=== PATIENT | female | born 1955 | race American Indian/Alaskan Native ===

== ENCOUNTER 2018-05-10 20:10 | Emergency (ER) | payer MEDICAID, OTHER, SELFPAY ==
[2018-05-10 20:28] VITALS: BP 158/95; PULSE 106; RESP 20; TEMP 36.6; O2SAT 97; BMI 16.9
[2018-05-10 21:38] VITALS: BP 138/83; PULSE 100; RESP 16; TEMP 36.7; O2SAT 95
--- NOTE | 2018-05-10 21:54 | ED_ITS ---
HPI - Recheck/Abnormal Lab/Rx <Eliza Marino, BUMPER MACHINE OPERATOR-BC - Last Filed: 05/10/18 22:04> General Chief Complaint: Recheck/Abnormal Lab/Rx Stated Complaint: RAN OUT OF MEDICATIONS Time Seen by Provider: 05/10/18 21:35 Source: patient Mode of arrival: ambulatory Limitations: no limitations History of Present Illness HPI narrative: Patient presents stating ?I need a medication refill. She ran out of her Celexa last week and would like a refill to get her through until her scheduled PCP appointment which is scheduled for the next week. She denies any thoughts of self-harm, thoughts of hurting others, and denies suicidal ideation. She denies any other problems and needs for this visit. Related Data Home Medications Medication Instructions Recorded Confirmed VITAMIN D (Vitamin D3) 1,000 u PO QDAY #0 10/09/17 bupropion HCl 300 mg PO QDAY #0 10/09/17 clopidogrel 75 mg PO QDAY #0 10/09/17 docusate sodium 100 mg PO BID #0 10/09/17 hydroxyzine HCl 50 mg PO Q8HP PRN #0 10/09/17 loratadine [Claritin Liqui-Gel] 10 mg PO QDAY #0 10/09/17 metoprolol succinate [Toprol XL] 25 mg PO QDAY #0 10/09/17 tercyill-gxbn-JX-calcium-mins 1 tab PO QDAY #0 10/09/17 [Thera M Plus (ferrous fumarat)] ranitidine HCl 300 mg PO QDAY #0 10/09/17 Previous Rx's Medication Instructions Recorded albuterol sulfate [Ventolin HFA] 2 puff INH Q4HP PRN #1 ea 10/13/17 levofloxacin [Levaquin] 750 mg PO QDAY #7 tab 10/13/17 prednisone 40 mg PO QDAY #62 tab 10/13/17 tiotropium bromide [Spiriva with 1 puff INH QDAY #30 ea 10/13/17 HandiHaler] citalopram [Celexa] 20 mg PO DAILY #30 tab 05/10/18 Allergies Allergy/AdvReac Type Severity Reaction Status Date / Time codeine [CODEINE] Allergy Severe NAUSEA / Verified 05/10/18 20:37 VOMITING latex Allergy Rash Verified 05/10/18 20:37 Review of Systems <Eliza MichelleMADDY ybarra-BC - Last Filed: 05/10/18 22:04> Review of Systems GENERAL: Denies chills, fatigue, malaise, fever, sweats. HEENT: Denies sinus pain, ear pain, sore throat, difficulty swallowing, dizziness. RESPIRATORY: Denies dyspnea, cough, wheezing, hemoptysis, sputum. CARDIOVASCULAR: Denies chest pain, palpitations, orthopnea, edema, GASTROINTESTINAL: Denies nausea, vomiting, abdominal pain, diarrhea, constipation, melena. : Denies dysuria, frequency, incontinence, hematuria, urinary retention. MUSCULOSKELETAL: denies weakness, joint pain, or bony pain SKIN: Denies rash, skin lesions, or other NEUROLOGIC: Denies weakness, headache, numbness, change in speech, confusion, seizures, incoordination. PSYCHIATRIC: See HPI 12 point review of systems is negative except for those stated above Exam <Elizamia MichelleMADDY ybarra-BC - Last Filed: 05/10/18 22:04> Narrative Exam Narrative: GENERAL: Chronically ill-appearing elderly female in chair on hallway. HEAD: Atraumatic. Normocephalic. No temporal or scalp tenderness. EYES: Pupils equal round and reactive. Extraocular motions intact. No scleral icterus. No injection or drainage. ENT: Nose without bleeding, purulent drainage or septal hematoma. Throat without erythema, tonsillar hypertrophy or exudate. Uvula midline. Airway patent. NECK: Trachea midline. No JVD or lymphadenopathy. Supple, nontender, no meningeal signs. CARDIOVASCULAR: Regular rate and rhythm without murmurs, gallops, or rubs. RESPIRATORY: Slight wheezes to auscultation on expiration. Patient is taking her home albuterol. GASTROINTESTINAL: Abdomen soft, non-tender, nondistended. No hepato-splenomegaly , or palpable masses. No guarding. EXTREMITIES: No clubbing, cyanosis, or edema. No joint tenderness, effusion, or edema noted. BACK: Nontender without deformity or crepitance. No flank tenderness. NEURO: AOx3. Appropriate interactive. SKIN: No rash or erythema. Initial Vital Signs Initial Vital Signs: Vital Signs Temperature 97.8 F 05/10/18 20:28 Pulse Rate 106 H 05/10/18 20:28 Respiratory Rate 20 05/10/18 20:28 Blood Pressure 158/95 H 05/10/18 20:28 Pulse Oximetry 97 05/10/18 20:28 <Brea Hernandez DO - Last Filed: 05/12/18 03:57> Initial Vital Signs Initial Vital Signs: Vital Signs Temperature 97.8 F 05/10/18 20:28 Pulse Rate 106 H 05/10/18 20:28 Respiratory Rate 20 05/10/18 20:28 Blood Pressure 158/95 H 05/10/18 20:28 Pulse Oximetry 97 05/10/18 20:28 Course <ALBERTO Uriostegui - Last Filed: 05/10/18 22:04> Vital Signs - 8 hr 05/10/18 20:28 05/10/18 21:38 Temperature 97.8 F 98.0 F Pulse Rate 106 H 100 H Respiratory Rate 20 16 Blood Pressure 158/95 H Blood Pressure [Left Arm] 138/83 H Pulse Oximetry 97 95 <Brea Hernandez DO - Last Filed: 05/12/18 03:57> Vital Signs - 8 hr 05/10/18 20:28 05/10/18 21:38 Temperature 97.8 F 98.0 F Pulse Rate 106 H 100 H Respiratory Rate 20 16 Blood Pressure 158/95 H Blood Pressure [Left Arm] 138/83 H Pulse Oximetry 97 95 MDM - Recheck/Abnormal Lab/Rx <ALBERTO Uriostegui - Last Filed: 05/10/18 22:04> MDM Narrative Medical decision making narrative: Patient presents requesting medication refill. Given that she is out of her Celexa and already has an appointment with her primary care provider to obtain at, I feel that a refills warranted at this time. She denied suicidal ideations thoughts of self-harm homicidal ideations or thoughts of hurting others. She plans to follow up with her primary care as scheduled and will seek help if needed. Discharge Plan Departure Patient Disposition: Home, Self-Care Clinical Impression: Encounter for medication refill Discharge Date/Time: 05/10/18 22:19 Interventions: ED Discharge Assessment Last Done: 05/10/18 22:17 Instructions: DI for Depression -- Adult, How to Refill a Prescription Activity Restrictions/Additional Instructions: I am giving you several days worth of your Celexa. Please follow-up with your primary care provider as scheduled. Please be evaluated if you have any thoughts of hurting herself or anybody else. Prescriptions: New citalopram [Celexa] 20 mg tablet 20 mg PO DAILY Qty: 30 RF: 0 No Action docusate sodium 100 MG capsule 100 mg PO BID Qty: 0 RF: 0 ranitidine HCl 300 MG tablet 300 mg PO QDAY Qty: 0 RF: 0 hydroxyzine HCl 50 MG tablet 50 mg PO Q8HP PRNQty: 0 RF: 0 loratadine [Claritin Liqui-Gel] 10 MG capsule 10 mg PO QDAY Qty: 0 RF: 0 clopidogrel 75 MG tablet 75 mg PO QDAY Qty: 0 RF: 0 bupropion HCl 300 MG tablet extended release 24 hr 300 mg PO QDAY Qty: 0 RF: 0 tficwczz-wrsp-BJ-calcium-mins [Thera M Plus (ferrous fumarat)] 1 EACH tablet 1 tab PO QDAY Qty: 0 RF: 0 metoprolol succinate [Toprol XL] 25 MG tablet extended release 24 hr 25 mg PO QDAY Qty: 0 RF: 0 VITAMIN D (Vitamin D3) 1,000 u PO QDAY Qty: 0 RF: 0 prednisone 10 MG tablet 40 mg PO QDAY Qty: 62 RF: 0 levofloxacin [Levaquin] 750 MG tablet 750 mg PO QDAY Qty: 7 RF: 0 albuterol sulfate [Ventolin HFA] 90 MCG/PUFF HFA aerosol inhaler 2 puff INH Q4HP PRNQty: 1 RF: 0 tiotropium bromide [Spiriva with HandiHaler] 18 MCG capsule, w/inhalation device 1 puff INH QDAY Qty: 30 RF: 0 <Brea Hernandez, - Last Filed: 05/12/18 03:57> [facility] [place] Attestation: I was immediately available in the department for consultation. Documentation has been reviewed. I agree with assessment and plan.
== END 2018-05-10 22:19 | disposition home or self-care (01) ==
PROVIDERS: Emergency Provider Nurse Practitioner Family
DX: Z76.0 Encounter for issue of repeat prescription (principal)
CPT/HCPCS: 99282

== ENCOUNTER 2018-08-10 15:21 | Emergency (ER) | payer MEDICAID, OTHER, SELFPAY ==
[2018-08-10 15:24] VITALS: BP 158/90; PULSE 111; RESP 20; TEMP 37.7; O2SAT 97; BMI 17.9
[2018-08-10 15:49] VITALS: PULSE 97; RESP 27; O2SAT 99
--- NOTE | 2018-08-10 16:00 | ED.FEMALEGU ---
HPI - Female Genitourinary General Chief complaint: Vaginal Bleeding Stated complaint: FEMALE PROBLEM Time Seen by Provider: 08/10/18 15:43 Source: patient Mode of arrival: ambulatory Limitations: no limitations History of Present Illness HPI Narrative: 62-year-old daily smoker female presents with a chief complaint of vaginal bleeding over the course of the day. Additionally she complains of some suprapubic tenderness and fullness and states that she is having a hard time urinating. She denies fever or chills. She has become a bit short of breath and lightheaded but states that she thinks she is like this most of the time that this may not be out of the ordinary for her. She is occasionally sexually active and was engaged in some sexual activity on Friday Complaint: vaginal bleeding Onset (ago): hour(s) Location: suprapubic Severity: mild Quality: Aching Duration: constant Relieving factors: none Exacerbating factors: none Urinary symptoms: Difficulty Urinating Vaginal discharge: blood Patient : No Related Data Home Medications Medication Instructions Recorded Confirmed bupropion HCl 300 mg PO DAILY #0 10/09/17 08/10/18 clopidogrel 75 mg PO DAILY #0 10/09/17 08/10/18 docusate sodium 100 mg PO BID PRN #0 10/09/17 08/10/18 hydroxyzine HCl 50 mg PO BEDTIME PRN #0 10/09/17 08/10/18 metoprolol succinate [Toprol XL] 25 mg PO DAILY #0 10/09/17 08/10/18 kslseshk-kbue-CS-calcium-mins 1 tab PO DAILY #0 10/09/17 08/10/18 [Thera M Plus (ferrous fumarat)] albuterol sulfate [ProAir HFA] 2 puff INHALATION Q4H PRN 08/10/18 08/10/18 alendronate 70 mg PO QWEEK 08/10/18 08/10/18 atorvastatin 40 mg PO DAILY 08/10/18 08/10/18 cholecalciferol (vitamin D3) 1,000 unit PO DAILY 08/10/18 08/10/18 [Vitamin D3] cyclobenzaprine 5 mg PO BEDTIME PRN 08/10/18 08/10/18 loratadine 10 mg PO DAILY PRN 08/10/18 08/10/18 ranitidine HCl 300 mg PO QPM 08/10/18 08/10/18 tiotropium bromide [Spiriva with 1 puff INH DAILY 08/10/18 08/10/18 HandiHaler] Previous Rx's Medication Instructions Recorded citalopram [Celexa] 20 mg PO DAILY #30 tab 05/10/18 cephalexin [Keflex] 500 mg PO QID 7 Days #28 cap 08/10/18 hydrocodone-acetaminophen 1 tab PO Q4-6H PRN #14 tab 08/10/18 Allergies Allergy/AdvReac Type Severity Reaction Status Date / Time codeine [CODEINE] Allergy Severe NAUSEA / Verified 08/10/18 15:24 VOMITING latex Allergy Rash Verified 08/10/18 15:24 lisinopril Allergy Verified 08/10/18 15:24 Review of Systems Review of Systems All systems reviewed & are unremarkable except as noted in HPI and below Constitutional Denies chills, Denies fever(s), Denies lethargy and Reports weakness Eyes Denies change in vision, Denies eye discharge, Denies irritation and Denies loss of vision ENT Ears, Nose, Mouth, and Throat: Denies change in voice, Denies neck pain and Denies sore throat Cardiovascular Denies chest pain, Denies irregular heart rhythm, Denies lightheadedness, Denies palpitations, Denies dyspnea, Denies dyspnea on exertion and Denies orthopnea Respiratory Denies cough, Denies dyspnea, Denies dyspnea on exertion and Denies wheezing Gastrointestinal Gastrointestinal: Reports abdominal pain, Denies change in bowel habits, Denies diarrhea, Denies nausea and Denies vomiting Genitourinary Reports abnormal vaginal bleeding, Denies hematuria, Denies flank pain, Denies urinary incontinence and Denies urinary urgency Musculoskeletal Denies neck pain Integumentary/Breasts Denies pruritus, Denies erythema, Denies rash and Denies wounds Neurologic Denies confusion, Denies loss of vision and Reports weakness Psychiatric Denies anxiety, Denies confusion, Denies depression, Denies homicidal ideation and Denies suicidal ideation Endocrine Denies palpitations Hematologic/Lymphatic Denies easy bruising Allergic/Immunologic Denies wheezing PFSH Social History Smoking Status: Current every day smoker Exam Narrative Exam Narrative: GENERAL: 62-year-old female, thin, in no obvious or significant distress. HEAD: Atraumatic. Normocephalic. No temporal or scalp tenderness. EYES: Pupils equal round and reactive. Extraocular motions intact. No scleral icterus. No injection or drainage. ENT: Nose without bleeding, purulent drainage or septal hematoma. Throat without erythema, tonsillar hypertrophy or exudate. Uvula midline. Airway patent. NECK: Trachea midline. No JVD or lymphadenopathy. Supple, nontender, no meningeal signs. CARDIOVASCULAR: Regular rate and rhythm without murmurs, gallops, or rubs. RESPIRATORY: Clear to auscultation. Breath sounds equal bilaterally. No wheezes, rales, or rhonchi. GASTROINTESTINAL: Abdomen soft, non-tender, nondistended. No hepato-splenomegaly, or palpable masses. No guarding. PELVIC: no bleeding EXTREMITIES: No clubbing, cyanosis, or edema. No joint tenderness, effusion, or edema noted. BACK: Nontender without deformity or crepitance. No flank tenderness. NEURO: AOx3. SKIN: No rash or erythema. Initial Vital Signs Initial Vital Signs: Vital Signs Temperature 100 F H 08/10/18 15:24 Pulse Rate 111 H 08/10/18 15:24 Respiratory Rate 20 08/10/18 15:24 Blood Pressure 158/90 H 08/10/18 15:24 Pulse Oximetry 97 08/10/18 15:24 Course Orders Ordered: ED Orders 08/10/18 15:30 Basic Metabolic Panel Stat Complete Blood Count AUTO DIFF Stat Type and Screen Stat 08/10/18 16:20 Urinalysis and Microscopic Stat Urine Culture Stat 08/10/18 16:51 CT abdomen pelvis w con Stat Discontinued Medications Albuterol/Ipratropium (Duoneb) 3 ml INH NOW ONE Stop: 08/10/18 15:49 Last Admin: 08/10/18 17:15 Dose: 3 ml Ketorolac Tromethamine (Toradol) 10 mg IV NOW ONE Stop: 08/10/18 17:01 Last Admin: 08/10/18 17:09 Dose: 10 mg Vital Signs - 8 hr 08/10/18 15:24 08/10/18 15:49 08/10/18 16:17 Temperature 100 F H Pulse Rate 111 H 97 H 88 Respiratory Rate 20 27 H 24 Blood Pressure 158/90 H Blood Pressure [Right Arm] 141/84 H Pulse Oximetry 97 99 95 08/10/18 17:18 08/10/18 18:08 Temperature Pulse Rate 84 79 Respiratory Rate 18 20 Blood Pressure Blood Pressure [Right Arm] 132/67 115/73 Pulse Oximetry 95 93 MDM - Female Genitourinary Lab Data Result diagrams: 08/10/18 15:30 08/10/18 15:30 Lab Results 08/10/18 08/10/18 08/10/18 Range/Units 15:30 15:30 15:30 WBC 18.4 H (4.5-11.0) X10^3/uL RBC 4.69 (4.0-5.2) X10^6/uL Hgb 14.3 (12.0-16.0) g/dL Hct 42.8 (36-46) % MCV 91.3 (80-100) fL MCH 30.5 (26-34) PG MCHC 33.5 (30-36) % RDW 14.5 (11.6-14.8) % Plt Count 369 (150-400) X10^3/uL Neut % (Auto) 74.5 (50-75) % Lymph % (Auto) 12.9 L (25-40) % [place] % (Auto) 9.4 (3-14) % Eos % (Auto) 2.7 (2-4) % Baso % (Auto) 0.5 (0-2) % Neut # (Auto) 37424 H (7369-3133) /uL Sodium 142 (137-145) mmol/L Potassium 4.6 (3.4-5.1) mmol/L Chloride 100 (98-107) mmol/L Carbon Dioxide 28 (22-32) mmol/L BUN 14 (7-17) mg/dL Creatinine 0.80 (0.52-1.04) mg/dL Estimated GFR > 60.0 (>60) mL/min BUN/Creatinine Ratio 17.5 (6-22) Glucose 97 (80-110) mg/dL Calcium 9.3 (8.4-10.2) mg/dL Urine Color Urine Appearance Urine pH (4.5-8.0) Ur Specific [place] (1.000-1.035) Urine Protein (Negative) Urine Glucose (UA) (Normal) g/dL Urine Ketones (NEGATIVE) Urine Occult Blood (Negative) Urine Nitrate (Negative) Urine Bilirubin (NEGATIVE) Urine Urobilinogen (0.2) E.U./dL Ur Leukocyte Esterase (NEGATIVE) Urine RBC (0-5/HPF) Urine WBC (0-5/HPF) Ur Squamous Epith Cells Urine Bacteria (None) Ur Culture Indicated? Micro UA Comment Blood Type O Positive Antibody Screen Negative 08/10/18 Range/Units 16:20 WBC (4.5-11.0) X10^3/uL RBC (4.0-5.2) X10^6/uL Hgb (12.0-16.0) g/dL Hct (36-46) % MCV (80-100) fL MCH (26-34) PG MCHC (30-36) % RDW (11.6-14.8) % Plt Count (150-400) X10^3/uL Neut % (Auto) (50-75) % Lymph % (Auto) (25-40) % [place] % (Auto) (3-14) % Eos % (Auto) (2-4) % Baso % (Auto) (0-2) % Neut # (Auto) (0662-8364) /uL Sodium (137-145) mmol/L Potassium (3.4-5.1) mmol/L Chloride (98-107) mmol/L Carbon Dioxide (22-32) mmol/L BUN (7-17) mg/dL Creatinine (0.52-1.04) mg/dL Estimated GFR (>60) mL/min BUN/Creatinine Ratio (6-22) Glucose (80-110) mg/dL Calcium (8.4-10.2) mg/dL Urine Color Red Urine Appearance Other Urine pH 6.5 (4.5-8.0) Ur Specific [place] 1.020 (1.000-1.035) Urine Protein 3+ H (Negative) Urine Glucose (UA) Negative (Normal) g/dL Urine Ketones Negative (NEGATIVE) Urine Occult Blood 3+ H (Negative) Urine Nitrate Negative (Negative) Urine Bilirubin Negative (NEGATIVE) Urine Urobilinogen 0.2 (0.2) E.U./dL Ur Leukocyte Esterase Trace H (NEGATIVE) Urine RBC >100/hpf H (0-5/HPF) Urine WBC 30-100/hpf H (0-5/HPF) Ur Squamous Epith Cells 0-1 /hpf Urine Bacteria Occasional (0-1) (None) Ur Culture Indicated? Specimen cultured Micro UA Comment Not Reportable Blood Type Antibody Screen Discharge Plan Departure Patient Disposition: Home Clinical Impression: Cystitis Discharge Date/Time: 08/10/18 18:43 Interventions: ED Discharge Assessment Last Done: 08/10/18 18:42 Instructions: DI for Acute Cystitis Activity Restrictions/Additional Instructions: *You have been diagnosed with [acute cystitis ] *What to do: *Take medications as directed *Follow up with your primary care provider in 2-3 days, call for an appointment. Let them know you were seen in the Emergency Department and that we ask that you be seen in follow up *Return to ER if you should have any new, worsening or concerning symptoms Prescriptions: New hydrocodone-acetaminophen 5-325 mg tablet 1 tab PO Q4-6H PRN (Reason: pain) Qty: 14 RF: 0 cephalexin [Keflex] 500 mg capsule 500 mg PO QID 7 Days Qty: 28 RF: 0 No Action docusate sodium 100 MG capsule 100 mg PO BID PRN (Reason: Constipation) Qty: 0 RF: 0 hydroxyzine HCl 50 MG tablet 50 mg PO BEDTIME PRN (Reason: itching and hives) Qty: 0 RF: 0 clopidogrel 75 MG tablet 75 mg PO DAILY Qty: 0 RF: 0 bupropion HCl 300 MG tablet extended release 24 hr 300 mg PO DAILY Qty: 0 RF: 0 otyzydtr-yvgz-OD-calcium-mins [Thera M Plus (ferrous fumarat)] 1 EACH tablet 1 tab PO DAILY Qty: 0 RF: 0 metoprolol succinate [Toprol XL] 25 MG tablet extended release 24 hr 25 mg PO DAILY Qty: 0 RF: 0 citalopram [Celexa] 20 mg tablet 20 mg PO DAILY Qty: 30 RF: 0 atorvastatin 40 mg tablet 40 mg PO DAILY RF: 0 alendronate 70 mg tablet 70 mg PO QWEEK RF: 0 ranitidine HCl 150 mg tablet 300 mg PO QPM RF: 0 albuterol sulfate [ProAir HFA] 90 mcg/actuation HFA aerosol inhaler 2 puff Inhalation Q4H PRN (Reason: Wheezing) RF: 0 loratadine 10 mg tablet 10 mg PO DAILY PRN (Reason: Allergy Symptoms) RF: 0 cyclobenzaprine 5 mg tablet 5 mg PO BEDTIME PRN (Reason: Muscle Spasm) RF: 0 cholecalciferol (vitamin D3) [Vitamin D3] 1,000 unit tablet 1,000 unit PO DAILY RF: 0 tiotropium bromide [Spiriva with HandiHaler] 18 MCG capsule, w/inhalation device 1 puff INH DAILY RF: 0 Referrals: Fatoumata Kong MD [Physician] -
[2018-08-10 16:05] LABS: Add Manual Diff / Slide Review NO; Basophils Percent Auto 0.5 % (0-2); Eosinophils Percent Auto 2.7 % (2-4); Hematocrit 42.8 % (36-46); Hemoglobin 14.3 g/dL (12.0-16.0); Lymphocytes Percent Auto 12.9 % (25-40); Mean Corpuscular HGB Conc 33.5 % (30-36); Mean Corpuscular Hemoglobin 30.5 PG (26-34); Mean Corpuscular Volume 91.3 fL (80-100); Monocytes Percent Auto 9.4 % (3-14); Neutrophils Absolute Auto 13700 /uL (3000-5900); Neutrophils Percent Auto 74.5 % (50-75); Platelet Count 369 X10^3/uL (150-400); Red Blood Cell Count 4.69 X10^6/uL (4.0-5.2); Red Cell Distribution Width 14.5 % (11.6-14.8); White Blood Cell Count 18.4 X10^3/uL (4.5-11.0)
[2018-08-10 16:11] LABS: BUN Creatinine Ratio 17.5 (6-22); Blood Urea Nitrogen 14 mg/dL (7-17); Calcium 9.3 mg/dL (8.4-10.2); Carbon Dioxide 28 mmol/L (22-32); Chloride 100 mmol/L (98-107); Estimated Glomerular Filt Rate > 60.0 mL/min (>60); Glucose 97 mg/dL (80-110); HEMOLYSIS 20 (0-50); Potassium 4.6 mmol/L (3.4-5.1); Sodium 142 mmol/L (137-145)
[2018-08-10 16:17] VITALS: BP 141/84; PULSE 88; RESP 24; O2SAT 95
[2018-08-10 16:35] LABS: Bilirubin Urine UA NEGATIVE (NEGATIVE); Color Urine UA RED; Glucose Urine UA NEGATIVE (Normal); Ketones Urine UA NEGATIVE (NEGATIVE); Leukocyte Esterase Urine UA TRACE (NEGATIVE); Nitrite Urine UA NEGATIVE (Negative); Occult Blood Urine UA 3+ (Negative); Protein Urine UA 3+ (Negative); Urobilinogen Urine UA 0.2 E.U./dL (0.2); pH Urine UA 6.5 (4.5-8.0)
[2018-08-10 16:37] LABS: Appearance Urine UA OTHER; Bacteria Urine Occasional (0-1); Culture Indicated Urine Specimen Cultured; RBC Urine >100/HPF (0-5/HPF); Squamous Epithelial Cell Urine 0-1 /HPF; WBC Urine 30-100/HPF (0-5/HPF)
--- NOTE | 2018-08-10 16:51 | DI.CT.S_ITS ---
PROCEDURE: CT ABDOMEN PELVIS W CON INDICATIONS: severe pelvic pain TECHNIQUE: After the administration of intravenous contrast, 5 mm thick sections acquired from the diaphragm to the symphysis. 5 mm coronal and sagittal reformats were acquired. For radiation dose reduction, the following was used: automated exposure control, adjustment of mA and/or kV according to patient size. COMPARISON: [facility], CT, PE STUDY (CTA CHEST), 10/09/2017, 14:10. FINDINGS: Image quality: Excellent. ABDOMEN: Lung bases: Lung bases are clear. Heart size is normal. Solid organs: Liver is normal in size and enhancement. Incidental note is made of focal fatty infiltration adjacent to the falciform ligament, which is not regarded to be pathologic. Gallbladder has been removed. Biliary system is non dilated. Pancreas enhances normally. Spleen is normal in size and enhancement. No adrenal nodules. Kidneys demonstrate normal size and enhancement, without hydronephrosis. Peritoneum and bowel: Bowel loops demonstrate normal wall thickness and caliber. No free fluid or air. Nodes and vessels: No retroperitoneal or mesenteric adenopathy by size criteria. Aorta and inferior vena cava are normal in size. Atherosclerotic calcification is noted. Miscellaneous: No ventral hernias. PELVIS: Genitourinary: Bladder wall demonstrates moderate circumferential thickening. This patient is status post hysterectomy. No adnexal masses are seen. Miscellaneous: No inguinal hernias or adenopathy. Bones: No suspicious bony lesions. No vertebral body compression fractures. Degenerative changes are seen throughout, which are most prominent involving the L5-S1 level. Grade 1 anterolisthesis is seen at L5-S1, with associated bilateral pars defects. IMPRESSION: Moderate circumferential bladder wall thickening is seen. Please correlate with cystitis. Incidental note is made of: Cholecystectomy Hysterectomy Focal L5-S1 degenerative change Dictated by: Donte Adams M.D. on 08/10/2018 at 16:24 Approved by: Donte Adams M.D. on 08/10/2018 at 16:27
[2018-08-10] MEDS: KETOROLAC 60 MG/2 ML VIAL 10 MG IV (17:09)
[2018-08-10] MEDS: ALBUTEROL/IPRATROPIUM 3 ML AMPUL INH (17:15)
[2018-08-10 17:18] VITALS: BP 132/67; PULSE 84; RESP 18; O2SAT 95
[2018-08-10 18:08] VITALS: BP 115/73; PULSE 79; RESP 20; O2SAT 93
== END 2018-08-10 18:43 | disposition home or self-care (01) ==
PROVIDERS: Emergency Provider Emergency Medicine
DX: N30.90 Cystitis, unspecified without hematuria (principal)
CPT/HCPCS: 36591; 74177; 80048; 81001; 85025; 86850; 86900; 86901; 87077; 87086; 87186; 93005; 94640; 96374; 99283; 99285; J1885; Q9967

== ENCOUNTER 2018-08-27 20:20 | Inpatient (IN) | payer MEDICAID, OTHER, SELFPAY ==
[2018-08-27 20:25] VITALS: BP 188/148; PULSE 114; RESP 28; TEMP 37.1; O2SAT 96
[2018-08-27] MEDS: ALBUTEROL 2.5 MG/3 ML NEB (ADULT) INH ×2 (20:34→23:24)
[2018-08-27] MEDS: methylPREDNISolone 125 MG/2 ML VIAL IV (20:34)
--- NOTE | 2018-08-27 20:34 | ED_ITS ---
HPI - SOB/Dyspnea General Chief Complaint: Shortness of Breath/Dyspnea Stated Complaint: DIFFICULTY BREATHING Time Seen by Provider: 08/27/18 20:30 Source: patient Mode of arrival: ambulatory Limitations: no limitations History of Present Illness Patient is a 62-year-old female who has a history of COPD presenting with acute shortness of breath. She has been ongoing for about a week progressively got worse today. She took breathing treatments at home and did not get any better. She denies any fever she denies any worsening productive sputum. She has chest tightness. MD Complaint: shortness of breath and cough Related Data Home Medications Medication Instructions Recorded Confirmed bupropion HCl 300 mg PO DAILY #0 10/09/17 08/28/18 clopidogrel 75 mg PO DAILY #0 10/09/17 08/28/18 docusate sodium 100 mg PO BID PRN #0 10/09/17 08/28/18 hydroxyzine HCl 50 mg PO BEDTIME PRN #0 10/09/17 08/28/18 metoprolol succinate [Toprol XL] 25 mg PO DAILY #0 10/09/17 08/28/18 [id number]-[id number]-[id number]-calcium-mins 1 tab PO DAILY #0 10/09/17 08/10/18 [Thera M Plus (ferrous fumarat)] albuterol sulfate [ProAir HFA] 2 puff INHALATION Q4H PRN 08/10/18 08/28/18 alendronate 70 mg PO QWEEK 08/10/18 08/28/18 atorvastatin 20 mg PO DAILY 08/10/18 08/28/18 cholecalciferol (vitamin D3) 1,000 unit PO DAILY 08/10/18 08/28/18 [Vitamin D3] cyclobenzaprine 5 mg PO BEDTIME PRN 08/10/18 08/10/18 loratadine 10 mg PO DAILY PRN 08/10/18 08/28/18 ranitidine HCl 300 mg PO QPM 08/10/18 08/28/18 tiotropium bromide [Spiriva with 1 puff INH DAILY 08/10/18 08/28/18 HandiHaler] Previous Rx's Medication Instructions Recorded citalopram [Celexa] 20 mg PO DAILY #30 tab 05/10/18 hydrocodone-acetaminophen 1 tab PO Q4-6H PRN #14 tab 08/10/18 Allergies Allergy/AdvReac Type Severity Reaction Status Date / Time codeine [CODEINE] Allergy Severe NAUSEA / Verified 08/10/18 15:24 VOMITING latex Allergy Rash Verified 08/10/18 15:24 lisinopril Allergy Verified 08/10/18 15:24 Review of Systems Review of Systems All systems reviewed & are unremarkable except as noted in HPI and below Constitutional Denies chills, Denies fever(s), Denies lethargy and Denies weakness Cardiovascular Denies chest pain, Denies irregular heart rhythm, Denies lightheadedness, Denies palpitations and Denies orthopnea Respiratory Reports as per HPI Gastrointestinal Gastrointestinal: Denies abdominal pain, Denies change in bowel habits, Denies diarrhea, Denies nausea and Denies vomiting Musculoskeletal Denies back pain, Denies muscle weakness, Denies numbness and Denies tingling Integumentary/Breasts Denies pruritus, Denies erythema, Denies rash and Denies wounds Neurologic Denies numbness, Denies tingling and Denies weakness Endocrine Denies palpitations PFSH Medical History COPD (chronic obstructive pulmonary disease) (Acute) Hypertension (Acute) Irritable bowel syndrome (IBS) (Acute) Urinary tract infection (Acute) Surgical History Total knee replacement status (Acute) Social History household members: friend(s) Smoking Status: Former smoker alcohol intake: former Exam Initial Vital Signs Initial Vital Signs: Vital Signs Temperature 98.8 F 08/27/18 20:25 Pulse Rate 114 H 08/27/18 20:25 Respiratory Rate 28 H 08/27/18 20:25 Blood Pressure 188/148 H 08/27/18 20:25 Pulse Oximetry 96 08/27/18 20:25 Const General: cooperative and in distress Nutritional Appearance: thin Orientation: alert, awake and oriented x3 Resp Effort & Inspection: not able to speak in complete sentences ( speaking in 1 to two-word sentences), labored and prolonged expiratory phase Auscultation: diminished lung sounds bilaterally and no wheezes Cardio Rhythm: regular rhythm Heart Sounds: S1 normal and S2 normal GI Palpation: soft, No firm, No guarding and No tender Skin General: no rashes or lesions noted, No jaundice and No petechiae Neuro General: alert, oriented x3, gait normal and no focal motor deficits Speech: speech normal Extrem General: full ROM, no clubbing, cyanosis or edema, no pedal edema and no calf tenderness Course Orders Ordered: ED Orders 08/27/18 20:30 B Type Natriuretic Peptide Stat Complete Blood Count AUTO DIFF Stat Comprehensive Metabolic Panel Stat Magnesium Stat Procalcitonin Stat Troponin & CK Cardiac Panel Stat EKG-12 Lead Stat 08/27/18 20:32 XR chest 1V Stat 08/27/18 20:44 Lactate (Lactic Acid) Stat 08/27/18 23:35 Arterial Blood Gas Stat 08/27/18 23:39 Blood Culture Stat Lactate (Lactic Acid) Stat 08/28/18 01:33 Consult to Physician Routine Consult to Respiratory Therapy Evaluate & Treat Acetaminophen (Tylenol) 650 mg PO Q6HR PRN PRN Reason: As Needed for Fever/Mild Pain Last Admin: 08/28/18 02:35 Dose: 650 mg Sodium Chloride (Normal Saline 0.9%) 1,000 mls @ 200 mls/hr IV CONT LULY Last Admin: 08/28/18 02:27 Dose: 200 mls/hr Methylprednisolone (Solu-Medrol 125 Mg Vial) 80 mg IV Q8HR LULY Discontinued Medications Albuterol (Ventolin) 2.5 mg INH NOW ONE Stop: 08/27/18 20:31 Last Admin: 08/27/18 20:34 Dose: 2.5 mg Albuterol (Proventil) 1.25 mg INH NOW ONE Stop: 08/27/18 23:21 Albuterol (Ventolin) 2.5 mg INH NOW ONE Stop: 08/27/18 23:24 Last Admin: 08/27/18 23:24 Dose: 2.5 mg Albuterol/Ipratropium (Duoneb) 3 ml INH NOW ONE Stop: 08/27/18 20:31 Last Admin: 08/27/18 20:35 Dose: 3 ml Albuterol/Ipratropium (Duoneb) 3 ml INH NOW ONE Stop: 08/27/18 21:47 Last Admin: 08/27/18 21:47 Dose: 3 ml Sodium Chloride (Normal Saline 0.9%) 1,000 mls @ 1,000 mls/hr IV BOLUS ONE Stop: 08/27/18 21:29 Last Infusion: 08/27/18 22:00 Dose: 0 mls/hr Admin: 08/27/18 20:38 Dose: 1,000 mls/hr Sodium Chloride (Normal Saline 0.9%) 1,000 mls @ 1,000 mls/hr IV BOLUS ONE Stop: 08/27/18 23:09 Last Infusion: 08/27/18 23:20 Dose: 0 mls/hr Admin: 08/27/18 22:17 Dose: 1,000 mls/hr Ceftriaxone Sodium/Dextrose (Rocephin) 1 gm in 50 mls @ 100 mls/hr IV NOW ONE Stop: 08/27/18 23:48 Last Infusion: 08/27/18 23:59 Dose: 0 mls/hr Admin: 08/27/18 23:25 Dose: 100 mls/hr Azithromycin 500 mg/ Dextrose 250 mls @ 250 mls/hr IV NOW ONE Stop: 08/27/18 23:20 Last Infusion: 08/28/18 01:17 Dose: 0 mls/hr Admin: 08/27/18 23:58 Dose: 250 mls/hr Methylprednisolone (Solu-Medrol 125 Mg Vial) 125 mg IV NOW ONE Stop: 08/27/18 20:31 Last Admin: 08/27/18 20:34 Dose: 125 mg Morphine Sulfate (Morphine) 2 mg IV NOW ONE Stop: 08/28/18 00:50 Last Admin: 08/28/18 00:51 Dose: 2 mg Ondansetron HCl (Zofran Odt) 4 mg PO NOW ONE Stop: 08/28/18 01:10 Last Admin: 08/28/18 01:11 Dose: 4 mg Vital Signs - 8 hr 08/27/18 20:25 08/27/18 21:11 08/27/18 21:47 Temperature 98.8 F Pulse Rate 114 H 98 H 104 H Respiratory Rate 28 H 28 H 30 H Blood Pressure 188/148 H Blood Pressure [Left Arm] 148/87 H Pulse Oximetry 96 96 95 08/27/18 22:20 08/27/18 23:25 08/28/18 01:13 Temperature Pulse Rate 102 H 110 H 101 H Respiratory Rate 23 24 28 H Blood Pressure Blood Pressure [Left Arm] 165/78 H 134/68 Pulse Oximetry 94 94 95 08/28/18 01:37 08/28/18 02:31 Temperature 98.7 F Pulse Rate 117 H 98 H Respiratory Rate 20 24 Blood Pressure 153/104 H 146/80 H Blood Pressure [Left Arm] Pulse Oximetry 91 94 MDM - SOB/Dyspnea Medical Records Attestation: I reviewed the patient's medical records. Lab Data Attestation: I reviewed the patient's lab results. Result diagrams: 08/27/18 20:30 08/27/18 20:30 Lab Results 08/27/18 08/27/18 08/27/18 Range/Units 20:30 20:30 20:30 WBC 11.3 H (4.5-11.0) X10^3/uL RBC 4.44 (4.0-5.2) X10^6/uL Hgb 13.7 (12.0-16.0) g/dL Hct 40.7 (36-46) % MCV 91.7 (80-100) fL MCH 30.9 (26-34) PG MCHC 33.7 (30-36) % RDW 14.3 (11.6-14.8) % Plt Count 429 H (150-400) X10^3/uL Neut % (Auto) 53.4 (50-75) % Lymph % (Auto) 28.9 (25-40) % Dickinson % (Auto) 9.2 (3-14) % Eos % (Auto) 7.8 H (2-4) % Baso % (Auto) 0.7 (0-2) % Neut # (Auto) 6000 H (6471-4494) /uL ABG pH (7.35-7.45) ABG pCO2 (35-45) mmHg ABG pO2 (80-100) mmHg ABG HCO3 (22-26) mmol/L ABG Total CO2 (21-31) mmol/L ABG O2 Saturation (95-100) % ABG Base Excess (-2-2) mmol/L FiO2 Sodium (137-145) mmol/L Potassium (3.4-5.1) mmol/L Chloride (98-107) mmol/L Carbon Dioxide (22-32) mmol/L BUN (7-17) mg/dL Creatinine (0.52-1.04) mg/dL Estimated GFR (>60) mL/min BUN/Creatinine Ratio (6-22) Glucose (80-110) mg/dL Lactate (0.7-2.1) mmol/L Calcium (8.4-10.2) mg/dL Magnesium 2.5 H (1.6-2.3) mg/dL Total Bilirubin (0.2-1.3) mg/dL AST (14-36) IU/L ALT (9-52) IU/L Alkaline Phosphatase (38-126) U/L Total Creatine Kinase 185 H (30-135) U/L CK-MB (CK-2) 3.24 H (<2.37) ng/mL CK-MB (CK-2) Rel Index 1.8 (1.5-5.0) % Troponin I < 0.012 (0.01-0.034) ng/mL B-Natriuretic Peptide < 100.0 (<100) Total Protein (6.3-8.2) g/dL Albumin (3.5-5.0) g/dL Globulin (1.7-4.1) g/dL Albumin/Globulin Ratio (1.0-2.8) Procalcitonin < 0.05 (<0.5) ng/mL 08/27/18 08/27/18 08/27/18 Range/Units 20:30 20:44 23:35 WBC (4.5-11.0) X10^3/uL RBC (4.0-5.2) X10^6/uL Hgb (12.0-16.0) g/dL Hct (36-46) % MCV (80-100) fL MCH (26-34) PG MCHC (30-36) % RDW (11.6-14.8) % Plt Count (150-400) X10^3/uL Neut % (Auto) (50-75) % Lymph % (Auto) (25-40) % Dickinson % (Auto) (3-14) % Eos % (Auto) (2-4) % Baso % (Auto) (0-2) % Neut # (Auto) (6003-1590) /uL ABG pH 7.32 L (7.35-7.45) ABG pCO2 32.8 L (35-45) mmHg ABG pO2 69 L (80-100) mmHg ABG HCO3 17 L (22-26) mmol/L ABG Total CO2 18 L (21-31) mmol/L ABG O2 Saturation 92 L (95-100) % ABG Base Excess -9.0 L (-2-2) mmol/L FiO2 0.21 Sodium 143 (137-145) mmol/L Potassium 4.5 (3.4-5.1) mmol/L Chloride 102 (98-107) mmol/L Carbon Dioxide 23 (22-32) mmol/L BUN 12 (7-17) mg/dL Creatinine 0.80 (0.52-1.04) mg/dL Estimated GFR > 60.0 (>60) mL/min BUN/Creatinine Ratio 15.0 (6-22) Glucose 84 (80-110) mg/dL Lactate 3.1 H (0.7-2.1) mmol/L Calcium 8.9 (8.4-10.2) mg/dL Magnesium (1.6-2.3) mg/dL Total Bilirubin 0.2 (0.2-1.3) mg/dL AST 41 H (14-36) IU/L ALT 27 (9-52) IU/L Alkaline Phosphatase 96 (38-126) U/L Total Creatine Kinase (30-135) U/L CK-MB (CK-2) (<2.37) ng/mL CK-MB (CK-2) Rel Index (1.5-5.0) % Troponin I (0.01-0.034) ng/mL B-Natriuretic Peptide (<100) Total Protein 8.3 H (6.3-8.2) g/dL Albumin 4.9 (3.5-5.0) g/dL Globulin 3.4 (1.7-4.1) g/dL Albumin/Globulin Ratio 1.4 (1.0-2.8) Procalcitonin (<0.5) ng/mL 08/27/18 Range/Units 23:39 WBC (4.5-11.0) X10^3/uL RBC (4.0-5.2) X10^6/uL Hgb (12.0-16.0) g/dL Hct (36-46) % MCV (80-100) fL MCH (26-34) PG MCHC (30-36) % RDW (11.6-14.8) % Plt Count (150-400) X10^3/uL Neut % (Auto) (50-75) % Lymph % (Auto) (25-40) % Dickinson % (Auto) (3-14) % Eos % (Auto) (2-4) % Baso % (Auto) (0-2) % Neut # (Auto) (4913-5562) /uL ABG pH (7.35-7.45) ABG pCO2 (35-45) mmHg ABG pO2 (80-100) mmHg ABG HCO3 (22-26) mmol/L ABG Total CO2 (21-31) mmol/L ABG O2 Saturation (95-100) % ABG Base Excess (-2-2) mmol/L FiO2 Sodium (137-145) mmol/L Potassium (3.4-5.1) mmol/L Chloride (98-107) mmol/L Carbon Dioxide (22-32) mmol/L BUN (7-17) mg/dL Creatinine (0.52-1.04) mg/dL Estimated GFR (>60) mL/min BUN/Creatinine Ratio (6-22) Glucose (80-110) mg/dL Lactate 4.4 H (0.7-2.1) mmol/L Calcium (8.4-10.2) mg/dL Magnesium (1.6-2.3) mg/dL Total Bilirubin (0.2-1.3) mg/dL AST (14-36) IU/L ALT (9-52) IU/L Alkaline Phosphatase (38-126) U/L Total Creatine Kinase (30-135) U/L CK-MB (CK-2) (<2.37) ng/mL CK-MB (CK-2) Rel Index (1.5-5.0) % Troponin I (0.01-0.034) ng/mL B-Natriuretic Peptide (<100) Total Protein (6.3-8.2) g/dL Albumin (3.5-5.0) g/dL Globulin (1.7-4.1) g/dL Albumin/Globulin Ratio (1.0-2.8) Procalcitonin (<0.5) ng/mL Urine Dip Bedside Urine Glucose Negative Bedside Urine Bilirubin - Negative Bedside Urine Ketone - Negative Urine Specific [address] 1.015 Bedside Urine Occult Blood - Negative Bedside Urine pH 6.0 Bedside Urine Protein - Negative Bedside Urine Urobilinogen - Negative Bedside Urine Nitrite - Negative Bedside Urine Leukocytes - Negative Esterase Imaging Data Chest x-ray: Radiologist's impression: PROCEDURE: XR CHEST 1V INDICATIONS: short of breath TECHNIQUE: One view of the chest was acquired. COMPARISON: [facility], CR, CHEST 2 VIEW, 10/09/2017, 12:56. [facility], CT, PE STUDY (CTA CHEST), 10/09/2017, 14:10. FINDINGS: Surgical changes and devices: None. Lungs and pleura: Hyperinflation consistent with COPD. No pleural effusions or pneumothorax. Lungs are clear. Mediastinum: Mediastinal contours appear normal. Heart size is normal. Bones and chest wall: Old right fifth and eighth rib fractures are noted. No suspicious bony lesions. Overlying soft tissues appear unremarkable. IMPRESSION: 1. No acute cardiopulmonary disease. 2. COPD. 3. Old right fifth and eighth rib fractures. Dictated by: Kylah Hall M.D. on 08/27/2018 at 20:59 ECG Data Attestation: I personally reviewed and interpreted this ECG as follows: Prior ECG tracings: available for review Interpretation: sinus rhythm rate [address] changes no T-wave inversions similar to previous EKG MDM Narrative Medical decision making narrative: Patient responded well to initial bronchodilators. She can't able to talk. She is monitored for over the next couple of hours. She continues to have coughing episode of chest tightness and difficulty breathing. She is requiring multiple treatments. She is not hypoxic but would benefit from at least observation frequent treatments and IV steroids. Lactic acid is noted to be elevated and continues to rest.. However patient continues to have respiratory distress also her CO2 is low, I do not believe this is from sepsis however she is given IV fluids and antibiotics. Blood cultures are Dr. Hopson has been updated on test results and symptoms. Agrees with observation at this time. Discharge Plan Departure Patient Disposition: Admitted as Observation Clinical Impression: Acute exacerbation of chronic obstructive airways disease Discharge Date/Time: 08/28/18 01:20 Interventions: ED Discharge Assessment Last Done: 08/28/18 01:14 Admit Date/Time: 08/28/18 00:19 Admit Provider: Mike Hopson
[2018-08-27] MEDS: ALBUTEROL/IPRATROPIUM 3 ML AMPUL INH ×2 (20:35→21:47)
[2018-08-27] MEDS: SODIUM CHLORIDE 0.9% 1,000 ML 1000 ML IV ×2 (20:38→22:17)
[2018-08-27 20:41] LABS: Add Manual Diff / Slide Review NO; Basophils Percent Auto 0.7 % (0-2); Eosinophils Percent Auto 7.8 % (2-4); Hematocrit 40.7 % (36-46); Hemoglobin 13.7 g/dL (12.0-16.0); Lymphocytes Percent Auto 28.9 % (25-40); Mean Corpuscular HGB Conc 33.7 % (30-36); Mean Corpuscular Hemoglobin 30.9 PG (26-34); Mean Corpuscular Volume 91.7 fL (80-100); Monocytes Percent Auto 9.2 % (3-14); Neutrophils Absolute Auto 6000 /uL (3000-5900); Neutrophils Percent Auto 53.4 % (50-75); Platelet Count 429 X10^3/uL (150-400); Red Blood Cell Count 4.44 X10^6/uL (4.0-5.2); Red Cell Distribution Width 14.3 % (11.6-14.8); White Blood Cell Count 11.3 X10^3/uL (4.5-11.0)
[2018-08-27 21:03] LABS: Alanine Aminotransferase 27 IU/L (9-52); Albumin 4.9 g/dL (3.5-5.0); Albumin Globulin Ratio 1.4 (1.0-2.8); Alkaline Phosphatase 96 U/L (38-126); Aspartate Aminotransferase 41 IU/L (14-36); Bilirubin Total 0.2 mg/dL (0.2-1.3); Blood Urea Nitrogen 12 mg/dL (7-17); Calcium 8.9 mg/dL (8.4-10.2); Carbon Dioxide 23 mmol/L (22-32); Chloride 102 mmol/L (98-107); Estimated Glomerular Filt Rate > 60.0 mL/min (>60); Globulin 3.4 g/dL (1.7-4.1); Glucose 84 mg/dL (80-110); HEMOLYSIS < 15 (0-50); Potassium 4.5 mmol/L (3.4-5.1); Sodium 143 mmol/L (137-145); Total Protein 8.3 g/dL (6.3-8.2)
[2018-08-27 21:11] VITALS: BP 148/87; PULSE 98; RESP 28; O2SAT 96
[2018-08-27 21:13] LABS: B Type Natriuretic Peptide < 100.0 (<100)
[2018-08-27 21:15] LABS: Lactate (Lactic Acid) 3.1 mmol/L (0.7-2.1)
[2018-08-27 21:18] LABS: Creatine Kinase 185 U/L (30-135); Magnesium 2.5 mg/dL (1.6-2.3)
[2018-08-27 21:31] LABS: Troponin I < 0.012 ng/mL (0.01-0.034)
[2018-08-27 21:33] LABS: CKMB % Relative Index 1.8 % (1.5-5.0); Creatine Kinase MB 3.24 ng/mL (<2.37)
[2018-08-27 21:36] LABS: Procalcitonin < 0.05 ng/mL (<0.5)
--- NOTE | 2018-08-27 21:43 | PC.NURSE ---
Pt coughing and states increase SOB. RT called and Dr. Hernandez notified.
[2018-08-27 21:47] VITALS: PULSE 104; RESP 30; O2SAT 95
--- NOTE | 2018-08-27 21:52 | RT ---
PT RECEIVED NEB X 2 BY RN PRIOR TO THIS TX. BILLING FOR ALL 3.
[2018-08-27 22:20] VITALS: BP 165/78; PULSE 102; RESP 23; O2SAT 94
[2018-08-27 23:25] VITALS: PULSE 110; RESP 24; O2SAT 94
[2018-08-27] MEDS: CEFTRIAXONE 1 GM/50 ML FROZ.PIGGY IV (23:25)
[2018-08-27 23:58] LABS: HCO3 ABG 17 mmol/L (22-26); PCO2 ABG 32.8 mmHg (35-45); PO2 ABG 69 mmHg (80-100); TCO2 ABG 18 mmol/L (21-31); pH ABG 7.32 (7.35-7.45)
[2018-08-27] MEDS: AZITHROMYCIN 500 MG in DEXTROSE 5% IN WATER 250 ML IV (23:58)
[2018-08-27 23:59] LABS: Lactate (Lactic Acid) 4.4 mmol/L (0.7-2.1)
[2018-08-27 23:59] LABS: Fractionated Inspired Oxygen 0.21; Oxygen Saturation ABG 92 % (95-100)
[2018-08-28] VITALS (13 sets, daily range): BP systolic 118–153; BP diastolic 56–104; PULSE 88–117; RESP 16–28; TEMP 36.7–37.2; O2SAT 91–97; BMI 17.8
[2018-08-28] MEDS: MORPHINE 2 MG/ML INJ IV (00:51)
[2018-08-28 00:56] LABS: Reflexed Lactate in 2 Hours Y
[2018-08-28] MEDS: ONDANSETRON 4 MG ODT PO (01:11)
[2018-08-28] MEDS: SODIUM CHLORIDE 0.9% 1,000 ML 200 ML IV (02:27)
[2018-08-28] MEDS: ACETAMINOPHEN 325 MG TABLET 650 MG PO (02:35)
[2018-08-28] MEDS: HYDROCODONE/ACET 5/325 TABLET 1 TAB PO ×2 (03:25→18:59)
[2018-08-28 03:43] LABS: Reflexed Lactate in 2 Hours Y
[2018-08-28] MEDS: methylPREDNISolone 125 MG/2 ML VIAL 80 MG IV ×3 (06:43→21:48)
[2018-08-28] MEDS: ALBUTEROL/IPRATROPIUM 3 ML AMPUL INH ×4 (09:27→20:01)
--- NOTE | 2018-08-28 10:53 | PC.NURSE ---
Addendum entered by Nelsy Jacobson R.N. 08/28/18 11:42: pt c/o SOB. O2 sat is 97% HR up to 115 with labored breathing. No PRN inhaler in drawer so I called RT and they arrived to administer their scheduled treatment at 1135. Original Note: AM Shift pt AO, pleasant, and receptive to care. Persistent coughing, wasn't productive until post-RT treatment. Encouraging pt to sip up phlegm into tissue and discard. SBA with cane to BR. Reporting 6/10 pain in stomach area, thinks it is because she has reflux. Reporting SOB with activity, but O2 levels stay around 93-94% on RA. Patient also c/o the persistent cough, reflux, and cramps in her feet (bilaterally). I wrote a note to the hospitalist for lozenges, no orders as of this note. Patient has a history of left hip issues and uses a cane to ambulate, uses cane on left side bc she is left-handed (the can is borrowed from the trauma adame). RT has seen the patient this AM and PT is in room currently. Skin is good, other than a couple bruises.
--- NOTE | 2018-08-28 11:11 | CM.DANOTE ---
Discharge Planning/Care Management DCP: assessment: case received, EMR reviewed and met 0830 with pt. Introduced self and role. Pt is a 62 year old female who admitted early this morning 00:19 to care of hospitalist team. PCP: under care of the [facility]/Symone Lobo. Payer Medicaid and [facility] Pt is not at baseline homebound. Admits to a bit of unsteadiness at baseline and uses a cane prn. RT is following. Hx of COPD. P: follow prn for d/c issues and options as they arise. POC is newly in process. CM Discharge Assessment Start: 08/28/18 11:08 Freq: Status: Active Protocol: Document 08/28/18 11:08 ITV (Rec: 08/28/18 11:11 ITV [id number]) Discharge Planning Assessment History Provided By Patient Medical Record Prior Living Arrangements House Household Members friend(s) Comment lives with roommate: [employer] Type of transporation used prior to Drives own vehicle admit DME Already Rented / Owned Cane Nebulizer Comment occassional when the ground is uneven Whiteboard Updated in Patient Room with Yes name and ext. # of Framing Manager Review Status In Process Next Review Type Continued Stay Review
[2018-08-28] MEDS: ALBUTEROL 2.5 MG/3 ML NEB (ADULT) INH (11:37)
--- NOTE | 2018-08-28 12:17 | PM.HP.1 ---
History of Present Illness Date Patient Seen: 08/28/18 Chief complaint: DIFFICULTY BREATHING Narrative: This is a 62-year-old female who has longstanding COPD and presents with 1 week of shortness of breath, cough, a feeling of fevers and sweating. She is also having muscle cramps at least for the last day. She has chronic chest pain and weight loss probably related to the COPD. She has also fallen recently. There is no elevation in white blood count and the chest x-ray does not show pneumonia. Patient History Medical History COPD (chronic obstructive pulmonary disease) (Acute) Hypertension (Acute) Irritable bowel syndrome (IBS) (Acute) Urinary tract infection (Acute) Surgical History Total knee replacement status (Acute) Family & Social History Family History: Reviewed 08/28/18 by Alfred Payton MD Social History: household members friend(s) Prior Living Arrangements House Safety & Behavioral: Feels Safe in Current Yes Environment Been Physically Hurt or No Threatened By a Person Suicidal Ideation Description None Suicide Plan Description No Plan Tobacco & Substance use: Smoking Status Former smoker alcohol intake former alcohol intake frequency 0-2 drinks per day Substance Use Type does not use Meds Home Medications Medication Instructions Recorded Confirmed Type bupropion HCl 300 mg PO DAILY #0 10/09/17 08/28/18 History clopidogrel 75 mg PO DAILY #0 10/09/17 08/28/18 History docusate sodium 100 mg PO BID PRN #0 10/09/17 08/28/18 History hydroxyzine HCl 50 mg PO BEDTIME PRN #0 10/09/17 08/28/18 History metoprolol succinate [Toprol XL] 25 mg PO DAILY #0 10/09/17 08/28/18 History umqhyutj-uwvr-MS-calcium-mins 1 tab PO DAILY #0 10/09/17 08/28/18 History [Thera M Plus (ferrous fumarat)] citalopram [Celexa] 20 mg PO DAILY #30 tab 05/10/18 08/28/18 Rx albuterol sulfate [ProAir HFA] 2 puff INHALATION Q4H PRN 08/10/18 08/28/18 History alendronate 70 mg PO QWEEK 08/10/18 08/28/18 History atorvastatin 20 mg PO DAILY 08/10/18 08/28/18 History cholecalciferol (vitamin D3) 1,000 unit PO DAILY 08/10/18 08/28/18 History [Vitamin D3] cyclobenzaprine 5 mg PO BEDTIME PRN 08/10/18 08/28/18 History hydrocodone-acetaminophen 1 tab PO Q4-6H PRN #14 tab 08/10/18 08/28/18 Rx loratadine 10 mg PO DAILY PRN 08/10/18 08/28/18 History ranitidine HCl 300 mg PO QPM 08/10/18 08/28/18 History tiotropium bromide [Spiriva with 1 puff INH DAILY 08/10/18 08/28/18 History HandiHaler] Allergies Allergy/AdvReac Type Severity Reaction Status Date / Time codeine [CODEINE] Allergy Severe NAUSEA / Verified 08/10/18 15:24 VOMITING latex Allergy Rash Verified 08/10/18 15:24 lisinopril Allergy Verified 08/10/18 15:24 Review of Systems Review of Systems Positive for fever, shortness of breath, coughing, sweating, muscle cramps. Negative for nausea, vomiting, abdominal pain, bleeding, joint pain, back pain, seizures, headaches, eye problems, new allergies, trouble talking. Exam Vital Signs (past 8 hours): - 08/28/18 04:32 08/28/18 06:03 08/28/18 07:55 Temperature 98.5 F 98.2 F Pulse Rate 88 89 102 H Respiratory Rate 24 16 20 Blood Pressure 120/56 L 118/94 H Pulse Oximetry 93 08/28/18 09:27 08/28/18 11:37 Temperature Pulse Rate 102 H Respiratory Rate 24 Blood Pressure Pulse Oximetry 95 95 Oxygen Delivery Method Room Air Narrative Exam Narrative: She is alert and oriented x3, she is in mild distress from her respiratory effort. Oral exam is normal. Pupils are equally round and reactive to light and accommodation. Sclerae are pink and nonicteric. Throat looks normal. No lymph nodes are felt head, neck, supraclavicular area. There is no thyromegaly. There is no JVD or carotid bruits heard. Heart is tachycardic, regular rhythm, no murmur. Lungs have wheezing left more than right. Abdomen is soft, scaphoid, nontender, no organomegaly. Bowel sounds are positive. Extremities have no ankle edema. Neuro exam. Cranial nerves 2-12 tested intact. Deep tendon reflexes are normal. There is no lateralizing deficit. Motor function is 4/5 throughout. Skin no rash or jaundice. Objective Labs Result Diagrams: 08/27/18 20:30 08/27/18 20:30 Labs: Laboratory Results - last 24 hr 08/27/18 08/27/18 08/27/18 20:30 20:30 20:30 WBC 11.3 H RBC 4.44 Hgb 13.7 Hct 40.7 MCV 91.7 MCH 30.9 MCHC 33.7 RDW 14.3 Plt Count 429 H Neut % (Auto) 53.4 Lymph % (Auto) 28.9 Davidson % (Auto) 9.2 Eos % (Auto) 7.8 H Baso % (Auto) 0.7 Neut # (Auto) 6000 H ABG pH ABG pCO2 ABG pO2 ABG HCO3 ABG Total CO2 ABG O2 Saturation ABG Base Excess FiO2 Sodium Potassium Chloride Carbon Dioxide BUN Creatinine Estimated GFR BUN/Creatinine Ratio Glucose Lactate Calcium Magnesium 2.5 H Total Bilirubin AST ALT Alkaline Phosphatase Total Creatine Kinase 185 H CK-MB (CK-2) 3.24 H CK-MB (CK-2) Rel Index 1.8 Troponin I < 0.012 B-Natriuretic Peptide < 100.0 Total Protein Albumin Globulin Albumin/Globulin Ratio Procalcitonin < 0.05 08/27/18 08/27/18 08/27/18 20:30 20:44 23:35 WBC RBC Hgb Hct MCV MCH MCHC RDW Plt Count Neut % (Auto) Lymph % (Auto) [place] % (Auto) Eos % (Auto) Baso % (Auto) Neut # (Auto) ABG pH 7.32 L ABG pCO2 32.8 L ABG pO2 69 L ABG HCO3 17 L ABG Total CO2 18 L ABG O2 Saturation 92 L ABG Base Excess -9.0 L FiO2 0.21 Sodium 143 Potassium 4.5 Chloride 102 Carbon Dioxide 23 BUN 12 Creatinine 0.80 Estimated GFR > 60.0 BUN/Creatinine Ratio 15.0 Glucose 84 Lactate 3.1 H Calcium 8.9 Magnesium Total Bilirubin 0.2 AST 41 H ALT 27 Alkaline Phosphatase 96 Total Creatine Kinase CK-MB (CK-2) CK-MB (CK-2) Rel Index Troponin I B-Natriuretic Peptide Total Protein 8.3 H Albumin 4.9 Globulin 3.4 Albumin/Globulin Ratio 1.4 Procalcitonin 08/27/18 23:39 WBC RBC Hgb Hct MCV MCH MCHC RDW Plt Count Neut % (Auto) Lymph % (Auto) [place] % (Auto) Eos % (Auto) Baso % (Auto) Neut # (Auto) ABG pH ABG pCO2 ABG pO2 ABG HCO3 ABG Total CO2 ABG O2 Saturation ABG Base Excess FiO2 Sodium Potassium Chloride Carbon Dioxide BUN Creatinine Estimated GFR BUN/Creatinine Ratio Glucose Lactate 4.4 H Calcium Magnesium Total Bilirubin AST ALT Alkaline Phosphatase Total Creatine Kinase CK-MB (CK-2) CK-MB (CK-2) Rel Index Troponin I B-Natriuretic Peptide Total Protein Albumin Globulin Albumin/Globulin Ratio Procalcitonin Assessment & Plan (1) Acute exacerbation of chronic obstructive airways disease: Problem details: Continue oxygen, IV Solu-Medrol and beta agonist therapy. Respiratory therapy is working with her. Current visit: Yes Status: Acute (2) Major depression: Problem details: Continue citalopram and Wellbutrin. Current visit: Yes Status: Acute (3) Mixed hyperlipidemia: Problem details: Continue atorvastatin. Current visit: Yes Status: Acute (4) Hypertension: Current visit: Yes Status: Acute (5) Dermatitis: Problem details: Add triamcinolone cream for her left anterior ankle rash. Current visit: Yes Status: Acute (6) Osteoporosis: Problem details: Continue Fosamax and calcium. Current visit: Yes Status: Acute
[2018-08-28] MEDS: BENZONATATE 100 MG CAPSULE PO (13:32)
[2018-08-28 14:54] LABS: Creatine Kinase 236 U/L (30-135)
[2018-08-28] MEDS: hydrOXYzine pamoate 25 MG CAPSULE 50 MG PO (17:14)
[2018-08-28 18:31] LABS: Reflexed Lactate in 2 Hours Y
[2018-08-28 19:08] LABS: Lactate 2HR (Lactic Acid Rflx) 5.8 mmol/L (0.7-2.1)
[2018-08-28] MEDS: SODIUM CHLORIDE 0.9% FLUSH 10 ML IV (21:48)
[2018-08-29] VITALS (10 sets, daily range): BP systolic 115–159; BP diastolic 53–88; PULSE 88–113; RESP 15–23; TEMP 36.4–37.3; O2SAT 92–96
[2018-08-29] MEDS: BENZONATATE 100 MG CAPSULE PO ×3 (02:38→23:50)
[2018-08-29] MEDS: HYDROCODONE/ACET 5/325 TABLET 1 TAB PO ×4 (02:38→23:44)
[2018-08-29] MEDS: ALBUTEROL/IPRATROPIUM 3 ML AMPUL INH ×3 (05:51→17:32)
[2018-08-29] MEDS: TIOTROPIUM BROMIDE 18 MCG INHALER INH (05:52)
[2018-08-29] MEDS: methylPREDNISolone 125 MG/2 ML VIAL 80 MG IV ×3 (06:17→21:10)
[2018-08-29 08:01] LABS: Add Manual Diff / Slide Review NO; Basophils Percent Auto 0.1 % (0-2); Hematocrit 36.1 % (36-46); Hemoglobin 12.1 g/dL (12.0-16.0); Lymphocytes Percent Auto 9.2 % (25-40); Mean Corpuscular HGB Conc 33.6 % (30-36); Mean Corpuscular Hemoglobin 30.9 PG (26-34); Mean Corpuscular Volume 91.9 fL (80-100); Monocytes Percent Auto 6.4 % (3-14); Neutrophils Absolute Auto 8500 /uL (3000-5900); Neutrophils Percent Auto 84.3 % (50-75); Platelet Count 397 X10^3/uL (150-400); Red Blood Cell Count 3.93 X10^6/uL (4.0-5.2); Red Cell Distribution Width 14.7 % (11.6-14.8); White Blood Cell Count 10.1 X10^3/uL (4.5-11.0)
[2018-08-29 08:11] LABS: Alanine Aminotransferase 30 IU/L (9-52); Albumin 4.6 g/dL (3.5-5.0); Albumin Globulin Ratio 1.5 (1.0-2.8); Alkaline Phosphatase 88 U/L (38-126); Aspartate Aminotransferase 25 IU/L (14-36); BUN Creatinine Ratio 23.3 (6-22); Bilirubin Total 0.3 mg/dL (0.2-1.3); Blood Urea Nitrogen 14 mg/dL (7-17); Calcium 9.5 mg/dL (8.4-10.2); Carbon Dioxide 27 mmol/L (22-32); Chloride 101 mmol/L (98-107); Creatine Kinase 136 U/L (30-135); Estimated Glomerular Filt Rate > 60.0 mL/min (>60); Glucose 157 mg/dL (80-110); HEMOLYSIS < 15 (0-50); Potassium 4.5 mmol/L (3.4-5.1); Sodium 141 mmol/L (137-145); Total Protein 7.6 g/dL (6.3-8.2)
[2018-08-29 08:12] LABS: Lactate (Lactic Acid) 1.9 mmol/L (0.7-2.1)
[2018-08-29 08:23] LABS: Troponin I < 0.012 ng/mL (0.01-0.034)
[2018-08-29 08:27] LABS: CKMB % Relative Index 2.3 % (1.5-5.0); Creatine Kinase MB 3.17 ng/mL (<2.37)
[2018-08-29] MEDS: DOCUSATE 100 MG CAPSULE PO (09:36)
[2018-08-29] MEDS: SODIUM CHLORIDE 0.9% FLUSH 10 ML IV ×3 (09:36→21:10)
[2018-08-29] MEDS: METOPROLOL ER 25 MG TABLET PO (09:37)
[2018-08-29] MEDS: MULTIVIT,CALC,MINS/IRON/FOLIC 1 TABLET 1 TAB PO (09:37)
[2018-08-29] MEDS: CLOPIDOGREL 75 MG TABLET PO (09:37)
[2018-08-29] MEDS: CHOLECALCIFEROL (VITAMIN D3) 1,000 UNIT TABLET 1000 UNIT PO (09:37)
[2018-08-29] MEDS: CITALOPRAM 20 MG TABLET PO (09:37)
[2018-08-29] MEDS: buPROPion XL 150 MG TAB 300 MG PO (09:37)
--- NOTE | 2018-08-29 11:31 | P.PN_ITS ---
Subjective Date Patient Seen: 08/29/18 Interval history: She is requesting to resume her daily as Zofran use which apparently she uses at home before every meal. Her breathing is much better and she looks much calmer than yesterday. Her CK level carmen from 185 up to 236 and then 139 and her lactate carmen from 4.0-5.8 and then down to 1.9 today. She has had no signs of dehydration or sepsis. She is seen today to follow-up her acute respiratory failure and COPD exacerbation. Exam Vital Signs (past 8 hours): - 08/29/18 05:52 08/29/18 06:36 08/29/18 08:40 Temperature 97.6 F 97.5 F L Pulse Rate 100 H 88 99 H Respiratory Rate 16 16 18 Blood Pressure 124/80 125/70 Pulse Oximetry 95 95 92 Oxygen Delivery Method Room Air Oxygen Flow Rate 0 Narrative Exam Narrative: Alert and oriented x3, no apparent distress. Lungs have scattered wheezes bilaterally. Heart is regular rate and rhythm without murmur. Extremities have no ankle edema. Objective Labs Result Diagrams: 08/29/18 07:49 08/29/18 07:49 Labs: Laboratory Results - last 24 hr 08/28/18 08/28/18 08/28/18 14:20 14:20 18:41 WBC RBC Hgb Hct MCV MCH MCHC RDW Plt Count Neut % (Auto) Lymph % (Auto) Bullock % (Auto) Eos % (Auto) Baso % (Auto) Neut # (Auto) Sodium Potassium Chloride Carbon Dioxide BUN Creatinine Estimated GFR BUN/Creatinine Ratio Glucose Lactate 4.0 H 5.8 H Calcium Total Bilirubin AST ALT Alkaline Phosphatase Total Creatine Kinase 236 H CK-MB (CK-2) CK-MB (CK-2) Rel Index Troponin I Total Protein Albumin Globulin Albumin/Globulin Ratio 08/29/18 08/29/18 08/29/18 07:49 07:49 07:49 WBC 10.1 RBC 3.93 L Hgb 12.1 Hct 36.1 MCV 91.9 MCH 30.9 MCHC 33.6 RDW 14.7 Plt Count 397 Neut % (Auto) 84.3 H D Lymph % (Auto) 9.2 L Bullock % (Auto) 6.4 Eos % (Auto) 0.0 L Baso % (Auto) 0.1 Neut # (Auto) 8500 H Sodium 141 Potassium 4.5 Chloride 101 Carbon Dioxide 27 BUN 14 Creatinine 0.60 Estimated GFR > 60.0 BUN/Creatinine Ratio 23.3 H Glucose 157 H Lactate 1.9 Calcium 9.5 Total Bilirubin 0.3 AST 25 ALT 30 Alkaline Phosphatase 88 Total Creatine Kinase 136 H CK-MB (CK-2) 3.17 H CK-MB (CK-2) Rel Index 2.3 Troponin I < 0.012 Total Protein 7.6 Albumin 4.6 Globulin 3.0 Albumin/Globulin Ratio 1.5 Assessment & Plan Plan: Assessment/Plan Narrative: (1) Acute exacerbation of chronic obstructive airways disease: Problem details: Continue oxygen, IV Solu-Medrol and beta agonist therapy. Respiratory therapy is working with her. She is definitely improving. Disposition is probably to return home in 1-2 days. Current visit: Yes Status: Acute (2) Major depression: Problem details: Continue citalopram and Wellbutrin. Current visit: Yes Status: Acute (3) Mixed hyperlipidemia: Problem details: The CK level and lactate have dropped considerably since stopping the atorvastatin.. Current visit: Yes Status: Acute (4) Hypertension: Current visit: Yes Status: Acute (5) Dermatitis: Problem details: Add triamcinolone cream for her left anterior ankle rash. Current visit: Yes Status: Acute (6) Osteoporosis: Problem details: Continue Fosamax and calcium. Current visit: Yes Status: Acute
[2018-08-29] MEDS: ONDANSETRON 4 MG ODT PO ×2 (11:46→16:39)
--- NOTE | 2018-08-29 14:37 | PC.NURSE ---
AM shift pt AOx4. SBA with FWW (cane at home) to BR. Cough has decreased in frequency and less productive than yesterday. Patient stating that she is feeling better than when I came in. Mid-90's RA, VS stable. 4/10 pain in stomach; [place] 5mg administered at 0936 and she refused additional pain medicine although she does report minimal pain. Able to get Zofran ordered as pt takes before each meal at home due to reflux induced nausea. Hospitalist thinking pt can possibly DC tomorrow (08/30).
--- NOTE | 2018-08-29 15:06 | CM.DPC ---
DCP: continued: pt is now improving, per Dr. Payton and has been up to bathroom with nursing using a FWW. May d/c home as early as tomorrow. PT order is now obtained to assess for mobility and any needed DME. If a walker is needed, can issue one from the [facility] consignment closet. Discussed same with PT Noel who will see pt tomorrow.
--- NOTE | 2018-08-29 15:30 | PT.IIE ---
Current Diagnoses Mixed hyperlipidemia (08/28/18) Major depressive disorder, single episode, unspecified (08/28/18) Essential (primary) hypertension (08/28/18) Chronic obstructive pulmonary disease with (acute) exacerbation (08/28/18) Dermatitis, unspecified (08/28/18) Age-related osteoporosis without current pathological fracture (08/28/18) Surgical History (Last Reviewed 08/28/18 @ 19:53 by Alfred Payton MD) Total knee replacement status (Acute) Medical History (Last Reviewed 08/28/18 @ 19:53 by Alfred Payton MD) COPD (chronic obstructive pulmonary disease) (Acute) Hypertension (Acute) Irritable bowel syndrome (IBS) (Acute) Urinary tract infection (Acute) Physical Therapy Inpatient Evaluation/Re-Eval M1 PT/OT-IP Prior Functional Status Start: 08/29/18 15:30 Freq: NEEDED Status: Active Protocol: Document 08/29/18 15:30 [facility] (Rec: 08/29/18 15:40 [facility] [id number]) Medical Review Prior Functional Status Medical History Reviewed Yes Mobility and Gait indep. indoor gait without device, mod. indep. uneven surfaces with SPC Activities of Daily Living and IADL's indep. ADLs Social History Household Members friend(s) Living Arrangements House Number of Floors (Floors) One Floor Number of Stairs To Enter/Railing? no steps Home Environment Standard Height Toilet Tub/Shower Home Equipment Straight Cane Additional Social History Comment Pt presented with c/o 1 wk SOB , cough, fever, sweating. Chest radiograph showed COPD and old R 5th, 8th rib fxs, negative for acute cardiopulmonary process. M2 PT-IP Current Condition Start: 08/29/18 15:30 Freq: NEEDED Status: Active Protocol: Document 08/29/18 15:30 [facility] (Rec: 08/29/18 15:40 [facility] [id number]) Physical Therapy Current Condition Current Condition Evaluation Date 08/29/18 Treatment Diagnosis COPD, impaired activity tolerance M3 PT-IP Subjective Start: 08/29/18 15:30 Freq: NEEDED Status: Active Protocol: Document 08/29/18 15:30 [facility] (Rec: 08/29/18 15:40 [facility] [id number]) Subjective Physical Therapy Visit Type Type Initial Evaluation Visit Start Time 15:15 Visit Stop Time 15:30 Total Visit Minutes 15 Number of BRAKE LINING CURER Visits 0 Physical Therapy Visit Comments Patient Comments pt states she has been coughing a lot at home, but feels a little better. Patient Goals she wants to get back to her baseline Therapy Pain Assessment Pain Present Pain Present Denied Pain M4 PT-IP Mobility and Gait Start: 08/29/18 15:30 Freq: NEEDED Status: Active Protocol: Document 08/29/18 15:30 [facility] (Rec: 08/29/18 15:40 [facility] [id number]) PT-Transfer Assessment Sit to and From Stand Sit to and from Stand Independent Equipment Transfer Assistive Device Gait Belt Straight Cane Transfers Transfer Destination Chair Transfer Technique Stand Step Pivot Transfer Ability Level of Assist Standby Assistance Gait Assessment Gait Gait Assistance Required: Standby Assistance Distance (Feet) 100 Assistive Devices Assistive Device Gait Belt Straight Cane Gait Deviations General Gait Pattern Antalgic Decreased Stride Length Decreased Feet Clearance Lateral Trunk Lean Factors Limiting Gait Function Factors Limiting Gait Function Decreased Activity Tolerance Decreased Strength Comments Gait Comments lateral L trunk lean to increased support on SPC (uses SPC on the L side) O2 saturation 92-94% on RA, HR up to 108 bpm with gait Stair Climbing Assessment Evaluation Level of Assist On Stairs Standby Assistance Devices Stair Climbing Assistive Devices Straight Cane Right Railing Technique/Endurance Stair Climbing Direction Ascend and Descend Stair Climbing Technique Step to Step Number of Steps Climbed 3 Query Text: PT-Balance Assessment Sitting Balance and Reactions Static Sitting Balance Ability Normal Dynamic Sitting Balance Ability Good Standing Balance and Reactions Static Standing Balance Ability Fair Dynamic Standing Balance Ability Fair Device Used SPC M5 PT-IP Objective Assessments Start: 08/29/18 15:30 Freq: NEEDED Status: Active Protocol: Document 08/29/18 15:30 RCC (Rec: 08/29/18 15:40 [facility] [id number]) Orientation Orientation/Cognition Level of Alertness Alert Orientation Name Age Birthday Month Date Year Day of Week Place Situation Gross Range of Motion Lower Extremity ROM Assessment Within Functional Limits Strength Lower Extremity Strength Assessment Bilaterally Impaired Hip flexion 4/5 B Knee flexion 4/5 B, extension 4/5 R and 5/5 L Coordination Assessment Gross Coordination Gross Coordination WNL Sensation Assessment Sensation Gross Sensation WNL M6 PT-IP Treatment Start: 08/29/18 15:30 Freq: NEEDED Status: Active Protocol: Document 08/29/18 15:30 RCC (Rec: 08/29/18 15:40 [facility] [id number]) Physical Therapy Treatment Education Education Provided Safety Other Treatments Other Treatment Performed pt educated on using call light when needing to get up/ out of bed, chair, toilet, etc M7 PT-IP Assessment and Plan Start: 08/29/18 15:30 Freq: NEEDED Status: Active Protocol: Document 08/29/18 15:30 [facility] (Rec: 08/29/18 15:40 [facility] [id number]) PT Summary Assessment and Plan Potential Rehabilitation Potential Good Status of Condition at Evaluation Stable Summary Impairments Strength Gait Activity Tolerance Progress Towards Goals Safe For Discharge Assessment Summary Pt able to ambulate 100 ft with SPC and SBA, no loss of balance. Her cough limits her mobility, but overall, her O2 saturation was WNL during session. She is safe to use the SPC upon d/c home, recommend she uses it 21/04 initially. Cane in pt's room for use with nursing assistance for ambulation and mobility. Pt is cleared to d/c home from a mobility stand- point when medically stable, no further acute PT needs at this time. Frequency of Treatment Frequency Of Treatment Discharge Recommendations To Nursing Amount of Assist Needed 1 Person Assist Discharge Recommendations PT Discharge Recommendations Home
[2018-08-29] MEDS: ALBUTEROL 2.5 MG/3 ML NEB (ADULT) INH (19:34)
[2018-08-30] VITALS (9 sets, daily range): BP systolic 102–156; BP diastolic 52–84; PULSE 74–97; RESP 16–18; TEMP 36.7–37.1; O2SAT 90–97
[2018-08-30] MEDS: TIOTROPIUM BROMIDE 18 MCG INHALER INH (04:48)
[2018-08-30] MEDS: ALBUTEROL/IPRATROPIUM 3 ML AMPUL INH ×2 (04:48→10:44)
[2018-08-30] MEDS: methylPREDNISolone 125 MG/2 ML VIAL 80 MG IV ×2 (06:23→13:52)
[2018-08-30] MEDS: ONDANSETRON 4 MG ODT PO ×2 (06:24→11:40)
[2018-08-30] MEDS: CITALOPRAM 20 MG TABLET PO (09:13)
[2018-08-30] MEDS: buPROPion XL 150 MG TAB 300 MG PO (09:13)
[2018-08-30] MEDS: CLOPIDOGREL 75 MG TABLET PO (09:14)
[2018-08-30] MEDS: METOPROLOL ER 25 MG TABLET PO (09:14)
[2018-08-30] MEDS: MULTIVIT,CALC,MINS/IRON/FOLIC 1 TABLET 1 TAB PO (09:14)
[2018-08-30] MEDS: BENZONATATE 100 MG CAPSULE PO (09:15)
[2018-08-30] MEDS: SODIUM CHLORIDE 0.9% FLUSH 10 ML IV (09:16)
[2018-08-30] MEDS: DOCUSATE 100 MG CAPSULE PO (09:17)
[2018-08-30] MEDS: CHOLECALCIFEROL (VITAMIN D3) 1,000 UNIT TABLET 1000 UNIT PO (09:18)
[2018-08-30] MEDS: HYDROCODONE/ACET 5/325 TABLET 1 TAB PO (09:22)
--- NOTE | 2018-08-30 13:20 | P.DS_ITS ---
History of Present Illness Chief complaint: DIFFICULTY BREATHING Narrative: This is a 62-year-old female who has longstanding COPD and presents with 1 week of shortness of breath, cough, a feeling of fevers and sweating. She is also having muscle cramps at least for the last day. She has chronic chest pain and weight loss probably related to the COPD. She has also fallen recently. There is no elevation in white blood count and the chest x-ray does not show pneumonia. Discharge Providers Date of admission: 08/28/18 00:19 Consults: 08/28/18 01:33 Consult to Physician Routine Comment: Consulting Provider: Mike Hopson Reason for consultation: admission Has provider been notified: Yes Consult to Respiratory Therapy Evaluate & Treat Comment: Physician Instructions: Evaluate and treat 08/29/18 15:03 Consult to Physical Therapy Evaluate & Treat Comment: Physician Instructions: Evaluate and Treat Discharge provider: Alfred Payton MD Discharge Date: 08/30/18 Summary Hospital Course: (1) Acute exacerbation of chronic obstructive airways disease: - symptoms have returned to baseline with the use of oxygen, respiratory therapy attention, Solu-Medrol and beta agonist therapy. She is stable for discharge today on a prednisone course. She is asking for Tessalon which will be provided. She was 96% on room air with exercise so does not need oxygen. She will be following up with her primary care physician at the [facility]. Current visit: Yes Status: Acute (2) Major depression: Problem details: Continue citalopram and Wellbutrin. Current visit: Yes Status: Acute (3) Mixed hyperlipidemia: Problem details: The CK level and lactate have dropped considerably since stopping the atorvastatin. She should probably not resume the atorvastatin. No other cause of the elevated CK and lactate was identified. Current visit: Yes Status: Acute (4) Hypertension: Current visit: Yes Status: Acute (5) Dermatitis: Problem details: Tried triamcinolone cream for her left anterior ankle rash. Current visit: Yes Status: Acute (6) Osteoporosis: Problem details: Continue Fosamax and calcium. Current visit: Yes Status: Acute Status at Discharge Functional status at discharge: independent ambulation Overall status at discharge: patient is back to baseline Time Spent with Patient Less than 30 minutes Exam Vital Signs (past 8 hours): - 08/30/18 05:30 08/30/18 07:20 08/30/18 10:45 Temperature 98.4 F 98.1 F Pulse Rate 74 97 H 90 Respiratory Rate 16 18 16 Blood Pressure 132/74 123/65 Pulse Oximetry 92 92 94 08/30/18 11:42 08/30/18 12:16 Temperature 98.8 F Pulse Rate 81 81 Respiratory Rate 16 Blood Pressure 156/84 H 156/84 H Pulse Oximetry 90 L Fraction of Inspired Oxygen 21 Oxygen Delivery Method Room Air Oxygen Flow Rate 0 Narrative Exam Narrative: She is alert and oriented x3. There are crackles at the left base. Heart is regular rate and rhythm without murmur. There is no ankle edema. Objective Labs Result Diagrams: 08/29/18 07:49 08/29/18 07:49 Discharge Plan Discharge Plan Patient Disposition: Home Discharge comment: Follow up with your [facility] doctor in a week. Discharge Med Rec/Prescriptions Prescriptions: New benzonatate 100 mg Capsule 100 mg PO Q8HR PRN (Reason: Cough) Qty: 30 RF: 0 albuterol sulfate 2.5 mg /3 mL (0.083 %) Solution For Nebulization 2.5 mg INH [id number] PRN (Reason: Shortness Of Breath) Qty: 200 RF: 0 hydrocodone-acetaminophen 5-325 mg Tablet 1 tab PO Q4H PRN (Reason: Pain, Moderate (4-6)) Qty: 30 RF: 0 prednisone 10 mg tablet 20 mg PO BID Qty: 50 RF: 0 prednisone 20 mg tablet 20 mg PO BID Qty: 50 RF: 0 Continue docusate sodium 100 MG capsule 100 mg PO BID PRN (Reason: Constipation) Qty: 0 RF: 0 hydroxyzine HCl 50 MG tablet 50 mg PO BEDTIME PRN (Reason: itching and hives) Qty: 0 RF: 0 clopidogrel 75 MG tablet 75 mg PO DAILY Qty: 0 RF: 0 bupropion HCl 300 MG tablet extended release 24 hr 300 mg PO DAILY Qty: 0 RF: 0 [id number]-calcium-mins [Thera M Plus (ferrous fumarat)] 1 EACH tablet 1 tab PO DAILY Qty: 0 RF: 0 metoprolol succinate [Toprol XL] 25 MG tablet extended release 24 hr 25 mg PO DAILY Qty: 0 RF: 0 citalopram [Celexa] 20 mg tablet 20 mg PO DAILY Qty: 30 RF: 0 hydrocodone-acetaminophen 5-325 mg tablet 1 tab PO Q4-6H PRN (Reason: pain) Qty: 30 RF: 0 alendronate 70 mg tablet 70 mg PO QWEEK RF: 0 ranitidine HCl 150 mg tablet 300 mg PO QPM RF: 0 albuterol sulfate 90 mcg/actuation HFA aerosol inhaler 2 puff Inhalation Q4H PRN (Reason: Wheezing) RF: 0 loratadine 10 mg tablet 10 mg PO DAILY PRN (Reason: Allergy Symptoms) RF: 0 cyclobenzaprine 5 mg tablet 5 mg PO BEDTIME PRN (Reason: Muscle Spasm) RF: 0 cholecalciferol (vitamin D3) 1,000 unit tablet 1,000 unit PO DAILY RF: 0 tiotropium bromide [Spiriva with HandiHaler] 18 MCG capsule, w/inhalation device 1 puff INH DAILY RF: 0 Discontinued atorvastatin 40 mg tablet 20 mg PO DAILY RF: 0 Visit Report/Discharge Packet Instructions: DI for Chronic Obstructive Pulmonary Disease, How to Prevent Falls, Prednisone Visit Report Forms: Stroke Signs & Symptoms Discharge Data Attending Provider: Mike Hopson Admit Date/Time: 08/28/18 00:19
--- NOTE | 2018-08-30 13:44 | PC.NURSE ---
Retrieved from pharmacy patient's own medications- separate bottles of cephalexin, ondansetron, Advair disc, Albuterol inhaler, [place], proair inhaler. Given to pt, and pt agrees those are all her meds. [employer] credit card retrieved and returned to pt.
--- NOTE | 2018-08-30 15:21 | CM.DPC ---
DCP Continued: Discharge orders received for patient. Met with the patient in her room. She is sitting up in the bedside chair. She is in agreement with the plan to d/c home to [facility]. She does not identify any discharge needs. Plan: D/C home.
--- NOTE | 2018-08-30 15:43 | PC.NURSE ---
Day Shift- Pt A&OX4, able to make needs known using call light. OOB with SBA using her own cane. Pt states is ready for discharge. [place] prn given X1 this AM for mid lower chest/upper abd pain, states pain increases with coughing, non radiating, VSS. O2 sat 93% on RA. Reviewed written and verbal discharge orders from discharge summary. Prescriptions faxed to [facility] pharmacy in [place] per pt request and pt has all original prescriptions with her. All questions answered. Pt's friends/roommates present to pick pt up and are at bedside. Pt left unit via wheelchair in no distress with all belongings with RN.
== END 2018-08-30 15:40 | disposition home or self-care (01) | DRG 191 ==
LOC: ED 23:25 → AC 08-28 07:19
PROVIDERS: Family Medicine; Admitting Provider Internal Medicine; Emergency Provider Emergency Medicine; Visit Provider Internal Medicine
DX: J44.1 Chronic obstructive pulmonary disease with (acute) exacerbation (principal); Z68.1 Body mass index [BMI] 19.9 or less, adult; R63.4 Abnormal weight loss; I10 Essential (primary) hypertension; Z87.891 Personal history of nicotine dependence; F32.9 Major depressive disorder, single episode, unspecified; E78.2 Mixed hyperlipidemia; M81.0 Age-related osteoporosis without current pathological fracture; L30.9 Dermatitis, unspecified
CPT/HCPCS: 36415; 36591; 36600; 71045; 80053; 81003; 82550; 82553; 82805; 83605; 83735; 83880; 84145; 84484; 85025; 87040; 93005; 94150; 94640; 94760; 96361; 96365; 96367; 96375; 97161; 99284; J2270; J2930; J7613

== ENCOUNTER 2018-10-05 17:46 | Emergency (ER) | payer MEDICAID, OTHER, SELFPAY ==
[2018-08-28 01:35] VITALS: BMI 17.8
[2018-10-05 17:53] VITALS: BP 139/85; PULSE 64; RESP 14; TEMP 36.4; O2SAT 99
--- NOTE | 2018-10-05 18:20 | ED.ABDPAIN ---
HPI - Abdominal Pain <Siobhan Weeks PA-C - Last Filed: 10/05/18 21:46> General Chief Complaint: Abdominal Pain Stated Complaint: Stomach pain, vomiting Time Seen by Provider: 10/05/18 18:20 Source: patient Mode of arrival: ambulatory Limitations: no limitations History of Present Illness HPI narrative: This 62-year-old female comes to ED with history of epigastric pain and vomiting. She states that she feels the pain from the midline to right side under her ribs, constant, worse with eating (that also causes nausea and vomiting). She has a history of pancreatitis and is status post cholecystectomy, thinks somewhat similar to previous pain. She states she has also had heartburn today after eating potato chips. She has reflux but that does not typically cause heartburn symptoms. She states that she has not had any chest pain. She has not had any new dyspnea. Pain is not exacerbated by any type of activity. She states that she has had coffee and Pepsi today and has not had problem keeping down fluids, but vomited twice today after trying to eat. She states that she felt somewhat warm when day at home but does not know whether any fever. She states that she does not have any urinary symptoms such as dysuria or frequency. She had diarrhea for a day before new year's, has been having regular bowel movements but somewhat small and hard. She denies any other complaints on systems review Related Data Home Medications Medication Instructions Recorded Confirmed bupropion HCl 300 mg PO DAILY #0 10/09/17 10/05/18 clopidogrel 75 mg PO DAILY #0 10/09/17 10/05/18 docusate sodium 100 mg PO BID PRN #0 10/09/17 10/05/18 hydroxyzine HCl 50 mg PO BEDTIME PRN #0 10/09/17 10/05/18 metoprolol succinate [Toprol XL] 25 mg PO DAILY #0 10/09/17 10/05/18 [id number]-[id number]-CN-calcium-mins 1 tab PO DAILY #0 10/09/17 10/05/18 [Thera M Plus (ferrous fumarat)] albuterol sulfate 2 puff INHALATION Q4H PRN 08/10/18 10/05/18 alendronate 70 mg PO QWEEK 08/10/18 10/05/18 cholecalciferol (vitamin D3) 1,000 unit PO DAILY 08/10/18 10/05/18 loratadine 10 mg PO DAILY PRN 08/10/18 10/05/18 ranitidine HCl 300 mg PO QPM 08/10/18 10/05/18 ondansetron HCl 4 mg PO DAILY PRN 10/05/18 10/05/18 Previous Rx's Medication Instructions Recorded citalopram [Celexa] 20 mg PO DAILY #30 tab 05/10/18 albuterol sulfate 2.5 mg INH [id number] PRN #200 ml 08/30/18 benzonatate 100 mg PO Q8HR PRN #30 cap 08/30/18 Allergies Allergy/AdvReac Type Severity Reaction Status Date / Time codeine [CODEINE] Allergy Severe NAUSEA / Verified 10/05/18 17:56 VOMITING latex Allergy Rash Verified 10/05/18 17:56 lisinopril Allergy Verified 10/05/18 17:56 Review of Systems <Siobhan Weeks PA-C - Last Filed: 10/05/18 21:46> Review of Systems All systems reviewed & are unremarkable except as noted in HPI and below Exam <Siobhan Weeks PA-C - Last Filed: 10/05/18 21:46> Narrative Exam Narrative: GENERAL APPEARANCE: Patient sitting comfortably, in no distress. HEENT: PERRL, EOMI, no scleral icterus NECK: Supple LUNGS: Clear to auscultation bilaterally with reduced breath sounds throughout. HEART: Rate and rhythm regular, normal S1 and S2, no S3 or S4. ABDOMEN: Soft, nondistended, bowel sounds present x 4 quadrants, no masses palpable, no hepatosplenomegaly. Tender from the mid epigastrium to the right mid anterior costal margin. No guarding or rebound, +Gill sign. No CVAT EXTREMITIES: No edema, no calf tenderness DERMATOLOGIC: No jaundice or exanthem NEUROLOGIC: Alert and oriented with normal speech and coordination Initial Vital Signs Initial Vital Signs: Vital Signs Temperature 97.6 F 10/05/18 17:53 Pulse Rate 64 10/05/18 17:53 Respiratory Rate 14 10/05/18 17:53 Blood Pressure 139/85 10/05/18 17:53 Pulse Oximetry 99 10/05/18 17:53 <Doug Godoy DO - Last Filed: 10/05/18 23:53> Initial Vital Signs Initial Vital Signs: Vital Signs Temperature 97.6 F 10/05/18 17:53 Pulse Rate 64 10/05/18 17:53 Respiratory Rate 14 10/05/18 17:53 Blood Pressure 139/85 10/05/18 17:53 Pulse Oximetry 99 10/05/18 17:53 Course <Siobhan Weeks PA-C - Last Filed: 10/05/18 21:46> Additional Information: Patient has not had any vomiting since her arrival. She reported improvement in pain. She did tolerate some oral fluids. Advised to continue clear fluids only this evening and morning and start her MiraLax that she has at home. Review no acute findings on her workup though she does have thrombocytosis which is not new. Explained that we like to monitor abdominal pain closely, and she agrees to call her clinic in the morning to arrange follow-up for tomorrow. She has seen GI at [facility] in the past, and explained if she does not improve she may need further workup for follow-up there, and she is agreeable with this plan as well as to return if any acutely worsening symptoms again. Reviewed findings with attending physician Dr. Godoy who is agreeable with above plan Orders Ordered: ED Orders 10/05/18 18:30 B Type Natriuretic Peptide Stat Complete Blood Count AUTO DIFF Stat Comprehensive Metabolic Panel Stat Lipase Stat Partial Thromboplastin Time Stat Prothrombin Time INR Stat 10/05/18 18:36 CT abdomen pelvis w con Stat Discontinued Medications Sodium Chloride (Normal Saline 0.9%) 1,000 mls @ 1,000 mls/hr IV BOLUS ONE Stop: 10/05/18 19:31 Last Infusion: 10/05/18 20:27 Dose: 0 mls/hr Admin: 10/05/18 18:37 Dose: 1,000 mls/hr Ketorolac Tromethamine (Toradol) 30 mg IV NOW ONE Stop: 10/05/18 18:33 Last Admin: 10/05/18 18:37 Dose: 30 mg Morphine Sulfate (Morphine) 2 mg IV NOW ONE Stop: 10/05/18 19:43 Last Admin: 10/05/18 20:08 Dose: 2 mg Ondansetron HCl (Zofran) 4 mg IV NOW ONE Stop: 10/05/18 18:33 Last Admin: 10/05/18 18:37 Dose: 4 mg Ondansetron HCl (Zofran) 4 mg IV NOW ONE Stop: 10/05/18 20:52 Last Admin: 10/05/18 20:53 Dose: 4 mg Ondansetron HCl (Zofran Odt Prepack) 1 bottle MISC SEEINSTR ONE Stop: 10/05/18 21:16 Last Admin: 10/05/18 22:02 Dose: 1 bottle Pantoprazole Sodium (Protonix) 40 mg IV NOW ONE Stop: 10/05/18 18:37 Last Admin: 10/05/18 18:38 Dose: 40 mg Vital Signs - 8 hr 10/05/18 17:53 10/05/18 19:36 10/05/18 20:07 Temperature 97.6 F Pulse Rate 64 65 64 Respiratory Rate 14 12 14 Blood Pressure 139/85 Blood Pressure [Right Arm] 114/58 L 150/74 H Pulse Oximetry 99 95 100 10/05/18 21:11 10/05/18 22:03 Temperature 97.5 F L Pulse Rate 63 78 Respiratory Rate 14 18 Blood Pressure 124/64 Blood Pressure [Right Arm] 118/59 L Pulse Oximetry 98 98 <Doug Godoy DO - Last Filed: 10/05/18 23:53> Orders Ordered: ED Orders 10/05/18 18:30 B Type Natriuretic Peptide Stat Complete Blood Count AUTO DIFF Stat Comprehensive Metabolic Panel Stat Lipase Stat Partial Thromboplastin Time Stat Prothrombin Time INR Stat 10/05/18 18:36 CT abdomen pelvis w con Stat Discontinued Medications Sodium Chloride (Normal Saline 0.9%) 1,000 mls @ 1,000 mls/hr IV BOLUS ONE Stop: 10/05/18 19:31 Last Infusion: 10/05/18 20:27 Dose: 0 mls/hr Admin: 10/05/18 18:37 Dose: 1,000 mls/hr Ketorolac Tromethamine (Toradol) 30 mg IV NOW ONE Stop: 10/05/18 18:33 Last Admin: 10/05/18 18:37 Dose: 30 mg Morphine Sulfate (Morphine) 2 mg IV NOW ONE Stop: 10/05/18 19:43 Last Admin: 10/05/18 20:08 Dose: 2 mg Ondansetron HCl (Zofran) 4 mg IV NOW ONE Stop: 10/05/18 18:33 Last Admin: 10/05/18 18:37 Dose: 4 mg Ondansetron HCl (Zofran) 4 mg IV NOW ONE Stop: 10/05/18 20:52 Last Admin: 10/05/18 20:53 Dose: 4 mg Ondansetron HCl (Zofran Odt Prepack) 1 bottle MISC SEEINSTR ONE Stop: 10/05/18 21:16 Last Admin: 10/05/18 22:02 Dose: 1 bottle Pantoprazole Sodium (Protonix) 40 mg IV NOW ONE Stop: 10/05/18 18:37 Last Admin: 10/05/18 18:38 Dose: 40 mg Vital Signs - 8 hr 10/05/18 17:53 10/05/18 19:36 10/05/18 20:07 Temperature 97.6 F Pulse Rate 64 65 64 Respiratory Rate 14 12 14 Blood Pressure 139/85 Blood Pressure [Right Arm] 114/58 L 150/74 H Pulse Oximetry 99 95 100 10/05/18 21:11 10/05/18 22:03 Temperature 97.5 F L Pulse Rate 63 78 Respiratory Rate 14 18 Blood Pressure 124/64 Blood Pressure [Right Arm] 118/59 L Pulse Oximetry 98 98 MDM - Abdominal Pain <Siobhan Weeks PA-C - Last Filed: 10/05/18 21:46> Lab Data Attestation: I reviewed the patient's lab results. Result diagrams: 10/05/18 18:30 10/05/18 18:30 Lab Results 10/05/18 10/05/18 10/05/18 Range/Units 18:30 18:30 18:30 WBC 10.2 (4.5-11.0) X10^3/uL RBC 4.59 (4.0-5.2) X10^6/uL Hgb 14.4 (12.0-16.0) g/dL Hct 43.2 (36-46) % MCV 94.2 (80-100) fL MCH 31.3 (26-34) PG MCHC 33.2 (30-36) % RDW 13.6 (11.6-14.8) % Plt Count 612 H (150-400) X10^3/uL Neut % (Auto) 60.6 (50-75) % Lymph % (Auto) 24.8 L (25-40) % [place] % (Auto) 11.3 (3-14) % Eos % (Auto) 2.7 (2-4) % Baso % (Auto) 0.6 (0-2) % Neut # (Auto) 6200 (4059-5846) /uL PT 11.4 (10.1-12.7) SECONDS INR 1.0 (0.9-1.3) APTT 33 (26.4-36.2) SECONDS Sodium 140 (137-145) mmol/L Potassium 4.7 (3.4-5.1) mmol/L Chloride 99 (98-107) mmol/L Carbon Dioxide 30 (22-32) mmol/L BUN 14 (7-17) mg/dL Creatinine 0.90 (0.52-1.04) mg/dL Estimated GFR > 60.0 (>60) mL/min BUN/Creatinine Ratio 15.6 (6-22) Glucose 89 (80-110) mg/dL Lactate (0.7-2.1) mmol/L Calcium 9.4 (8.4-10.2) mg/dL Total Bilirubin 0.4 (0.2-1.3) mg/dL AST 33 (14-36) IU/L ALT 24 (9-52) IU/L Alkaline Phosphatase 95 (38-126) U/L B-Natriuretic Peptide (<100) Total Protein 8.0 (6.3-8.2) g/dL Albumin 4.8 (3.5-5.0) g/dL Globulin 3.2 (1.7-4.1) g/dL Albumin/Globulin Ratio 1.5 (1.0-2.8) Lipase 158 (23-300) U/L 10/05/18 10/05/18 Range/Units 18:30 Unknown WBC Cancelled (4.5-11.0) X10^3/uL RBC Cancelled (4.0-5.2) X10^6/uL Hgb Cancelled (12.0-16.0) g/dL Hct Cancelled (36-46) % MCV Cancelled (80-100) fL MCH Cancelled (26-34) PG MCHC Cancelled (30-36) % RDW Cancelled (11.6-14.8) % Plt Count Cancelled (150-400) X10^3/uL Neut % (Auto) Cancelled (50-75) % Lymph % (Auto) Cancelled (25-40) % [place] % (Auto) Cancelled (3-14) % Eos % (Auto) Cancelled (2-4) % Baso % (Auto) Cancelled (0-2) % Neut # (Auto) Cancelled (3059-3175) /uL PT (10.1-12.7) SECONDS INR (0.9-1.3) APTT (26.4-36.2) SECONDS Sodium (137-145) mmol/L Potassium (3.4-5.1) mmol/L Chloride (98-107) mmol/L Carbon Dioxide (22-32) mmol/L BUN (7-17) mg/dL Creatinine (0.52-1.04) mg/dL Estimated GFR (>60) mL/min BUN/Creatinine Ratio (6-22) Glucose (80-110) mg/dL Lactate 1.8 (0.7-2.1) mmol/L Calcium (8.4-10.2) mg/dL Total Bilirubin (0.2-1.3) mg/dL AST (14-36) IU/L ALT (9-52) IU/L Alkaline Phosphatase (38-126) U/L B-Natriuretic Peptide < 100 (<100) Total Protein (6.3-8.2) g/dL Albumin (3.5-5.0) g/dL Globulin (1.7-4.1) g/dL Albumin/Globulin Ratio (1.0-2.8) Lipase (23-300) U/L Imaging Data CT scan - abdomen: Radiologist's impression: [place] [address] CT Scan Report Signed Patient: Rosmery Marquis MR#: [id number] : 1955 Acct:[id number] Age/Sex: 62 / F Date of Service: 10/05/18 Loc: Accession Number: [id number] Procedure: CT abdomen pelvis w con Ordering Provider: Siobhan Weeks P.A-C PROCEDURE: CT ABDOMEN PELVIS W CON INDICATIONS: epiastric/r side pain, h/o pancreatitis TECHNIQUE: After the administration of intravenous contrast, 5 mm thick sections acquired from the diaphragm to the symphysis. 5 mm coronal and sagittal reformats were acquired. For radiation dose reduction, the following was used: automated exposure control, adjustment of mA and/or kV according to patient size. COMPARISON: [facility], CT, CT ABDOMEN PELVIS W CON, 08/10/2018, 16:54. FINDINGS: Image quality: Excellent. ABDOMEN: Lung bases: Lung bases are clear. Heart size is normal. Solid organs: Liver is enlarged. Gallbladder has been room. Biliary system is non dilated. Pancreas enhances normally. Spleen is normal in size and enhancement. No adrenal nodules. Kidneys demonstrate normal size and enhancement, without hydronephrosis. Peritoneum and bowel: Bowel loops demonstrate normal wall thickness and caliber. No free fluid or air. Moderate stool is present. Appendix is unremarkable. Nodes and vessels: No retroperitoneal or mesenteric adenopathy by size criteria. Aorta and inferior vena cava are normal in size. Miscellaneous: No ventral hernias. PELVIS: Genitourinary: Bladder wall thickness is normal. Miscellaneous: No inguinal hernias or adenopathy. Bones: No suspicious bony lesions. No vertebral body compression fractures. Degenerative changes at L5-S1 are noted. IMPRESSION: 1. Moderate stool without obstruction. 2. Cholecystectomy. 3. Mild hepatomegaly with steatosis. Dictated by: Mona Mario M.D. on 10/05/2018 at 20:04 Approved by: Mona Mario M.D. on 10/05/2018 at 20:06 <Doug Godoy DO - Last Filed: 10/05/18 23:53> Lab Data Lab Results 10/05/18 10/05/18 10/05/18 Range/Units 18:30 18:30 18:30 WBC 10.2 (4.5-11.0) X10^3/uL RBC 4.59 (4.0-5.2) X10^6/uL Hgb 14.4 (12.0-16.0) g/dL Hct 43.2 (36-46) % MCV 94.2 (80-100) fL MCH 31.3 (26-34) PG MCHC 33.2 (30-36) % RDW 13.6 (11.6-14.8) % Plt Count 612 H (150-400) X10^3/uL Neut % (Auto) 60.6 (50-75) % Lymph % (Auto) 24.8 L (25-40) % [place] % (Auto) 11.3 (3-14) % Eos % (Auto) 2.7 (2-4) % Baso % (Auto) 0.6 (0-2) % Neut # (Auto) 6200 (7354-6783) /uL PT 11.4 (10.1-12.7) SECONDS INR 1.0 (0.9-1.3) APTT 33 (26.4-36.2) SECONDS Sodium 140 (137-145) mmol/L Potassium 4.7 (3.4-5.1) mmol/L Chloride 99 (98-107) mmol/L Carbon Dioxide 30 (22-32) mmol/L BUN 14 (7-17) mg/dL Creatinine 0.90 (0.52-1.04) mg/dL Estimated GFR > 60.0 (>60) mL/min BUN/Creatinine Ratio 15.6 (6-22) Glucose 89 (80-110) mg/dL Lactate (0.7-2.1) mmol/L Calcium 9.4 (8.4-10.2) mg/dL Total Bilirubin 0.4 (0.2-1.3) mg/dL AST 33 (14-36) IU/L ALT 24 (9-52) IU/L Alkaline Phosphatase 95 (38-126) U/L B-Natriuretic Peptide (<100) Total Protein 8.0 (6.3-8.2) g/dL Albumin 4.8 (3.5-5.0) g/dL Globulin 3.2 (1.7-4.1) g/dL Albumin/Globulin Ratio 1.5 (1.0-2.8) Lipase 158 (23-300) U/L 10/05/18 10/05/18 Range/Units 18:30 Unknown WBC Cancelled (4.5-11.0) X10^3/uL RBC Cancelled (4.0-5.2) X10^6/uL Hgb Cancelled (12.0-16.0) g/dL Hct Cancelled (36-46) % MCV Cancelled (80-100) fL MCH Cancelled (26-34) PG MCHC Cancelled (30-36) % RDW Cancelled (11.6-14.8) % Plt Count Cancelled (150-400) X10^3/uL Neut % (Auto) Cancelled (50-75) % Lymph % (Auto) Cancelled (25-40) % [place] % (Auto) Cancelled (3-14) % Eos % (Auto) Cancelled (2-4) % Baso % (Auto) Cancelled (0-2) % Neut # (Auto) Cancelled (2599-7239) /uL PT (10.1-12.7) SECONDS INR (0.9-1.3) APTT (26.4-36.2) SECONDS Sodium (137-145) mmol/L Potassium (3.4-5.1) mmol/L Chloride (98-107) mmol/L Carbon Dioxide (22-32) mmol/L BUN (7-17) mg/dL Creatinine (0.52-1.04) mg/dL Estimated GFR (>60) mL/min BUN/Creatinine Ratio (6-22) Glucose (80-110) mg/dL Lactate 1.8 (0.7-2.1) mmol/L Calcium (8.4-10.2) mg/dL Total Bilirubin (0.2-1.3) mg/dL AST (14-36) IU/L ALT (9-52) IU/L Alkaline Phosphatase (38-126) U/L B-Natriuretic Peptide < 100 (<100) Total Protein (6.3-8.2) g/dL Albumin (3.5-5.0) g/dL Globulin (1.7-4.1) g/dL Albumin/Globulin Ratio (1.0-2.8) Lipase (23-300) U/L Discharge Plan Departure Patient Disposition: Home Clinical Impression: Abdominal pain, epigastric, Vomiting Discharge Date/Time: 10/05/18 22:03 Interventions: ED Discharge Assessment Last Done: 10/05/18 22:03 Instructions: DI for Abdominal Pain-Adult, DI for Vomiting -- Adult Activity Restrictions/Additional Instructions: You should return as we talked about if you have any acutely worsening pain, or protracted vomiting and are unable to keep down fluids, or new symptoms such as fever. You do not appear to have pancreatitis or an acute surgical problem from what we see on your blood tests and lab work tonight though you were not able to leave us a urine sample. I think a urinary infection is unlikely given the symptoms that you have described. You do have significant constipation on your scan. Please start the MiraLax that you have at home tonight and take this daily. You can use your usual pain medicine at home if needed, and we have given you a few antinausea pills that dissolved under your tongue for later tonight and in the morning if needed, you can take them up to every 6 hr. Please call your PCP 1st thing in the morning and let them know that you were seen in the emergency room with abdominal pain and we wanted due to follow up tomorrow (Friday) as we like to monitor abdominal pain closely. You may need further testing or referral if this is not improving as your constipation improves Prescriptions: No Action docusate sodium 100 MG capsule 100 mg PO BID PRN (Reason: Constipation) Qty: 0 RF: 0 hydroxyzine HCl 50 MG tablet 50 mg PO BEDTIME PRN (Reason: itching and hives) Qty: 0 RF: 0 clopidogrel 75 MG tablet 75 mg PO DAILY Qty: 0 RF: 0 bupropion HCl 300 MG tablet extended release 24 hr 300 mg PO DAILY Qty: 0 RF: 0 obzajmyr-kdvn-LV-calcium-mins [Thera M Plus (ferrous fumarat)] 1 EACH tablet 1 tab PO DAILY Qty: 0 RF: 0 metoprolol succinate [Toprol XL] 25 MG tablet extended release 24 hr 25 mg PO DAILY Qty: 0 RF: 0 citalopram [Celexa] 20 mg tablet 20 mg PO DAILY Qty: 30 RF: 0 benzonatate 100 mg Capsule 100 mg PO Q8HR PRN (Reason: Cough) Qty: 30 RF: 0 albuterol sulfate 2.5 mg /3 mL (0.083 %) Solution For Nebulization 2.5 mg INH [id number] PRN (Reason: Shortness Of Breath) Qty: 200 RF: 0 alendronate 70 mg tablet 70 mg PO QWEEK RF: 0 ranitidine HCl 150 mg tablet 300 mg PO QPM RF: 0 albuterol sulfate 90 mcg/actuation HFA aerosol inhaler 2 puff Inhalation Q4H PRN (Reason: Wheezing) RF: 0 loratadine 10 mg tablet 10 mg PO DAILY PRN (Reason: Allergy Symptoms) RF: 0 cholecalciferol (vitamin D3) 1,000 unit tablet 1,000 unit PO DAILY RF: 0 ondansetron HCl 4 mg tablet 4 mg PO DAILY PRN (Reason: nausea / vomiting) RF: 0 Referrals: Kandi Malhotra MD [Non-Staff] - <Doug Godoy DO - Last Filed: 10/05/18 23:53> Cosign ED Attending Jacquesature Attestation: I was available for consultation during this patient's emergency department encounter
--- NOTE | 2018-10-05 18:23 | ED_ITS ---
HPI - Abdominal Pain <Siobhan Weeks PA-C - Last Filed: 10/05/18 21:46> General Chief Complaint: Abdominal Pain Stated Complaint: Stomach pain, vomiting Time Seen by Provider: 10/05/18 18:20 Source: patient Mode of arrival: ambulatory Limitations: no limitations History of Present Illness HPI narrative: This 62-year-old female comes to ED with history of epigastric pain and vomiting. She states that she feels the pain from the midline to right side under her ribs, constant, worse with eating (that also causes nausea and vomiting). She has a history of pancreatitis and is status post cholecystectomy , thinks somewhat similar to previous pain. She states she has also had heartburn today after eating potato chips. She has reflux but that does not typically cause heartburn symptoms. She states that she has not had any chest pain. She has not had any new dyspnea. Pain is not exacerbated by any type of activity. She states that she has had coffee and Pepsi today and has not had problem keeping down fluids, but vomited twice today after trying to eat. She states that she felt somewhat warm when day at home but does not know whether any fever. She states that she does not have any urinary symptoms such as dysuria or frequency. She had diarrhea for a day before new year's, has been having regular bowel movements but somewhat small and hard. She denies any other complaints on systems review Related Data Home Medications Medication Instructions Recorded Confirmed bupropion HCl 300 mg PO DAILY #0 10/09/17 10/05/18 clopidogrel 75 mg PO DAILY #0 10/09/17 10/05/18 docusate sodium 100 mg PO BID PRN #0 10/09/17 10/05/18 hydroxyzine HCl 50 mg PO BEDTIME PRN #0 10/09/17 10/05/18 metoprolol succinate [Toprol XL] 25 mg PO DAILY #0 10/09/17 10/05/18 [id number]-DO-calcium-mins 1 tab PO DAILY #0 10/09/17 10/05/18 [Thera M Plus (ferrous fumarat)] albuterol sulfate 2 puff INHALATION Q4H PRN 08/10/18 10/05/18 alendronate 70 mg PO QWEEK 08/10/18 10/05/18 cholecalciferol (vitamin D3) 1,000 unit PO DAILY 08/10/18 10/05/18 loratadine 10 mg PO DAILY PRN 08/10/18 10/05/18 ranitidine HCl 300 mg PO QPM 08/10/18 10/05/18 ondansetron HCl 4 mg PO DAILY PRN 10/05/18 10/05/18 Previous Rx's Medication Instructions Recorded citalopram [Celexa] 20 mg PO DAILY #30 tab 05/10/18 albuterol sulfate 2.5 mg INH [id number] PRN #200 ml 08/30/18 benzonatate 100 mg PO Q8HR PRN #30 cap 08/30/18 Allergies Allergy/AdvReac Type Severity Reaction Status Date / Time codeine [CODEINE] Allergy Severe NAUSEA / Verified 10/05/18 17:56 VOMITING latex Allergy Rash Verified 10/05/18 17:56 lisinopril Allergy Verified 10/05/18 17:56 Review of Systems <Siobhan Weeks PA-C - Last Filed: 10/05/18 21:46> Review of Systems All systems reviewed & are unremarkable except as noted in HPI and below Exam <Siobhan Weeks PA-C - Last Filed: 10/05/18 21:46> Narrative Exam Narrative: GENERAL APPEARANCE: Patient sitting comfortably, in no distress. HEENT: PERRL, EOMI, no scleral icterus NECK: Supple LUNGS: Clear to auscultation bilaterally with reduced breath sounds throughout. HEART: Rate and rhythm regular, normal S1 and S2, no S3 or S4. ABDOMEN: Soft, nondistended, bowel sounds present x 4 quadrants, no masses palpable, no hepatosplenomegaly. Tender from the mid epigastrium to the right mid anterior costal margin. No guarding or rebound, +Gill sign. No CVAT EXTREMITIES: No edema, no calf tenderness DERMATOLOGIC: No jaundice or exanthem NEUROLOGIC: Alert and oriented with normal speech and coordination Initial Vital Signs Initial Vital Signs: Vital Signs Temperature 97.6 F 10/05/18 17:53 Pulse Rate 64 10/05/18 17:53 Respiratory Rate 14 10/05/18 17:53 Blood Pressure 139/85 10/05/18 17:53 Pulse Oximetry 99 10/05/18 17:53 <Doug Godoy DO - Last Filed: 10/05/18 23:53> Initial Vital Signs Initial Vital Signs: Vital Signs Temperature 97.6 F 10/05/18 17:53 Pulse Rate 64 10/05/18 17:53 Respiratory Rate 14 10/05/18 17:53 Blood Pressure 139/85 10/05/18 17:53 Pulse Oximetry 99 10/05/18 17:53 Course <Siobhan Weeks PA-C - Last Filed: 10/05/18 21:46> Additional Information: Patient has not had any vomiting since her arrival. She reported improvement in pain. She did tolerate some oral fluids. Advised to continue clear fluids only this evening and morning and start her MiraLax that she has at home. Review no acute findings on her workup though she does have thrombocytosis which is not new. Explained that we like to monitor abdominal pain closely, and she agrees to call her clinic in the morning to arrange follow-up for tomorrow. She has seen GI at [facility] in the past, and explained if she does not improve she may need further workup for follow-up there, and she is agreeable with this plan as well as to return if any acutely worsening symptoms again. Reviewed findings with attending physician Dr. Godoy who is agreeable with above plan Orders Ordered: ED Orders 10/05/18 18:30 B Type Natriuretic Peptide Stat Complete Blood Count AUTO DIFF Stat Comprehensive Metabolic Panel Stat Lipase Stat Partial Thromboplastin Time Stat Prothrombin Time INR Stat 10/05/18 18:36 CT abdomen pelvis w con Stat Discontinued Medications Sodium Chloride (Normal Saline 0.9%) 1,000 mls @ 1,000 mls/hr IV BOLUS ONE Stop: 10/05/18 19:31 Last Infusion: 10/05/18 20:27 Dose: 0 mls/hr Admin: 10/05/18 18:37 Dose: 1,000 mls/hr Ketorolac Tromethamine (Toradol) 30 mg IV NOW ONE Stop: 10/05/18 18:33 Last Admin: 10/05/18 18:37 Dose: 30 mg Morphine Sulfate (Morphine) 2 mg IV NOW ONE Stop: 10/05/18 19:43 Last Admin: 10/05/18 20:08 Dose: 2 mg Ondansetron HCl (Zofran) 4 mg IV NOW ONE Stop: 10/05/18 18:33 Last Admin: 10/05/18 18:37 Dose: 4 mg Ondansetron HCl (Zofran) 4 mg IV NOW ONE Stop: 10/05/18 20:52 Last Admin: 10/05/18 20:53 Dose: 4 mg Ondansetron HCl (Zofran Odt Prepack) 1 bottle MISC SEEINSTR ONE Stop: 10/05/18 21:16 Last Admin: 10/05/18 22:02 Dose: 1 bottle Pantoprazole Sodium (Protonix) 40 mg IV NOW ONE Stop: 10/05/18 18:37 Last Admin: 10/05/18 18:38 Dose: 40 mg Vital Signs - 8 hr 10/05/18 17:53 10/05/18 19:36 10/05/18 20:07 Temperature 97.6 F Pulse Rate 64 65 64 Respiratory Rate 14 12 14 Blood Pressure 139/85 Blood Pressure [Right Arm] 114/58 L 150/74 H Pulse Oximetry 99 95 100 10/05/18 21:11 10/05/18 22:03 Temperature 97.5 F L Pulse Rate 63 78 Respiratory Rate 14 18 Blood Pressure 124/64 Blood Pressure [Right Arm] 118/59 L Pulse Oximetry 98 98 <Doug Godoy DO - Last Filed: 10/05/18 23:53> Orders Ordered: ED Orders 10/05/18 18:30 B Type Natriuretic Peptide Stat Complete Blood Count AUTO DIFF Stat Comprehensive Metabolic Panel Stat Lipase Stat Partial Thromboplastin Time Stat Prothrombin Time INR Stat 10/05/18 18:36 CT abdomen pelvis w con Stat Discontinued Medications Sodium Chloride (Normal Saline 0.9%) 1,000 mls @ 1,000 mls/hr IV BOLUS ONE Stop: 10/05/18 19:31 Last Infusion: 10/05/18 20:27 Dose: 0 mls/hr Admin: 10/05/18 18:37 Dose: 1,000 mls/hr Ketorolac Tromethamine (Toradol) 30 mg IV NOW ONE Stop: 10/05/18 18:33 Last Admin: 10/05/18 18:37 Dose: 30 mg Morphine Sulfate (Morphine) 2 mg IV NOW ONE Stop: 10/05/18 19:43 Last Admin: 10/05/18 20:08 Dose: 2 mg Ondansetron HCl (Zofran) 4 mg IV NOW ONE Stop: 10/05/18 18:33 Last Admin: 10/05/18 18:37 Dose: 4 mg Ondansetron HCl (Zofran) 4 mg IV NOW ONE Stop: 10/05/18 20:52 Last Admin: 10/05/18 20:53 Dose: 4 mg Ondansetron HCl (Zofran Odt Prepack) 1 bottle MISC SEEINSTR ONE Stop: 10/05/18 21:16 Last Admin: 10/05/18 22:02 Dose: 1 bottle Pantoprazole Sodium (Protonix) 40 mg IV NOW ONE Stop: 10/05/18 18:37 Last Admin: 10/05/18 18:38 Dose: 40 mg Vital Signs - 8 hr 10/05/18 17:53 10/05/18 19:36 10/05/18 20:07 Temperature 97.6 F Pulse Rate 64 65 64 Respiratory Rate 14 12 14 Blood Pressure 139/85 Blood Pressure [Right Arm] 114/58 L 150/74 H Pulse Oximetry 99 95 100 10/05/18 21:11 10/05/18 22:03 Temperature 97.5 F L Pulse Rate 63 78 Respiratory Rate 14 18 Blood Pressure 124/64 Blood Pressure [Right Arm] 118/59 L Pulse Oximetry 98 98 MDM - Abdominal Pain <Siobhan Weeks PA-C - Last Filed: 10/05/18 21:46> Lab Data Attestation: I reviewed the patient's lab results. Result diagrams: 10/05/18 18:30 10/05/18 18:30 Lab Results 10/05/18 10/05/18 10/05/18 Range/Units 18:30 18:30 18:30 WBC 10.2 (4.5-11.0) X10^3/uL RBC 4.59 (4.0-5.2) X10^6/uL Hgb 14.4 (12.0-16.0) g/dL Hct 43.2 (36-46) % MCV 94.2 (80-100) fL MCH 31.3 (26-34) PG MCHC 33.2 (30-36) % RDW 13.6 (11.6-14.8) % Plt Count 612 H (150-400) X10^3/uL Neut % (Auto) 60.6 (50-75) % Lymph % (Auto) 24.8 L (25-40) % [place] % (Auto) 11.3 (3-14) % Eos % (Auto) 2.7 (2-4) % Baso % (Auto) 0.6 (0-2) % Neut # (Auto) 6200 (6916-4078) /uL PT 11.4 (10.1-12.7) SECONDS INR 1.0 (0.9-1.3) APTT 33 (26.4-36.2) SECONDS Sodium 140 (137-145) mmol/L Potassium 4.7 (3.4-5.1) mmol/L Chloride 99 (98-107) mmol/L Carbon Dioxide 30 (22-32) mmol/L BUN 14 (7-17) mg/dL Creatinine 0.90 (0.52-1.04) mg/dL Estimated GFR > 60.0 (>60) mL/min BUN/Creatinine Ratio 15.6 (6-22) Glucose 89 (80-110) mg/dL Lactate (0.7-2.1) mmol/L Calcium 9.4 (8.4-10.2) mg/dL Total Bilirubin 0.4 (0.2-1.3) mg/dL AST 33 (14-36) IU/L ALT 24 (9-52) IU/L Alkaline Phosphatase 95 (38-126) U/L B-Natriuretic Peptide (<100) Total Protein 8.0 (6.3-8.2) g/dL Albumin 4.8 (3.5-5.0) g/dL Globulin 3.2 (1.7-4.1) g/dL Albumin/Globulin Ratio 1.5 (1.0-2.8) Lipase 158 (23-300) U/L 10/05/18 10/05/18 Range/Units 18:30 Unknown WBC Cancelled (4.5-11.0) X10^3/uL RBC Cancelled (4.0-5.2) X10^6/uL Hgb Cancelled (12.0-16.0) g/dL Hct Cancelled (36-46) % MCV Cancelled (80-100) fL MCH Cancelled (26-34) PG MCHC Cancelled (30-36) % RDW Cancelled (11.6-14.8) % Plt Count Cancelled (150-400) X10^3/uL Neut % (Auto) Cancelled (50-75) % Lymph % (Auto) Cancelled (25-40) % [place] % (Auto) Cancelled (3-14) % Eos % (Auto) Cancelled (2-4) % Baso % (Auto) Cancelled (0-2) % Neut # (Auto) Cancelled (1503-9415) /uL PT (10.1-12.7) SECONDS INR (0.9-1.3) APTT (26.4-36.2) SECONDS Sodium (137-145) mmol/L Potassium (3.4-5.1) mmol/L Chloride (98-107) mmol/L Carbon Dioxide (22-32) mmol/L BUN (7-17) mg/dL Creatinine (0.52-1.04) mg/dL Estimated GFR (>60) mL/min BUN/Creatinine Ratio (6-22) Glucose (80-110) mg/dL Lactate 1.8 (0.7-2.1) mmol/L Calcium (8.4-10.2) mg/dL Total Bilirubin (0.2-1.3) mg/dL AST (14-36) IU/L ALT (9-52) IU/L Alkaline Phosphatase (38-126) U/L B-Natriuretic Peptide < 100 (<100) Total Protein (6.3-8.2) g/dL Albumin (3.5-5.0) g/dL Globulin (1.7-4.1) g/dL Albumin/Globulin Ratio (1.0-2.8) Lipase (23-300) U/L Imaging Data CT scan - abdomen: Radiologist's impression: [place] [address] CT Scan Report Signed Patient: Rosmery Marquis MR#: [id number] : 1955 Acct:[id number] Age/Sex: 62 / F Date of Service: 10/05/18 Loc: Accession Number: [id number] Procedure: CT abdomen pelvis w con Ordering Provider: Siobhan Weeks P.A-C PROCEDURE: CT ABDOMEN PELVIS W CON INDICATIONS: epiastric/r side pain, h/o pancreatitis TECHNIQUE: After the administration of intravenous contrast, 5 mm thick sections acquired from the diaphragm to the symphysis. 5 mm coronal and sagittal reformats were acquired. For radiation dose reduction, the following was used: automated exposure control, adjustment of mA and/or kV according to patient size. COMPARISON: [facility], CT, CT ABDOMEN PELVIS W CON, 08/10/2018, 16:54. FINDINGS: Image quality: Excellent. ABDOMEN: Lung bases: Lung bases are clear. Heart size is normal. Solid organs: Liver is enlarged. Gallbladder has been room. Biliary system is non dilated. Pancreas enhances normally. Spleen is normal in size and enhancement. No adrenal nodules. Kidneys demonstrate normal size and enhancement, without hydronephrosis. Peritoneum and bowel: Bowel loops demonstrate normal wall thickness and caliber. No free fluid or air. Moderate stool is present. Appendix is unremarkable. Nodes and vessels: No retroperitoneal or mesenteric adenopathy by size criteria. Aorta and inferior vena cava are normal in size. Miscellaneous: No ventral hernias. PELVIS: Genitourinary: Bladder wall thickness is normal. Miscellaneous: No inguinal hernias or adenopathy. Bones: No suspicious bony lesions. No vertebral body compression fractures. Degenerative changes at L5-S1 are noted. IMPRESSION: 1. Moderate stool without obstruction. 2. Cholecystectomy. 3. Mild hepatomegaly with steatosis. Dictated by: Mona Mario M.D. on 10/05/2018 at 20:04 Approved by: Mona Mario M.D. on 10/05/2018 at 20:06 <Doug Godoy DO - Last Filed: 10/05/18 23:53> Lab Data Lab Results 10/05/18 10/05/18 10/05/18 Range/Units 18:30 18:30 18:30 WBC 10.2 (4.5-11.0) X10^3/uL RBC 4.59 (4.0-5.2) X10^6/uL Hgb 14.4 (12.0-16.0) g/dL Hct 43.2 (36-46) % MCV 94.2 (80-100) fL MCH 31.3 (26-34) PG MCHC 33.2 (30-36) % RDW 13.6 (11.6-14.8) % Plt Count 612 H (150-400) X10^3/uL Neut % (Auto) 60.6 (50-75) % Lymph % (Auto) 24.8 L (25-40) % [place] % (Auto) 11.3 (3-14) % Eos % (Auto) 2.7 (2-4) % Baso % (Auto) 0.6 (0-2) % Neut # (Auto) 6200 (9040-3700) /uL PT 11.4 (10.1-12.7) SECONDS INR 1.0 (0.9-1.3) APTT 33 (26.4-36.2) SECONDS Sodium 140 (137-145) mmol/L Potassium 4.7 (3.4-5.1) mmol/L Chloride 99 (98-107) mmol/L Carbon Dioxide 30 (22-32) mmol/L BUN 14 (7-17) mg/dL Creatinine 0.90 (0.52-1.04) mg/dL Estimated GFR > 60.0 (>60) mL/min BUN/Creatinine Ratio 15.6 (6-22) Glucose 89 (80-110) mg/dL Lactate (0.7-2.1) mmol/L Calcium 9.4 (8.4-10.2) mg/dL Total Bilirubin 0.4 (0.2-1.3) mg/dL AST 33 (14-36) IU/L ALT 24 (9-52) IU/L Alkaline Phosphatase 95 (38-126) U/L B-Natriuretic Peptide (<100) Total Protein 8.0 (6.3-8.2) g/dL Albumin 4.8 (3.5-5.0) g/dL Globulin 3.2 (1.7-4.1) g/dL Albumin/Globulin Ratio 1.5 (1.0-2.8) Lipase 158 (23-300) U/L 10/05/18 10/05/18 Range/Units 18:30 Unknown WBC Cancelled (4.5-11.0) X10^3/uL RBC Cancelled (4.0-5.2) X10^6/uL Hgb Cancelled (12.0-16.0) g/dL Hct Cancelled (36-46) % MCV Cancelled (80-100) fL MCH Cancelled (26-34) PG MCHC Cancelled (30-36) % RDW Cancelled (11.6-14.8) % Plt Count Cancelled (150-400) X10^3/uL Neut % (Auto) Cancelled (50-75) % Lymph % (Auto) Cancelled (25-40) % [place] % (Auto) Cancelled (3-14) % Eos % (Auto) Cancelled (2-4) % Baso % (Auto) Cancelled (0-2) % Neut # (Auto) Cancelled (4680-9436) /uL PT (10.1-12.7) SECONDS INR (0.9-1.3) APTT (26.4-36.2) SECONDS Sodium (137-145) mmol/L Potassium (3.4-5.1) mmol/L Chloride (98-107) mmol/L Carbon Dioxide (22-32) mmol/L BUN (7-17) mg/dL Creatinine (0.52-1.04) mg/dL Estimated GFR (>60) mL/min BUN/Creatinine Ratio (6-22) Glucose (80-110) mg/dL Lactate 1.8 (0.7-2.1) mmol/L Calcium (8.4-10.2) mg/dL Total Bilirubin (0.2-1.3) mg/dL AST (14-36) IU/L ALT (9-52) IU/L Alkaline Phosphatase (38-126) U/L B-Natriuretic Peptide < 100 (<100) Total Protein (6.3-8.2) g/dL Albumin (3.5-5.0) g/dL Globulin (1.7-4.1) g/dL Albumin/Globulin Ratio (1.0-2.8) Lipase (23-300) U/L Discharge Plan Departure Patient Disposition: Home Clinical Impression: Abdominal pain, epigastric, Vomiting Discharge Date/Time: 10/05/18 22:03 Interventions: ED Discharge Assessment Last Done: 10/05/18 22:03 Instructions: DI for Abdominal Pain-Adult, DI for Vomiting -- Adult Activity Restrictions/Additional Instructions: You should return as we talked about if you have any acutely worsening pain, or protracted vomiting and are unable to keep down fluids, or new symptoms such as fever. You do not appear to have pancreatitis or an acute surgical problem from what we see on your blood tests and lab work tonight though you were not able to leave us a urine sample. I think a urinary infection is unlikely given the symptoms that you have described. You do have significant constipation on your scan. Please start the MiraLax that you have at home tonight and take this daily. You can use your usual pain medicine at home if needed, and we have given you a few antinausea pills that dissolved under your tongue for later tonight and in the morning if needed, you can take them up to every 6 hr. Please call your PCP 1st thing in the morning and let them know that you were seen in the emergency room with abdominal pain and we wanted due to follow up tomorrow (Friday) as we like to monitor abdominal pain closely. You may need further testing or referral if this is not improving as your constipation improves Prescriptions: No Action docusate sodium 100 MG capsule 100 mg PO BID PRN (Reason: Constipation) Qty: 0 RF: 0 hydroxyzine HCl 50 MG tablet 50 mg PO BEDTIME PRN (Reason: itching and hives) Qty: 0 RF: 0 clopidogrel 75 MG tablet 75 mg PO DAILY Qty: 0 RF: 0 bupropion HCl 300 MG tablet extended release 24 hr 300 mg PO DAILY Qty: 0 RF: 0 fpytfmab-kgjz-FS-calcium-mins [Thera M Plus (ferrous fumarat)] 1 EACH tablet 1 tab PO DAILY Qty: 0 RF: 0 metoprolol succinate [Toprol XL] 25 MG tablet extended release 24 hr 25 mg PO DAILY Qty: 0 RF: 0 citalopram [Celexa] 20 mg tablet 20 mg PO DAILY Qty: 30 RF: 0 benzonatate 100 mg Capsule 100 mg PO Q8HR PRN (Reason: Cough) Qty: 30 RF: 0 albuterol sulfate 2.5 mg /3 mL (0.083 %) Solution For Nebulization 2.5 mg INH [id number] PRN (Reason: Shortness Of Breath) Qty: 200 RF: 0 alendronate 70 mg tablet 70 mg PO QWEEK RF: 0 ranitidine HCl 150 mg tablet 300 mg PO QPM RF: 0 albuterol sulfate 90 mcg/actuation HFA aerosol inhaler 2 puff Inhalation Q4H PRN (Reason: Wheezing) RF: 0 loratadine 10 mg tablet 10 mg PO DAILY PRN (Reason: Allergy Symptoms) RF: 0 cholecalciferol (vitamin D3) 1,000 unit tablet 1,000 unit PO DAILY RF: 0 ondansetron HCl 4 mg tablet 4 mg PO DAILY PRN (Reason: nausea / vomiting) RF: 0 Referrals: Kandi Malhotra MD [Non-Staff] - <Doug Godoy DO - Last Filed: 10/05/18 23:53> Cosign ED Attending Jacquesature Attestation: I was available for consultation during this patient's emergency department encounter
--- NOTE | 2018-10-05 18:36 | DI.CT.S_ITS ---
PROCEDURE: CT ABDOMEN PELVIS W CON INDICATIONS: epiastric/r side pain, h/o pancreatitis TECHNIQUE: After the administration of intravenous contrast, 5 mm thick sections acquired from the diaphragm to the symphysis. 5 mm coronal and sagittal reformats were acquired. For radiation dose reduction, the following was used: automated exposure control, adjustment of mA and/or kV according to patient size. COMPARISON: [facility], CT, CT ABDOMEN PELVIS W CON, 08/10/2018, 16:54. FINDINGS: Image quality: Excellent. ABDOMEN: Lung bases: Lung bases are clear. Heart size is normal. Solid organs: Liver is enlarged. Gallbladder has been room. Biliary system is non dilated. Pancreas enhances normally. Spleen is normal in size and enhancement. No adrenal nodules. Kidneys demonstrate normal size and enhancement, without hydronephrosis. Peritoneum and bowel: Bowel loops demonstrate normal wall thickness and caliber. No free fluid or air. Moderate stool is present. Appendix is unremarkable. Nodes and vessels: No retroperitoneal or mesenteric adenopathy by size criteria. Aorta and inferior vena cava are normal in size. Miscellaneous: No ventral hernias. PELVIS: Genitourinary: Bladder wall thickness is normal. Miscellaneous: No inguinal hernias or adenopathy. Bones: No suspicious bony lesions. No vertebral body compression fractures. Degenerative changes at L5-S1 are noted. IMPRESSION: 1. Moderate stool without obstruction. 2. Cholecystectomy. 3. Mild hepatomegaly with steatosis. Dictated by: Mona Mario M.D. on 10/05/2018 at 20:04 Approved by: Mona Mario M.D. on 10/05/2018 at 20:06
[2018-10-05] MEDS: ONDANSETRON 4 MG/2 ML INJ IV ×2 (18:37→20:53)
[2018-10-05] MEDS: KETOROLAC 60 MG/2 ML VIAL 30 MG IV (18:37)
[2018-10-05] MEDS: SODIUM CHLORIDE 0.9% 1,000 ML 1000 ML IV (18:37)
[2018-10-05] MEDS: PANTOPRAZOLE 40 MG VIAL IV (18:38)
[2018-10-05 18:42] LABS: Add Manual Diff / Slide Review NO; Basophils Percent Auto 0.6 % (0-2); Eosinophils Percent Auto 2.7 % (2-4); Hematocrit 43.2 % (36-46); Hemoglobin 14.4 g/dL (12.0-16.0); Lymphocytes Percent Auto 24.8 % (25-40); Mean Corpuscular HGB Conc 33.2 % (30-36); Mean Corpuscular Hemoglobin 31.3 PG (26-34); Mean Corpuscular Volume 94.2 fL (80-100); Monocytes Percent Auto 11.3 % (3-14); Neutrophils Absolute Auto 6200 /uL (1500-7000); Neutrophils Percent Auto 60.6 % (50-75); Platelet Count 612 X10^3/uL (150-400); Red Blood Cell Count 4.59 X10^6/uL (4.0-5.2); Red Cell Distribution Width 13.6 % (11.6-14.8); White Blood Cell Count 10.2 X10^3/uL (4.5-11.0)
[2018-10-05 18:53] LABS: Alanine Aminotransferase 24 IU/L (9-52); Albumin 4.8 g/dL (3.5-5.0); Albumin Globulin Ratio 1.5 (1.0-2.8); Alkaline Phosphatase 95 U/L (38-126); Aspartate Aminotransferase 33 IU/L (14-36); BUN Creatinine Ratio 15.6 (6-22); Bilirubin Total 0.4 mg/dL (0.2-1.3); Blood Urea Nitrogen 14 mg/dL (7-17); Calcium 9.4 mg/dL (8.4-10.2); Carbon Dioxide 30 mmol/L (22-32); Chloride 99 mmol/L (98-107); Estimated Glomerular Filt Rate > 60.0 mL/min (>60); Globulin 3.2 g/dL (1.7-4.1); Glucose 89 mg/dL (80-110); HEMOLYSIS < 15 (0-50); Lipase 158 U/L (23-300); Potassium 4.7 mmol/L (3.4-5.1); Sodium 140 mmol/L (137-145)
--- NOTE | 2018-10-05 19:06 | PC.NURSE ---
Unable to urinate;
[2018-10-05 19:15] LABS: Prothrombin Time 11.4 SECONDS (10.1-12.7)
[2018-10-05 19:17] LABS: PTT Partial Thromboplastin Tim 33 SECONDS (26.4-36.2)
[2018-10-05 19:20] LABS: Lactate (Lactic Acid) 1.8 mmol/L (0.7-2.1)
[2018-10-05 19:36] VITALS: BP 114/58; PULSE 65; RESP 12; O2SAT 95
[2018-10-05 20:07] VITALS: BP 150/74; PULSE 64; RESP 14; O2SAT 100
[2018-10-05] MEDS: MORPHINE 2 MG/ML INJ IV (20:08)
--- NOTE | 2018-10-05 20:27 | PC.NURSE ---
Pt given water to drink with OK from [email or web address].
[2018-10-05 20:38] LABS: B Type Natriuretic Peptide < 100 (<100)
[2018-10-05 21:11] VITALS: BP 118/59; PULSE 63; RESP 14; O2SAT 98
[2018-10-05] MEDS: ONDANSETRON 4 MG ODT PREPACK 1 BOTTLE MISC (22:02)
[2018-10-05 22:03] VITALS: BP 124/64; PULSE 78; RESP 18; TEMP 36.4; O2SAT 98
== END 2018-10-05 22:03 | disposition home or self-care (01) ==
PROVIDERS: Emergency Medicine; Emergency Provider Internal Medicine
DX: R10.13 Epigastric pain (principal); R11.10 Vomiting, unspecified
CPT/HCPCS: 36591; 74177; 80053; 83605; 83690; 83880; 85025; 85610; 85730; 96361; 96374; 96375; 96376; 99284; C9113; J1885; J2270; J2405

== ENCOUNTER 2018-11-12 20:15 | Emergency (ER) | payer MEDICAID, OTHER, SELFPAY ==
[2018-08-28 01:35] VITALS: BMI 17.8
[2018-11-12 20:18] VITALS: BP 144/85; PULSE 96; RESP 15; TEMP 36.7; O2SAT 94
--- NOTE | 2018-11-12 20:26 | DI.CT.S_ITS ---
PROCEDURE: CT HEAD/BRAIN WO CON INDICATIONS: glf,hit head on plavix TECHNIQUE: Noncontrast 4.5 mm thick angled axial sections acquired from the foramen magnum to the vertex, with coronal and sagittal reformats. For radiation dose reduction, the following was used: automated exposure control, adjustment of mA and/or kV according to patient size. COMPARISON: [facility], CT, CT ABDOMEN PELVIS W CON, 10/05/2018, 19:06. [facility], CT, CT ABDOMEN PELVIS W CON, 08/10/2018, 16:54. [facility], CT, PE STUDY (CTA CHEST), 10/09/2017, 14:10. [facility], CT, CT HEAD WITHOUT CONTRAST, 01/21/2014, 0:07. FINDINGS: Image quality: Excellent. CSF spaces: Basal cisterns are patent. No extra-axial fluid collections. Ventricles are normal in size and shape. Brain: No midline shift. No intracranial masses or hemorrhage. Martinez-white matter interface is normal. Mild subcortical and periventricular white matter hypoattenuation is nonspecific but can be seen with chronic microvascular ischemic changes. Postsurgical changes of resection of the right cerebellar hemisphere noted. Skull and face: Postsurgical changes of posterior cervical spinal fusion and decompression. Sinuses: There is a 1.3 cm calcified mass in the anterior right ethmoid sinus. IMPRESSION: 1. No acute intracranial abnormality. 2. 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 Dictated by: Donis Banegas M.D. on 11/12/2018 at 22:09 Approved by: Donis Banegas M.D. on 11/12/2018 at 22:18
--- NOTE | 2018-11-12 20:26 | DI.CT.S_ITS ---
PROCEDURE: CT CERVICAL SPINE WO CON INDICATIONS: glf,hit head on plavix TECHNIQUE: Noncontrast 3 mm thick sections acquired from the skull base to the T4 level. Sagittal and coronal reformats were then constructed. For radiation dose reduction, the following was used: automated exposure control, adjustment of mA and/or kV according to patient size. COMPARISON: [facility], CT, CT ABDOMEN PELVIS W CON, 10/05/2018, 19:06. [facility], CT, CT ABDOMEN PELVIS W CON, 08/10/2018, 16:54. [facility], CT, PE STUDY (CTA CHEST), 10/09/2017, 14:10. [facility], CT, CT HEAD WITHOUT CONTRAST, 01/21/2014, 0:07. FINDINGS: Image quality: Streak artifact from posterior spinal fusion hardware obscures adjacent anatomy.. Bones: No acute fracture of the cervical spine. There is posterior spinal fusion hardware extending from C1-C2, with multiple transpedicular screws appearing fractured. There are postsurgical changes of posterior decompression with resection of the posterior spinous processes of the C2-C6 levels. There are moderate multilevel degenerative changes of the cervical spine as evidenced by intervertebral disc space height loss and osteophyte formation. There is reversal of the normal cervical lordosis secondary to multilevel degenerative change. Soft tissues: Prevertebral soft tissues are normal in thickness. No paravertebral hematomas. No apical pneumothoraces. Tracheal secretions noted. Moderate calcified plaque of the aorta and branch vessels. Postsurgical changes of right cerebellar hemisphere resection noted. There is a 1.5 cm oval hypoattenuating mass within the spinal canal at the level of C1-C2 best seen on axial image 22 of series 6. IMPRESSION: 1. Metallic streak artifact from posterior spinal fusion hardware obscures adjacent anatomy; within this context, no acute cervical spine fracture is identified. 2. 1.5 cm oval hyperattenuating mass within the spinal canal at the level of C1-C2. This mass may be artifactual secondary to adjacent hardware streak artifact or represent material from prior surgery, but acute hemorrhage or a spinal canal mass cannot be excluded. Clinical correlation recommended; consider followup imaging to demonstrate stability. Dictated by: Donis Banegas M.D. on 11/12/2018 at 22:18 Approved by: Donis Banegas M.D. on 11/12/2018 at 22:35
--- NOTE | 2018-11-12 20:57 | ED.FALL ---
HPI - Fall General Chief Complaint: Fall Stated Complaint: GLF Time Seen by Provider: 11/12/18 20:46 Source: patient and EMS Mode of arrival: EMS History of Present Illness HPI Narrative: patient is 62-year-old female on Plavix presenting after ground level fall. She says she slipped and fell backwards while inside hitting her head and neck on the counter. She also has a history of neck problems. No loss of consciousness no nausea or vomiting. His she has known numbness tingling or weakness in her upper extremities. MD complaint: fall Onset (ago): minute(s) Fall from: standing Place fall occurred: home Loss of consciousness: none Prolonged down time: no Symptoms prior to fall: none Related Data Home Medications Medication Instructions Recorded Confirmed bupropion HCl 300 mg PO DAILY #0 10/09/17 10/05/18 clopidogrel 75 mg PO DAILY #0 10/09/17 10/05/18 docusate sodium 100 mg PO BID PRN #0 10/09/17 10/05/18 hydroxyzine HCl 50 mg PO BEDTIME PRN #0 10/09/17 10/05/18 metoprolol succinate [Toprol XL] 25 mg PO DAILY #0 10/09/17 10/05/18 xkrkiknj-bnak-SA-calcium-mins 1 tab PO DAILY #0 10/09/17 10/05/18 [Thera M Plus (ferrous fumarat)] albuterol sulfate 2 puff INHALATION Q4H PRN 08/10/18 10/05/18 alendronate 70 mg PO QWEEK 08/10/18 10/05/18 cholecalciferol (vitamin D3) 1,000 unit PO DAILY 08/10/18 10/05/18 loratadine 10 mg PO DAILY PRN 08/10/18 10/05/18 ranitidine HCl 300 mg PO QPM 08/10/18 10/05/18 ondansetron HCl 4 mg PO DAILY PRN 10/05/18 10/05/18 Previous Rx's Medication Instructions Recorded citalopram [Celexa] 20 mg PO DAILY #30 tab 05/10/18 albuterol sulfate 2.5 mg INH [id number] PRN #200 ml 08/30/18 benzonatate 100 mg PO Q8HR PRN #30 cap 08/30/18 Allergies Allergy/AdvReac Type Severity Reaction Status Date / Time codeine [CODEINE] Allergy Severe NAUSEA / Verified 11/12/18 20:23 VOMITING latex Allergy Rash Verified 11/12/18 20:23 lisinopril Allergy Verified 11/12/18 20:23 Review of Systems Review of Systems GENERAL: Denies chills, fatigue, malaise, fever, sweats, travel HEENT: Denies sinus pain, ear pain, sore throat, difficulty swallowing, neck pain RESPIRATORY: Denies dyspnea, cough, wheezing, hemoptysis, sputum. CARDIOVASCULAR: Denies chest pain, palpitations, orthopnea, edema GASTROINTESTINAL: Denies nausea, vomiting, abdominal pain, diarrhea, constipation, melena. : Denies dysuria, frequency, incontinence, hematuria, urinary retention, flank pain. MUSCULOSKELETAL: Denies weakness, joint pain, or bony pain SKIN: No rash, no erythema, no pruritus NEUROLOGIC: Denies weakness, dizziness, headache, numbness, change in speech, confusion PSYCHIATRIC: No concerning psychosocial issues. 12 point review of systems is negative except for those stated above and HPI Exam Initial Vital Signs Initial Vital Signs: Vital Signs Temperature 98.0 F 11/12/18 20:18 Pulse Rate 96 H 11/12/18 20:18 Respiratory Rate 15 11/12/18 20:18 Blood Pressure 144/85 H 11/12/18 20:18 Pulse Oximetry 94 11/12/18 20:18 GENERAL: Petite frail elderly female no acute distress HEENT: Head atraumatic,EOMI, pupils reactive, NECK: swelling posterior neck noted lateral right side. Tender to touch some mild vertebral tenderness no step-offs. CARDIOVASCULAR: Regular rate and rhythm without murmurs, rubs or gallops. RESPIRATORY: Breath sounds equal bilaterally, no wheezes rales or rhonchi. ABDOMEN: Soft, nontender. Normoactive bowel sounds all 4 quadrants. No guarding or rebound. EXTREMITIES: Normal range of motion, no clubbing or edema. Neurovascularly intact NEUROLOGICAL: Alert and oriented x4.Normal gait and speech. Cranial nerves II through XII grossly intact. Good ndjpee-hz-njhf, good wkey-cr-lmxl, strength equal bilaterally, no dysarthria or aphasia, sensation in tact to soft touch bilaterally, no visual changes, no facial droop SKIN: Warm, dry, no laceration, no petechiae, no rashes or lesions. [facility] Social History household members: friend(s) Smoking Status: Former smoker alcohol intake: former Course Orders Ordered: ED Orders 11/12/18 20:26 CT cervical spine wo con Stat CT head/brain wo con Stat Discontinued Medications Acetaminophen (Tylenol) 650 mg PO NOW ONE Stop: 11/12/18 23:24 Last Admin: 11/12/18 23:49 Dose: 650 mg Vital Signs - 8 hr 11/12/18 20:18 11/12/18 21:09 11/12/18 21:30 Temperature 98.0 F Pulse Rate 96 H 71 68 Respiratory Rate 15 16 15 Blood Pressure 144/85 H Blood Pressure [Right Arm] 122/75 119/66 Pulse Oximetry 94 95 94 11/12/18 22:07 11/12/18 23:11 Temperature Pulse Rate 69 69 Respiratory Rate 15 15 Blood Pressure Blood Pressure [Right Arm] 115/62 123/76 Pulse Oximetry 94 94 MDM - Fall Imaging Data CT scan - head: Radiologist's impression: PROCEDURE: CT HEAD/BRAIN WO CON INDICATIONS: glf,hit head on plavix TECHNIQUE: Noncontrast 4.5 mm thick angled axial sections acquired from the foramen magnum to the vertex, with coronal and sagittal reformats. For radiation dose reduction, the following was used: automated exposure control, adjustment of mA and/or kV according to patient size. COMPARISON: [facility], CT, CT ABDOMEN PELVIS W CON, 10/05/2018, 19:06. [facility], CT, CT ABDOMEN PELVIS W CON, 08/10/2018, 16:54. [facility], CT, PE STUDY (CTA CHEST), 10/09/2017, 14:10. [facility], CT, CT HEAD WITHOUT CONTRAST, 01/21/2014, 0:07. FINDINGS: Image quality: Excellent. CSF spaces: Basal cisterns are patent. No extra-axial fluid collections. Ventricles are normal in size and shape. Brain: No midline shift. No intracranial masses or hemorrhage. Martinez-white matter interface is normal. Mild subcortical and periventricular white matter hypoattenuation is nonspecific but can be seen with chronic microvascular ischemic changes. Postsurgical changes of resection of the right cerebellar hemisphere noted. Skull and face: Postsurgical changes of posterior cervical spinal fusion and decompression. Sinuses: There is a 1.3 cm calcified mass in the anterior right ethmoid sinus. IMPRESSION: 1. No acute intracranial abnormality. 2. 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 Dictated by: Donis Banegas M.D. on 11/12/2018 at 22:09 ct cervical spine: Radiologist's impression: PROCEDURE: CT CERVICAL SPINE WO CON INDICATIONS: glf,hit head on plavix TECHNIQUE: Noncontrast 3 mm thick sections acquired from the skull base to the T4 level. Sagittal and coronal reformats were then constructed. For radiation dose reduction, the following was used: automated exposure control, adjustment of mA and/or kV according to patient size. COMPARISON: [facility], CT, CT ABDOMEN PELVIS W CON, 10/05/2018, 19:06. [facility], CT, CT ABDOMEN PELVIS W CON, 08/10/2018, 16:54. [facility], CT, PE STUDY (CTA CHEST), 10/09/2017, 14:10. [facility], CT, CT HEAD WITHOUT CONTRAST, 01/21/2014, 0:07. FINDINGS: Image quality: Streak artifact from posterior spinal fusion hardware obscures adjacent anatomy.. Bones: No acute fracture of the cervical spine. There is posterior spinal fusion hardware extending from C1-C2, with multiple transpedicular screws appearing fractured. There are postsurgical changes of posterior decompression with resection of the posterior spinous processes of the C2-C6 levels. There are moderate multilevel degenerative changes of the cervical spine as evidenced by intervertebral disc space height loss and osteophyte formation. There is reversal of the normal cervical lordosis secondary to multilevel degenerative change. Soft tissues: Prevertebral soft tissues are normal in thickness. No paravertebral hematomas. No apical pneumothoraces. Tracheal secretions noted. Moderate calcified plaque of the aorta and branch vessels. Postsurgical changes of right cerebellar hemisphere resection noted. There is a 1.5 cm oval hypoattenuating mass within the spinal canal at the level of C1-C2 best seen on axial image 22 of series 6. IMPRESSION: 1. Metallic streak artifact from posterior spinal fusion hardware obscures adjacent anatomy; within this context, no acute cervical spine fracture is identified. 2. 1.5 cm oval hyperattenuating mass within the spinal canal at the level of C1-C2. This mass may be artifactual secondary to adjacent hardware streak artifact or represent material from prior surgery, but acute hemorrhage or a spinal canal mass cannot be excluded. Clinical correlation recommended; consider followup imaging to demonstrate stability. Dictated by: Donis Banegas M.D. on 11/12/2018 at 22:18 MDM Narrative Medical decision making narrative: cervical CT suggest artifact and possibly a spinal canal mass although this might be artifact as well. Patient has no neurologic deficits I do not think based on mechanism of injury and her presentation that this is of significance. Believe that this is more likely due to artifact. she is feeling better after C-collar has been removed and he has received Tylenol. Discharge Plan Departure Patient Disposition: Home Clinical Impression: Head injury Qualifiers: Encounter type: initial encounter Qualified Code(s): S09.90XA - Unspecified injury of head, initial encounter Cervical sprain Qualifiers: Encounter type: initial encounter Qualified Code(s): S13.9XXA - Sprain of joints and ligaments of unspecified parts of neck, initial encounter Discharge Date/Time: 11/13/18 00:40 Interventions: ED Discharge Assessment Last Done: 11/13/18 00:39 Instructions: DI for Closed Head Injury Activity Restrictions/Additional Instructions: *You have been diagnosed with closed head injury, neck sprain *What to do: increase activity as tolerated *Continue to take medications as directed *Follow up with your primary care provider in 2-3 days *Return to ER if you should have persistent vomiting, weakness, numbness, tingling or any new, worsening or concerning symptoms Prescriptions: No Action docusate sodium 100 MG capsule 100 mg PO BID PRN (Reason: Constipation) Qty: 0 RF: 0 hydroxyzine HCl 50 MG tablet 50 mg PO BEDTIME PRN (Reason: itching and hives) Qty: 0 RF: 0 clopidogrel 75 MG tablet 75 mg PO DAILY Qty: 0 RF: 0 bupropion HCl 300 MG tablet extended release 24 hr 300 mg PO DAILY Qty: 0 RF: 0 lguctbqm-eepe-NU-calcium-mins [Thera M Plus (ferrous fumarat)] 1 EACH tablet 1 tab PO DAILY Qty: 0 RF: 0 metoprolol succinate [Toprol XL] 25 MG tablet extended release 24 hr 25 mg PO DAILY Qty: 0 RF: 0 citalopram [Celexa] 20 mg tablet 20 mg PO DAILY Qty: 30 RF: 0 benzonatate 100 mg Capsule 100 mg PO Q8HR PRN (Reason: Cough) Qty: 30 RF: 0 albuterol sulfate 2.5 mg /3 mL (0.083 %) Solution For Nebulization 2.5 mg INH [id number] PRN (Reason: Shortness Of Breath) Qty: 200 RF: 0 alendronate 70 mg tablet 70 mg PO QWEEK RF: 0 ranitidine HCl 150 mg tablet 300 mg PO QPM RF: 0 albuterol sulfate 90 mcg/actuation HFA aerosol inhaler 2 puff Inhalation Q4H PRN (Reason: Wheezing) RF: 0 loratadine 10 mg tablet 10 mg PO DAILY PRN (Reason: Allergy Symptoms) RF: 0 cholecalciferol (vitamin D3) 1,000 unit tablet 1,000 unit PO DAILY RF: 0 ondansetron HCl 4 mg tablet 4 mg PO DAILY PRN (Reason: nausea / vomiting) RF: 0
--- NOTE | 2018-11-12 21:00 | ED_ITS ---
HPI - Fall General Chief Complaint: Fall Stated Complaint: GLF Time Seen by Provider: 11/12/18 20:46 Source: patient and EMS Mode of arrival: EMS History of Present Illness HPI Narrative: patient is 62-year-old female on Plavix presenting after ground level fall. She says she slipped and fell backwards while inside hitting her head and neck on the counter. She also has a history of neck problems. No loss of consciousness no nausea or vomiting. His she has known numbness tingling or weakness in her upper extremities. MD complaint: fall Onset (ago): minute(s) Fall from: standing Place fall occurred: home Loss of consciousness: none Prolonged down time: no Symptoms prior to fall: none Related Data Home Medications Medication Instructions Recorded Confirmed bupropion HCl 300 mg PO DAILY #0 10/09/17 10/05/18 clopidogrel 75 mg PO DAILY #0 10/09/17 10/05/18 docusate sodium 100 mg PO BID PRN #0 10/09/17 10/05/18 hydroxyzine HCl 50 mg PO BEDTIME PRN #0 10/09/17 10/05/18 metoprolol succinate [Toprol XL] 25 mg PO DAILY #0 10/09/17 10/05/18 rtejxovf-xolw-LZ-calcium-mins 1 tab PO DAILY #0 10/09/17 10/05/18 [Thera M Plus (ferrous fumarat)] albuterol sulfate 2 puff INHALATION Q4H PRN 08/10/18 10/05/18 alendronate 70 mg PO QWEEK 08/10/18 10/05/18 cholecalciferol (vitamin D3) 1,000 unit PO DAILY 08/10/18 10/05/18 loratadine 10 mg PO DAILY PRN 08/10/18 10/05/18 ranitidine HCl 300 mg PO QPM 08/10/18 10/05/18 ondansetron HCl 4 mg PO DAILY PRN 10/05/18 10/05/18 Previous Rx's Medication Instructions Recorded citalopram [Celexa] 20 mg PO DAILY #30 tab 05/10/18 albuterol sulfate 2.5 mg INH [id number] PRN #200 ml 08/30/18 benzonatate 100 mg PO Q8HR PRN #30 cap 08/30/18 Allergies Allergy/AdvReac Type Severity Reaction Status Date / Time codeine [CODEINE] Allergy Severe NAUSEA / Verified 11/12/18 20:23 VOMITING latex Allergy Rash Verified 11/12/18 20:23 lisinopril Allergy Verified 11/12/18 20:23 Review of Systems Review of Systems GENERAL: Denies chills, fatigue, malaise, fever, sweats, travel HEENT: Denies sinus pain, ear pain, sore throat, difficulty swallowing, neck pain RESPIRATORY: Denies dyspnea, cough, wheezing, hemoptysis, sputum. CARDIOVASCULAR: Denies chest pain, palpitations, orthopnea, edema GASTROINTESTINAL: Denies nausea, vomiting, abdominal pain, diarrhea, constipation, melena. : Denies dysuria, frequency, incontinence, hematuria, urinary retention, flank pain. MUSCULOSKELETAL: Denies weakness, joint pain, or bony pain SKIN: No rash, no erythema, no pruritus NEUROLOGIC: Denies weakness, dizziness, headache, numbness, change in speech, confusion PSYCHIATRIC: No concerning psychosocial issues. 12 point review of systems is negative except for those stated above and HPI Exam Initial Vital Signs Initial Vital Signs: Vital Signs Temperature 98.0 F 11/12/18 20:18 Pulse Rate 96 H 11/12/18 20:18 Respiratory Rate 15 11/12/18 20:18 Blood Pressure 144/85 H 11/12/18 20:18 Pulse Oximetry 94 11/12/18 20:18 GENERAL: Petite frail elderly female no acute distress HEENT: Head atraumatic,EOMI, pupils reactive, NECK: swelling posterior neck noted lateral right side. Tender to touch some mild vertebral tenderness no step-offs. CARDIOVASCULAR: Regular rate and rhythm without murmurs, rubs or gallops. RESPIRATORY: Breath sounds equal bilaterally, no wheezes rales or rhonchi. ABDOMEN: Soft, nontender. Normoactive bowel sounds all 4 quadrants. No guarding or rebound. EXTREMITIES: Normal range of motion, no clubbing or edema. Neurovascularly intact NEUROLOGICAL: Alert and oriented x4.Normal gait and speech. Cranial nerves II through XII grossly intact. Good awumih-jj-upho, good nlgj-bo-fcew, strength equal bilaterally, no dysarthria or aphasia, sensation in tact to soft touch bilaterally, no visual changes, no facial droop SKIN: Warm, dry, no laceration, no petechiae, no rashes or lesions. [facility] Social History household members: friend(s) Smoking Status: Former smoker alcohol intake: former Course Orders Ordered: ED Orders 11/12/18 20:26 CT cervical spine wo con Stat CT head/brain wo con Stat Discontinued Medications Acetaminophen (Tylenol) 650 mg PO NOW ONE Stop: 11/12/18 23:24 Last Admin: 11/12/18 23:49 Dose: 650 mg Vital Signs - 8 hr 11/12/18 20:18 11/12/18 21:09 11/12/18 21:30 Temperature 98.0 F Pulse Rate 96 H 71 68 Respiratory Rate 15 16 15 Blood Pressure 144/85 H Blood Pressure [Right Arm] 122/75 119/66 Pulse Oximetry 94 95 94 11/12/18 22:07 11/12/18 23:11 Temperature Pulse Rate 69 69 Respiratory Rate 15 15 Blood Pressure Blood Pressure [Right Arm] 115/62 123/76 Pulse Oximetry 94 94 MDM - Fall Imaging Data CT scan - head: Radiologist's impression: PROCEDURE: CT HEAD/BRAIN WO CON INDICATIONS: glf,hit head on plavix TECHNIQUE: Noncontrast 4.5 mm thick angled axial sections acquired from the foramen magnum to the vertex, with coronal and sagittal reformats. For radiation dose reduction, the following was used: automated exposure control, adjustment of mA and/or kV according to patient size. COMPARISON: [facility], CT, CT ABDOMEN PELVIS W CON, 10/05/2018, 19:06. [facility], CT, CT ABDOMEN PELVIS W CON, 08/10/2018, 16:54. [facility], CT, PE STUDY (CTA CHEST), 10/09/2017, 14:10. [facility], CT, CT HEAD WITHOUT CONTRAST, 01/21/2014, 0:07. FINDINGS: Image quality: Excellent. CSF spaces: Basal cisterns are patent. No extra-axial fluid collections. Ventricles are normal in size and shape. Brain: No midline shift. No intracranial masses or hemorrhage. Martinez-white matter interface is normal. Mild subcortical and periventricular white matter hypoattenuation is nonspecific but can be seen with chronic microvascular ischemic changes. Postsurgical changes of resection of the right cerebellar hemisphere noted. Skull and face: Postsurgical changes of posterior cervical spinal fusion and decompression. Sinuses: There is a 1.3 cm calcified mass in the anterior right ethmoid sinus. IMPRESSION: 1. No acute intracranial abnormality. 2. 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 Dictated by: Donis Banegas M.D. on 11/12/2018 at 22:09 ct cervical spine: Radiologist's impression: PROCEDURE: CT CERVICAL SPINE WO CON INDICATIONS: glf,hit head on plavix TECHNIQUE: Noncontrast 3 mm thick sections acquired from the skull base to the T4 level. Sagittal and coronal reformats were then constructed. For radiation dose reduction, the following was used: automated exposure control, adjustment of mA and/or kV according to patient size. COMPARISON: [facility], CT, CT ABDOMEN PELVIS W CON, 10/05/2018, 19:06. [facility], CT, CT ABDOMEN PELVIS W CON, 08/10/2018, 16:54. [facility], CT, PE STUDY (CTA CHEST), 10/09/2017, 14:10. [facility], CT, CT HEAD WITHOUT CONTRAST, 01/21/2014, 0:07. FINDINGS: Image quality: Streak artifact from posterior spinal fusion hardware obscures adjacent anatomy.. Bones: No acute fracture of the cervical spine. There is posterior spinal fusion hardware extending from C1-C2, with multiple transpedicular screws appearing fractured. There are postsurgical changes of posterior decompression with resection of the posterior spinous processes of the C2-C6 levels. There are moderate multilevel degenerative changes of the cervical spine as evidenced by intervertebral disc space height loss and osteophyte formation. There is reversal of the normal cervical lordosis secondary to multilevel degenerative change. Soft tissues: Prevertebral soft tissues are normal in thickness. No paravertebral hematomas. No apical pneumothoraces. Tracheal secretions noted. Moderate calcified plaque of the aorta and branch vessels. Postsurgical changes of right cerebellar hemisphere resection noted. There is a 1.5 cm oval hypoattenuating mass within the spinal canal at the level of C1-C2 best seen on axial image 22 of series 6. IMPRESSION: 1. Metallic streak artifact from posterior spinal fusion hardware obscures adjacent anatomy; within this context, no acute cervical spine fracture is identified. 2. 1.5 cm oval hyperattenuating mass within the spinal canal at the level of C1- C2. This mass may be artifactual secondary to adjacent hardware streak artifact or represent material from prior surgery, but acute hemorrhage or a spinal canal mass cannot be excluded. Clinical correlation recommended; consider followup imaging to demonstrate stability. Dictated by: Donis Banegas M.D. on 11/12/2018 at 22:18 MDM Narrative Medical decision making narrative: cervical CT suggest artifact and possibly a spinal canal mass although this might be artifact as well. Patient has no neurologic deficits I do not think based on mechanism of injury and her presentation that this is of significance. Believe that this is more likely due to artifact. she is feeling better after C-collar has been removed and he has received Tylenol. Discharge Plan Departure Patient Disposition: Home Clinical Impression: Head injury Qualifiers: Encounter type: initial encounter Qualified Code(s): S09.90XA - Unspecified injury of head, initial encounter Cervical sprain Qualifiers: Encounter type: initial encounter Qualified Code(s): S13.9XXA - Sprain of joints and ligaments of unspecified parts of neck, initial encounter Discharge Date/Time: 11/13/18 00:40 Interventions: ED Discharge Assessment Last Done: 11/13/18 00:39 Instructions: DI for Closed Head Injury Activity Restrictions/Additional Instructions: *You have been diagnosed with closed head injury, neck sprain *What to do: increase activity as tolerated *Continue to take medications as directed *Follow up with your primary care provider in 2-3 days *Return to ER if you should have persistent vomiting, weakness, numbness, tingling or any new, worsening or concerning symptoms Prescriptions: No Action docusate sodium 100 MG capsule 100 mg PO BID PRN (Reason: Constipation) Qty: 0 RF: 0 hydroxyzine HCl 50 MG tablet 50 mg PO BEDTIME PRN (Reason: itching and hives) Qty: 0 RF: 0 clopidogrel 75 MG tablet 75 mg PO DAILY Qty: 0 RF: 0 bupropion HCl 300 MG tablet extended release 24 hr 300 mg PO DAILY Qty: 0 RF: 0 xtglekvg-sjkm-GX-calcium-mins [Thera M Plus (ferrous fumarat)] 1 EACH tablet 1 tab PO DAILY Qty: 0 RF: 0 metoprolol succinate [Toprol XL] 25 MG tablet extended release 24 hr 25 mg PO DAILY Qty: 0 RF: 0 citalopram [Celexa] 20 mg tablet 20 mg PO DAILY Qty: 30 RF: 0 benzonatate 100 mg Capsule 100 mg PO Q8HR PRN (Reason: Cough) Qty: 30 RF: 0 albuterol sulfate 2.5 mg /3 mL (0.083 %) Solution For Nebulization 2.5 mg INH [id number] PRN (Reason: Shortness Of Breath) Qty: 200 RF: 0 alendronate 70 mg tablet 70 mg PO QWEEK RF: 0 ranitidine HCl 150 mg tablet 300 mg PO QPM RF: 0 albuterol sulfate 90 mcg/actuation HFA aerosol inhaler 2 puff Inhalation Q4H PRN (Reason: Wheezing) RF: 0 loratadine 10 mg tablet 10 mg PO DAILY PRN (Reason: Allergy Symptoms) RF: 0 cholecalciferol (vitamin D3) 1,000 unit tablet 1,000 unit PO DAILY RF: 0 ondansetron HCl 4 mg tablet 4 mg PO DAILY PRN (Reason: nausea / vomiting) RF: 0
[2018-11-12 21:09] VITALS: BP 122/75; PULSE 71; RESP 16; O2SAT 95
[2018-11-12 21:30] VITALS: BP 119/66; PULSE 68; RESP 15; O2SAT 94
[2018-11-12 22:07] VITALS: BP 115/62; PULSE 69; RESP 15; O2SAT 94
--- NOTE | 2018-11-12 22:48 | PC.NURSE ---
c-collar removed per dr fowler.
[2018-11-12 23:11] VITALS: BP 123/76; PULSE 69; RESP 15; O2SAT 94
[2018-11-12] MEDS: ACETAMINOPHEN 325 MG TABLET 650 MG PO (23:49)
== END 2018-11-13 00:40 | disposition home or self-care (01) ==
PROVIDERS: Emergency Provider Emergency Medicine
DX: S09.90XA Unspecified injury of head, initial encounter (principal); S13.9XXA Sprain of joints and ligaments of unspecified parts of neck, initial encounter; W18.30XA Fall on same level, unspecified, initial encounter
CPT/HCPCS: 70450; 72125; 99283; 99284

== ENCOUNTER 2019-04-01 23:31 | Emergency (ER) | payer MEDICAID, OTHER, SELFPAY ==
[2018-08-28 01:35] VITALS: BMI 17.8
[2019-04-01 23:35] VITALS: BP 211/89; PULSE 89; RESP 29; TEMP 36.8; O2SAT 93
--- NOTE | 2019-04-01 23:41 | DI.RAD.S_ITS ---
PROCEDURE: XR CHEST 2V INDICATIONS: Shortness of breath TECHNIQUE: 2 views of the chest were acquired. COMPARISON: [facility], , XR CHEST 1V, 08/27/2018, 20:38. FINDINGS: Surgical changes and devices: Cholecystectomy clips. Lungs and pleura: Lungs are clear. No pleural effusions or pneumothorax. Lungs are hyperexpanded. Mediastinum: Mediastinal contours are normal. Heart size is normal. Bones and chest wall: No suspicious bony abnormalities. Soft tissues appear unremarkable. IMPRESSION: Hyperexpansion. Otherwise no acute pulmonary process. Dictated by: Mona Mario M.D. on 04/02/2019 at 7:40 Approved by: Mona Mario M.D. on 04/02/2019 at 7:40
[2019-04-01 23:56] VITALS: PULSE 82; RESP 28; O2SAT 97
[2019-04-01] MEDS: ALBUTEROL/IPRATROPIUM 3 ML AMPUL INH (23:56)
[2019-04-01] MEDS: methylPREDNISolone 125 MG/2 ML VIAL IV (23:58)
[2019-04-02 00:06] LABS: Add Manual Diff / Slide Review NO; Basophils Absolute Auto 100 /uL (0-100); Basophils Percent Auto 0.6 % (0-2); Eosinophils Absolute Auto 900 /uL (0-450); Eosinophils Percent Auto 8.6 % (2-4); Hematocrit 38.2 % (36-46); Hemoglobin 12.7 g/dL (12.0-16.0); Lymphocytes Absolute Auto 3500 /uL (1100-4500); Lymphocytes Percent Auto 33.4 % (25-40); Mean Corpuscular HGB Conc 33.3 % (30-36); Mean Corpuscular Hemoglobin 30.9 PG (26-34); Mean Corpuscular Volume 92.9 fL (80-100); Monocytes Absolute Auto 1100 /uL (0-900); Monocytes Percent Auto 10.7 % (3-14); Neutrophils Absolute Auto 4800 /uL (1500-7000); Neutrophils Percent Auto 46.7 % (50-75); Platelet Count 361 X10^3/uL (150-400); Red Blood Cell Count 4.12 X10^6/uL (4.0-5.2); Red Cell Distribution Width 12.9 % (11.6-14.8); White Blood Cell Count 10.3 X10^3/uL (4.5-11.0)
--- NOTE | 2019-04-02 00:11 | ED.URI ---
HPI - URI/Sore Throat General Chief Complaint: Upper Respiratory Symptoms Stated Complaint: SOB Time Seen by Provider: 04/01/19 23:32 Source: patient Mode of arrival: ambulatory Limitations: no limitations History of Present Illness HPI Narrative: 63-year-old female, former smoker with history of COPD presents with a chief complaint of severe wheezing and difficulty breathing over the course of the past few days. She has had subjective fever and chills but no cough or sputum production. Her shortness of breath is worse with exertion and improves with rest. She has been using her medications as previously directed. She denies any exposure to the edema but cigarettes or camp fibers Complaint: fever and cough Onset (ago): day(s) Duration: constant Severity: moderate Exacerbating factors: exertion Description of mucous: clear Able to tolerate fluids by mouth: Yes Associated symptoms: fever, chills, cough and shortness of breath Related Data Home Medications Medication Instructions Recorded Confirmed bupropion HCl 300 mg PO DAILY #0 10/09/17 10/05/18 clopidogrel 75 mg PO DAILY #0 10/09/17 10/05/18 docusate sodium 100 mg PO BID PRN #0 10/09/17 10/05/18 hydroxyzine HCl 50 mg PO BEDTIME PRN #0 10/09/17 10/05/18 metoprolol succinate [Toprol XL] 25 mg PO DAILY #0 10/09/17 10/05/18 [id number]-ctxw-RE-calcium-mins 1 tab PO DAILY #0 10/09/17 10/05/18 [Thera M Plus (ferrous fumarat)] albuterol sulfate 2 puff INHALATION Q4H PRN 08/10/18 10/05/18 alendronate 70 mg PO QWEEK 08/10/18 10/05/18 cholecalciferol (vitamin D3) 1,000 unit PO DAILY 08/10/18 10/05/18 loratadine 10 mg PO DAILY PRN 08/10/18 10/05/18 ranitidine HCl 300 mg PO QPM 08/10/18 10/05/18 ondansetron HCl 4 mg PO DAILY PRN 10/05/18 10/05/18 Previous Rx's Medication Instructions Recorded citalopram [Celexa] 20 mg PO DAILY #30 tab 05/10/18 albuterol sulfate 2.5 mg INH [id number] PRN #200 ml 08/30/18 benzonatate 100 mg PO Q8HR PRN #30 cap 08/30/18 doxycycline hyclate 100 mg PO BID #20 tab 04/02/19 prednisone 20 mg PO DAILY #5 tab 04/02/19 Allergies Allergy/AdvReac Type Severity Reaction Status Date / Time codeine [CODEINE] Allergy Severe NAUSEA / Verified 11/12/18 20:23 VOMITING latex Allergy Rash Verified 11/12/18 20:23 lisinopril Allergy Verified 11/12/18 20:23 Review of Systems Constitutional Denies chills, Denies fever(s), Denies lethargy and Denies weakness Eyes Denies change in vision, Denies eye discharge, Denies irritation and Denies loss of vision ENT Ears, Nose, Mouth, and Throat: Denies change in voice, Denies neck pain and Denies sore throat Cardiovascular Denies chest pain, Denies irregular heart rhythm, Denies lightheadedness, Denies palpitations, Reports dyspnea, Reports dyspnea on exertion and Denies orthopnea Respiratory Reports cough, Reports dyspnea, Reports dyspnea on exertion and Reports wheezing Gastrointestinal Gastrointestinal: Denies abdominal pain, Denies change in bowel habits, Denies diarrhea, Denies nausea and Denies vomiting Genitourinary Denies hematuria, Denies flank pain, Denies urinary incontinence and Denies urinary urgency Musculoskeletal Denies neck pain Integumentary/Breasts Denies pruritus, Denies erythema, Denies rash and Denies wounds Neurologic Denies confusion, Denies loss of vision and Denies weakness Psychiatric Denies anxiety, Denies confusion, Denies depression, Denies homicidal ideation and Denies suicidal ideation Endocrine Denies palpitations Hematologic/Lymphatic Denies easy bruising Allergic/Immunologic Reports wheezing [facility] Social History household members: friend(s) Smoking Status: Former smoker alcohol intake: former Exam Narrative Exam Narrative: GENERAL: 63-year-old female appears older than stated age, in obvious respiratory distress, in the tripod position with rapid shallow breathing, pursed lips HEAD: Atraumatic. Normocephalic. No temporal or scalp tenderness. EYES: Pupils equal round and reactive. Extraocular motions intact. No scleral icterus. No injection or drainage. ENT: Poor dentition throughout Nose without bleeding, purulent drainage or septal hematoma. Throat without erythema, tonsillar hypertrophy or exudate. Uvula midline. Airway patent. NECK: Trachea midline. No JVD or lymphadenopathy. Supple, nontender, no meningeal signs. CARDIOVASCULAR: Regular rate and rhythm without murmurs, gallops, or rubs. RESPIRATORY: Decreased breath sounds bilaterally with prolonged expiratory phase and noted wheezing throughout GASTROINTESTINAL: Abdomen soft, non-tender, nondistended. No hepato-splenomegaly, or palpable masses. No guarding. EXTREMITIES: No clubbing, cyanosis, or edema. No joint tenderness, effusion, or edema noted. BACK: Nontender without deformity or crepitance. No flank tenderness. NEURO: AOx3. SKIN: No rash or erythema. Initial Vital Signs Initial Vital Signs: Vital Signs Temperature 98.3 F 04/01/19 23:35 Pulse Rate 89 04/01/19 23:35 Respiratory Rate 29 H 04/01/19 23:35 Blood Pressure 211/89 H 04/01/19 23:35 Pulse Oximetry 93 04/01/19 23:35 Course Orders Ordered: ED Orders 04/01/19 23:30 Basic Metabolic Panel Stat Blood Culture Stat Complete Blood Count AUTO DIFF Stat Lactate (Lactic Acid) Stat Procalcitonin Stat 04/01/19 23:41 XR chest 2V Stat Discontinued Medications Albuterol/Ipratropium (Duoneb) 3 ml INH NOW ONE Stop: 04/01/19 23:41 Last Admin: 04/01/19 23:56 Dose: 3 ml Methylprednisolone (Solu-Medrol 125 Mg Vial) 125 mg IV NOW ONE Stop: 04/01/19 23:41 Last Admin: 04/01/19 23:58 Dose: 125 mg Reevaluation(s) Reevaluation #1: notable improvement after bronchodilators Vital Signs - 8 hr 04/01/19 23:35 04/01/19 23:56 04/02/19 00:26 Temperature 98.3 F Pulse Rate 89 82 75 Respiratory Rate 29 H 28 H 16 Blood Pressure 211/89 H Blood Pressure [Left Arm] 134/51 L Pulse Oximetry 93 97 95 MDM - URI/Sore Throat Lab Data Result diagrams: 04/01/19 23:30 04/01/19 23:30 Lab Results 04/01/19 04/01/19 04/01/19 Range/Units 23:30 23:30 23:30 WBC 10.3 (4.5-11.0) X10^3/uL RBC 4.12 (4.0-5.2) X10^6/uL Hgb 12.7 (12.0-16.0) g/dL Hct 38.2 (36-46) % MCV 92.9 (80-100) fL MCH 30.9 (26-34) PG MCHC 33.3 (30-36) % RDW 12.9 (11.6-14.8) % Plt Count 361 (150-400) X10^3/uL Neut % (Auto) 46.7 L (50-75) % Lymph % (Auto) 33.4 (25-40) % [place] % (Auto) 10.7 (3-14) % Eos % (Auto) 8.6 H (2-4) % Baso % (Auto) 0.6 (0-2) % Neut # (Auto) 4800 (1097-6813) /uL Lymph # (Auto) 3500 (7181-6971) /uL [place] # (Auto) 1100 H (0-900) /uL Eos # (Auto) 900 H (0-450) /uL Baso # (Auto) 100 (0-100) /uL Sodium 141 (137-145) mmol/L Potassium 4.2 (3.4-5.1) mmol/L Chloride 102 (98-107) mmol/L Carbon Dioxide 29 (22-32) mmol/L BUN 11 (7-17) mg/dL Creatinine 1.00 (0.52-1.04) mg/dL Estimated GFR 56.4 L (>60) mL/min BUN/Creatinine Ratio 11.0 (6-22) Glucose 98 (80-110) mg/dL Lactate (0.7-2.1) mmol/L Calcium 8.7 (8.4-10.2) mg/dL Procalcitonin < 0.05 (<0.5) ng/mL 04/01/19 Range/Units 23:30 WBC (4.5-11.0) X10^3/uL RBC (4.0-5.2) X10^6/uL Hgb (12.0-16.0) g/dL Hct (36-46) % MCV (80-100) fL MCH (26-34) PG MCHC (30-36) % RDW (11.6-14.8) % Plt Count (150-400) X10^3/uL Neut % (Auto) (50-75) % Lymph % (Auto) (25-40) % [place] % (Auto) (3-14) % Eos % (Auto) (2-4) % Baso % (Auto) (0-2) % Neut # (Auto) (6340-4928) /uL Lymph # (Auto) (9038-9911) /uL [place] # (Auto) (0-900) /uL Eos # (Auto) (0-450) /uL Baso # (Auto) (0-100) /uL Sodium (137-145) mmol/L Potassium (3.4-5.1) mmol/L Chloride (98-107) mmol/L Carbon Dioxide (22-32) mmol/L BUN (7-17) mg/dL Creatinine (0.52-1.04) mg/dL Estimated GFR (>60) mL/min BUN/Creatinine Ratio (6-22) Glucose (80-110) mg/dL Lactate 2.1 (0.7-2.1) mmol/L Calcium (8.4-10.2) mg/dL Procalcitonin (<0.5) ng/mL Imaging Data Chest x-ray: Radiologist's impression: NAP. COPD MDM Narrative Medical decision making narrative: Multiple etiologies for patient's symptoms considered including: [Acute exacerbation of COPD versus asthma exacerbation versus pneumonia versus CHF versus pulmonary embolism versus other] Patient's symptoms improved or duration of stay with above-stated therapies. Findings and discharge diagnosis discussed with patient/family followed by verbalization of understanding Return precautions discussed with patient/family whom verbalize understanding. Discharge Plan Departure Patient Disposition: Home Clinical Impression: Asthma exacerbation in COPD Instructions: DI for Chronic Obstructive Pulmonary Disease Activity Restrictions/Additional Instructions: *You have been diagnosed with [acute exacerbation of COPD, possible atypical pneumonia] *What to do: *Take medications as directed *Follow up with your primary care provider in 2-3 days, call for an appointment. Let them know you were seen in the Emergency Department and that we ask that you be seen in follow up *Return to ER if you should have any new, worsening or concerning symptoms Prescriptions: New prednisone 20 mg tablet 20 mg PO DAILY Qty: 5 RF: 0 doxycycline hyclate 100 mg tablet 100 mg PO BID Qty: 20 RF: 0 No Action docusate sodium 100 MG capsule 100 mg PO BID PRN (Reason: Constipation) Qty: 0 RF: 0 hydroxyzine HCl 50 MG tablet 50 mg PO BEDTIME PRN (Reason: itching and hives) Qty: 0 RF: 0 clopidogrel 75 MG tablet 75 mg PO DAILY Qty: 0 RF: 0 bupropion HCl 300 MG tablet extended release 24 hr 300 mg PO DAILY Qty: 0 RF: 0 [id number]-jgjj-UX-calcium-mins [Thera M Plus (ferrous fumarat)] 1 EACH tablet 1 tab PO DAILY Qty: 0 RF: 0 metoprolol succinate [Toprol XL] 25 MG tablet extended release 24 hr 25 mg PO DAILY Qty: 0 RF: 0 citalopram [Celexa] 20 mg tablet 20 mg PO DAILY Qty: 30 RF: 0 benzonatate 100 mg Capsule 100 mg PO Q8HR PRN (Reason: Cough) Qty: 30 RF: 0 albuterol sulfate 2.5 mg /3 mL (0.083 %) Solution For Nebulization 2.5 mg INH [id number] PRN (Reason: Shortness Of Breath) Qty: 200 RF: 0 alendronate 70 mg tablet 70 mg PO QWEEK RF: 0 ranitidine HCl 150 mg tablet 300 mg PO QPM RF: 0 albuterol sulfate 90 mcg/actuation HFA aerosol inhaler 2 puff Inhalation Q4H PRN (Reason: Wheezing) RF: 0 loratadine 10 mg tablet 10 mg PO DAILY PRN (Reason: Allergy Symptoms) RF: 0 cholecalciferol (vitamin D3) 1,000 unit tablet 1,000 unit PO DAILY RF: 0 ondansetron HCl 4 mg tablet 4 mg PO DAILY PRN (Reason: nausea / vomiting) RF: 0
[2019-04-02 00:13] LABS: Lactate (Lactic Acid) 2.1 mmol/L (0.7-2.1)
[2019-04-02 00:17] LABS: Blood Urea Nitrogen 11 mg/dL (7-17); Calcium 8.7 mg/dL (8.4-10.2); Carbon Dioxide 29 mmol/L (22-32); Chloride 102 mmol/L (98-107); Estimated Glomerular Filt Rate 56.4 mL/min (>60); Glucose 98 mg/dL (80-110); HEMOLYSIS 25 (0-50); Potassium 4.2 mmol/L (3.4-5.1); Sodium 141 mmol/L (137-145)
--- NOTE | 2019-04-02 00:18 | ED_ITS ---
HPI - URI/Sore Throat General Chief Complaint: Upper Respiratory Symptoms Stated Complaint: SOB Time Seen by Provider: 04/01/19 23:32 Source: patient Mode of arrival: ambulatory Limitations: no limitations History of Present Illness HPI Narrative: 63-year-old female, former smoker with history of COPD presents with a chief complaint of severe wheezing and difficulty breathing over the course of the past few days. She has had subjective fever and chills but no cough or sputum production. Her shortness of breath is worse with exertion and improves with rest. She has been using her medications as previously directed. She denies any exposure to the edema but cigarettes or camp fibers Complaint: fever and cough Onset (ago): day(s) Duration: constant Severity: moderate Exacerbating factors: exertion Description of mucous: clear Able to tolerate fluids by mouth: Yes Associated symptoms: fever, chills, cough and shortness of breath Related Data Home Medications Medication Instructions Recorded Confirmed bupropion HCl 300 mg PO DAILY #0 10/09/17 10/05/18 clopidogrel 75 mg PO DAILY #0 10/09/17 10/05/18 docusate sodium 100 mg PO BID PRN #0 10/09/17 10/05/18 hydroxyzine HCl 50 mg PO BEDTIME PRN #0 10/09/17 10/05/18 metoprolol succinate [Toprol XL] 25 mg PO DAILY #0 10/09/17 10/05/18 [id number]-JI-calcium-mins 1 tab PO DAILY #0 10/09/17 10/05/18 [Thera M Plus (ferrous fumarat)] albuterol sulfate 2 puff INHALATION Q4H PRN 08/10/18 10/05/18 alendronate 70 mg PO QWEEK 08/10/18 10/05/18 cholecalciferol (vitamin D3) 1,000 unit PO DAILY 08/10/18 10/05/18 loratadine 10 mg PO DAILY PRN 08/10/18 10/05/18 ranitidine HCl 300 mg PO QPM 08/10/18 10/05/18 ondansetron HCl 4 mg PO DAILY PRN 10/05/18 10/05/18 Previous Rx's Medication Instructions Recorded citalopram [Celexa] 20 mg PO DAILY #30 tab 05/10/18 albuterol sulfate 2.5 mg INH [id number] PRN #200 ml 08/30/18 benzonatate 100 mg PO Q8HR PRN #30 cap 08/30/18 doxycycline hyclate 100 mg PO BID #20 tab 04/02/19 prednisone 20 mg PO DAILY #5 tab 04/02/19 Allergies Allergy/AdvReac Type Severity Reaction Status Date / Time codeine [CODEINE] Allergy Severe NAUSEA / Verified 11/12/18 20:23 VOMITING latex Allergy Rash Verified 11/12/18 20:23 lisinopril Allergy Verified 11/12/18 20:23 Review of Systems Constitutional Denies chills, Denies fever(s), Denies lethargy and Denies weakness Eyes Denies change in vision, Denies eye discharge, Denies irritation and Denies loss of vision ENT Ears, Nose, Mouth, and Throat: Denies change in voice, Denies neck pain and Denies sore throat Cardiovascular Denies chest pain, Denies irregular heart rhythm, Denies lightheadedness, Denies palpitations, Reports dyspnea, Reports dyspnea on exertion and Denies orthopnea Respiratory Reports cough, Reports dyspnea, Reports dyspnea on exertion and Reports wheezing Gastrointestinal Gastrointestinal: Denies abdominal pain, Denies change in bowel habits, Denies d iarrhea, Denies nausea and Denies vomiting Genitourinary Denies hematuria, Denies flank pain, Denies urinary incontinence and Denies urinary urgency Musculoskeletal Denies neck pain Integumentary/Breasts Denies pruritus, Denies erythema, Denies rash and Denies wounds Neurologic Denies confusion, Denies loss of vision and Denies weakness Psychiatric Denies anxiety, Denies confusion, Denies depression, Denies homicidal ideation and Denies suicidal ideation Endocrine Denies palpitations Hematologic/Lymphatic Denies easy bruising Allergic/Immunologic Reports wheezing [facility] Social History household members: friend(s) Smoking Status: Former smoker alcohol intake: former Exam Narrative Exam Narrative: GENERAL: 63-year-old female appears older than stated age, in obvious respiratory distress, in the tripod position with rapid shallow breathing, pursed lips HEAD: Atraumatic. Normocephalic. No temporal or scalp tenderness. EYES: Pupils equal round and reactive. Extraocular motions intact. No scleral icterus. No injection or drainage. ENT: Poor dentition throughout Nose without bleeding, purulent drainage or septal hematoma. Throat without erythema, tonsillar hypertrophy or exudate. Uvula midline. Airway patent. NECK: Trachea midline. No JVD or lymphadenopathy. Supple, nontender, no meningeal signs. CARDIOVASCULAR: Regular rate and rhythm without murmurs, gallops, or rubs. RESPIRATORY: Decreased breath sounds bilaterally with prolonged expiratory phase and noted wheezing throughout GASTROINTESTINAL: Abdomen soft, non-tender, nondistended. No hepato- splenomegaly, or palpable masses. No guarding. EXTREMITIES: No clubbing, cyanosis, or edema. No joint tenderness, effusion, or edema noted. BACK: Nontender without deformity or crepitance. No flank tenderness. NEURO: AOx3. SKIN: No rash or erythema. Initial Vital Signs Initial Vital Signs: Vital Signs Temperature 98.3 F 04/01/19 23:35 Pulse Rate 89 04/01/19 23:35 Respiratory Rate 29 H 04/01/19 23:35 Blood Pressure 211/89 H 04/01/19 23:35 Pulse Oximetry 93 04/01/19 23:35 Course Orders Ordered: ED Orders 04/01/19 23:30 Basic Metabolic Panel Stat Blood Culture Stat Complete Blood Count AUTO DIFF Stat Lactate (Lactic Acid) Stat Procalcitonin Stat 04/01/19 23:41 XR chest 2V Stat Discontinued Medications Albuterol/Ipratropium (Duoneb) 3 ml INH NOW ONE Stop: 04/01/19 23:41 Last Admin: 04/01/19 23:56 Dose: 3 ml Methylprednisolone (Solu-Medrol 125 Mg Vial) 125 mg IV NOW ONE Stop: 04/01/19 23:41 Last Admin: 04/01/19 23:58 Dose: 125 mg Reevaluation(s) Reevaluation #1: notable improvement after bronchodilators Vital Signs - 8 hr 04/01/19 23:35 04/01/19 23:56 04/02/19 00:26 Temperature 98.3 F Pulse Rate 89 82 75 Respiratory Rate 29 H 28 H 16 Blood Pressure 211/89 H Blood Pressure [Left Arm] 134/51 L Pulse Oximetry 93 97 95 MDM - URI/Sore Throat Lab Data Result diagrams: 04/01/19 23:30 04/01/19 23:30 Lab Results 04/01/19 04/01/19 04/01/19 Range/Units 23:30 23:30 23:30 WBC 10.3 (4.5-11.0) X10^3/uL RBC 4.12 (4.0-5.2) X10^6/uL Hgb 12.7 (12.0-16.0) g/dL Hct 38.2 (36-46) % MCV 92.9 (80-100) fL MCH 30.9 (26-34) PG MCHC 33.3 (30-36) % RDW 12.9 (11.6-14.8) % Plt Count 361 (150-400) X10^3/uL Neut % (Auto) 46.7 L (50-75) % Lymph % (Auto) 33.4 (25-40) % [place] % (Auto) 10.7 (3-14) % Eos % (Auto) 8.6 H (2-4) % Baso % (Auto) 0.6 (0-2) % Neut # (Auto) 4800 (6770-7672) /uL Lymph # (Auto) 3500 (6539-5030) /uL [place] # (Auto) 1100 H (0-900) /uL Eos # (Auto) 900 H (0-450) /uL Baso # (Auto) 100 (0-100) /uL Sodium 141 (137-145) mmol/L Potassium 4.2 (3.4-5.1) mmol/L Chloride 102 (98-107) mmol/L Carbon Dioxide 29 (22-32) mmol/L BUN 11 (7-17) mg/dL Creatinine 1.00 (0.52-1.04) mg/dL Estimated GFR 56.4 L (>60) mL/min BUN/Creatinine Ratio 11.0 (6-22) Glucose 98 (80-110) mg/dL Lactate (0.7-2.1) mmol/L Calcium 8.7 (8.4-10.2) mg/dL Procalcitonin < 0.05 (<0.5) ng/mL 04/01/19 Range/Units 23:30 WBC (4.5-11.0) X10^3/uL RBC (4.0-5.2) X10^6/uL Hgb (12.0-16.0) g/dL Hct (36-46) % MCV (80-100) fL MCH (26-34) PG MCHC (30-36) % RDW (11.6-14.8) % Plt Count (150-400) X10^3/uL Neut % (Auto) (50-75) % Lymph % (Auto) (25-40) % [place] % (Auto) (3-14) % Eos % (Auto) (2-4) % Baso % (Auto) (0-2) % Neut # (Auto) (9700-7403) /uL Lymph # (Auto) (5130-5126) /uL [place] # (Auto) (0-900) /uL Eos # (Auto) (0-450) /uL Baso # (Auto) (0-100) /uL Sodium (137-145) mmol/L Potassium (3.4-5.1) mmol/L Chloride (98-107) mmol/L Carbon Dioxide (22-32) mmol/L BUN (7-17) mg/dL Creatinine (0.52-1.04) mg/dL Estimated GFR (>60) mL/min BUN/Creatinine Ratio (6-22) Glucose (80-110) mg/dL Lactate 2.1 (0.7-2.1) mmol/L Calcium (8.4-10.2) mg/dL Procalcitonin (<0.5) ng/mL Imaging Data Chest x-ray: Radiologist's impression: NAP. COPD MDM Narrative Medical decision making narrative: Multiple etiologies for patient's symptoms considered including: [Acute exacerbation of COPD versus asthma exacerbation versus pneumonia versus CHF versus pulmonary embolism versus other] Patient's symptoms improved or duration of stay with above-stated therapies. Findings and discharge diagnosis discussed with patient/family followed by verbalization of understanding Return precautions discussed with patient/family whom verbalize understanding. Discharge Plan Departure Patient Disposition: Home Clinical Impression: Asthma exacerbation in COPD Instructions: DI for Chronic Obstructive Pulmonary Disease Activity Restrictions/Additional Instructions: *You have been diagnosed with [acute exacerbation of COPD, possible atypical pneumonia] *What to do: *Take medications as directed *Follow up with your primary care provider in 2-3 days, call for an appointment. Let them know you were seen in the Emergency Department and that we ask that you be seen in follow up *Return to ER if you should have any new, worsening or concerning symptoms Prescriptions: New prednisone 20 mg tablet 20 mg PO DAILY Qty: 5 RF: 0 doxycycline hyclate 100 mg tablet 100 mg PO BID Qty: 20 RF: 0 No Action docusate sodium 100 MG capsule 100 mg PO BID PRN (Reason: Constipation) Qty: 0 RF: 0 hydroxyzine HCl 50 MG tablet 50 mg PO BEDTIME PRN (Reason: itching and hives) Qty: 0 RF: 0 clopidogrel 75 MG tablet 75 mg PO DAILY Qty: 0 RF: 0 bupropion HCl 300 MG tablet extended release 24 hr 300 mg PO DAILY Qty: 0 RF: 0 rbpzqqap-mteu-IS-calcium-mins [Thera M Plus (ferrous fumarat)] 1 EACH tablet 1 tab PO DAILY Qty: 0 RF: 0 metoprolol succinate [Toprol XL] 25 MG tablet extended release 24 hr 25 mg PO DAILY Qty: 0 RF: 0 citalopram [Celexa] 20 mg tablet 20 mg PO DAILY Qty: 30 RF: 0 benzonatate 100 mg Capsule 100 mg PO Q8HR PRN (Reason: Cough) Qty: 30 RF: 0 albuterol sulfate 2.5 mg /3 mL (0.083 %) Solution For Nebulization 2.5 mg INH [id number] PRN (Reason: Shortness Of Breath) Qty: 200 RF: 0 alendronate 70 mg tablet 70 mg PO QWEEK RF: 0 ranitidine HCl 150 mg tablet 300 mg PO QPM RF: 0 albuterol sulfate 90 mcg/actuation HFA aerosol inhaler 2 puff Inhalation Q4H PRN (Reason: Wheezing) RF: 0 loratadine 10 mg tablet 10 mg PO DAILY PRN (Reason: Allergy Symptoms) RF: 0 cholecalciferol (vitamin D3) 1,000 unit tablet 1,000 unit PO DAILY RF: 0 ondansetron HCl 4 mg tablet 4 mg PO DAILY PRN (Reason: nausea / vomiting) RF: 0
[2019-04-02 00:26] VITALS: BP 134/51; PULSE 75; RESP 16; O2SAT 95
[2019-04-02 00:33] LABS: Procalcitonin < 0.05 ng/mL (<0.5)
[2019-04-02] MEDS: ALBUTEROL HFA PREPACK 1 BOX MISC (01:14)
== END 2019-04-02 01:12 | disposition home or self-care (01) ==
PROVIDERS: Emergency Provider Emergency Medicine
DX: J44.1 Chronic obstructive pulmonary disease with (acute) exacerbation (principal)
CPT/HCPCS: 36415; 36591; 71046; 80048; 83605; 84145; 85025; 87040; 94640; 96374; 99282; 99284; J2930

== ENCOUNTER 2019-04-27 17:08 | Emergency (ER) | payer MEDICAID, OTHER, SELFPAY ==
[2018-08-28 01:35] VITALS: BMI 17.8
[2019-04-27 17:14] VITALS: BP 150/84; PULSE 109; RESP 24; TEMP 36.8; O2SAT 94; BMI 16.7
[2019-04-27 17:41] VITALS: PULSE 102; RESP 28; O2SAT 92
[2019-04-27] MEDS: ALBUTEROL/IPRATROPIUM 3 ML AMPUL INH (17:41)
--- NOTE | 2019-04-27 17:41 | ED.SOB ---
HPI - SOB/Dyspnea General Chief Complaint: Shortness of Breath/Dyspnea Stated Complaint: DIFFICULTY BREATHING Time Seen by Provider: 04/27/19 17:10 Source: patient Mode of arrival: ambulatory Limitations: no limitations History of Present Illness 63-year-old female former smoker with history of COPD presents with a chief complaint of severe wheezing and shortness of breath over the past 2 days. She is well known to myself and other staff and was last here on April 02 with the same symptoms. She has had a dry hacking cough but denies any fever or chills. She has been using her medications as directed and denies any change in these medications. She denies nausea, vomiting or diarrhea MD Complaint: shortness of breath and cough Onset (ago): hour(s) Severity: moderate Consistency/Duration: constant Relieving factors: oxygen, rest and bronchodilators Exacerbating factors: exertion Known history of: COPD Associated symptoms: denies other symptoms Treatment prior to arrival: bronchodilator Related Data Home Medications Medication Instructions Recorded Confirmed Thera M Plus (ferrous fumarat) 1 tab PO DAILY #0 10/09/17 04/27/19 bupropion HCl 300 mg PO DAILY #0 10/09/17 04/27/19 clopidogrel 75 mg PO DAILY #0 10/09/17 04/27/19 docusate sodium 100 mg PO BID PRN #0 10/09/17 04/27/19 albuterol sulfate 2 puff INHALATION Q4H PRN 08/10/18 04/27/19 alendronate 70 mg PO QWEEK 08/10/18 04/27/19 cholecalciferol (vitamin D3) 1,000 unit PO DAILY 08/10/18 10/05/18 loratadine 10 mg PO DAILY PRN 08/10/18 04/27/19 ondansetron HCl 4 mg PO DAILY PRN 10/05/18 04/27/19 atorvastatin 40 mg PO DAILY 04/27/19 04/27/19 hydroxyzine HCl 25 mg PO TID PRN 04/27/19 04/27/19 metoprolol succinate 50 mg PO DAILY 04/27/19 04/27/19 pantoprazole 40 mg PO DAILY 04/27/19 04/27/19 ranitidine HCl 300 mg PO BEDTIME 04/27/19 04/27/19 Previous Rx's Medication Instructions Recorded citalopram [Celexa] 20 mg PO DAILY #30 tab 05/10/18 albuterol sulfate 2.5 mg INH [id number] PRN #200 ml 08/30/18 benzonatate 100 mg PO Q8HR PRN #30 cap 08/30/18 doxycycline hyclate 100 mg PO BID #20 tab 04/27/19 prednisone 20 mg PO DAILY #5 tab 04/27/19 Allergies Allergy/AdvReac Type Severity Reaction Status Date / Time codeine [CODEINE] Allergy Severe NAUSEA / Verified 04/27/19 17:18 VOMITING latex Allergy Rash Verified 04/27/19 17:18 lisinopril Allergy Verified 04/27/19 17:18 Review of Systems Constitutional Denies chills, Denies fever(s), Denies lethargy and Denies weakness Eyes Denies change in vision, Denies eye discharge, Denies irritation and Denies loss of vision ENT Ears, Nose, Mouth, and Throat: Denies change in voice, Denies neck pain and Denies sore throat Cardiovascular Denies chest pain, Denies irregular heart rhythm, Denies lightheadedness, Denies palpitations, Reports dyspnea, Reports dyspnea on exertion and Denies orthopnea Respiratory Reports cough, Reports dyspnea, Reports dyspnea on exertion and Reports wheezing Gastrointestinal Gastrointestinal: Denies abdominal pain, Denies change in bowel habits, Denies diarrhea, Denies nausea and Denies vomiting Genitourinary Denies hematuria, Denies flank pain, Denies urinary incontinence and Denies urinary urgency Musculoskeletal Denies neck pain Integumentary/Breasts Denies pruritus, Denies erythema, Denies rash and Denies wounds Neurologic Denies confusion, Denies loss of vision and Denies weakness Psychiatric Denies anxiety, Denies confusion, Denies depression, Denies homicidal ideation and Denies suicidal ideation Endocrine Denies palpitations Hematologic/Lymphatic Denies easy bruising Allergic/Immunologic Reports wheezing PFSH Medical History Alcohol abuse (Acute) COPD (chronic obstructive pulmonary disease) (Acute) Hypertension (Acute) Irritable bowel syndrome (IBS) (Acute) Pancreatitis (Acute) Urinary tract infection (Acute) Surgical History Total knee replacement status (Acute) Family History (Updated 10/05/18 @ 18:22 by Siobhan Weeks PA-C) Other Family history non-contributory Social History household members: friend(s) Smoking Status: Former smoker alcohol intake: former Family History Other Family history non-contributory Social History household members: friend(s) Smoking Status: Former smoker alcohol intake: former Exam Narrative Exam Narrative: GENERAL: 63-year-old female appears older than stated age, she is obviously working with respirations and has use accessory muscles and tachypnea. She is quite thin HEAD: Atraumatic. Normocephalic. No temporal or scalp tenderness. EYES: Pupils equal round and reactive. Extraocular motions intact. No scleral icterus. No injection or drainage. ENT: Poor dentition throughout Nose without bleeding, purulent drainage or septal hematoma. Throat without erythema, tonsillar hypertrophy or exudate. Uvula midline. Airway patent. NECK: Trachea midline. No JVD or lymphadenopathy. Supple, nontender, no meningeal signs. CARDIOVASCULAR: Regular rate and rhythm without murmurs, gallops, or rubs. RESPIRATORY: Prolonged expiratory phase with decreased lung sounds throughout, wheezing in all bo GASTROINTESTINAL: Abdomen soft, non-tender, nondistended. No hepato-splenomegaly, or palpable masses. No guarding. EXTREMITIES: No clubbing, cyanosis, or edema. No joint tenderness, effusion, or edema noted. BACK: Nontender without deformity or crepitance. No flank tenderness. NEURO: AOx3. SKIN: No rash or erythema. Initial Vital Signs Initial Vital Signs: Vital Signs Temperature 98.3 F 04/27/19 17:14 Pulse Rate 109 H 04/27/19 17:14 Respiratory Rate 24 04/27/19 17:14 Blood Pressure 150/84 H 04/27/19 17:14 Pulse Oximetry 94 04/27/19 17:14 Course Orders Ordered: ED Orders 04/27/19 17:17 Consult to Respiratory Therapy Evaluate & Treat 04/27/19 17:23 EKG-12 Lead Stat 04/27/19 17:40 B Type Natriuretic Peptide Stat Basic Metabolic Panel Stat Complete Blood Count AUTO DIFF Stat D Dimer Stat Magnesium Stat Procalcitonin Stat Troponin & CK Cardiac Panel Stat 04/27/19 18:35 Blood Culture Stat Lactate (Lactic Acid) Stat Discontinued Medications Albuterol/Ipratropium (Duoneb) 3 ml INH NOW ONE Stop: 04/27/19 17:17 Last Admin: 04/27/19 17:41 Dose: 3 ml Sodium Chloride (Normal Saline 0.9%) 1,000 mls @ 150 mls/hr IV CONT LULY Last Infusion: 04/27/19 19:32 Dose: 0 mls/hr Admin: 04/27/19 17:48 Dose: 150 mls/hr Methylprednisolone (Solu-Medrol 125 Mg Vial) 125 mg IV NOW ONE Stop: 04/27/19 17:17 Last Admin: 04/27/19 17:49 Dose: 125 mg Vital Signs - 8 hr 04/27/19 17:14 04/27/19 17:41 04/27/19 18:30 Temperature 98.3 F Pulse Rate 109 H 102 H 90 Respiratory Rate 24 28 H Blood Pressure 150/84 H Blood Pressure [Left Arm] 120/81 Pulse Oximetry 94 92 93 04/27/19 19:28 Temperature 98.9 F Pulse Rate 84 Respiratory Rate 16 Blood Pressure 123/57 L Blood Pressure [Left Arm] Pulse Oximetry 93 MDM - SOB/Dyspnea Differential Diagnosis Likely acute exacerbation of chronic obstructive airways disease Medical Records Attestation: I reviewed the patient's medical records. Lab Data Attestation: I reviewed the patient's lab results. Result diagrams: 04/27/19 17:40 04/27/19 17:40 Lab Results 04/27/19 04/27/19 04/27/19 Range/Units 17:40 17:40 17:40 WBC 18.5 H (4.5-11.0) X10^3/uL RBC 4.28 (4.0-5.2) X10^6/uL Hgb 13.1 (12.0-16.0) g/dL Hct 39.6 (36-46) % MCV 92.5 (80-100) fL MCH 30.7 (26-34) PG MCHC 33.2 (30-36) % RDW 13.6 (11.6-14.8) % Plt Count 365 (150-400) X10^3/uL Neut % (Auto) 76.9 H (50-75) % Lymph % (Auto) 10.3 L (25-40) % [place] % (Auto) 12.0 (3-14) % Eos % (Auto) 0.5 L (2-4) % Baso % (Auto) 0.3 (0-2) % Neut # (Auto) 78665 H (0862-1531) /uL Lymph # (Auto) 1900 (6652-8518) /uL [place] # (Auto) 2200 H (0-900) /uL Eos # (Auto) 100 (0-450) /uL Baso # (Auto) 100 (0-100) /uL D-Dimer 418 H (<230) ng/mL Sodium 136 L (137-145) mmol/L Potassium 4.2 (3.4-5.1) mmol/L Chloride 101 (98-107) mmol/L Carbon Dioxide 26 (22-32) mmol/L BUN 16 (7-17) mg/dL Creatinine 0.90 (0.52-1.04) mg/dL Estimated GFR > 60.0 (>60) mL/min BUN/Creatinine Ratio 17.8 (6-22) Glucose 89 (80-110) mg/dL Lactate (0.7-2.1) mmol/L Calcium 9.5 (8.4-10.2) mg/dL Magnesium 2.2 (1.6-2.3) mg/dL Total Creatine Kinase 80 (30-135) U/L CK-MB (CK-2) TNP CK-MB (CK-2) Rel Index TNP Troponin I < 0.012 (0.01-0.034) ng/mL B-Natriuretic Peptide < 100 (<100) Procalcitonin (<0.5) ng/mL 04/27/19 04/27/19 Range/Units 17:40 18:35 WBC (4.5-11.0) X10^3/uL RBC (4.0-5.2) X10^6/uL Hgb (12.0-16.0) g/dL Hct (36-46) % MCV (80-100) fL MCH (26-34) PG MCHC (30-36) % RDW (11.6-14.8) % Plt Count (150-400) X10^3/uL Neut % (Auto) (50-75) % Lymph % (Auto) (25-40) % [place] % (Auto) (3-14) % Eos % (Auto) (2-4) % Baso % (Auto) (0-2) % Neut # (Auto) (7305-1191) /uL Lymph # (Auto) (0857-3163) /uL [place] # (Auto) (0-900) /uL Eos # (Auto) (0-450) /uL Baso # (Auto) (0-100) /uL D-Dimer (<230) ng/mL Sodium (137-145) mmol/L Potassium (3.4-5.1) mmol/L Chloride (98-107) mmol/L Carbon Dioxide (22-32) mmol/L BUN (7-17) mg/dL Creatinine (0.52-1.04) mg/dL Estimated GFR (>60) mL/min BUN/Creatinine Ratio (6-22) Glucose (80-110) mg/dL Lactate 1.2 (0.7-2.1) mmol/L Calcium (8.4-10.2) mg/dL Magnesium (1.6-2.3) mg/dL Total Creatine Kinase (30-135) U/L CK-MB (CK-2) CK-MB (CK-2) Rel Index Troponin I (0.01-0.034) ng/mL B-Natriuretic Peptide (<100) Procalcitonin 0.12 (<0.5) ng/mL MDM Narrative Medical decision making narrative: 63-year-old female former smoker with known COPD presents with respiratory difficulties which have drastically improved with the use of bronchodilators, steroids. She has had a subjective fever and elevated white blood cell count with some productive sputum though note obvious infiltrate on exam x-ray. She will be treated for an atypical pneumonia with doxycycline and a prednisone taper Discharge Plan Departure Patient Disposition: Home Clinical Impression: Acute exacerbation of chronic obstructive airways disease, Atypical pneumonia Discharge Date/Time: 04/27/19 19:28 Interventions: ED Discharge Assessment Last Done: 04/27/19 19:28 Instructions: Chronic Obstructive Pulmonary Disease, DI for Atypical Pneumonia Activity Restrictions/Additional Instructions: *You have been diagnosed with [acute COPD with atypical pneumonia] *What to do: *Take medications as directed *Follow up with your primary care provider in 2-3 days, call for an appointment. Let them know you were seen in the Emergency Department and that we ask that you be seen in follow up *Return to ER if you should have any new, worsening or concerning symptoms Prescriptions: New prednisone 20 mg tablet 20 mg PO DAILY Qty: 5 RF: 0 doxycycline hyclate 100 mg tablet 100 mg PO BID Qty: 20 RF: 0 No Action docusate sodium 100 MG capsule 100 mg PO BID PRN (Reason: Constipation) Qty: 0 RF: 0 clopidogrel 75 MG tablet 75 mg PO DAILY Qty: 0 RF: 0 bupropion HCl 300 MG tablet extended release 24 hr 300 mg PO DAILY Qty: 0 RF: 0 Thera M Plus (ferrous fumarat) 1 EACH tablet 1 tab PO DAILY Qty: 0 RF: 0 citalopram [Celexa] 20 mg tablet 20 mg PO DAILY Qty: 30 RF: 0 benzonatate 100 mg Capsule 100 mg PO Q8HR PRN (Reason: Cough) Qty: 30 RF: 0 albuterol sulfate 2.5 mg /3 mL (0.083 %) Solution For Nebulization 2.5 mg INH [id number] PRN (Reason: Shortness Of Breath) Qty: 200 RF: 0 alendronate 70 mg tablet 70 mg PO QWEEK RF: 0 albuterol sulfate 90 mcg/actuation HFA aerosol inhaler 2 puff Inhalation Q4H PRN (Reason: Wheezing) RF: 0 loratadine 10 mg tablet 10 mg PO DAILY PRN (Reason: Allergy Symptoms) RF: 0 cholecalciferol (vitamin D3) 1,000 unit tablet 1,000 unit PO DAILY RF: 0 ondansetron HCl 4 mg tablet 4 mg PO DAILY PRN (Reason: nausea / vomiting) RF: 0 atorvastatin 40 mg tablet 40 mg PO DAILY RF: 0 metoprolol succinate 50 mg tablet extended release 24 hr 50 mg PO DAILY RF: 0 ranitidine HCl 300 mg tablet 300 mg PO BEDTIME RF: 0 pantoprazole 40 mg tablet,delayed release (DR/EC) 40 mg PO DAILY RF: 0 hydroxyzine HCl 25 mg tablet 25 mg PO TID PRN (Reason: itching and hives) RF: 0 Referrals: [facility] [Outside]
[2019-04-27] MEDS: SODIUM CHLORIDE 0.9% 1,000 ML 150 ML IV (17:48)
[2019-04-27] MEDS: methylPREDNISolone 125 MG/2 ML VIAL IV (17:49)
[2019-04-27 17:56] LABS: Add Manual Diff / Slide Review NO; Basophils Absolute Auto 100 /uL (0-100); Basophils Percent Auto 0.3 % (0-2); Eosinophils Absolute Auto 100 /uL (0-450); Eosinophils Percent Auto 0.5 % (2-4); Hematocrit 39.6 % (36-46); Hemoglobin 13.1 g/dL (12.0-16.0); Lymphocytes Absolute Auto 1900 /uL (1100-4500); Lymphocytes Percent Auto 10.3 % (25-40); Mean Corpuscular HGB Conc 33.2 % (30-36); Mean Corpuscular Hemoglobin 30.7 PG (26-34); Mean Corpuscular Volume 92.5 fL (80-100); Monocytes Absolute Auto 2200 /uL (0-900); Neutrophils Absolute Auto 14200 /uL (1500-7000); Neutrophils Percent Auto 76.9 % (50-75); Platelet Count 365 X10^3/uL (150-400); Red Blood Cell Count 4.28 X10^6/uL (4.0-5.2); Red Cell Distribution Width 13.6 % (11.6-14.8); White Blood Cell Count 18.5 X10^3/uL (4.5-11.0)
[2019-04-27 18:05] LABS: D Dimer 418 ng/mL (<230)
[2019-04-27 18:10] LABS: BUN Creatinine Ratio 17.8 (6-22); Blood Urea Nitrogen 16 mg/dL (7-17); Calcium 9.5 mg/dL (8.4-10.2); Carbon Dioxide 26 mmol/L (22-32); Chloride 101 mmol/L (98-107); Creatine Kinase 80 U/L (30-135); Estimated Glomerular Filt Rate > 60.0 mL/min (>60); Glucose 89 mg/dL (80-110); HEMOLYSIS < 15 (0-50); Magnesium 2.2 mg/dL (1.6-2.3); Potassium 4.2 mmol/L (3.4-5.1); Sodium 136 mmol/L (137-145)
[2019-04-27 18:14] LABS: B Type Natriuretic Peptide < 100 (<100)
[2019-04-27 18:22] LABS: Troponin I < 0.012 ng/mL (0.01-0.034)
[2019-04-27 18:26] LABS: Procalcitonin 0.12 ng/mL (<0.5)
[2019-04-27 18:30] VITALS: BP 120/81; PULSE 90; O2SAT 93
[2019-04-27 18:55] LABS: Lactate (Lactic Acid) 1.2 mmol/L (0.7-2.1)
[2019-04-27 19:28] VITALS: BP 123/57; PULSE 84; RESP 16; TEMP 37.2; O2SAT 93
== END 2019-04-27 19:28 | disposition home or self-care (01) ==
PROVIDERS: Emergency Provider Emergency Medicine
DX: J44.1 Chronic obstructive pulmonary disease with (acute) exacerbation (principal); J18.9 Pneumonia, unspecified organism; R06.00 Dyspnea, unspecified
CPT/HCPCS: 36591; 80048; 82550; 83605; 83735; 83880; 84145; 84484; 85025; 85379; 87040; 93005; 94150; 94640; 96361; 96374; 99283; 99284; J2930

== ENCOUNTER 2019-07-21 16:26 | Emergency (ER) | payer MEDICAID, OTHER, SELFPAY ==
[2018-08-28 01:35] VITALS: BMI 17.8
[2019-07-21 16:35] VITALS: BP 102/76; BMI 16.7
--- NOTE | 2019-07-21 16:37 | DI.RAD.S_ITS ---
PROCEDURE: XR CHEST 1V INDICATIONS: chest pain TECHNIQUE: One view of the chest was acquired. COMPARISON: [facility], CR, XR CHEST 2V, 04/01/2019, 23:42. FINDINGS: Surgical changes and devices: None. Lungs and pleura: Lungs are hyperinflated, hyperlucent, but clear. No pleural effusions or pneumothorax. Mediastinum: Mediastinal contours appear normal. Heart size is normal. Bones and chest wall: No suspicious bony lesions. Healing right fifth and eighth rib fractures. Overlying soft tissues appear unremarkable. IMPRESSION: Chronic hyperinflation suggestive of chronic obstructive pulmonary disease. No acute process. Dictated by: Beatriz Rosen M.D. on 07/21/2019 at 17:19 Approved by: Beatriz Rosen M.D. on 07/21/2019 at 17:19
[2019-07-21 16:49] LABS: Prothrombin Time 11.2 SECONDS (10.1-12.7)
[2019-07-21 16:50] LABS: Add Manual Diff / Slide Review NO; Basophils Absolute Auto 100 /uL (0-100); Basophils Percent Auto 0.9 % (0-2); Eosinophils Absolute Auto 600 /uL (0-450); Hemoglobin 13.5 g/dL (12.0-16.0); Lymphocytes Absolute Auto 2500 /uL (1100-4500); Lymphocytes Percent Auto 27.3 % (25-40); Mean Corpuscular Hemoglobin 31.1 PG (26-34); Mean Corpuscular Volume 94.2 fL (80-100); Monocytes Absolute Auto 1000 /uL (0-900); Monocytes Percent Auto 11.1 % (3-14); Neutrophils Absolute Auto 4900 /uL (1500-7000); Neutrophils Percent Auto 53.7 % (50-75); Platelet Count 473 X10^3/uL (150-400); Red Blood Cell Count 4.35 X10^6/uL (4.0-5.2); White Blood Cell Count 9.1 X10^3/uL (4.5-11.0)
[2019-07-21 16:52] LABS: PTT Partial Thromboplastin Tim 34 SECONDS (26.4-36.2)
--- NOTE | 2019-07-21 17:05 | ED_ITS ---
HPI - Chest Pain General Chief Complaint: Chest Pain Stated Complaint: left sided chest pain t-1 day Time Seen by Provider: 07/21/19 16:30 Source: EMS Mode of arrival: EMS History of Present Illness HPI narrative: 63-year-old female former smoker with history of COPD, hyperlipidemia presents with a chief complaint of some left-sided chest pain with cough over the past few days. She has had no fever or chills nor nausea or vomiting. She is not dizzy nor weak or lightheaded. Radiate. MD complaint: chest pain Onset (ago): day(s) Duration: intermittent Pain location: left chest Severity: mild Quality: sharp Pain radiation: none Relieving factors: rest Exacerbating factors: inspiration, palpation and movement Associated symptoms: dyspnea Treatments prior to arrival chest pain: nitroglycerin Related Data On Oral Contraceptives: No Home Medications Medication Instructions Recorded Confirmed Thera M Plus (ferrous fumarat) 1 tab PO DAILY #0 10/09/17 07/21/19 bupropion HCl 300 mg PO DAILY #0 10/09/17 07/21/19 clopidogrel 75 mg PO DAILY #0 10/09/17 07/21/19 docusate sodium 100 mg PO BID PRN #0 10/09/17 07/21/19 albuterol sulfate 2 puff INHALATION Q4H PRN 08/10/18 07/21/19 alendronate 70 mg PO QWEEK 08/10/18 07/21/19 cholecalciferol (vitamin D3) 1,000 unit PO DAILY 08/10/18 07/21/19 loratadine 10 mg PO DAILY PRN 08/10/18 07/21/19 ondansetron HCl 4 mg PO DAILY PRN 10/05/18 07/21/19 atorvastatin 40 mg PO DAILY 04/27/19 07/21/19 hydroxyzine HCl 25 mg PO TID PRN 04/27/19 07/21/19 metoprolol succinate 50 mg PO DAILY 04/27/19 07/21/19 pantoprazole 40 mg PO DAILY 04/27/19 07/21/19 ranitidine HCl 300 mg PO BEDTIME 04/27/19 07/21/19 fluticasone propion-salmeterol 1 inh INHALATION BID 07/21/19 07/21/19 [Wixela Inhub] ipratropium-albuterol 3 ml INHALATION DIRECTED 07/21/19 07/21/19 Previous Rx's Medication Instructions Recorded citalopram [Celexa] 20 mg PO DAILY #30 tab 05/10/18 doxycycline hyclate 100 mg PO BID #20 tab 07/21/19 Allergies Allergy/AdvReac Type Severity Reaction Status Date / Time codeine [CODEINE] Allergy Severe NAUSEA / Verified 07/21/19 16:34 VOMITING latex Allergy Rash Verified 07/21/19 16:34 lisinopril Allergy Verified 07/21/19 16:34 Review of Systems Constitutional Constitutional: Denies chills, Denies fatigue, Denies fever(s), Denies frequent falls, Denies lethargy and Denies weakness Eyes Eyes: Denies change in vision, Denies eye discharge, Denies irritation and Denies loss of vision ENT Ears, Nose, Mouth, and Throat: Denies change in voice, Denies dizziness, Denies neck pain, Denies sore throat and Denies throat swelling Cardiovascular Cardiovascular: Reports chest pain, Denies irregular heart rhythm, Denies lightheadedness, Denies palpitations, Reports dyspnea, Denies dyspnea on exertion and Denies orthopnea Respiratory Respiratory: Reports chest congestion, Reports cough, Reports dyspnea, Denies dyspnea on exertion and Denies wheezing Gastrointestinal Gastrointestinal: Denies abdominal pain, Denies change in bowel habits, Denies diarrhea, Denies nausea and Denies vomiting Genitourinary Genitourinary: Denies hematuria, Denies flank pain, Denies urinary incontinence and Denies urinary urgency Musculoskeletal Musculoskeletal: Denies back pain, Denies muscle weakness, Denies neck pain, Denies numbness and Denies tingling Integumentary/Breasts Skin/Breast: Denies pruritus, Denies erythema, Denies rash and Denies wounds Neurologic Neurologic: Denies behavioral changes, Denies confusion, Denies dizziness, Denies frequent falls, Denies loss of vision, Denies numbness, Denies tingling and Denies weakness Psychiatric Psychiatric: Denies anxiety, Denies behavioral changes, Denies confusion, Denies depression, Denies homicidal ideation and Denies suicidal ideation Endocrine Endocrine: Denies fatigue, Denies flushing and Denies palpitations Hematologic/Lymphatic Hematologic/Lymphatic: Denies easy bruising Allergic/Immunologic Allergic/Immunologic: Denies urticaria, Denies throat swelling and Denies wheezing Patient History Medical History Alcohol abuse (Acute) COPD (chronic obstructive pulmonary disease) (Acute) Hypertension (Acute) Irritable bowel syndrome (IBS) (Acute) Pancreatitis (Acute) Urinary tract infection (Acute) Surgical History Total knee replacement status (Acute) Family History Other Family history non-contributory Social History household members: friend(s) Smoking Status: Former smoker alcohol intake: former alcohol intake frequency: other Substance Use Type: does not use Exam Narrative Exam Narrative: GENERAL: [63] year old patient appears stated age. Well- nourished, well-developed patient, in mild distress. HEAD: Atraumatic. Normocephalic. EYES: Pupils equal round and reactive. Extraocular motions intact. No scleral icterus. No injection or drainage. ENT: Nose without bleeding, purulent drainage. Throat without erythema, tonsillar hypertrophy or exudate. Airway patent. NECK: Trachea midline. Non tender CARDIOVASCULAR: Regular rate and rhythm without murmurs, gallops, or rubs. RESPIRATORY: Clear to auscultation. Breath sounds equal bilaterally. No wheezes, rales, or rhonchi. GASTROINTESTINAL: Abdomen soft, non-tender, nondistended. EXTREMITIES: No edema or joint tenderness. BACK: Nontender without deformity or crepitance. No flank tenderness. NEURO: AOx3. SKIN: No rash or erythema of visible areas Initial Vital Signs Initial Vital Signs: Vital Signs Blood Pressure 102/76 07/21/19 16:35 Course Orders Ordered: ED Orders 07/21/19 16:30 Complete Blood Count AUTO DIFF Stat Comprehensive Metabolic Panel Stat Lipase Stat Partial Thromboplastin Time Stat Prothrombin Time INR Stat Troponin & CK Cardiac Panel Stat 07/21/19 16:37 XR chest 1V Stat 07/21/19 16:47 EKG-12 Lead Stat 07/21/19 16:57 Urine Microscopic Stat Discontinued Medications Acetaminophen (Tylenol) 650 mg PO NOW ONE Stop: 07/21/19 17:31 Last Admin: 07/21/19 17:57 Dose: 650 mg Documented by: ALL Sodium Chloride (Normal Saline 0.9%) 500 mls @ 1,000 mls/hr IV BOLUS ONE Stop: 07/21/19 17:37 Last Infusion: 07/21/19 19:13 Dose: 0 mls/hr Documented by: Admin: 07/21/19 17:25 Dose: 1,000 mls/hr Documented by: BAHMAN Vital Signs Vital signs: Vital Signs - 8 hr 07/21/19 16:35 07/21/19 17:23 07/21/19 18:30 Pulse Rate 61 58 L Respiratory Rate 24 19 Blood Pressure 102/76 Blood Pressure [Left Arm] 109/80 123/70 Pulse Oximetry 95 95 07/21/19 19:13 Pulse Rate 70 Respiratory Rate 15 Blood Pressure 132/77 Blood Pressure [Left Arm] Pulse Oximetry 96 MDM - Chest Pain Lab Data Result diagrams: 07/21/19 16:30 07/21/19 16:30 Labs: Lab Results 07/21/19 07/21/19 07/21/19 Range/Units 16:30 16:30 16:30 WBC 9.1 (4.5-11.0) X10^3/uL RBC 4.35 (4.0-5.2) X10^6/uL Hgb 13.5 (12.0-16.0) g/dL Hct 41.0 (36-46) % MCV 94.2 (80-100) fL MCH 31.1 (26-34) PG MCHC 33.0 (30-36) % RDW 13.0 (11.6-14.8) % Plt Count 473 H (150-400) X10^3/uL Neut % (Auto) 53.7 (50-75) % Lymph % (Auto) 27.3 (25-40) % [place] % (Auto) 11.1 (3-14) % Eos % (Auto) 7.0 H (2-4) % Baso % (Auto) 0.9 (0-2) % Neut # (Auto) 4900 (2053-3014) /uL Lymph # (Auto) 2500 (2444-4167) /uL [place] # (Auto) 1000 H (0-900) /uL Eos # (Auto) 600 H (0-450) /uL Baso # (Auto) 100 (0-100) /uL PT 11.2 (10.1-12.7) SECONDS INR 1.0 (0.9-1.3) APTT 34 (26.4-36.2) SECONDS Sodium 139 (137-145) mmol/L Potassium 4.6 (3.4-5.1) mmol/L Chloride 98 (98-107) mmol/L Carbon Dioxide 28 (22-32) mmol/L BUN 16 (7-17) mg/dL Creatinine 0.90 (0.52-1.04) mg/dL Estimated GFR > 60.0 (>60) mL/min BUN/Creatinine Ratio 17.8 (6-22) Glucose 87 (80-110) mg/dL Calcium 9.7 (8.4-10.2) mg/dL Total Bilirubin 0.6 (0.2-1.3) mg/dL AST 39 H (14-36) IU/L ALT 18 (9-52) IU/L Alkaline Phosphatase 95 (38-126) U/L Total Creatine Kinase 76 (30-135) U/L CK-MB (CK-2) TNP CK-MB (CK-2) Rel Index TNP Troponin I < 0.012 (0.01-0.034) ng/mL Total Protein 8.3 H (6.3-8.2) g/dL Albumin 5.0 (3.5-5.0) g/dL Globulin 3.3 (1.7-4.1) g/dL Albumin/Globulin Ratio 1.5 (1.0-2.8) Lipase 123 (23-300) U/L Imaging Data Chest x-ray: Radiologist's impression: [address] [address] XRay Report Signed Patient: Rosemry Marquis#: [id number] : 8Acct:[id number] Age/Sex: 63 / FDate of Service: 07/21/19 Loc: ED Accession Number: [id number] Procedure: XR chest 1V Ordering Provider: Erich Almonte D.O. PROCEDURE: XR CHEST 1V INDICATIONS: chest pain TECHNIQUE: One view of the chest was acquired. COMPARISON: [facility], CR, XR CHEST 2V, 04/01/2019, 23:42. FINDINGS: Surgical changes and devices: None. Lungs and pleura: Lungs are hyperinflated, hyperlucent, but clear. No pleural effusions or pneumothorax. Mediastinum: Mediastinal contours appear normal. Heart size is normal. Bones and chest wall: No suspicious bony lesions. Healing right fifth and eighth rib fractures. Overlying soft tissues appear unremarkable. IMPRESSION: Chronic hyperinflation suggestive of chronic obstructive pulmonary disease. No acute process. Dictated by: Beatriz Rosen M.D. on 07/21/2019 at 17:19 Approved by: Beatriz Rosen M.D. on 07/21/2019 at 17:19 [facility] Narrative Medical decision making narrative: Multiple etiologies for patient's symptoms considered including: [Cardiac disease, but thought less likely given lack of EKG findings, negative troponin and nonischemic or classic complaints. Pneumonia considered but thought less likely given lack of findings chest x-ray though atypical pneumonia is still certainly on the differential. Her pain is sharp and reproducible and started after a coughing spell a few days ago. Multiple causes of chest pain considered including PA, PE, pneumothorax, pneumonia, aortic dissection, and pleurisy. Patient reports no radiation, no diaphoresis, no provocation with exertion, and no vomiting] Patient's symptoms improved or duration of stay with above-stated therapies. Findings and discharge diagnosis discussed with patient/family followed by verbalization of understanding Return precautions discussed with patient/family whom verbalize understanding. Discharge Plan Departure Patient Disposition: Home Clinical Impression: Acute exacerbation of chronic obstructive airways disease, Atypical chest pain, Atypical pneumonia Discharge Date/Time: 07/21/19 19:14 Instructions: DI for Atypical Chest Pain Activity Restrictions/Additional Instructions: *You have been diagnosed with [acute exacerbation of COPD, atypical pneumonia, atypical chest pain] *What to do: *Take medications as directed *Follow up with your primary care provider in 2-3 days, call for an appointment. Let them know you were seen in the Emergency Department and that we ask that you be seen in follow up *Return to ER if you should have any new, worsening or concerning symptoms, such as [ ] Prescriptions: New doxycycline hyclate 100 mg tablet 100 mg PO BID Qty: 20 RF: 0 No Action docusate sodium 100 MG capsule 100 mg PO BID PRN (Reason: Constipation) Qty: 0 RF: 0 clopidogrel 75 MG tablet 75 mg PO DAILY Qty: 0 RF: 0 bupropion HCl 300 MG tablet extended release 24 hr 300 mg PO DAILY Qty: 0 RF: 0 Thera M Plus (ferrous fumarat) 1 EACH tablet 1 tab PO DAILY Qty: 0 RF: 0 citalopram [Celexa] 20 mg tablet 20 mg PO DAILY Qty: 30 RF: 0 fluticasone propion-salmeterol [Wixela Inhub] 250-50 mcg/dose blister with device 1 inh INHALATION BID RF: 0 ipratropium-albuterol 0.5 mg-3 mg(2.5 mg base)/3 mL solution for nebulization 3 ml INHALATION DIRECTED RF: 0 alendronate 70 mg tablet 70 mg PO QWEEK RF: 0 albuterol sulfate 90 mcg/actuation HFA aerosol inhaler 2 puff Inhalation Q4H PRN (Reason: Wheezing) RF: 0 loratadine 10 mg tablet 10 mg PO DAILY PRN (Reason: Allergy Symptoms) RF: 0 cholecalciferol (vitamin D3) 1,000 unit tablet 1,000 unit PO DAILY RF: 0 ondansetron HCl 4 mg tablet 4 mg PO DAILY PRN (Reason: nausea / vomiting) RF: 0 atorvastatin 40 mg tablet 40 mg PO DAILY RF: 0 metoprolol succinate 50 mg tablet extended release 24 hr 50 mg PO DAILY RF: 0 ranitidine HCl 300 mg tablet 300 mg PO BEDTIME RF: 0 pantoprazole 40 mg tablet,delayed release (DR/EC) 40 mg PO DAILY RF: 0 hydroxyzine HCl 25 mg tablet 25 mg PO TID PRN (Reason: itching and hives) RF: 0 Referrals: Kandi Malhotra MD [Primary Care Provider] -
[2019-07-21 17:08] LABS: Alanine Aminotransferase 18 IU/L (9-52); Albumin Globulin Ratio 1.5 (1.0-2.8); Alkaline Phosphatase 95 U/L (38-126); Aspartate Aminotransferase 39 IU/L (14-36); BUN Creatinine Ratio 17.8 (6-22); Bilirubin Total 0.6 mg/dL (0.2-1.3); Blood Urea Nitrogen 16 mg/dL (7-17); Calcium 9.7 mg/dL (8.4-10.2); Carbon Dioxide 28 mmol/L (22-32); Chloride 98 mmol/L (98-107); Creatine Kinase 76 U/L (30-135); Estimated Glomerular Filt Rate > 60.0 mL/min (>60); Globulin 3.3 g/dL (1.7-4.1); Glucose 87 mg/dL (80-110); HEMOLYSIS < 15 (0-50); Lipase 123 U/L (23-300); Potassium 4.6 mmol/L (3.4-5.1); Sodium 139 mmol/L (137-145); Total Protein 8.3 g/dL (6.3-8.2)
[2019-07-21 17:15] LABS: Troponin I < 0.012 ng/mL (0.01-0.034)
[2019-07-21 17:23] VITALS: BP 109/80; PULSE 61; RESP 24; O2SAT 95
[2019-07-21] MEDS: SODIUM CHLORIDE 0.9% 500 ML 1000 ML IV (17:25)
[2019-07-21] MEDS: ACETAMINOPHEN 325 MG TABLET 650 MG PO (17:57)
[2019-07-21 18:30] VITALS: BP 123/70; PULSE 58; RESP 19; O2SAT 95
[2019-07-21 19:13] VITALS: BP 132/77; PULSE 70; RESP 15; O2SAT 96
== END 2019-07-21 19:14 | disposition home or self-care (01) ==
PROVIDERS: Emergency Provider Emergency Medicine; Family Provider Family Medicine; PCP Family Medicine
DX: J44.1 Chronic obstructive pulmonary disease with (acute) exacerbation (principal); J18.9 Pneumonia, unspecified organism; R07.89 Other chest pain
CPT/HCPCS: 71045; 80053; 82550; 83690; 84484; 85025; 85610; 85730; 93005; 99283; 99285

== ENCOUNTER 2020-02-07 18:48 | Emergency (ER) | payer MEDICAID, OTHER, SELFPAY ==
[2018-08-28 01:35] VITALS: BMI 17.8
[2020-02-07 18:50] VITALS: BP 207/102; PULSE 94; RESP 44; TEMP 37.2; O2SAT 94
--- NOTE | 2020-02-07 18:52 | DI.RAD.S_ITS ---
PROCEDURE: XR CHEST 1V INDICATIONS: COPD and Shortness of breath TECHNIQUE: One view of the chest was acquired. COMPARISON: [facility], CR, XR CHEST 1V, 07/21/2019, 16:52. FINDINGS: Surgical changes and devices: None. Lungs and pleura: Lungs are clear. No pleural effusions or pneumothorax. Lungs are hyperinflated compatible with history of COPD. Mediastinum: Mediastinal contours appear normal. Heart size is normal. Bones and chest wall: Chronic right fourth and seventh rib fractures. No suspicious bony lesions. Overlying soft tissues appear unremarkable. IMPRESSION: No acute cardiopulmonary disease process. Dictated by: Fouzia Euceda MD, PhD on 02/07/2020 at 19:09 Approved by: Fouzia Euceda MD, PhD on 02/07/2020 at 19:10
--- NOTE | 2020-02-07 18:59 | ED_ITS ---
HPI - General Adult General Chief complaint: Shortness of Breath/Dyspnea Stated complaint: COPD/TROUBLE BREATHING/EARS HURT Time Seen by Provider: 02/07/20 18:49 Source: patient Mode of arrival: Ambulatory Limitations: no limitations History of Present Illness HPI narrative: Patient is a 64-year-old current smoker with a history of COPD not on home oxygen here for evaluation of shortness of breath. Patient states that over the past week she has had progressively worsening shortness of breath and wheezing. No coughing. Potentially has had subjective fevers but nothing measured. No change in sputum production. Chest pain however she states this is related to her breathing. She has been doing her home nebulizers and other medications without any improvement. No rashes. No sick contacts. No travel. No headache. She is also complaining of bilateral ear fullness especially when she is coughing. She also has sinus congestion. She also is describing epigastric abdominal pain. This abdominal pain is not new for her. She does have a diagnosis of IBS and reflux disease. Related Data Home Medications Medication Instructions Recorded Confirmed Thera M Plus (ferrous fumarat) 1 tab PO DAILY #0 10/09/17 10/01/19 bupropion HCl 300 mg PO DAILY #0 10/09/17 07/21/19 clopidogrel 75 mg PO DAILY #0 10/09/17 10/01/19 docusate sodium 100 mg PO BID PRN #0 10/09/17 07/21/19 albuterol sulfate 2 puff INHALATION Q4H PRN 08/10/18 07/21/19 alendronate 70 mg PO QWEEK 08/10/18 07/21/19 cholecalciferol (vitamin D3) 1,000 unit PO DAILY 08/10/18 07/21/19 loratadine 10 mg PO DAILY PRN 08/10/18 10/01/19 atorvastatin 40 mg PO DAILY 04/27/19 10/01/19 pantoprazole 40 mg PO DAILY 04/27/19 10/01/19 ranitidine HCl 300 mg PO BEDTIME 04/27/19 10/01/19 metoprolol succinate 50 mg 25 mg PO DAILY tab 10/01/19 10/01/19 tablet,extended release 24 hr Previous Rx's Medication Instructions Recorded citalopram [Celexa] 20 mg PO DAILY #30 tab 05/10/18 albuterol sulfate 90 mcg/actuation 1 inh INHALATION Q4-6H PRN #18 gram 10/01/19 aerosol inhaler prednisone 20 mg PO DAILY #24 tab 02/07/20 sucralfate [Carafate] 1 gram PO QACHS 7 Days #28 tab 02/07/20 Allergies Allergy/AdvReac Type Severity Reaction Status Date / Time codeine [CODEINE] Allergy Severe NAUSEA / Verified 10/01/19 14:46 VOMITING latex Allergy Rash Verified 10/01/19 14:46 lisinopril Allergy Verified 10/01/19 14:46 Review of Systems Constitutional Constitutional: Denies chills, Reports fever(s) (Subjective) and Denies headache(s) ENT Ears, Nose, Mouth, and Throat: Denies headache(s) and Reports sinus pressure Comments: Bilateral ear pain Cardiovascular Cardiovascular: Denies chest pain and Reports dyspnea Respiratory Respiratory: Reports chest congestion, Reports cough, Denies excessive phlegm production, Reports dyspnea and Reports wheezing Gastrointestinal Gastrointestinal: Reports abdominal pain, Denies change in stool character and Reports vomiting Genitourinary Genitourinary: Denies dysuria Integumentary/Breasts Skin/Breast: Denies lesions and Denies rash Neurologic Neurologic: Denies behavioral changes and Denies headache(s) Psychiatric Psychiatric: Denies behavioral changes Hematologic/Lymphatic Hematologic/Lymphatic: Denies easy bleeding and Denies easy bruising Allergic/Immunologic Allergic/Immunologic: Reports wheezing Patient History Medical History Alcohol abuse (Acute) COPD (chronic obstructive pulmonary disease) (Acute) Hypertension (Acute) Irritable bowel syndrome (IBS) (Acute) Pancreatitis (Acute) Urinary tract infection (Acute) Social History household members: friend(s) Smoking Status: Former smoker alcohol intake: former Smoking Status: Former smoker alcohol intake frequency: other Substance Use Type: does not use Exam Initial Vital Signs Initial Vital Signs: Vital Signs Temperature 99 F 02/07/20 18:50 Pulse Rate 94 H 02/07/20 18:50 Respiratory Rate 44 H 02/07/20 18:50 Blood Pressure 207/102 H 02/07/20 18:50 Pulse Oximetry 94 02/07/20 18:50 Const General: cooperative and comfortable Limitations: mental status not altered HENKY Head: normal to inspection and normocephalic Ears: TM's normal bilaterally Nose: external nose normal Resp Effort & Inspection: audible wheezes, labored, no nasal flaring, no retractions and tachypneic Auscultation: wheezes Cardio Rate: regular rate Rhythm: regular rhythm GI Inspection: non-distended Palpation: soft, No firm and tender (Epigastric) Skin Lesions: no lesions Rashes: no rashes Neuro General: alert, awake and oriented x3 Cognition: normal cognition Speech: speech normal Extrem General: normal to inspection and capillary refill normal Psych Appearance: grossly normal and well kempt Course Orders Ordered: ED Orders 02/07/20 18:52 XR chest 1V Stat EKG-12 Lead Stat RT Consult Eval and Treat Now 02/07/20 19:05 Complete Blood Count AUTO DIFF Stat Comprehensive Metabolic Panel Stat Lipase Stat NT-proBNP (BNP-Adult 18+) Stat Partial Thromboplastin Time Stat Procalcitonin Stat Prothrombin Time INR Stat Troponin I Stat Discontinued Medications Albuterol/Ipratropium (Duoneb) 9 ml INH NOW ONE Stop: 02/07/20 18:59 Last Admin: 02/07/20 19:02 Dose: 9 ml Documented by: MARGARITA Osman Hydrox/Mg Hydrox/Simethicone 20 ml/ Lidocaine HCl 15 ml 0 ml PO NOW ONE Stop: 02/07/20 19:11 Last Admin: 02/07/20 19:14 Dose: 45 ml Documented by: MIMI Methylprednisolone (Solu-Medrol 125 Mg Vial) 125 mg IV NOW ONE Stop: 02/07/20 18:59 Last Admin: 02/07/20 19:09 Dose: 125 mg Documented by: MIMI Vital Signs Vital signs: Vital Signs - 8 hr 02/07/20 18:50 02/07/20 19:03 02/07/20 19:30 Temperature 99 F 98.6 F Pulse Rate 94 H 81 87 Respiratory Rate 44 H 24 36 H Blood Pressure 207/102 H Blood Pressure [Left Arm] 146/84 H Pulse Oximetry 94 93 91 02/07/20 20:00 Temperature Pulse Rate 82 Respiratory Rate 30 H Blood Pressure Blood Pressure [Left Arm] 140/70 Pulse Oximetry 92 Medical Decision Making Medical Records Medical records reviewed: Yes I reviewed the patient's medical records. Lab Data Lab results reviewed: Yes I reviewed the patient's lab results. Result diagrams: 02/07/20 19:05 02/07/20 19:05 Labs: Lab Results 02/07/20 02/07/20 02/07/20 Range/Units 19:05 19:05 19:05 WBC 10.2 (4.5-11.0) X10^3/uL RBC 4.68 (4.0-5.2) X10^6/uL Hgb 14.7 (12.0-16.0) g/dL Hct 43.4 (36-46) % MCV 92.7 (80-100) fL MCH 31.5 (26-34) PG MCHC 34.0 (30-36) % RDW 13.0 (11.6-14.8) % Plt Count 407 H (150-400) X10^3/uL Neut % (Auto) 58.4 (50-75) % Lymph % (Auto) 25.9 (25-40) % [place] % (Auto) 9.0 (3-14) % Eos % (Auto) 6.2 H (2-4) % Baso % (Auto) 0.5 (0-2) % Neut # (Auto) 6000 (3667-4296) /uL Lymph # (Auto) 2600 (1159-7270) /uL [place] # (Auto) 900 (0-900) /uL Eos # (Auto) 600 H (0-450) /uL Baso # (Auto) 100 (0-100) /uL PT 11.7 (10.1-12.7) SECONDS INR 1.0 (0.9-1.3) APTT 35 (26.4-36.2) SECONDS Sodium 139 (137-145) mmol/L Potassium 5.6 H (3.4-5.1) mmol/L Chloride 101 (98-107) mmol/L Carbon Dioxide 29 (22-32) mmol/L BUN 13 (7-17) mg/dL Creatinine 1.06 H (0.52-1.04) mg/dL Estimated GFR 52.5 L (>60) mL/min BUN/Creatinine Ratio 12.3 (6-22) Glucose 105 (80-110) mg/dL Calcium 10.0 (8.4-10.2) mg/dL Total Bilirubin 0.5 (0.2-1.3) mg/dL AST 40 H (14-36) IU/L ALT 22 (<35) IU/L Alkaline Phosphatase 108 (38-126) U/L Troponin I < 0.012 (0.01-0.034) ng/mL NT-Pro-B Natriuret Pep 570 H (<125) pg/mL Total Protein 8.8 H (6.3-8.2) g/dL Albumin 5.1 H (3.5-5.0) g/dL Globulin 3.7 (1.7-4.1) g/dL Albumin/Globulin Ratio 1.4 (1.0-2.8) Lipase 178 (23-300) U/L Procalcitonin (<0.5) ng/mL 02/07/20 Range/Units 19:05 WBC (4.5-11.0) X10^3/uL RBC (4.0-5.2) X10^6/uL Hgb (12.0-16.0) g/dL Hct (36-46) % MCV (80-100) fL MCH (26-34) PG MCHC (30-36) % RDW (11.6-14.8) % Plt Count (150-400) X10^3/uL Neut % (Auto) (50-75) % Lymph % (Auto) (25-40) % [place] % (Auto) (3-14) % Eos % (Auto) (2-4) % Baso % (Auto) (0-2) % Neut # (Auto) (6718-9371) /uL Lymph # (Auto) (9582-5418) /uL [place] # (Auto) (0-900) /uL Eos # (Auto) (0-450) /uL Baso # (Auto) (0-100) /uL PT (10.1-12.7) SECONDS INR (0.9-1.3) APTT (26.4-36.2) SECONDS Sodium (137-145) mmol/L Potassium (3.4-5.1) mmol/L Chloride (98-107) mmol/L Carbon Dioxide (22-32) mmol/L BUN (7-17) mg/dL Creatinine (0.52-1.04) mg/dL Estimated GFR (>60) mL/min BUN/Creatinine Ratio (6-22) Glucose (80-110) mg/dL Calcium (8.4-10.2) mg/dL Total Bilirubin (0.2-1.3) mg/dL AST (14-36) IU/L ALT (<35) IU/L Alkaline Phosphatase (38-126) U/L Troponin I (0.01-0.034) ng/mL NT-Pro-B Natriuret Pep (<125) pg/mL Total Protein (6.3-8.2) g/dL Albumin (3.5-5.0) g/dL Globulin (1.7-4.1) g/dL Albumin/Globulin Ratio (1.0-2.8) Lipase (23-300) U/L Procalcitonin < 0.05 (<0.5) ng/mL Imaging Data Chest x-ray: Radiologist's Impression: [place] [address] XRay Report Signed Patient: Rosmery MarquisR#: [id number] : 8Acct:[id number] Age/Sex: 64 / FDate of Service: 02/07/20 Loc: ED Accession Number: [id number] Procedure: XR chest 1V Ordering Provider: Doug Godoy D.O. PROCEDURE: XR CHEST 1V INDICATIONS: COPD and Shortness of breath TECHNIQUE: One view of the chest was acquired. COMPARISON: [facility], , XR CHEST 1V, 07/21/2019, 16:52. FINDINGS: Surgical changes and devices: None. Lungs and pleura: Lungs are clear. No pleural effusions or pneumothorax. Lungs are hyperinflated compatible with history of COPD. Mediastinum: Mediastinal contours appear normal. Heart size is normal. Bones and chest wall: Chronic right fourth and seventh rib fractures. No suspicious bony lesions. Overlying soft tissues appear unremarkable. IMPRESSION: No acute cardiopulmonary disease process. Dictated by: Fouzia Euceda MD, PhD on 02/07/2020 at 19:09 Approved by: Fouzia Euceda MD, PhD on 02/07/2020 at 19:10 ECG Data Attestation: I personally reviewed and interpreted this ECG as follows: Prior ECG tracings: not available for review Interpretation: Sinus rhythm Ventricular rate 88 Normal QRS Normal QTC No ST T wave changes MDM Narrative Medical decision making narrative: Patient's EKG is unremarkable. Chest x-ray shows no signs of pneumonia. She is afebrile. Received 3 DuoNebs with resolution of her wheezing into the point where the patient states that she feels much better is a densely back to baseline. Was also given Solu-Medrol. She was afebrile and has not had a change in sputum production so we will hold on any antibiotics for now. She was tested for COVID-19. Patient is also descr ibing epigastric abdominal pain. Upon further evaluation this does not seem to be new. She states that is an occasional issue that she has had over the past several months if not years. She is on reflux medications. She also has a diagnosis of irritable bowel syndrome. She still reported some improvement of the epigastric pain after the GI cocktail here in the ER. Also sounds like she has had some problems with vomiting food over the past several months. She also describes that she has ?real bad heartburn? I do have low suspicion that this is ACS. We will send her home with a prescription for steroids. She is on a PPI and H2 cory currently. Will send her home with a short course of Carafate. She was given return precautions and follow-up instructions. She expressed understanding and agreement. Discharge Plan Departure Patient Disposition: Home Clinical Impression: COPD exacerbation, Epigastric abdominal pain Instructions: Chronic Obstructive Pulmonary Disease Activity Restrictions/Additional Instructions: Two new prescriptions were electronically transmitted to [facility] in [place]. These are temporary medications that should be taken as directed. Recommend that you continue all of the rest of your medications as directed. Contact your primary provider for follow-up. Return to the emergency department for any new or worsening symptoms Prescriptions: New prednisone 20 mg tablet 20 mg PO DAILY Qty: 24 RF: 0 sucralfate [Carafate] 1 gram tablet 1 gram PO QACHS 7 Days Qty: 28 RF: 0 No Action albuterol sulfate 90 mcg/actuation HFA aerosol inhaler 1 inh INHALATION Q4-6H PRN (Reason: shortness of breath) Qty: 18 RF: 0 docusate sodium 100 MG capsule 100 mg PO BID PRN (Reason: Constipation) Qty: 0 RF: 0 clopidogrel 75 MG tablet 75 mg PO DAILY Qty: 0 RF: 0 bupropion HCl 300 MG tablet extended release 24 hr 300 mg PO DAILY Qty: 0 RF: 0 Thera M Plus (ferrous fumarat) 1 EACH tablet 1 tab PO DAILY Qty: 0 RF: 0 citalopram [Celexa] 20 mg tablet 20 mg PO DAILY Qty: 30 RF: 0 alendronate 70 mg tablet 70 mg PO QWEEK RF: 0 albuterol sulfate 90 mcg/actuation HFA aerosol inhaler 2 puff Inhalation Q4H PRN (Reason: Wheezing) RF: 0 loratadine 10 mg tablet 10 mg PO DAILY PRN (Reason: Allergy Symptoms) RF: 0 cholecalciferol (vitamin D3) 1,000 unit tablet 1,000 unit PO DAILY RF: 0 atorvastatin 40 mg tablet 40 mg PO DAILY RF: 0 ranitidine HCl 300 mg tablet 300 mg PO BEDTIME RF: 0 pantoprazole 40 mg tablet,delayed release (DR/EC) 40 mg PO DAILY RF: 0 metoprolol succinate 50 mg tablet extended release 24 hr 25 mg PO DAILY RF: 0 Referrals: Kandi Malhotra MD [Primary Care Provider] -
[2020-02-07] MEDS: ALBUTEROL/IPRATROPIUM 3 ML AMPUL 9 ML INH (19:02)
[2020-02-07 19:03] VITALS: PULSE 81; RESP 24; O2SAT 93
[2020-02-07] MEDS: methylPREDNISolone 125 MG/2 ML VIAL IV (19:09)
[2020-02-07] MEDS: MAG HYDROX/ALUMINUM/SIMETH SUS 20 ML, LIDOCAINE VISCOUS 2% 15 ML PO (19:14)
[2020-02-07 19:27] LABS: Add Manual Diff / Slide Review NO; Basophils Absolute Auto 100 /uL (0-100); Basophils Percent Auto 0.5 % (0-2); Eosinophils Absolute Auto 600 /uL (0-450); Eosinophils Percent Auto 6.2 % (2-4); Hematocrit 43.4 % (36-46); Hemoglobin 14.7 g/dL (12.0-16.0); Lymphocytes Absolute Auto 2600 /uL (1100-4500); Lymphocytes Percent Auto 25.9 % (25-40); Mean Corpuscular Hemoglobin 31.5 PG (26-34); Mean Corpuscular Volume 92.7 fL (80-100); Monocytes Absolute Auto 900 /uL (0-900); Neutrophils Absolute Auto 6000 /uL (1500-7000); Neutrophils Percent Auto 58.4 % (50-75); Platelet Count 407 X10^3/uL (150-400); Red Blood Cell Count 4.68 X10^6/uL (4.0-5.2); White Blood Cell Count 10.2 X10^3/uL (4.5-11.0)
[2020-02-07 19:30] VITALS: BP 146/84; PULSE 87; RESP 36; TEMP 37; O2SAT 91
[2020-02-07 19:32] LABS: Prothrombin Time 11.7 SECONDS (10.1-12.7)
[2020-02-07 19:35] LABS: PTT Partial Thromboplastin Tim 35 SECONDS (26.4-36.2)
[2020-02-07 19:38] LABS: Alanine Aminotransferase 22 IU/L (<35); Albumin 5.1 g/dL (3.5-5.0); Albumin Globulin Ratio 1.4 (1.0-2.8); Alkaline Phosphatase 108 U/L (38-126); Aspartate Aminotransferase 40 IU/L (14-36); BUN Creatinine Ratio 12.3 (6-22); Bilirubin Total 0.5 mg/dL (0.2-1.3); Blood Urea Nitrogen 13 mg/dL (7-17); Carbon Dioxide 29 mmol/L (22-32); Chloride 101 mmol/L (98-107); Estimated Glomerular Filt Rate 52.5 mL/min (>60); Globulin 3.7 g/dL (1.7-4.1); Glucose 105 mg/dL (80-110); HEMOLYSIS < 15 (0-50); Lipase 178 U/L (23-300); Sodium 139 mmol/L (137-145); Total Protein 8.8 g/dL (6.3-8.2)
[2020-02-07 19:40] LABS: Potassium 5.6 mmol/L (3.4-5.1)
[2020-02-07 19:50] LABS: NT-proBNP (BNP-Adult 18+) 570 pg/mL (<125); Troponin I < 0.012 ng/mL (0.01-0.034)
[2020-02-07 20:00] VITALS: BP 140/70; PULSE 82; RESP 30; O2SAT 92
--- NOTE | 2020-02-07 20:12 | PC.NURSE ---
patient asked for ice chips. provider okay with patient to have ice chips. patient given ice chips. patient also complains of epigastric abdominal. states that the pain feels achy and a pain level of a 4 on a pain level scale of 0 to 10. patient states that the pain is sometimes worse with taking a deep breath and feels better if she stays still. provider notified and no new orders at this time.
[2020-02-07 20:15] LABS: Procalcitonin < 0.05 ng/mL (<0.5)
[2020-02-07 20:30] VITALS: BP 152/79; PULSE 83; RESP 23; O2SAT 92
[2020-02-09 09:07] LABS: COVID19 Sendout NEGATIVE (Not Detect)
== END 2020-02-07 20:55 | disposition home or self-care (01) ==
PROVIDERS: Emergency Provider Emergency Medicine; Family Provider Family Medicine; PCP Family Medicine
DX: J44.1 Chronic obstructive pulmonary disease with (acute) exacerbation (principal); R10.13 Epigastric pain
CPT/HCPCS: 36415; 71045; 80053; 83690; 83880; 84145; 84484; 85025; 85610; 85730; 87635; 93005; 94640; 96374; 99284; 99285; J2930

== ENCOUNTER 2020-04-26 13:29 | Emergency (ER) | payer MEDICAID, OTHER, SELFPAY ==
[2018-08-28 01:35] VITALS: BMI 17.8
[2020-04-26 13:55] VITALS: BP 143/72; PULSE 74; RESP 20; TEMP 36.9; O2SAT 98
[2020-04-26 16:20] VITALS: BP 147/74; PULSE 64; RESP 16; O2SAT 97
[2020-04-26 17:29] VITALS: BP 117/68; PULSE 64; RESP 16; O2SAT 96
--- NOTE | 2020-04-26 17:55 | DI.RAD.S_ITS ---
PROCEDURE: XR CERVICAL SPINE 2V OR 3V INDICATIONS: acute on chronic neck pain/cervical fusion TECHNIQUE: Three view(s) of the cervical spine were acquired. COMPARISON: None. FINDINGS: Bones: Posterior cervical fusion of C1 and C2 with similar angulation of transpedicular screws which were previously demonstrated to be fractured. Vertebral bodies are visible to the level of T1. There is a chronic mild kyphosis at the C five six level. Multilevel degenerative disc height loss and prominent endplate spurs are unchanged. No pathologic malalignment. Soft tissues: No prevertebral soft tissue swelling. IMPRESSION: 1. There is chronic multilevel degenerative change throughout the cervical spine with a C5-6 kyphosis. 2. There is stable appearance of fusion hardware at the C1-2 level which was demonstrated previously to be fractured. Dictated by: Beatriz Rosen M.D. on 04/26/2020 at 19:13 Approved by: Beatriz Rosen M.D. on 04/26/2020 at 19:16
--- NOTE | 2020-04-26 17:58 | ED.NECK ---
HPI - Neck Pain/Injury <Karla Reyes PA-C - Last Filed: 04/26/20 22:56> General Chief Complaint: Neck Pain/Injury Stated Complaint: neck spasms/cerv.surgery 2017 x3 days Time Seen by Provider: 04/26/20 17:45 Mode of arrival: Ambulatory Limitations: no limitations History of Present Illness HPI Narrative: This is a 64-year-old woman with a history COPD, depression, hypertension, cervical spinal fusion C4-7 and chronic neck pain who presents to the emergency department complaining of worsening low neck pain for the last 3 days particularly last night that made it hard to sleep. She says she usually takes Tylenol to relieve her pain but this did not work well last night. She has no other complaints or concerns, she says she has otherwise been in her normal state of health. She says at baseline she has very limited range of motion, she can turn her head to the left and right slightly but she cannot really bend her neck. She states her pain is 7/10 She denies any fever, chills, nausea, vomiting, numbness, tingling, chest pain, neck pain, abdominal pain, gait changes or any other symptoms. MD complaint: neck pain Onset (ago): day(s) (3 days, worse last night; has chronic pain) Radiation: upper back Severity: severe Severity scale (1-10): 7 Duration: constant Relieving factors: remaining still Exacerbating factors: immobilization and movement of neck Context: other (no falls or injury) Associated symptoms: none Treatments prior to arrival: acetaminophen Related Data Home Medications Medication Instructions Recorded Confirmed Thera M Plus (ferrous fumarat) 1 tab PO DAILY #0 10/09/17 10/01/19 bupropion HCl 300 mg PO DAILY #0 10/09/17 07/21/19 clopidogrel 75 mg PO DAILY #0 10/09/17 10/01/19 docusate sodium 100 mg PO BID PRN #0 10/09/17 07/21/19 albuterol sulfate 2 puff INHALATION Q4H PRN 08/10/18 07/21/19 alendronate 70 mg PO QWEEK 08/10/18 07/21/19 cholecalciferol (vitamin D3) 1,000 unit PO DAILY 08/10/18 07/21/19 loratadine 10 mg PO DAILY PRN 08/10/18 10/01/19 atorvastatin 40 mg PO DAILY 04/27/19 10/01/19 pantoprazole 40 mg PO DAILY 04/27/19 10/01/19 ranitidine HCl 300 mg PO BEDTIME 04/27/19 10/01/19 metoprolol succinate 50 mg 25 mg PO DAILY tab 10/01/19 10/01/19 tablet,extended release 24 hr Previous Rx's Medication Instructions Recorded citalopram [Celexa] 20 mg PO DAILY #30 tab 05/10/18 albuterol sulfate 90 mcg/actuation 1 inh INHALATION Q4-6H PRN #18 gram 10/01/19 aerosol inhaler prednisone 20 mg PO DAILY #24 tab 02/07/20 baclofen 5 mg PO BID #20 tab 04/26/20 Allergies Allergy/AdvReac Type Severity Reaction Status Date / Time codeine [CODEINE] Allergy Severe NAUSEA / Verified 10/01/19 14:46 VOMITING latex Allergy Rash Verified 10/01/19 14:46 lisinopril Allergy Verified 10/01/19 14:46 Review of Systems <Karla Reyes PA-C - Last Filed: 04/26/20 22:56> Review of Systems Narrative: GENERAL: Denies chills, fatigue, malaise, fever, sweats. HEENT: Denies sinus pain, ear pain, sore throat, difficulty swallowing, dizziness. RESPIRATORY: Denies dyspnea, cough, wheezing, hemoptysis, sputum. CARDIOVASCULAR: Denies chest pain, palpitations, orthopnea, edema, GASTROINTESTINAL: Denies nausea, vomiting, abdominal pain, diarrhea, constipation, melena. : Denies dysuria, frequency, incontinence, hematuria, urinary retention. MUSCULOSKELETAL: Positive for chronic neck pain 2nd to cervical spinal fusion, worsening in the last 3 days, especially last night in her low neck, denies weakness, any other joint pain, or bony pain SKIN: Chronic burning pain at the level of C7 since her surgery. Denies rash, skin lesions, or other NEUROLOGIC: Denies weakness, headache, numbness, change in speech, confusion, seizures, incoordination. PSYCHIATRIC: No concerning psychosocial issues. 12 point review of systems is negative except for those stated above Patient History <Karla Reyes PA-C - Last Filed: 04/26/20 22:56> Medical History (Updated 04/26/20 @ 19:34 by Karla Reyes PA-C) Alcohol abuse (Acute) COPD (chronic obstructive pulmonary disease) (Acute) Hypertension (Acute) Irritable bowel syndrome (IBS) (Acute) Pancreatitis (Acute) Urinary tract infection (Acute) Surgical History Total knee replacement status (Acute) Family History Other Family history non-contributory Social History household members: friend(s) Smoking Status: Former smoker alcohol intake: former Smoking Status: Former smoker alcohol intake frequency: other Substance Use Type: does not use Exam <Karla Reyes PA-C - Last Filed: 04/26/20 22:56> Narrative Exam Narrative: GENERAL: 64 year old patient appears stated age. Well-nourished, very slim, in mild distress. HEAD: Atraumatic. Normocephalic. EYES: Pupils equal round and reactive. Extraocular motions intact. No scleral icterus. No injection or drainage. ENT: Nose without bleeding, purulent drainage. Throat without erythema, tonsillar hypertrophy or exudate. Airway patent. NECK: Trachea midline. Non tender CARDIOVASCULAR: Regular rate and rhythm without murmurs, gallops, or rubs. RESPIRATORY: Clear to auscultation. Breath sounds equal bilaterally. No wheezes, rales, or rhonchi. GASTROINTESTINAL: Abdomen soft, non-tender, nondistended. EXTREMITIES: No edema or joint tenderness. BACK: Cervical spine is tender at the C7 spinous process, she has general tenderness of the paraspinal muscles of her neck as well as lateral to C7, she has generalized mild tenderness of her thoracic and lumbar spine, there is no deformity or crepitance noted of the spine. Otherwise she is Nontender without deformity or crepitance. No flank tenderness. NEURO: AOx3. SKIN: No rash or erythema of visible areas Initial Vital Signs Initial Vital Signs: Vital Signs Temperature 98.5 F 04/26/20 13:55 Pulse Rate 74 04/26/20 13:55 Respiratory Rate 20 04/26/20 13:55 Blood Pressure 143/72 H 04/26/20 13:55 Pulse Oximetry 98 04/26/20 13:55 <Miguel Gar MD - Last Filed: 04/27/20 07:45> Initial Vital Signs Initial Vital Signs: Vital Signs Temperature 98.5 F 04/26/20 13:55 Pulse Rate 74 04/26/20 13:55 Respiratory Rate 20 04/26/20 13:55 Blood Pressure 143/72 H 04/26/20 13:55 Pulse Oximetry 98 04/26/20 13:55 Scores <Karla Reyes PA-C - Last Filed: 04/26/20 22:56> GCS Christina coma scale eye opening: Spontaneous [place] coma scale verbal response: Orientated [place] coma scale motor response: Obey commands Christina coma scale total score: 15 Course <Karla Reyes PA-C - Last Filed: 04/26/20 22:56> Orders Ordered: Discontinued Medications Acetaminophen (Tylenol) 975 mg PO NOW ONE Stop: 04/26/20 18:06 Last Admin: 04/26/20 18:22 Dose: 975 mg Documented by: CTRWIL Acetaminophen (Ofirmev) 1,000 mg in 100 mls @ 400 mls/hr IV NOW ONE Stop: 04/26/20 18:08 Ketorolac Tromethamine (Toradol) 15 mg IV NOW ONE Stop: 04/26/20 19:25 Last Admin: 04/26/20 19:55 Dose: 15 mg Documented by: CTRWIL Vital Signs Vital signs: Vital Signs - 8 hr 04/26/20 16:20 04/26/20 17:29 04/26/20 18:45 Pulse Rate 64 64 61 Respiratory Rate 16 16 16 Blood Pressure 147/74 H 117/68 134/68 Pulse Oximetry 97 96 96 04/26/20 20:07 Pulse Rate 66 Respiratory Rate 16 Blood Pressure 126/71 Pulse Oximetry 99 <Miguel Gar MD - Last Filed: 04/27/20 07:45> Orders Ordered: Discontinued Medications Acetaminophen (Tylenol) 975 mg PO NOW ONE Stop: 04/26/20 18:06 Last Admin: 04/26/20 18:22 Dose: 975 mg Documented by: CTRLAURENE Acetaminophen (Ofirmev) 1,000 mg in 100 mls @ 400 mls/hr IV NOW ONE Stop: 04/26/20 18:08 Ketorolac Tromethamine (Toradol) 15 mg IV NOW ONE Stop: 04/26/20 19:25 Last Admin: 04/26/20 19:55 Dose: 15 mg Documented by: CTRWIL Vital Signs Vital signs: Vital Signs - 8 hr 04/26/20 16:20 04/26/20 17:29 04/26/20 18:45 Pulse Rate 64 64 61 Respiratory Rate 16 16 16 Blood Pressure 147/74 H 117/68 134/68 Pulse Oximetry 97 96 96 04/26/20 20:07 Pulse Rate 66 Respiratory Rate 16 Blood Pressure 126/71 Pulse Oximetry 99 MDM - Neck Pain/Injury <Karla Reyes PA-C - Last Filed: 04/26/20 22:56> Differential Diagnosis Differential diagnosis: Likely disc disorder of cervical region, strain of neck muscle and other (Acute on chronic neck pain 2nd to cervical fusion) Medical Records Attestation: I reviewed the patient's medical records. Lab Data Attestation: I reviewed the patient's lab results. Result diagrams: 04/26/20 18:10 04/26/20 18:10 Labs: Lab Results 04/26/20 04/26/20 04/26/20 Range/Units 17:22 18:10 18:10 WBC 8.6 (4.5-11.0) X10^3/uL RBC 4.21 (4.0-5.2) X10^6/uL Hgb 13.0 (12.0-16.0) g/dL Hct 38.8 (36-46) % MCV 92.2 (80-100) fL MCH 30.9 (26-34) PG MCHC 33.6 (30-36) % RDW 13.1 (11.6-14.8) % Plt Count 372 (150-400) X10^3/uL Neut % (Auto) 56.7 (50-75) % Lymph % (Auto) 26.5 (25-40) % [place] % (Auto) 10.0 (3-14) % Eos % (Auto) 6.0 H (2-4) % Baso % (Auto) 0.8 (0-2) % Neut # (Auto) 4900 (6765-8423) /uL Lymph # (Auto) 2300 (2529-2149) /uL [place] # (Auto) 900 (0-900) /uL Eos # (Auto) 500 H (0-450) /uL Baso # (Auto) 100 (0-100) /uL Sodium 134 L (137-145) mmol/L Potassium 4.5 (3.4-5.1) mmol/L Chloride 94 L (98-107) mmol/L Carbon Dioxide 33 H (22-32) mmol/L BUN 11 (7-17) mg/dL Creatinine 0.86 (0.52-1.04) mg/dL Estimated GFR > 60.0 (>60) mL/min BUN/Creatinine Ratio 12.8 (6-22) Glucose 88 (80-110) mg/dL Lactate (0.7-2.1) mmol/L Calcium 9.5 (8.4-10.2) mg/dL Total Bilirubin 0.7 (0.2-1.3) mg/dL AST 33 (14-36) IU/L ALT 19 (<35) IU/L Alkaline Phosphatase 91 (38-126) U/L Total Protein 7.8 (6.3-8.2) g/dL Albumin 4.8 (3.5-5.0) g/dL Globulin 3.0 (1.7-4.1) g/dL Albumin/Globulin Ratio 1.6 (1.0-2.8) Urine Color Yellow Urine Appearance Clear Urine pH 7.5 (4.5-8.0) Ur Specific [place] 1.010 (1.000-1.035) Urine Protein Negative (Negative) Urine Glucose (UA) Negative (Negative) g/dL Urine Ketones Negative (NEGATIVE) Urine Occult Blood Negative (Negative) Urine Nitrate Negative (Negative) Urine Bilirubin Negative (NEGATIVE) Urine Urobilinogen 0.2 (0.2) E.U./dL Ur Leukocyte Esterase Negative (NEGATIVE) Urine RBC None seen (0-5/HPF) Urine WBC None seen (0-5/HPF) Urine Bacteria None seen (None) Ur Culture Indicated? Cult not indicated Micro UA Comment Microscopic normal 04/26/20 Range/Units 18:10 WBC (4.5-11.0) X10^3/uL RBC (4.0-5.2) X10^6/uL Hgb (12.0-16.0) g/dL Hct (36-46) % MCV (80-100) fL MCH (26-34) PG MCHC (30-36) % RDW (11.6-14.8) % Plt Count (150-400) X10^3/uL Neut % (Auto) (50-75) % Lymph % (Auto) (25-40) % [place] % (Auto) (3-14) % Eos % (Auto) (2-4) % Baso % (Auto) (0-2) % Neut # (Auto) (8031-6042) /uL Lymph # (Auto) (8444-1698) /uL [place] # (Auto) (0-900) /uL Eos # (Auto) (0-450) /uL Baso # (Auto) (0-100) /uL Sodium (137-145) mmol/L Potassium (3.4-5.1) mmol/L Chloride (98-107) mmol/L Carbon Dioxide (22-32) mmol/L BUN (7-17) mg/dL Creatinine (0.52-1.04) mg/dL Estimated GFR (>60) mL/min BUN/Creatinine Ratio (6-22) Glucose (80-110) mg/dL Lactate 1.0 (0.7-2.1) mmol/L Calcium (8.4-10.2) mg/dL Total Bilirubin (0.2-1.3) mg/dL AST (14-36) IU/L ALT (<35) IU/L Alkaline Phosphatase (38-126) U/L Total Protein (6.3-8.2) g/dL Albumin (3.5-5.0) g/dL Globulin (1.7-4.1) g/dL Albumin/Globulin Ratio (1.0-2.8) Urine Color Urine Appearance Urine pH (4.5-8.0) Ur Specific [place] (1.000-1.035) Urine Protein (Negative) Urine Glucose (UA) (Negative) g/dL Urine Ketones (NEGATIVE) Urine Occult Blood (Negative) Urine Nitrate (Negative) Urine Bilirubin (NEGATIVE) Urine Urobilinogen (0.2) E.U./dL Ur Leukocyte Esterase (NEGATIVE) Urine RBC (0-5/HPF) Urine WBC (0-5/HPF) Urine Bacteria (None) Ur Culture Indicated? Micro UA Comment Urine Dip Bedside Urine Glucose Negative Bedside Urine Bilirubin - Negative Bedside Urine Ketone - Negative Urine Specific [place] 1.010 Bedside Urine Occult Blood - Negative Bedside Urine pH 7.0 Bedside Urine Protein - Negative Bedside Urine Urobilinogen +/- 1mg Bedside Urine Nitrite - Negative Bedside Urine Leukocytes +/- 15 Esterase Imaging Data xray neck: Attestation: I personally reviewed and interpreted this imaging study as follows: Radiologist's Impression: [address] [address] XRay Report Signed Patient: Rosmery MarquisR#: [id number] : 8Acct:[id number] Age/Sex: 64 / FDate of Service: 04/26/20 Loc: ED Accession Number: [id number] Procedure: XR cervical spine 2V or 3V Ordering Provider: Karla Reyes P.A-C PROCEDURE: XR CERVICAL SPINE 2V OR 3V INDICATIONS: acute on chronic neck pain/cervical fusion TECHNIQUE: Three view(s) of the cervical spine were acquired. COMPARISON: None. FINDINGS: Bones: Posterior cervical fusion of C1 and C2 with similar angulation of transpedicular screws which were previously demonstrated to be fractured. Vertebral bodies are visible to the level of T1. There is a chronic mild kyphosis at the C five six level. Multilevel degenerative disc height loss and prominent endplate spurs are unchanged. No pathologic malalignment. Soft tissues: No prevertebral soft tissue swelling. IMPRESSION: 1. There is chronic multilevel degenerative change throughout the cervical spine with a C5-6 kyphosis. 2. There is stable appearance of fusion hardware at the C1-2 level which was demonstrated previously to be fractured. Dictated by: Beatriz Rosen M.D. on 04/26/2020 at 19:13 Approved by: Beatriz Rosen M.D. on 04/26/2020 at 19:16 [facility] Narrative Medical decision making narrative: This is a well-appearing but uncomfortable looking 64-year-old with a history of cervical spinal fusion C4-C7, COPD, depression, hypertension osteoporosis who presents complaining of neck pain that has been chronic for her but she noted it worsening about 3 days ago, last night it was bad enough that Tylenol was not relieving it. She notably had no trauma, no falls, no known recent injury to this area. Differential diagnoses considered included sprain, strain, fracture, infection, acute on chronic pain. Labs were unremarkable today, no red flags, x-ray imaging did not show new fracture, I have low suspicion for an infectious process, vascular process, I suspect a cervical strain, with muscle spasm, acute on chronic neck pain, she was advised to follow-up with her PCP and her surgical team, she was provided with a prescription for baclofen, emergency return precautions were provided, all questions were answered. <Miguel Gar MD - Last Filed: 04/27/20 07:45> Lab Data Labs: Lab Results 04/26/20 04/26/20 04/26/20 Range/Units 17:22 18:10 18:10 WBC 8.6 (4.5-11.0) X10^3/uL RBC 4.21 (4.0-5.2) X10^6/uL Hgb 13.0 (12.0-16.0) g/dL Hct 38.8 (36-46) % MCV 92.2 (80-100) fL MCH 30.9 (26-34) PG MCHC 33.6 (30-36) % RDW 13.1 (11.6-14.8) % Plt Count 372 (150-400) X10^3/uL Neut % (Auto) 56.7 (50-75) % Lymph % (Auto) 26.5 (25-40) % [place] % (Auto) 10.0 (3-14) % Eos % (Auto) 6.0 H (2-4) % Baso % (Auto) 0.8 (0-2) % Neut # (Auto) 4900 (8459-6402) /uL Lymph # (Auto) 2300 (2390-5445) /uL [place] # (Auto) 900 (0-900) /uL Eos # (Auto) 500 H (0-450) /uL Baso # (Auto) 100 (0-100) /uL Sodium 134 L (137-145) mmol/L Potassium 4.5 (3.4-5.1) mmol/L Chloride 94 L (98-107) mmol/L Carbon Dioxide 33 H (22-32) mmol/L BUN 11 (7-17) mg/dL Creatinine 0.86 (0.52-1.04) mg/dL Estimated GFR > 60.0 (>60) mL/min BUN/Creatinine Ratio 12.8 (6-22) Glucose 88 (80-110) mg/dL Lactate (0.7-2.1) mmol/L Calcium 9.5 (8.4-10.2) mg/dL Total Bilirubin 0.7 (0.2-1.3) mg/dL AST 33 (14-36) IU/L ALT 19 (<35) IU/L Alkaline Phosphatase 91 (38-126) U/L Total Protein 7.8 (6.3-8.2) g/dL Albumin 4.8 (3.5-5.0) g/dL Globulin 3.0 (1.7-4.1) g/dL Albumin/Globulin Ratio 1.6 (1.0-2.8) Urine Color Yellow Urine Appearance Clear Urine pH 7.5 (4.5-8.0) Ur Specific [place] 1.010 (1.000-1.035) Urine Protein Negative (Negative) Urine Glucose (UA) Negative (Negative) g/dL Urine Ketones Negative (NEGATIVE) Urine Occult Blood Negative (Negative) Urine Nitrate Negative (Negative) Urine Bilirubin Negative (NEGATIVE) Urine Urobilinogen 0.2 (0.2) E.U./dL Ur Leukocyte Esterase Negative (NEGATIVE) Urine RBC None seen (0-5/HPF) Urine WBC None seen (0-5/HPF) Urine Bacteria None seen (None) Ur Culture Indicated? Cult not indicated Micro UA Comment Microscopic normal 04/26/20 Range/Units 18:10 WBC (4.5-11.0) X10^3/uL RBC (4.0-5.2) X10^6/uL Hgb (12.0-16.0) g/dL Hct (36-46) % MCV (80-100) fL MCH (26-34) PG MCHC (30-36) % RDW (11.6-14.8) % Plt Count (150-400) X10^3/uL Neut % (Auto) (50-75) % Lymph % (Auto) (25-40) % [place] % (Auto) (3-14) % Eos % (Auto) (2-4) % Baso % (Auto) (0-2) % Neut # (Auto) (1961-3492) /uL Lymph # (Auto) (1352-0141) /uL [place] # (Auto) (0-900) /uL Eos # (Auto) (0-450) /uL Baso # (Auto) (0-100) /uL Sodium (137-145) mmol/L Potassium (3.4-5.1) mmol/L Chloride (98-107) mmol/L Carbon Dioxide (22-32) mmol/L BUN (7-17) mg/dL Creatinine (0.52-1.04) mg/dL Estimated GFR (>60) mL/min BUN/Creatinine Ratio (6-22) Glucose (80-110) mg/dL Lactate 1.0 (0.7-2.1) mmol/L Calcium (8.4-10.2) mg/dL Total Bilirubin (0.2-1.3) mg/dL AST (14-36) IU/L ALT (<35) IU/L Alkaline Phosphatase (38-126) U/L Total Protein (6.3-8.2) g/dL Albumin (3.5-5.0) g/dL Globulin (1.7-4.1) g/dL Albumin/Globulin Ratio (1.0-2.8) Urine Color Urine Appearance Urine pH (4.5-8.0) Ur Specific [place] (1.000-1.035) Urine Protein (Negative) Urine Glucose (UA) (Negative) g/dL Urine Ketones (NEGATIVE) Urine Occult Blood (Negative) Urine Nitrate (Negative) Urine Bilirubin (NEGATIVE) Urine Urobilinogen (0.2) E.U./dL Ur Leukocyte Esterase (NEGATIVE) Urine RBC (0-5/HPF) Urine WBC (0-5/HPF) Urine Bacteria (None) Ur Culture Indicated? Micro UA Comment Urine Dip Bedside Urine Glucose Negative Bedside Urine Bilirubin - Negative Bedside Urine Ketone - Negative Urine Specific [place] 1.010 Bedside Urine Occult Blood - Negative Bedside Urine pH 7.0 Bedside Urine Protein - Negative Bedside Urine Urobilinogen +/- 1mg Bedside Urine Nitrite - Negative Bedside Urine Leukocytes +/- 15 Esterase Discharge Plan Departure Patient Disposition: Home Clinical Impression: Acute strain of neck muscle Qualifiers: Encounter type: initial encounter Qualified Code(s): S16.1XXA - Strain of muscle, fascia and tendon at neck level, initial encounter Discharge Date/Time: 04/26/20 20:25 Instructions: Neck Sprain, Chronic Neck Pain Activity Restrictions/Additional Instructions: Thank you for letting us to be part of her care in the emergency department today. There is no evidence of an emergent or life threatening illness at this time, but follow up with your doctor in 1-2 days is recommended nonetheless to continue to rule out serious underlying causes of your symptoms. Please call the office for an appointment. Please return to the Emergency Department for any worsening or persistent symptoms. Please take medications as directed. I have provided a medication to help you your muscles relax in your neck I think this may be part of the problem, if they are spasming or tightening up; you should not drive or operate any machinery after taking it however. Please monitor for any new or worsening symptoms including fever, chills, shortness of breath, new numbness or tingling, difficulty walking or one-sided weakness, or anything else of concern to you and do not hesitate to seek medical care if needed. Please see your primary care doctor in the next 1-3 days for follow up. Prescriptions: New baclofen 5 mg tablet 5 mg PO BID Qty: 20 RF: 0 No Action albuterol sulfate 90 mcg/actuation HFA aerosol inhaler 1 inh INHALATION Q4-6H PRN (Reason: shortness of breath) Qty: 18 RF: 0 docusate sodium 100 MG capsule 100 mg PO BID PRN (Reason: Constipation) Qty: 0 RF: 0 clopidogrel 75 MG tablet 75 mg PO DAILY Qty: 0 RF: 0 bupropion HCl 300 MG tablet extended release 24 hr 300 mg PO DAILY Qty: 0 RF: 0 Thera M Plus (ferrous fumarat) 1 EACH tablet 1 tab PO DAILY Qty: 0 RF: 0 citalopram [Celexa] 20 mg tablet 20 mg PO DAILY Qty: 30 RF: 0 prednisone 20 mg tablet 20 mg PO DAILY Qty: 24 RF: 0 alendronate 70 mg tablet 70 mg PO QWEEK RF: 0 albuterol sulfate 90 mcg/actuation HFA aerosol inhaler 2 puff Inhalation Q4H PRN (Reason: Wheezing) RF: 0 loratadine 10 mg tablet 10 mg PO DAILY PRN (Reason: Allergy Symptoms) RF: 0 cholecalciferol (vitamin D3) 1,000 unit tablet 1,000 unit PO DAILY RF: 0 atorvastatin 40 mg tablet 40 mg PO DAILY RF: 0 ranitidine HCl 300 mg tablet 300 mg PO BEDTIME RF: 0 pantoprazole 40 mg tablet,delayed release (DR/EC) 40 mg PO DAILY RF: 0 metoprolol succinate 50 mg tablet extended release 24 hr 25 mg PO DAILY RF: 0 Referrals: Kandi Malhotra MD [Primary Care Provider] - <Miguel Gar MD - Last Filed: 04/27/20 07:45> Cosign ED Attending Cosignature Attestation: I was immediately available in the department for consultation. This documentation has been reviewed and I agree with assessment and plan. Supervised by Miguel Gar MD
[2020-04-26 18:06] LABS: Bacteria Urine None Seen; RBC Urine None Seen (0-5/HPF); WBC Urine None Seen (0-5/HPF)
[2020-04-26 18:07] LABS: Appearance Urine UA CLEAR; Bilirubin Urine UA NEGATIVE (NEGATIVE); Color Urine UA YELLOW; Glucose Urine UA NEGATIVE (Negative); Ketones Urine UA NEGATIVE (NEGATIVE); Leukocyte Esterase Urine UA NEGATIVE (NEGATIVE); Nitrite Urine UA NEGATIVE (Negative); Occult Blood Urine UA NEGATIVE (Negative); Protein Urine UA NEGATIVE (Negative); Urobilinogen Urine UA 0.2 E.U./dL (0.2); pH Urine UA 7.5 (4.5-8.0)
[2020-04-26 18:16] LABS: Culture Indicated Urine Cult Not Indicated; Urine Comments Microscopic Normal
[2020-04-26] MEDS: ACETAMINOPHEN 325 MG TABLET 975 MG PO (18:22)
[2020-04-26 18:26] LABS: Add Manual Diff / Slide Review NO; Basophils Absolute Auto 100 /uL (0-100); Basophils Percent Auto 0.8 % (0-2); Eosinophils Absolute Auto 500 /uL (0-450); Hematocrit 38.8 % (36-46); Lymphocytes Absolute Auto 2300 /uL (1100-4500); Lymphocytes Percent Auto 26.5 % (25-40); Mean Corpuscular HGB Conc 33.6 % (30-36); Mean Corpuscular Hemoglobin 30.9 PG (26-34); Mean Corpuscular Volume 92.2 fL (80-100); Monocytes Absolute Auto 900 /uL (0-900); Neutrophils Absolute Auto 4900 /uL (1500-7000); Neutrophils Percent Auto 56.7 % (50-75); Platelet Count 372 X10^3/uL (150-400); Red Blood Cell Count 4.21 X10^6/uL (4.0-5.2); Red Cell Distribution Width 13.1 % (11.6-14.8); White Blood Cell Count 8.6 X10^3/uL (4.5-11.0)
[2020-04-26 18:37] LABS: Alanine Aminotransferase 19 IU/L (<35); Albumin 4.8 g/dL (3.5-5.0); Albumin Globulin Ratio 1.6 (1.0-2.8); Alkaline Phosphatase 91 U/L (38-126); Aspartate Aminotransferase 33 IU/L (14-36); BUN Creatinine Ratio 12.8 (6-22); Bilirubin Total 0.7 mg/dL (0.2-1.3); Blood Urea Nitrogen 11 mg/dL (7-17); Calcium 9.5 mg/dL (8.4-10.2); Carbon Dioxide 33 mmol/L (22-32); Chloride 94 mmol/L (98-107); Estimated Glomerular Filt Rate > 60.0 mL/min (>60); Glucose 88 mg/dL (80-110); HEMOLYSIS < 15 (0-50); Potassium 4.5 mmol/L (3.4-5.1); Sodium 134 mmol/L (137-145); Total Protein 7.8 g/dL (6.3-8.2)
[2020-04-26 18:45] VITALS: BP 134/68; PULSE 61; RESP 16; O2SAT 96
[2020-04-26] MEDS: KETOROLAC 60 MG/2 ML VIAL 15 MG IV (19:55)
[2020-04-26 20:07] VITALS: BP 126/71; PULSE 66; RESP 16; O2SAT 99
== END 2020-04-26 20:25 | disposition home or self-care (01) ==
PROVIDERS: Emergency Provider Student in an Organized Health Care Education/Training Program; Family Provider Family Medicine; PCP Family Medicine
DX: S16.1XXA Strain of muscle, fascia and tendon at neck level, initial encounter (principal); I10 Essential (primary) hypertension; J44.9 Chronic obstructive pulmonary disease, unspecified; E78.2 Mixed hyperlipidemia
CPT/HCPCS: 36415; 72040; 80053; 81001; 81003; 83605; 85025; 96374; 99284; J1885

== ENCOUNTER 2020-07-03 16:26 | Emergency (ER) | payer MEDICAID, OTHER, SELFPAY ==
[2018-08-28 01:35] VITALS: BMI 17.8
[2020-07-03 16:30] VITALS: BP 131/81; PULSE 86; RESP 24; TEMP 36.8; O2SAT 96
--- NOTE | 2020-07-03 16:48 | DI.RAD.S_ITS ---
PROCEDURE: XR CHEST 2V INDICATIONS: shortness of breath TECHNIQUE: 2 views of the chest were acquired. COMPARISON: [facility], CR, XR CHEST 1V, 07/21/2019, 16:52. [facility], CR, XR CHEST 2V, 04/01/2019, 23:42. [facility], CR, XR CHEST 1V, 02/07/2020, 18:55. FINDINGS: Surgical changes and devices: Cholecystectomy clips are seen. Lungs and pleura: Lungs are clear. No pleural effusions or pneumothorax. The lungs are hyperexpanded, with flattening of the hemidiaphragms seen. Mediastinum: Mediastinal contours are normal. Heart size is normal. Bones and chest wall: No suspicious bony abnormalities. Age-appropriate bony degenerative changes are seen. Soft tissues appear unremarkable. IMPRESSION: Hyperexpanded lungs, without an acute cardiopulmonary process identified. Postoperative and degenerative changes are seen. Dictated by: Donte Adams M.D. on 07/03/2020 at 16:45 Approved by: Donte Adams M.D. on 07/03/2020 at 16:46
[2020-07-03 17:10] LABS: Add Manual Diff / Slide Review NO; Basophils Absolute Auto 100 /uL (0-100); Basophils Percent Auto 0.6 % (0-2); Eosinophils Absolute Auto 500 /uL (0-450); Eosinophils Percent Auto 4.6 % (2-4); Hematocrit 35.9 % (36-46); Hemoglobin 11.9 g/dL (12.0-16.0); Lymphocytes Absolute Auto 1900 /uL (1100-4500); Lymphocytes Percent Auto 17.5 % (25-40); Mean Corpuscular HGB Conc 33.1 % (30-36); Mean Corpuscular Hemoglobin 30.3 PG (26-34); Mean Corpuscular Volume 91.5 fL (80-100); Monocytes Absolute Auto 1100 /uL (0-900); Monocytes Percent Auto 10.4 % (3-14); Neutrophils Absolute Auto 7300 /uL (1500-7000); Neutrophils Percent Auto 66.9 % (50-75); Platelet Count 361 X10^3/uL (150-400); Red Blood Cell Count 3.92 X10^6/uL (4.0-5.2); Red Cell Distribution Width 12.5 % (11.6-14.8); White Blood Cell Count 10.9 X10^3/uL (4.5-11.0)
--- NOTE | 2020-07-03 17:17 | ED.SOB ---
HPI - SOB/Dyspnea <Sarah GaleasELISEO - Last Filed: 07/03/20 21:40> General Chief Complaint: Shortness of Breath/Dyspnea Stated Complaint: SOB WEIGHT LOSS Time Seen by Provider: 07/03/20 16:42 Source: patient Mode of arrival: Ambulatory Limitations: no limitations History of Present Illness HPI Narrative: 64yo female asthma, COPD, hypertension, and IBS, presents to the emergency department for worsening shortness of breath. She states she has had increasing shortness of breath for the past month the over the past few days it has gotten worse. Approximately 1-2 months ago [place]ness of breath. She states over the past month she has had an increase of stress and intermittent nausea, she states ?my IBS has been worse ?. Patient states she is currently living in her car, she thought that her legs were swollen initially however, after sleeping with her legs elevated the swelling has resolved. She denies any fevers, chills, abdominal pain, leg pain, dizziness, nausea at this time, vomiting past 24 hours, diarrhea, or any other concerns. She states she takes Zofran for the intermittent nausea is caused by her IBS. Patient states ?there has been a lot of stress in my life lately ?. Patient takes Spiriva and albuterol for her COPD. Related Data Home Medications Medication Instructions Recorded Confirmed Thera M Plus (ferrous fumarat) 1 tab PO DAILY #0 10/09/17 10/01/19 bupropion HCl 300 mg PO DAILY #0 10/09/17 07/21/19 clopidogrel 75 mg PO DAILY #0 10/09/17 10/01/19 docusate sodium 100 mg PO BID PRN #0 10/09/17 07/21/19 albuterol sulfate 2 puff INHALATION Q4H PRN 08/10/18 07/21/19 alendronate 70 mg PO QWEEK 08/10/18 07/21/19 cholecalciferol (vitamin D3) 1,000 unit PO DAILY 08/10/18 07/21/19 loratadine 10 mg PO DAILY PRN 08/10/18 10/01/19 atorvastatin 40 mg PO DAILY 04/27/19 10/01/19 pantoprazole 40 mg PO DAILY 04/27/19 10/01/19 ranitidine HCl 300 mg PO BEDTIME 04/27/19 10/01/19 metoprolol succinate 50 mg 25 mg PO DAILY tab 10/01/19 10/01/19 tablet,extended release 24 hr Previous Rx's Medication Instructions Recorded citalopram [Celexa] 20 mg PO DAILY #30 tab 05/10/18 albuterol sulfate 90 mcg/actuation 1 inh INHALATION Q4-6H PRN #18 gram 10/01/19 aerosol inhaler prednisone 20 mg PO DAILY #24 tab 02/07/20 baclofen 5 mg PO BID #20 tab 04/26/20 Allergies Allergy/AdvReac Type Severity Reaction Status Date / Time codeine [CODEINE] Allergy Severe NAUSEA / Verified 07/03/20 16:34 VOMITING latex Allergy Rash Verified 07/03/20 16:34 lisinopril Allergy Verified 07/03/20 16:34 Review of Systems <ELISEO Gaxiola - Last Filed: 07/03/20 21:40> Review of Systems Narrative: REVIEW OF SYSTEMS: GENERAL: Denies fevers. HENT: No head trauma. CARDIOVASCULAR: No chest pain. RESPIRATORY: Reports shortness of breath, see HPI. GASTROINTESTINAL: No nausea, vomiting, diarrhea, or constipation. MUSCULOSKELETAL: No weakness or injury. INTEGUMENTARY: No rash. NEURO: No numbness or tingling Patient History <ELISEO Gaxiola - Last Filed: 07/03/20 21:40> Medical History (Updated 07/03/20 @ 18:59 by ELISEO Gaxiola) Alcohol abuse (Acute) COPD (chronic obstructive pulmonary disease) (Acute) Hypertension (Acute) Irritable bowel syndrome (IBS) (Acute) Pancreatitis (Acute) Urinary tract infection (Acute) Surgical History Total knee replacement status (Acute) Family History Other Family history non-contributory Social History household members: friend(s) Smoking Status: Former smoker alcohol intake: former Smoking Status: Former smoker alcohol intake frequency: other Substance Use Type: does not use Exam <ELISEO Gaxiola - Last Filed: 07/03/20 21:40> Initial Vital Signs Initial Vital Signs: Vital Signs Temperature 98.3 F 07/03/20 16:30 Pulse Rate 86 07/03/20 16:30 Respiratory Rate 24 07/03/20 16:30 Blood Pressure 131/81 07/03/20 16:30 Pulse Oximetry 96 07/03/20 16:30 PHYSICAL EXAMINATION: GENERAL: Well groomed, alert, and cooperative. Answers questions promptly and appropriately. Vital signs noted. HENT: Normocephalic, atraumatic. Ear canals patent. EYES: Conjunctiva pink, sclera white, no periorbital swelling. No discharge. CHEST: Normal to inspection and without deformities. CARDIOVASCULAR: S1 and S2 sounds normal. Regular rate and rhythm, no murmurs, clicks, or bruits. RESPIRATORY: Normal respiratory rate, trachea midline, airway patent. No stridor, nasal flaring or accessory muscle use. Able to speak in full sentences. Lungs lower lobes with expiratory wheezes. Completely resolved after administration of albuterol. MUSCULOSKELETAL: Normal gait and coordination. Equal tone and mass bilaterally. EXTREMITIES: Moves all extremities. SKIN: Warm, dry, soft, appropriate color for ethnicity. No lesions, rashes, or wounds to visualized areas. NEURO: Alert and Oriented X 3. Good coordination. No ataxia or cognitive issues. PSYCH: Appropriate affect and mood. <Brea [place] DO - Last Filed: 07/12/20 08:04> Initial Vital Signs Initial Vital Signs: Vital Signs Temperature 98.3 F 07/03/20 16:30 Pulse Rate 86 07/03/20 16:30 Respiratory Rate 24 07/03/20 16:30 Blood Pressure 131/81 07/03/20 16:30 Pulse Oximetry 96 07/03/20 16:30 Course <ELISEO Gaxiola - Last Filed: 07/03/20 21:40> Course Course Narrative: Patient reported symptoms completely resolved after administration of albuterol inhaler. ED social services designee at bedside, provided patient with multiple resources. Orders Ordered: Discontinued Medications Albuterol (Ventolin Hfa (Vent/Covid R/O)) 2 puff INH NOW ONE Stop: 07/03/20 17:41 Last Admin: 07/03/20 17:58 Dose: 2 puff Documented by: MOOKIE Potassium Chloride (Klor-Con M20) 40 meq PO NOW ONE Stop: 07/03/20 17:40 Last Admin: 07/03/20 17:58 Dose: 40 meq Documented by: MOOKIE Vital Signs Vital signs: Vital Signs - 8 hr 07/03/20 16:30 07/03/20 18:12 07/03/20 19:22 Temperature 98.3 F Pulse Rate 86 64 61 Respiratory Rate 24 18 16 Blood Pressure 131/81 128/58 L Pulse Oximetry 96 96 <Brea [place] DO - Last Filed: 07/12/20 08:04> Orders Ordered: Discontinued Medications Albuterol (Ventolin Hfa (Vent/Covid R/O)) 2 puff INH NOW ONE Stop: 07/03/20 17:41 Last Admin: 07/03/20 17:58 Dose: 2 puff Documented by: MOOKIE Potassium Chloride (Klor-Con M20) 40 meq PO NOW ONE Stop: 07/03/20 17:40 Last Admin: 07/03/20 17:58 Dose: 40 meq Documented by: MOOKIE Vital Signs Vital signs: Vital Signs - 8 hr 07/03/20 16:30 07/03/20 18:12 07/03/20 19:22 Temperature 98.3 F Pulse Rate 86 64 61 Respiratory Rate 24 18 16 Blood Pressure 131/81 128/58 L Pulse Oximetry 96 96 MDM - SOB/Dyspnea <ELISEO Gaxiola - Last Filed: 07/03/20 21:40> Medical Records Attestation: I reviewed the patient's medical records. Lab Data Attestation: I reviewed the patient's lab results. Result diagrams: 07/03/20 16:57 07/03/20 16:57 Labs: Lab Results 07/03/20 07/03/20 07/03/20 Range/Units 16:57 16:57 16:57 WBC 10.9 (4.5-11.0) X10^3/uL RBC 3.92 L (4.0-5.2) X10^6/uL Hgb 11.9 L (12.0-16.0) g/dL Hct 35.9 L (36-46) % MCV 91.5 (80-100) fL MCH 30.3 (26-34) PG MCHC 33.1 (30-36) % RDW 12.5 (11.6-14.8) % Plt Count 361 (150-400) X10^3/uL Neut % (Auto) 66.9 (50-75) % Lymph % (Auto) 17.5 L (25-40) % Holt % (Auto) 10.4 (3-14) % Eos % (Auto) 4.6 H (2-4) % Baso % (Auto) 0.6 (0-2) % Neut # (Auto) 7300 H (6469-2845) /uL Lymph # (Auto) 1900 (4266-9362) /uL Holt # (Auto) 1100 H (0-900) /uL Eos # (Auto) 500 H (0-450) /uL Baso # (Auto) 100 (0-100) /uL PT 12.3 (10.1-12.7) SECONDS INR 1.1 (0.9-1.3) Sodium 137 (137-145) mmol/L Potassium 3.1 L (3.4-5.1) mmol/L Chloride 99 (98-107) mmol/L Carbon Dioxide 33 H (22-32) mmol/L BUN 14 (7-17) mg/dL Creatinine 1.00 (0.52-1.04) mg/dL Estimated GFR 56.2 L (>60) mL/min BUN/Creatinine Ratio 14.0 (6-22) Glucose 75 L (80-110) mg/dL Lactate (0.7-2.1) mmol/L Calcium 8.6 (8.4-10.2) mg/dL Total Bilirubin 0.6 (0.2-1.3) mg/dL AST 33 (14-36) IU/L ALT 21 (<35) IU/L Alkaline Phosphatase 102 (38-126) U/L NT-Pro-B Natriuret Pep 610 H (<125) pg/mL Total Protein 7.4 (6.3-8.2) g/dL Albumin 4.2 (3.5-5.0) g/dL Globulin 3.2 (1.7-4.1) g/dL Albumin/Globulin Ratio 1.3 (1.0-2.8) COVID-19 PCR (Negative) 07/03/20 07/03/20 Range/Units 16:57 17:15 WBC (4.5-11.0) X10^3/uL RBC (4.0-5.2) X10^6/uL Hgb (12.0-16.0) g/dL Hct (36-46) % MCV (80-100) fL MCH (26-34) PG MCHC (30-36) % RDW (11.6-14.8) % Plt Count (150-400) X10^3/uL Neut % (Auto) (50-75) % Lymph % (Auto) (25-40) % Holt % (Auto) (3-14) % Eos % (Auto) (2-4) % Baso % (Auto) (0-2) % Neut # (Auto) (4003-9122) /uL Lymph # (Auto) (3686-2293) /uL Holt # (Auto) (0-900) /uL Eos # (Auto) (0-450) /uL Baso # (Auto) (0-100) /uL PT (10.1-12.7) SECONDS INR (0.9-1.3) Sodium (137-145) mmol/L Potassium (3.4-5.1) mmol/L Chloride (98-107) mmol/L Carbon Dioxide (22-32) mmol/L BUN (7-17) mg/dL Creatinine (0.52-1.04) mg/dL Estimated GFR (>60) mL/min BUN/Creatinine Ratio (6-22) Glucose (80-110) mg/dL Lactate 1.4 (0.7-2.1) mmol/L Calcium (8.4-10.2) mg/dL Total Bilirubin (0.2-1.3) mg/dL AST (14-36) IU/L ALT (<35) IU/L Alkaline Phosphatase (38-126) U/L NT-Pro-B Natriuret Pep (<125) pg/mL Total Protein (6.3-8.2) g/dL Albumin (3.5-5.0) g/dL Globulin (1.7-4.1) g/dL Albumin/Globulin Ratio (1.0-2.8) COVID-19 PCR Negative (Negative) Imaging Data Chest x-ray: Radiologist's Impression: [address] [address] XRay Report Signed Patient: Rosmery MarquisR#: [id number] : 8Acct:[id number] Age/Sex: 64 / FDate of Service: 07/03/20 Loc: ED Accession Number: [id number] Procedure: XR chest 2V Ordering Provider: Sarah Galeas PROCEDURE: XR CHEST 2V INDICATIONS: shortness of breath TECHNIQUE: 2 views of the chest were acquired. COMPARISON: [facility], CR, XR CHEST 1V, 07/21/2019, 16:52. [facility], CR, XR CHEST 2V, 04/01/2019, 23:42. [facility], CR, XR CHEST 1V, 02/07/2020, 18:55. FINDINGS: Surgical changes and devices: Cholecystectomy clips are seen. Lungs and pleura: Lungs are clear. No pleural effusions or pneumothorax. The lungs are hyperexpanded, with flattening of the hemidiaphragms seen. Mediastinum: Mediastinal contours are normal. Heart size is normal. Bones and chest wall: No suspicious bony abnormalities. Age-appropriate bony degenerative changes are seen. Soft tissues appear unremarkable. IMPRESSION: Hyperexpanded lungs, without an acute cardiopulmonary process identified. Postoperative and degenerative changes are seen. Dictated by: Donte Adams M.D. on 07/03/2020 at 16:45 Approved by: Donte Adams M.D. on 07/03/2020 at 16:46 ECG Data Interpretation: 1704: Normal sinus rhythm, rate 69, FL interval 152, QTC 462. No ST elevation or ST depression. No T-wave abnormality. EKG also viewed by Dr. Hernandez per protocol. [facility] Narrative Medical decision making narrative: 64-year-old female with history of COPD presenting to the emergency department with worsening shortness of breath. I suspect patient's symptoms are most likely caused by COPD exacerbation given significant improvement after administration of albuterol. Less likely acute infection given resolution of wheezes post albuterol administration, no pneumonia seen on chest x-ray, patient not tachycardic afebrile. White blood cell count within normal limits. Less likely cardiac in nature given lack of other symptoms such as chest pain, resolution of symptoms after administration of albuterol, negative troponin I an unremarkable EKG. Patient was prescribed prednisone to help with exacerbation, she was encouraged to follow up with PCP in the next week. Patient's BNP was slightly elevated, she did not have any clinical signs of CHF such as swelling in her legs or crackles or edema in her lungs. No indication for antibiotics needed. Return precautions given for new or worsening symptoms. NEgative for COVID <Brea Hernandez, DO - Last Filed: 07/12/20 08:04> Lab Data Labs: Lab Results 07/03/20 07/03/20 07/03/20 Range/Units 16:57 16:57 16:57 WBC 10.9 (4.5-11.0) X10^3/uL RBC 3.92 L (4.0-5.2) X10^6/uL Hgb 11.9 L (12.0-16.0) g/dL Hct 35.9 L (36-46) % MCV 91.5 (80-100) fL MCH 30.3 (26-34) PG MCHC 33.1 (30-36) % RDW 12.5 (11.6-14.8) % Plt Count 361 (150-400) X10^3/uL Neut % (Auto) 66.9 (50-75) % Lymph % (Auto) 17.5 L (25-40) % Holt % (Auto) 10.4 (3-14) % Eos % (Auto) 4.6 H (2-4) % Baso % (Auto) 0.6 (0-2) % Neut # (Auto) 7300 H (7876-1033) /uL Lymph # (Auto) 1900 (1663-3844) /uL Holt # (Auto) 1100 H (0-900) /uL Eos # (Auto) 500 H (0-450) /uL Baso # (Auto) 100 (0-100) /uL PT 12.3 (10.1-12.7) SECONDS INR 1.1 (0.9-1.3) Sodium 137 (137-145) mmol/L Potassium 3.1 L (3.4-5.1) mmol/L Chloride 99 (98-107) mmol/L Carbon Dioxide 33 H (22-32) mmol/L BUN 14 (7-17) mg/dL Creatinine 1.00 (0.52-1.04) mg/dL Estimated GFR 56.2 L (>60) mL/min BUN/Creatinine Ratio 14.0 (6-22) Glucose 75 L (80-110) mg/dL Lactate (0.7-2.1) mmol/L Calcium 8.6 (8.4-10.2) mg/dL Total Bilirubin 0.6 (0.2-1.3) mg/dL AST 33 (14-36) IU/L ALT 21 (<35) IU/L Alkaline Phosphatase 102 (38-126) U/L NT-Pro-B Natriuret Pep 610 H (<125) pg/mL Total Protein 7.4 (6.3-8.2) g/dL Albumin 4.2 (3.5-5.0) g/dL Globulin 3.2 (1.7-4.1) g/dL Albumin/Globulin Ratio 1.3 (1.0-2.8) COVID-19 PCR (Negative) 07/03/20 07/03/20 Range/Units 16:57 17:15 WBC (4.5-11.0) X10^3/uL RBC (4.0-5.2) X10^6/uL Hgb (12.0-16.0) g/dL Hct (36-46) % MCV (80-100) fL MCH (26-34) PG MCHC (30-36) % RDW (11.6-14.8) % Plt Count (150-400) X10^3/uL Neut % (Auto) (50-75) % Lymph % (Auto) (25-40) % Holt % (Auto) (3-14) % Eos % (Auto) (2-4) % Baso % (Auto) (0-2) % Neut # (Auto) (6132-7487) /uL Lymph # (Auto) (4234-0206) /uL Holt # (Auto) (0-900) /uL Eos # (Auto) (0-450) /uL Baso # (Auto) (0-100) /uL PT (10.1-12.7) SECONDS INR (0.9-1.3) Sodium (137-145) mmol/L Potassium (3.4-5.1) mmol/L Chloride (98-107) mmol/L Carbon Dioxide (22-32) mmol/L BUN (7-17) mg/dL Creatinine (0.52-1.04) mg/dL Estimated GFR (>60) mL/min BUN/Creatinine Ratio (6-22) Glucose (80-110) mg/dL Lactate 1.4 (0.7-2.1) mmol/L Calcium (8.4-10.2) mg/dL Total Bilirubin (0.2-1.3) mg/dL AST (14-36) IU/L ALT (<35) IU/L Alkaline Phosphatase (38-126) U/L NT-Pro-B Natriuret Pep (<125) pg/mL Total Protein (6.3-8.2) g/dL Albumin (3.5-5.0) g/dL Globulin (1.7-4.1) g/dL Albumin/Globulin Ratio (1.0-2.8) COVID-19 PCR Negative (Negative) Discharge Plan Departure Patient Disposition: Home Clinical Impression: COPD exacerbation Discharge Date/Time: 07/03/20 19:23 Instructions: DI for Chronic Obstructive Pulmonary Disease Activity Restrictions/Additional Instructions: Thank you for entrusting me with your care today. As discussed, your laboratory work and chest x-ray are non-remarkable. I suspect your shortness of breath is most likely caused by COPD exacerbation. I have given you prednisone, please take this accordingly. Your prescriptions were sent to [facility] in [place]. Additionally, he was given you an albuterol inhaler, use this every 4-6 hours as needed for wheezing. Please follow up with your primary care provider in the next week for further evaluation and treatment. Return emergency department for any new or worsening symptoms. Social work number is [phone] Prescriptions: No Action albuterol sulfate 90 mcg/actuation HFA aerosol inhaler 1 inh INHALATION Q4-6H PRN (Reason: shortness of breath) Qty: 18 RF: 0 docusate sodium 100 MG capsule 100 mg PO BID PRN (Reason: Constipation) Qty: 0 RF: 0 clopidogrel 75 MG tablet 75 mg PO DAILY Qty: 0 RF: 0 bupropion HCl 300 MG tablet extended release 24 hr 300 mg PO DAILY Qty: 0 RF: 0 Thera M Plus (ferrous fumarat) 1 EACH tablet 1 tab PO DAILY Qty: 0 RF: 0 citalopram [Celexa] 20 mg tablet 20 mg PO DAILY Qty: 30 RF: 0 prednisone 20 mg tablet 20 mg PO DAILY Qty: 24 RF: 0 alendronate 70 mg tablet 70 mg PO QWEEK RF: 0 albuterol sulfate 90 mcg/actuation HFA aerosol inhaler 2 puff Inhalation Q4H PRN (Reason: Wheezing) RF: 0 loratadine 10 mg tablet 10 mg PO DAILY PRN (Reason: Allergy Symptoms) RF: 0 cholecalciferol (vitamin D3) 1,000 unit tablet 1,000 unit PO DAILY RF: 0 atorvastatin 40 mg tablet 40 mg PO DAILY RF: 0 ranitidine HCl 300 mg tablet 300 mg PO BEDTIME RF: 0 pantoprazole 40 mg tablet,delayed release (DR/EC) 40 mg PO DAILY RF: 0 metoprolol succinate 50 mg tablet extended release 24 hr 25 mg PO DAILY RF: 0 baclofen 5 mg tablet 5 mg PO BID Qty: 20 RF: 0 Referrals: Kandi Malhotra MD [Primary Care Provider] - <Brea Hernandez DO - Last Filed: 07/12/20 08:04> [facility]: I was immediately available in the department for consultation. Documentation has been reviewed. I agree with assessment and plan.
[2020-07-03 17:26] LABS: INR 1.1 (0.9-1.3); Prothrombin Time 12.3 SECONDS (10.1-12.7)
[2020-07-03 17:30] LABS: Alanine Aminotransferase 21 IU/L (<35); Albumin 4.2 g/dL (3.5-5.0); Albumin Globulin Ratio 1.3 (1.0-2.8); Alkaline Phosphatase 102 U/L (38-126); Aspartate Aminotransferase 33 IU/L (14-36); Bilirubin Total 0.6 mg/dL (0.2-1.3); Blood Urea Nitrogen 14 mg/dL (7-17); Calcium 8.6 mg/dL (8.4-10.2); Carbon Dioxide 33 mmol/L (22-32); Chloride 99 mmol/L (98-107); Estimated Glomerular Filt Rate 56.2 mL/min (>60); Globulin 3.2 g/dL (1.7-4.1); Glucose 75 mg/dL (80-110); HEMOLYSIS < 15 (0-50); Potassium 3.1 mmol/L (3.4-5.1); Sodium 137 mmol/L (137-145); Total Protein 7.4 g/dL (6.3-8.2)
[2020-07-03 17:31] LABS: Lactate (Lactic Acid) 1.4 mmol/L (0.7-2.1)
[2020-07-03 17:39] LABS: NT-proBNP (BNP-Adult 18+) 610 pg/mL (<125)
[2020-07-03] MEDS: POTASSIUM CHLORIDE 20 MEQ TAB 40 MEQ PO (17:58)
[2020-07-03] MEDS: ALBUTEROL HFA 200 PUFF/18 GM INH (COVID POS/VENT PTS) INH (17:58)
[2020-07-03 18:09] LABS: COVID19 -Nasal RAPID Negative (Negative)
[2020-07-03 18:12] VITALS: PULSE 64; RESP 18
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
--- NOTE | 2020-07-03 19:10 | CM.SWNOTE ---
GALLEY WORKER note Following assessment, GALLEY WORKER prints out resources for emergency usp and local housing programs in [facility]. GALLEY WORKER brings printout into room, gives it to patient, and reviews resources that may be helpful for current situation. GALLEY WORKER provides ED GALLEY WORKER phone to patient for additional support in navigating local housing resources. Plan: Patient to be d/c after visit today, ED GALLEY WORKER will f/u with phone call later in week. ANA James
[2020-07-03 19:22] VITALS: BP 128/58; PULSE 61; RESP 16; O2SAT 96
== END 2020-07-03 19:23 | disposition home or self-care (01) ==
PROVIDERS: Emergency Provider Nurse Practitioner; Family Provider Family Medicine; PCP Family Medicine
DX: J44.1 Chronic obstructive pulmonary disease with (acute) exacerbation (principal)
CPT/HCPCS: 36415; 71046; 80053; 83605; 83880; 85025; 85610; 87635; 93005; 94640; 99284; A9270

== ENCOUNTER 2020-07-30 15:50 | Emergency (ER) | payer MEDICAID, OTHER, SELFPAY ==
[2018-08-28 01:35] VITALS: BMI 17.8
[2020-07-30] VITALS (10 sets, daily range): BP systolic 135–173; BP diastolic 71–80; PULSE 75–101; RESP 17–26; O2SAT 92–100; BMI 17.3
--- NOTE | 2020-07-30 16:18 | ED_ITS ---
HPI - SOB/Dyspnea General Chief Complaint: Shortness of Breath/Dyspnea Stated Complaint: Trouble Breathing and Coughing COPD Time Seen by Provider: 07/30/20 16:14 Mode of arrival: Ambulatory Limitations: no limitations History of Present Illness HPI Narrative: Patient is a 64-year-old female with history of COPD presenting with increasing shortness of breath. Started yesterday morning but got worse today. she feels like she cannot take a deep breath she has had increased sputum. She has had sweats and chills earlier today. She denies any exposure. She does have some chest tightness but no actual chest pain or palpitations Related Data Home Medications Medication Instructions Recorded Confirmed Thera M Plus (ferrous fumarat) 1 tab PO DAILY #0 10/09/17 10/01/19 bupropion HCl 300 mg PO DAILY #0 10/09/17 07/21/19 clopidogrel 75 mg PO DAILY #0 10/09/17 10/01/19 docusate sodium 100 mg PO BID PRN #0 10/09/17 07/21/19 albuterol sulfate 2 puff INHALATION Q4H PRN 08/10/18 07/21/19 alendronate 70 mg PO QWEEK 08/10/18 07/21/19 cholecalciferol (vitamin D3) 1,000 unit PO DAILY 08/10/18 07/21/19 loratadine 10 mg PO DAILY PRN 08/10/18 10/01/19 atorvastatin 40 mg PO DAILY 04/27/19 10/01/19 pantoprazole 40 mg PO DAILY 04/27/19 10/01/19 ranitidine HCl 300 mg PO BEDTIME 04/27/19 10/01/19 metoprolol succinate 50 mg 25 mg PO DAILY tab 10/01/19 10/01/19 tablet,extended release 24 hr Previous Rx's Medication Instructions Recorded citalopram [Celexa] 20 mg PO DAILY #30 tab 05/10/18 albuterol sulfate 90 mcg/actuation 1 inh INHALATION Q4-6H PRN #18 gram 10/01/19 aerosol inhaler prednisone 20 mg PO DAILY #24 tab 02/07/20 baclofen 5 mg PO BID #20 tab 04/26/20 doxycycline hyclate 100 mg PO BID #14 cap 07/30/20 prednisone 10 mg PO DAILY #30 tab 07/30/20 Allergies Allergy/AdvReac Type Severity Reaction Status Date / Time codeine [CODEINE] Allergy Severe NAUSEA / Verified 07/03/20 16:34 VOMITING latex Allergy Rash Verified 07/03/20 16:34 lisinopril Allergy Verified 07/03/20 16:34 Review of Systems Review of Systems ROS Unobtainable: All systems reviewed & are unremarkable except as noted in HPI and below Constitutional Constitutional: Reports body ache(s), Reports chills, Denies fever(s), Denies lethargy and Denies weakness Eyes Eyes: Denies change in vision, Denies eye discharge, Denies irritation and Denies loss of vision Cardiovascular Cardiovascular: Denies chest pain, Denies irregular heart rhythm, Denies lightheadedness, Denies palpitations and Denies orthopnea Respiratory Respiratory: Reports as per HPI Gastrointestinal Gastrointestinal: Denies abdominal pain, Denies change in bowel habits, Denies diarrhea, Denies nausea and Denies vomiting Musculoskeletal Musculoskeletal: Denies back pain and Denies myalgias Integumentary/Breasts Skin/Breast: Denies pruritus, Denies erythema, Denies rash and Denies wounds Neurologic Neurologic: Denies loss of vision and Denies weakness Endocrine Endocrine: Denies palpitations Patient History Medical History Alcohol abuse (Acute) COPD (chronic obstructive pulmonary disease) (Acute) Hypertension (Acute) Irritable bowel syndrome (IBS) (Acute) Pancreatitis (Acute) Urinary tract infection (Acute) Surgical History Total knee replacement status (Acute) Family History Other Family history non-contributory Social History household members: friend(s) Smoking Status: Former smoker alcohol intake: former Smoking Status: Former smoker alcohol intake frequency: other Substance Use Type: does not use Exam Initial Vital Signs Initial Vital Signs: Vital Signs Pulse Rate 101 H 07/30/20 16:00 Respiratory Rate 24 07/30/20 16:00 Blood Pressure 173/80 H 07/30/20 16:00 Pulse Oximetry 100 07/30/20 16:00 GENERAL: Thin and in mild respiratory distress. HEENT: Head atraumatic,EOMI, pupils reactive, face symmetric, moist mucous membranes CARDIOVASCULAR: Regular rate and rhythm without murmurs, rubs or gallops. RESPIRATORY: Slightly decreased breath sounds with no wheezing ABDOMEN: Soft, nontender. Normoactive bowel sounds all 4 quadrants. No gua rding or rebound. EXTREMITIES: Normal range of motion, no clubbing or edema. Neurovascularly intact NEUROLOGICAL: Alert and oriented x4.Normal gait and speech. Cranial nerves II through XII grossly intact. SKIN: Warm, dry, no laceration, no petechiae, no rashes or lesions. Course Orders Ordered: ED Orders 07/30/20 16:15 Consult to Respiratory Therapy Evaluate & Treat COVID19 -ED/INPAT/OR/L&D Stat 07/30/20 16:16 XR chest 1V Stat 07/30/20 16:40 Complete Blood Count AUTO DIFF Stat Comprehensive Metabolic Panel Stat Lactate (Lactic Acid) Stat Magnesium Stat NT-proBNP (BNP-Adult 18+) Stat Partial Thromboplastin Time Stat Procalcitonin Stat Prothrombin Time INR Stat Troponin & CK Cardiac Panel Stat 07/30/20 17:08 Blood Culture Stat Discontinued Medications Albuterol (Ventolin Hfa (Vent/Covid R/O)) 2 puff INH NOW ONE Stop: 07/30/20 16:21 Last Admin: 07/30/20 16:23 Dose: 2 puff Documented by: [email or web address] Albuterol/Ipratropium (Duoneb) 3 ml INH NOW ONE Stop: 07/30/20 16:16 Last Admin: 07/30/20 17:14 Dose: 3 ml Documented by: [email or web address] Methylprednisolone (Solu-Medrol 125 Mg Vial) 125 mg IV NOW ONE Stop: 07/30/20 16:16 Last Admin: 07/30/20 16:54 Dose: 125 mg Documented by: SHARON Vital Signs Vital signs: Vital Signs - 8 hr 07/30/20 16:00 07/30/20 16:05 07/30/20 16:06 Pulse Rate 101 H 90 Respiratory Rate 24 20 Blood Pressure 173/80 H 173/80 H Pulse Oximetry 100 99 07/30/20 16:28 07/30/20 16:30 07/30/20 17:00 Pulse Rate 75 75 76 Respiratory Rate 20 17 26 H Blood Pressure 135/71 138/79 Pulse Oximetry 92 99 100 07/30/20 17:14 07/30/20 17:32 07/30/20 17:44 Pulse Rate 78 97 H 96 H Respiratory Rate 18 24 Blood Pressure Pulse Oximetry 93 95 92 MDM - SOB/Dyspnea Lab Data Attestation: I reviewed the patient's lab results. Result diagrams: 07/30/20 16:40 07/30/20 16:40 Labs: Lab Results 07/30/20 07/30/20 07/30/20 Range/Units 16:15 16:40 16:40 WBC 6.8 (4.5-11.0) X10^3/uL RBC 4.22 (4.0-5.2) X10^6/uL Hgb 12.7 (12.0-16.0) g/dL Hct 38.9 (36-46) % MCV 92.3 (80-100) fL MCH 30.0 (26-34) PG MCHC 32.6 (30-36) % RDW 12.9 (11.6-14.8) % Plt Count 407 H (150-400) X10^3/uL Neut % (Auto) 46.2 L (50-75) % Lymph % (Auto) 31.7 (25-40) % Morrison % (Auto) 11.0 (3-14) % Eos % (Auto) 10.1 H (2-4) % Baso % (Auto) 1.0 (0-2) % Neut # (Auto) 3200 (8399-7532) /uL Lymph # (Auto) 2200 (7603-4258) /uL Morrison # (Auto) 800 (0-900) /uL Eos # (Auto) 700 H (0-450) /uL Baso # (Auto) 100 (0-100) /uL PT 11.0 (10.1-12.7) SECONDS INR 1.0 (0.9-1.3) APTT 35 (26.4-36.2) SECONDS Sodium (137-145) mmol/L Potassium (3.4-5.1) mmol/L Chloride (98-107) mmol/L Carbon Dioxide (22-32) mmol/L BUN (7-17) mg/dL Creatinine (0.52-1.04) mg/dL Estimated GFR (>60) mL/min BUN/Creatinine Ratio (6-22) Glucose (80-110) mg/dL Lactate (0.7-2.1) mmol/L Calcium (8.4-10.2) mg/dL Magnesium (1.6-2.3) mg/dL Total Bilirubin (0.2-1.3) mg/dL AST (14-36) IU/L ALT (<35) IU/L Alkaline Phosphatase (38-126) U/L Total Creatine Kinase (30-135) U/L CK-MB (CK-2) CK-MB (CK-2) Rel Index Troponin I (0.01-0.034) ng/mL NT-Pro-B Natriuret Pep (<125) pg/mL Total Protein (6.3-8.2) g/dL Albumin (3.5-5.0) g/dL Globulin (1.7-4.1) g/dL Albumin/Globulin Ratio (1.0-2.8) Procalcitonin (<0.5) ng/mL COVID-19 PCR Negative (Negative) 07/30/20 07/30/20 07/30/20 Range/Units 16:40 16:40 16:40 WBC (4.5-11.0) X10^3/uL RBC (4.0-5.2) X10^6/uL Hgb (12.0-16.0) g/dL Hct (36-46) % MCV (80-100) fL MCH (26-34) PG MCHC (30-36) % RDW (11.6-14.8) % Plt Count (150-400) X10^3/uL Neut % (Auto) (50-75) % Lymph % (Auto) (25-40) % Morrison % (Auto) (3-14) % Eos % (Auto) (2-4) % Baso % (Auto) (0-2) % Neut # (Auto) (3964-7594) /uL Lymph # (Auto) (1853-9842) /uL Morrison # (Auto) (0-900) /uL Eos # (Auto) (0-450) /uL Baso # (Auto) (0-100) /uL PT (10.1-12.7) SECONDS INR (0.9-1.3) APTT (26.4-36.2) SECONDS Sodium (137-145) mmol/L Potassium (3.4-5.1) mmol/L Chloride (98-107) mmol/L Carbon Dioxide (22-32) mmol/L BUN (7-17) mg/dL Creatinine (0.52-1.04) mg/dL Estimated GFR (>60) mL/min BUN/Creatinine Ratio (6-22) Glucose (80-110) mg/dL Lactate 1.5 (0.7-2.1) mmol/L Calcium (8.4-10.2) mg/dL Magnesium 2.3 (1.6-2.3) mg/dL Total Bilirubin (0.2-1.3) mg/dL AST (14-36) IU/L ALT (<35) IU/L Alkaline Phosphatase (38-126) U/L Total Creatine Kinase 71 (30-135) U/L CK-MB (CK-2) TNP CK-MB (CK-2) Rel Index TNP Troponin I < 0.012 (0.01-0.034) ng/mL NT-Pro-B Natriuret Pep 342 H (<125) pg/mL Total Protein (6.3-8.2) g/dL Albumin (3.5-5.0) g/dL Globulin (1.7-4.1) g/dL Albumin/Globulin Ratio (1.0-2.8) Procalcitonin < 0.05 (<0.5) ng/mL COVID-19 PCR (Negative) 07/30/20 Range/Units 16:40 WBC (4.5-11.0) X10^3/uL RBC (4.0-5.2) X10^6/uL Hgb (12.0-16.0) g/dL Hct (36-46) % MCV (80-100) fL MCH (26-34) PG MCHC (30-36) % RDW (11.6-14.8) % Plt Count (150-400) X10^3/uL Neut % (Auto) (50-75) % Lymph % (Auto) (25-40) % Morrison % (Auto) (3-14) % Eos % (Auto) (2-4) % Baso % (Auto) (0-2) % Neut # (Auto) (6147-6803) /uL Lymph # (Auto) (0523-2330) /uL Morrison # (Auto) (0-900) /uL Eos # (Auto) (0-450) /uL Baso # (Auto) (0-100) /uL PT (10.1-12.7) SECONDS INR (0.9-1.3) APTT (26.4-36.2) SECONDS Sodium 136 L (137-145) mmol/L Potassium 3.7 (3.4-5.1) mmol/L Chloride 94 L (98-107) mmol/L Carbon Dioxide 35 H (22-32) mmol/L BUN 18 H (7-17) mg/dL Creatinine 0.85 (0.52-1.04) mg/dL Estimated GFR > 60.0 (>60) mL/min BUN/Creatinine Ratio 21.2 (6-22) Glucose 93 (80-110) mg/dL Lactate (0.7-2.1) mmol/L Calcium 9.5 (8.4-10.2) mg/dL Magnesium (1.6-2.3) mg/dL Total Bilirubin 0.3 (0.2-1.3) mg/dL AST 33 (14-36) IU/L ALT 25 (<35) IU/L Alkaline Phosphatase 113 (38-126) U/L Total Creatine Kinase (30-135) U/L CK-MB (CK-2) CK-MB (CK-2) Rel Index Troponin I (0.01-0.034) ng/mL NT-Pro-B Natriuret Pep (<125) pg/mL Total Protein 7.7 (6.3-8.2) g/dL Albumin 4.4 (3.5-5.0) g/dL Globulin 3.3 (1.7-4.1) g/dL Albumin/Globulin Ratio 1.3 (1.0-2.8) Procalcitonin (<0.5) ng/mL COVID-19 PCR (Negative) Imaging Data Chest x-ray: Radiologist's Impression: PROCEDURE: XR CHEST 1V INDICATIONS: Short of breath TECHNIQUE: One view of the chest was acquired. COMPARISON: [facility], CR, XR CHEST 2V, 04/01/2019, 23:42. [facility], CR, XR CHEST 1V, 07/21/2019, 16:52. [facility], CR, XR CHEST 1V, 02/07/2020, 18:55. [facility], CR, XR CHEST 2V, 07/03/2020, 17:06. FINDINGS: Surgical changes and devices: Cholecystectomy clips are seen. Lungs and pleura: Lungs are clear, yet hyperexpanded. No pleural effusions or pneumothorax. Mediastinum: Mediastinal contours appear normal. Heart size is normal. Bones and chest wall: No suspicious bony lesions. Age-appropriate bony degenerative changes are seen. Skin folds are seen on the right. IMPRESSION: Hyperexpanded lungs, without an acute cardiopulmonary process identified. Dictated by: Donte Adams M.D. on 07/30/2020 at 15:59 Approved by: Donte Adams M.D. on 07/30/2020 at 15:5 ECG Data Attestation: I personally reviewed and interpreted this ECG as follows: Prior ECG tracings: available for review Interpretation: Normal sinus rhythm rate 80 p.r. interval 164 QRS 93 QTC 437 MDM Narrative Medical decision making narrative: The patient is initially speaking in full sentences she has slightly decreased breath sounds but no severe tachypnea. Initially given albuterol spacer in till COVID came back which is again negative. She is overall feeling better after DuoNeb. No sign of infection will treat her for COPD exacerbation she ambulates without difficulty pulse ox remained above 90% she feels better and ready and able to go Discharge Plan Departure Patient Disposition: Home Clinical Impression: COPD exacerbation Instructions: Chronic Obstructive Pulmonary Disease Activity Restrictions/Additional Instructions: *You have been diagnosed with *What to do: *Continue to take medications as directed Doxycycline 100 mg twice a day for 7 days Prednisone 40 mg for 3 days, 30 mg for 3 days, 20 mg for 3 days and 10 mg for 3 days *Follow up with your primary care provider in 2-3 days *Return to ER if you should have increasing shortness of breath, chest pain or any new, worsening or concerning symptoms Prescriptions: New prednisone 10 mg tablet 10 mg PO DAILY Qty: 30 RF: 0 doxycycline hyclate 100 mg capsule 100 mg PO BID Qty: 14 RF: 0 No Action albuterol sulfate 90 mcg/actuation HFA aerosol inhaler 1 inh INHALATION Q4-6H PRN (Reason: shortness of breath) Qty: 18 RF: 0 docusate sodium 100 MG capsule 100 mg PO BID PRN (Reason: Constipation) Qty: 0 RF: 0 clopidogrel 75 MG tablet 75 mg PO DAILY Qty: 0 RF: 0 bupropion HCl 300 MG tablet extended release 24 hr 300 mg PO DAILY Qty: 0 RF: 0 Thera M Plus (ferrous fumarat) 1 EACH tablet 1 tab PO DAILY Qty: 0 RF: 0 citalopram [Celexa] 20 mg tablet 20 mg PO DAILY Qty: 30 RF: 0 prednisone 20 mg tablet 20 mg PO DAILY Qty: 24 RF: 0 alendronate 70 mg tablet 70 mg PO QWEEK RF: 0 albuterol sulfate 90 mcg/actuation HFA aerosol inhaler 2 puff Inhalation Q4H PRN (Reason: Wheezing) RF: 0 loratadine 10 mg tablet 10 mg PO DAILY PRN (Reason: Allergy Symptoms) RF: 0 cholecalciferol (vitamin D3) 1,000 unit tablet 1,000 unit PO DAILY RF: 0 atorvastatin 40 mg tablet 40 mg PO DAILY RF: 0 ranitidine HCl 300 mg tablet 300 mg PO BEDTIME RF: 0 pantoprazole 40 mg tablet,delayed release (DR/EC) 40 mg PO DAILY RF: 0 metoprolol succinate 50 mg tablet extended release 24 hr 25 mg PO DAILY RF: 0 baclofen 5 mg tablet 5 mg PO BID Qty: 20 RF: 0 Referrals: Kandi Malhotra MD [Primary Care Provider] -
[2020-07-30] MEDS: ALBUTEROL HFA 200 PUFF/18 GM INH (COVID POS/VENT PTS) INH (16:23)
[2020-07-30 16:44] LABS: COVID19 -Nasal RAPID Negative (Negative)
[2020-07-30 16:52] LABS: Add Manual Diff / Slide Review NO; Basophils Absolute Auto 100 /uL (0-100); Eosinophils Absolute Auto 700 /uL (0-450); Eosinophils Percent Auto 10.1 % (2-4); Hematocrit 38.9 % (36-46); Hemoglobin 12.7 g/dL (12.0-16.0); Lymphocytes Absolute Auto 2200 /uL (1100-4500); Lymphocytes Percent Auto 31.7 % (25-40); Mean Corpuscular HGB Conc 32.6 % (30-36); Mean Corpuscular Volume 92.3 fL (80-100); Monocytes Absolute Auto 800 /uL (0-900); Neutrophils Absolute Auto 3200 /uL (1500-7000); Neutrophils Percent Auto 46.2 % (50-75); Platelet Count 407 X10^3/uL (150-400); Red Blood Cell Count 4.22 X10^6/uL (4.0-5.2); Red Cell Distribution Width 12.9 % (11.6-14.8); White Blood Cell Count 6.8 X10^3/uL (4.5-11.0)
[2020-07-30] MEDS: methylPREDNISolone 125 MG/2 ML VIAL IV (16:54)
[2020-07-30 17:03] LABS: PTT Partial Thromboplastin Tim 35 SECONDS (26.4-36.2)
[2020-07-30 17:04] LABS: Creatine Kinase 71 U/L (30-135); Lactate (Lactic Acid) 1.5 mmol/L (0.7-2.1); Magnesium 2.3 mg/dL (1.6-2.3)
[2020-07-30 17:05] LABS: Alanine Aminotransferase 25 IU/L (<35); Albumin 4.4 g/dL (3.5-5.0); Albumin Globulin Ratio 1.3 (1.0-2.8); Alkaline Phosphatase 113 U/L (38-126); Aspartate Aminotransferase 33 IU/L (14-36); BUN Creatinine Ratio 21.2 (6-22); Bilirubin Total 0.3 mg/dL (0.2-1.3); Blood Urea Nitrogen 18 mg/dL (7-17); Calcium 9.5 mg/dL (8.4-10.2); Carbon Dioxide 35 mmol/L (22-32); Chloride 94 mmol/L (98-107); Estimated Glomerular Filt Rate > 60.0 mL/min (>60); Globulin 3.3 g/dL (1.7-4.1); Glucose 93 mg/dL (80-110); HEMOLYSIS < 15 (0-50); Potassium 3.7 mmol/L (3.4-5.1); Sodium 136 mmol/L (137-145); Total Protein 7.7 g/dL (6.3-8.2)
[2020-07-30] MEDS: ALBUTEROL/IPRATROPIUM 3 ML AMPUL INH (17:14)
[2020-07-30 17:17] LABS: NT-proBNP (BNP-Adult 18+) 342 pg/mL (<125); Troponin I < 0.012 ng/mL (0.01-0.034)
[2020-07-30 17:19] LABS: Procalcitonin < 0.05 ng/mL (<0.5)
--- NOTE | 2020-07-30 17:45 | PC.NURSE ---
pt ambulated with Rn and pulse ox. Sats are 92-94percent. hr 91-98.
== END 2020-07-30 18:48 | disposition home or self-care (01) ==
PROVIDERS: Emergency Provider Emergency Medicine; Family Provider Family Medicine; PCP Family Medicine
DX: J44.1 Chronic obstructive pulmonary disease with (acute) exacerbation (principal); R07.89 Other chest pain
CPT/HCPCS: 36415; 71045; 80053; 82550; 83605; 83735; 83880; 84145; 84484; 85025; 85610; 85730; 87040; 87635; 93005; 94640; 96374; 99284; J2930

== ENCOUNTER 2020-08-28 16:57 | Observation (INO) | payer MEDICAID, OTHER, SELFPAY ==
[2018-08-28 01:35] VITALS: BMI 17.8
[2020-08-28] VITALS (11 sets, daily range): BP systolic 105–140; BP diastolic 57–86; PULSE 71–94; RESP 22–28; TEMP 36.4–36.6; O2SAT 86–97; BMI 16.1
--- NOTE | 2020-08-28 17:05 | DI.RAD.S_ITS ---
PROCEDURE: XR CHEST 1V INDICATIONS: short of breath TECHNIQUE: One view of the chest was acquired. COMPARISON: [facility], CR, XR CHEST 2V, 04/01/2019, 23:42. [facility], CR, XR CHEST 1V, 07/21/2019, 16:52. [facility], CR, XR CHEST 1V, 02/07/2020, 18:55. [facility], CR, XR CHEST 2V, 07/03/2020, 17:06. [facility], CR, XR CHEST 1V, 07/30/2020, 16:45. FINDINGS: Surgical changes and devices: None. Lungs and pleura: Lungs are clear, yet hyperexpanded. No pleural effusions or pneumothorax. Mediastinum: The cardiac contours are within normal limits. The aorta demonstrates calcification and tortuosity. Bones and chest wall: No suspicious bony lesions. Age-appropriate bony degenerative changes are seen. Overlying soft tissues appear unremarkable. IMPRESSION: No acute cardiopulmonary process is seen. Hyperexpanded lungs are noted. Dictated by: Donte Adams M.D. on 08/28/2020 at 16:50 Approved by: Donte Adams M.D. on 08/28/2020 at 16:51
--- NOTE | 2020-08-28 17:08 | PC.NURSE ---
Patient initially came in from EMS with O2 nasal cannulla. We took her off and got a O2 reading of 86% room air. I put the patient back on nasal cannulla 1L O2 to bring the patient back up to 95%. Provider in the room and aware.
[2020-08-28] MEDS: ALBUTEROL HFA 200 PUFF/18 GM INH (COVID POS/VENT PTS) INH (17:24)
[2020-08-28 17:30] LABS: Add Manual Diff / Slide Review NO; Basophils Absolute Auto 100 /uL (0-100); Basophils Percent Auto 0.6 % (0-2); Eosinophils Absolute Auto 1400 /uL (0-450); Eosinophils Percent Auto 11.3 % (2-4); Hematocrit 40.5 % (36-46); Hemoglobin 13.2 g/dL (12.0-16.0); Lymphocytes Absolute Auto 2900 /uL (1100-4500); Lymphocytes Percent Auto 23.5 % (25-40); Mean Corpuscular HGB Conc 32.6 % (30-36); Mean Corpuscular Hemoglobin 29.9 PG (26-34); Mean Corpuscular Volume 91.7 fL (80-100); Monocytes Absolute Auto 1200 /uL (0-900); Monocytes Percent Auto 9.5 % (3-14); Neutrophils Absolute Auto 6700 /uL (1500-7000); Neutrophils Percent Auto 55.1 % (50-75); Platelet Count 445 X10^3/uL (150-400); Red Blood Cell Count 4.42 X10^6/uL (4.0-5.2); Red Cell Distribution Width 13.3 % (11.6-14.8); White Blood Cell Count 12.2 X10^3/uL (4.5-11.0)
[2020-08-28 17:32] LABS: Prothrombin Time 11.6 SECONDS (10.1-12.7)
[2020-08-28 17:34] LABS: PTT Partial Thromboplastin Tim 33 SECONDS (26.4-36.2)
[2020-08-28 17:35] LABS: Alanine Aminotransferase 25 IU/L (<35); Albumin 4.3 g/dL (3.5-5.0); Albumin Globulin Ratio 1.3 (1.0-2.8); Alkaline Phosphatase 76 U/L (38-126); Aspartate Aminotransferase 29 IU/L (14-36); BUN Creatinine Ratio 17.2 (6-22); Bilirubin Total 0.5 mg/dL (0.2-1.3); Blood Urea Nitrogen 15 mg/dL (7-17); Calcium 9.4 mg/dL (8.4-10.2); Carbon Dioxide 30 mmol/L (22-32); Chloride 99 mmol/L (98-107); Creatine Kinase 82 U/L (30-135); Estimated Glomerular Filt Rate > 60.0 mL/min (>60); Globulin 3.2 g/dL (1.7-4.1); Glucose 120 mg/dL (80-110); HEMOLYSIS 23 (0-50); Magnesium 1.7 mg/dL (1.6-2.3); Potassium 3.9 mmol/L (3.4-5.1); Sodium 137 mmol/L (137-145); Total Protein 7.5 g/dL (6.3-8.2)
[2020-08-28 17:36] LABS: Lactate (Lactic Acid) 2.4 mmol/L (0.7-2.1)
[2020-08-28 17:37] LABS: COVID19 -Nasal RAPID Negative (Negative)
[2020-08-28] MEDS: methylPREDNISolone 125 MG/2 ML VIAL IV (17:41)
[2020-08-28 17:47] LABS: Troponin I 0.026 ng/mL (0.01-0.034)
[2020-08-28 17:50] LABS: Procalcitonin < 0.05 ng/mL (<0.5)
[2020-08-28 17:50] LABS: PCO2 ABG 37.4 mmHg (35-45); PO2 ABG 76 mmHg (80-100); pH ABG 7.42 (7.35-7.45)
[2020-08-28 17:51] LABS: Fractionated Inspired Oxygen 25; HCO3 ABG 24 mmol/L (22-26); Oxygen Saturation ABG 95 % (95-100); TCO2 ABG 25 mmol/L (21-31)
--- NOTE | 2020-08-28 18:11 | ED.SOB ---
HPI - SOB/Dyspnea General Chief Complaint: Shortness of Breath/Dyspnea Stated Complaint: SOB Time Seen by Provider: 08/28/20 17:02 Source: patient and EMS Mode of arrival: EMS Limitations: no limitations History of Present Illness HPI Narrative: Patient is a 64-year-old female with history of COPD currently presenting with acute onset of shortness of breath. Her O2 sat on the monitor is 86% on 4 L she appears acutely tachypneic and pursed lip breathing. She has been treated as an outpatient twice this month for COPD exacerbation. I actually saw her at the beginning of the month she was put on a 12 day prednisone taper and doxycycline. She said she started feeling bad around the 23 she was put on a 5 day prednisone burst and azithromycin. Presenting today with worsening shortness of breath. She is not on home oxygen she feels her cough is gone worse MD Complaint: shortness of breath and cough Related Data Home Medications Medication Instructions Recorded Confirmed bupropion HCl 300 mg PO DAILY #0 10/09/17 08/28/20 clopidogrel 75 mg PO DAILY #0 10/09/17 08/28/20 docusate sodium 100 mg PO BID PRN #0 10/09/17 08/28/20 alendronate 70 mg PO QWEEK 08/10/18 08/28/20 cholecalciferol (vitamin D3) 1,000 unit PO DAILY 08/10/18 08/28/20 loratadine 10 mg PO BEDTIME 08/10/18 08/28/20 atorvastatin 40 mg PO BEDTIME 04/27/19 08/28/20 pantoprazole 40 mg PO DAILY 04/27/19 08/28/20 metoprolol succinate 50 mg 25 mg PO DAILY tab 10/01/19 08/28/20 tablet,extended release 24 hr amlodipine 2.5 mg PO DAILY 08/28/20 08/28/20 doxycycline hyclate 100 mg PO DAILY 08/28/20 08/28/20 hydrochlorothiazide 12.5 mg PO DAILY 08/28/20 08/28/20 hydroxyzine HCl 50 mg PO BEDTIME 08/28/20 08/28/20 ondansetron HCl [Zofran] 4 mg PO DAILY 08/28/20 08/28/20 tiotropium bromide [Spiriva with 1 cap INHALATION DAILY 08/28/20 08/28/20 HandiHaler] Previous Rx's Medication Instructions Recorded citalopram [Celexa] 20 mg PO DAILY #30 tab 05/10/18 albuterol sulfate 90 mcg/actuation 1 inh INHALATION Q4-6H PRN #18 gram 10/01/19 aerosol inhaler prednisone 10 mg PO DAILY #30 tab 07/30/20 Allergies Allergy/AdvReac Type Severity Reaction Status Date / Time codeine [CODEINE] Allergy Severe NAUSEA / Verified 08/28/20 17:42 VOMITING latex Allergy Rash Verified 08/28/20 17:42 lisinopril Allergy Verified 08/28/20 17:42 Review of Systems Review of Systems Narrative: GENERAL: Denies chills, fatigue, malaise, fever, sweats, travel HEENT: Denies sinus pain, ear pain, sore throat, difficulty swallowing, neck pain RESPIRATORY: See HPI CARDIOVASCULAR: Denies chest pain, palpitations, orthopnea, edema GASTROINTESTINAL: Denies nausea, vomiting, abdominal pain, diarrhea, constipation, melena. : Denies dysuria, frequency, incontinence, hematuria, urinary retention, flank pain. MUSCULOSKELETAL: Denies weakness, joint pain, or bony pain SKIN: No rash, no erythema, no pruritus NEUROLOGIC: Denies weakness, dizziness, headache, numbness, change in speech, confusion PSYCHIATRIC: No concerning psychosocial issues. 12 point review of systems is negative except for those stated above and HPI Patient History Medical History (Updated 08/28/20 @ 18:37 by Brea Hernandez DO) Alcohol abuse COPD (chronic obstructive pulmonary disease) Hypertension Irritable bowel syndrome (IBS) Pancreatitis Urinary tract infection Surgical History Total knee replacement status Family History Other Family history non-contributory Social History household members: friend(s) and none Smoking Status: Former smoker alcohol intake: former Smoking Status: Former smoker alcohol intake frequency: other Substance Use Type: does not use Exam Initial Vital Signs Initial Vital Signs: Vital Signs Temperature 97.6 F 08/28/20 17:00 Pulse Rate 90 08/28/20 17:00 Respiratory Rate 26 H 08/28/20 17:00 Blood Pressure 138/86 08/28/20 17:00 Pulse Oximetry 86 L 08/28/20 17:00 GENERAL: Thin female tachypneic pursed lip breathing appears in moderate very distress HEENT: Head atraumatic,EOMI, pupils reactive, face symmetric, moist mucous membranes CARDIOVASCULAR: Regular rate and rhythm without murmurs, rubs or gallops. RESPIRATORY: Decreased breath sounds eye laterally but moving air no wheezing tachypneic ABDOMEN: Soft, nontender. Normoactive bowel sounds all 4 quadrants. No guarding or rebound. EXTREMITIES: Normal range of motion, no clubbing or edema. Neurovascularly intact NEUROLOGICAL: Alert and oriented x4.Normal gait and speech. SKIN: Warm, dry, no laceration, no petechiae, no rashes or lesions. Course Orders Ordered: ED Orders 08/28/20 17:03 High flow/High humidity nasal STAT 08/28/20 17:04 Consult to Respiratory Therapy Evaluate & Treat 08/28/20 17:05 XR chest 1V Stat 08/28/20 17:11 Arterial Blood Gas Stat 08/28/20 17:15 COVID19 Stat Complete Blood Count AUTO DIFF Stat Comprehensive Metabolic Panel Stat Lactate (Lactic Acid) Stat Magnesium Stat NT-proBNP (BNP-Adult 18+) Stat Partial Thromboplastin Time Stat Procalcitonin Stat Prothrombin Time INR Stat Troponin & CK Cardiac Panel Stat 08/28/20 17:28 EKG-12 Lead Stat 08/28/20 18:57 Blood Culture Stat Respiratory Panel (Film Array) Stat Discontinued Medications Albuterol (Albuterol Hfa 200 Puff/18 Gm Inh (Covid Pos/Vent Pts)) 4 puff INH NOW ONE Stop: 08/28/20 17:24 Last Admin: 08/28/20 17:24 Dose: 4 puff Documented by: JUSTICE Albuterol/Ipratropium (Albuterol/Ipratropium 3 Ml Ampul) 3 ml INH NOW ONE Stop: 08/28/20 17:04 Last Admin: 08/28/20 17:24 Dose: Not Given Documented by: JUSTICE Ceftriaxone Sodium/Dextrose (Rocephin) 2 gm in 50 mls @ 100 mls/hr IV NOW ONE Stop: 08/28/20 18:49 Last Infusion: 08/28/20 19:25 Dose: 100 mls/hr Documented by: Admin: 08/28/20 19:02 Dose: 100 mls/hr Documented by: MEREDITH Methylprednisolone (Methylprednisolone 125 Mg/2 Ml Vial) 125 mg IV NOW ONE Stop: 08/28/20 17:04 Last Admin: 08/28/20 17:41 Dose: 125 mg Documented by: MEREDITH Vital Signs Vital signs: Vital Signs - 8 hr 08/28/20 17:00 08/28/20 17:02 08/28/20 17:30 Temperature 97.6 F Pulse Rate 94 H 94 H 80 Respiratory Rate 26 H 28 H 24 Blood Pressure 138/86 138/86 139/59 L Pulse Oximetry 97 86 L 94 08/28/20 18:00 08/28/20 18:30 Temperature Pulse Rate 74 71 Respiratory Rate 24 26 H Blood Pressure 105/59 L Pulse Oximetry 94 97 MDM - SOB/Dyspnea Lab Data Attestation: I reviewed the patient's lab results. Result diagrams: 08/28/20 17:15 08/28/20 17:15 Labs: Lab Results 08/28/20 08/28/20 08/28/20 Range/Units 17:11 17:15 17:15 WBC (4.5-11.0) X10^3/uL RBC (4.0-5.2) X10^6/uL Hgb (12.0-16.0) g/dL Hct (36-46) % MCV (80-100) fL MCH (26-34) PG MCHC (30-36) % RDW (11.6-14.8) % Plt Count (150-400) X10^3/uL Neut % (Auto) (50-75) % Lymph % (Auto) (25-40) % [place] % (Auto) (3-14) % Eos % (Auto) (2-4) % Baso % (Auto) (0-2) % Neut # (Auto) (9463-6944) /uL Lymph # (Auto) (4023-3041) /uL [place] # (Auto) (0-900) /uL Eos # (Auto) (0-450) /uL Baso # (Auto) (0-100) /uL PT 11.6 (10.1-12.7) SECONDS INR 1.0 (0.9-1.3) APTT 33 D (26.4-36.2) SECONDS ABG pH 7.42 (7.35-7.45) ABG pCO2 37.4 (35-45) mmHg ABG pO2 76 L (80-100) mmHg ABG HCO3 24 (22-26) mmol/L ABG Total CO2 25 (21-31) mmol/L ABG O2 Saturation 95 (95-100) % ABG Base Excess 0.0 (-2-2) mmol/L FiO2 25 Sodium (137-145) mmol/L Potassium (3.4-5.1) mmol/L Chloride (98-107) mmol/L Carbon Dioxide (22-32) mmol/L BUN (7-17) mg/dL Creatinine (0.52-1.04) mg/dL Estimated GFR (>60) mL/min BUN/Creatinine Ratio (6-22) Glucose (80-110) mg/dL Lactate (0.7-2.1) mmol/L Calcium (8.4-10.2) mg/dL Magnesium (1.6-2.3) mg/dL Total Bilirubin (0.2-1.3) mg/dL AST (14-36) IU/L ALT (<35) IU/L Alkaline Phosphatase (38-126) U/L Total Creatine Kinase (30-135) U/L CK-MB (CK-2) CK-MB (CK-2) Rel Index Troponin I (0.01-0.034) ng/mL NT-Pro-B Natriuret Pep 2700 H (<125) pg/mL Total Protein (6.3-8.2) g/dL Albumin (3.5-5.0) g/dL Globulin (1.7-4.1) g/dL Albumin/Globulin Ratio (1.0-2.8) Procalcitonin (<0.5) ng/mL COVID-19 PCR (Negative) 08/28/20 08/28/20 08/28/20 Range/Units 17:15 17:15 17:15 WBC 12.2 H (4.5-11.0) X10^3/uL RBC 4.42 (4.0-5.2) X10^6/uL Hgb 13.2 (12.0-16.0) g/dL Hct 40.5 (36-46) % MCV 91.7 (80-100) fL MCH 29.9 (26-34) PG MCHC 32.6 (30-36) % RDW 13.3 (11.6-14.8) % Plt Count 445 H (150-400) X10^3/uL Neut % (Auto) 55.1 (50-75) % Lymph % (Auto) 23.5 L (25-40) % [place] % (Auto) 9.5 (3-14) % Eos % (Auto) 11.3 H (2-4) % Baso % (Auto) 0.6 (0-2) % Neut # (Auto) 6700 (9806-5132) /uL Lymph # (Auto) 2900 (6024-7874) /uL [place] # (Auto) 1200 H (0-900) /uL Eos # (Auto) 1400 H (0-450) /uL Baso # (Auto) 100 (0-100) /uL PT (10.1-12.7) SECONDS INR (0.9-1.3) APTT (26.4-36.2) SECONDS ABG pH (7.35-7.45) ABG pCO2 (35-45) mmHg ABG pO2 (80-100) mmHg ABG HCO3 (22-26) mmol/L ABG Total CO2 (21-31) mmol/L ABG O2 Saturation (95-100) % ABG Base Excess (-2-2) mmol/L FiO2 Sodium 137 (137-145) mmol/L Potassium 3.9 (3.4-5.1) mmol/L Chloride 99 (98-107) mmol/L Carbon Dioxide 30 (22-32) mmol/L BUN 15 (7-17) mg/dL Creatinine 0.87 (0.52-1.04) mg/dL Estimated GFR > 60.0 (>60) mL/min BUN/Creatinine Ratio 17.2 (6-22) Glucose 120 H (80-110) mg/dL Lactate (0.7-2.1) mmol/L Calcium 9.4 (8.4-10.2) mg/dL Magnesium 1.7 (1.6-2.3) mg/dL Total Bilirubin 0.5 (0.2-1.3) mg/dL AST 29 (14-36) IU/L ALT 25 (<35) IU/L Alkaline Phosphatase 76 (38-126) U/L Total Creatine Kinase 82 (30-135) U/L CK-MB (CK-2) TNP CK-MB (CK-2) Rel Index TNP Troponin I 0.026 (0.01-0.034) ng/mL NT-Pro-B Natriuret Pep (<125) pg/mL Total Protein 7.5 (6.3-8.2) g/dL Albumin 4.3 (3.5-5.0) g/dL Globulin 3.2 (1.7-4.1) g/dL Albumin/Globulin Ratio 1.3 (1.0-2.8) Procalcitonin < 0.05 (<0.5) ng/mL COVID-19 PCR (Negative) 08/28/20 08/28/20 Range/Units 17:15 17:15 WBC (4.5-11.0) X10^3/uL RBC (4.0-5.2) X10^6/uL Hgb (12.0-16.0) g/dL Hct (36-46) % MCV (80-100) fL MCH (26-34) PG MCHC (30-36) % RDW (11.6-14.8) % Plt Count (150-400) X10^3/uL Neut % (Auto) (50-75) % Lymph % (Auto) (25-40) % [place] % (Auto) (3-14) % Eos % (Auto) (2-4) % Baso % (Auto) (0-2) % Neut # (Auto) (5654-4960) /uL Lymph # (Auto) (1320-0992) /uL [place] # (Auto) (0-900) /uL Eos # (Auto) (0-450) /uL Baso # (Auto) (0-100) /uL PT (10.1-12.7) SECONDS INR (0.9-1.3) APTT (26.4-36.2) SECONDS ABG pH (7.35-7.45) ABG pCO2 (35-45) mmHg ABG pO2 (80-100) mmHg ABG HCO3 (22-26) mmol/L ABG Total CO2 (21-31) mmol/L ABG O2 Saturation (95-100) % ABG Base Excess (-2-2) mmol/L FiO2 Sodium (137-145) mmol/L Potassium (3.4-5.1) mmol/L Chloride (98-107) mmol/L Carbon Dioxide (22-32) mmol/L BUN (7-17) mg/dL Creatinine (0.52-1.04) mg/dL Estimated GFR (>60) mL/min BUN/Creatinine Ratio (6-22) Glucose (80-110) mg/dL Lactate 2.4 H (0.7-2.1) mmol/L Calcium (8.4-10.2) mg/dL Magnesium (1.6-2.3) mg/dL Total Bilirubin (0.2-1.3) mg/dL AST (14-36) IU/L ALT (<35) IU/L Alkaline Phosphatase (38-126) U/L Total Creatine Kinase (30-135) U/L CK-MB (CK-2) CK-MB (CK-2) Rel Index Troponin I (0.01-0.034) ng/mL NT-Pro-B Natriuret Pep (<125) pg/mL Total Protein (6.3-8.2) g/dL Albumin (3.5-5.0) g/dL Globulin (1.7-4.1) g/dL Albumin/Globulin Ratio (1.0-2.8) Procalcitonin (<0.5) ng/mL COVID-19 PCR Negative (Negative) Imaging Data Chest x-ray: Radiologist's Impression: PROCEDURE: XR CHEST 1V INDICATIONS: short of breath TECHNIQUE: One view of the chest was acquired. COMPARISON: [facility], , XR CHEST 2V, 04/01/2019, 23:42. [facility], XR CHEST 1V, 07/21/2019, 16:52. [facility], XR CHEST 1V, 02/07/2020, 18:55. [facility], , XR CHEST 2V, 07/03/2020, 17:06. [facility], XR CHEST 1V, 07/30/2020, 16:45. FINDINGS: Surgical changes and devices: None. Lungs and pleura: Lungs are clear, yet hyperexpanded. No pleural effusions or pneumothorax. Mediastinum: The cardiac contours are within normal limits. The aorta demonstrates calcification and tortuosity. Bones and chest wall: No suspicious bony lesions. Age-appropriate bony degenerative changes are seen. Overlying soft tissues appear unremarkable. IMPRESSION: No acute cardiopulmonary process is seen. Hyperexpanded lungs are noted. Dictated by: Donte Adams M.D. on 08/28/2020 at 16:50 Approved by: Donte Adams M.D. on 08/28/2020 at 16:51 ECG Data Attestation: I personally reviewed and interpreted this ECG as follows: Prior ECG tracings: available for review Interpretation: Normal sinus rhythm rate 79 p.r. interval 147 QRS [address] changes MDM Narrative Medical decision making narrative: Patient has failed outpatient treatment twice this month. Her breathing status actually improved quite quickly while in the ED she was quickly titrated down to 1 L O2. ABG actually does not show hypercapnia or significant hypoxia Dr. Escoto accepts Discharge Plan Departure Patient Disposition: Admitted as Observation Clinical Impression: COPD (chronic obstructive pulmonary disease) Qualifiers: COPD type: COPD with acute exacerbation Qualified Code(s): J44.1 - Chronic obstructive pulmonary disease with (acute) exacerbation Admit Date/Time: 08/28/20 18:38 Admit Provider: Kathy Escoto
[2020-08-28 18:55] LABS: NT-proBNP (BNP-Adult 18+) 2700 pg/mL (<125)
[2020-08-28] MEDS: CEFTRIAXONE 2 GM/50 ML FROZ.PIGGY IV (19:02)
[2020-08-28 19:16] LABS: Reflexed Lactate in 2 Hours Y
[2020-08-28 20:02] LABS: Adenovirus Not Detected (Not Detect); Bordetella pertussis Not Detected (Not Detect); Chlamydophila pneumoniae Not Detected (Not Detect); Coronavirus 229E Not Detected (Not Detect); Coronavirus HKU1 Not Detected (Not Detect); Coronavirus NL 63 Not Detected (Not Detect); Coronavirus OC43 Not Detected (Not Detect); Human Metapneumovirus Not Detected (Not Detect); Human Rhinovirus/Enterovirus Not Detected (Not Detect); Influenza A Not Detected (Not Detect); Influenza B Not Detected (Not Detect); Mycoplasma pneumoniae Not Detected (Not Detect); Parainfluenza Virus 1 Not Detected (Not Detect); Parainfluenza Virus 2 Not Detected (Not Detect); Parainfluenza Virus 3 Not Detected (Not Detect); Parainfluenza Virus 4 Not Detected (Not Detect); Respiratory Syncytial Virus Not Detected (Not Detect); SARS- CoV-2 Not Detected (Not Detecte)
--- NOTE | 2020-08-28 20:29 | PC.ADMIT ---
[address] Admission Note: The patient,Rosmery Marquis,64 y/o, was given written information regarding hospital policies, unit procedures and contact persons. Patient's smoking status: Former smoker. Vital Signs - 8 hr 08/28/20 17:00 08/28/20 17:02 08/28/20 17:30 Temperature 97.6 F Pulse Rate 94 H 94 H 80 Respiratory Rate 26 H 28 H 24 Blood Pressure 138/86 138/86 139/59 L Pulse Oximetry 97 86 L 94 08/28/20 18:00 08/28/20 18:30 08/28/20 18:48 Temperature Pulse Rate 74 71 75 Respiratory Rate 24 26 H 24 Blood Pressure 105/59 L 140/69 Pulse Oximetry 94 97 97 08/28/20 19:00 08/28/20 19:30 Temperature 97.8 F Pulse Rate 74 75 Respiratory Rate 22 24 Blood Pressure 127/57 L 139/85 Pulse Oximetry 95 97 Patient up from ED via stretcher. Patient was able to get off of the stretcher and ambulate to the bed. Patient with increased SOB with activity. On 1L sats mid 90s. Patient denies any pain. Patient has been A&O, calm and cooperative.
[2020-08-28] MEDS: DOCUSATE 100 MG CAPSULE PO (21:12)
[2020-08-28] MEDS: SENNOSIDES 8.6 MG TABLET 17.2 MG PO (21:12)
[2020-08-28] MEDS: ATORVASTATIN 20 MG TABLET 40 MG PO (21:12)
[2020-08-28] MEDS: hydrOXYzine pamoate 25 MG CAPSULE 50 MG PO (21:13)
[2020-08-28 21:38] LABS: Lactate 2HR (Lactic Acid Rflx) 1.9 mmol/L (0.7-2.1)
--- NOTE | 2020-08-28 22:21 | P.HP_ITS ---
History of Present Illness History of Present Illness Date Patient Seen: 08/28/20 Time Patient Seen: 20:31 Chief complaint: SOB Narrative: Patient is a 64-year-old female Rosmery Marquis who presented to the emergency room for acute onset shortness of breath and exacerbation of COPD. Patient has had repeated hospitalizations for exacerbation of her COPD in the p ast year (ER)02/07/2020, (ER)07/03/2020, (ER)07/30/2020 when she was prescribed a 12 day 40 mg prednisone taper and doxycycline 100 mg twice daily for 7 days, her chest x-ray showed hyperventilation without acute pulmonary process. [place] placed on a 5 day prednisone taper and Z-Terrence which she completed 3 days ago. 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 Patient lives alone in a 1 bedroom [facility]. Her closest family is her son who lives in [place] and denies any exposure to cold/flu or COVID. Patient complains of muscle aches from coughing in the upper left chest and epigastric region, worsening shortness of breath from emergency room due to transfer physical activity to room, notes wheezing prior to coming into the emergency room today, increased fatigue and shortness of breath which was probably Esme did by taking out the right mesh. Patient has no home O2, and ambulates with a cane independently and provides her own ADLs, Pt reports taking Advair Diskus, albuterol inhaler and for the last 3 days has been using it 6 times per day and nebulizer at home which she has been using 4 times per day. Patient reports that she has not had the pneumonia vaccine. Patient is complaining of increased anxiety 8/10, depression0/10 at this time. ER labs WBC 12.2, BNP 2700, LDH 2.4, negative troponins, procalcitonin, and COVID, ABG PO2 76, chest x-ray showed hyperventilation without any cardiac processes. Patient denies hemoptysis, fever, chills, nausea, vomiting, diarrhea, or edema. Patient History Medical History (Updated 08/28/20 @ 22:53 by ALBERTO Edwards) Alcohol abuse, in remission COPD (chronic obstructive pulmonary disease) Hypertension Irritable bowel syndrome (IBS) Neck pain with history of cervical spinal surgery Pancreatitis Stage 2 moderate COPD by GOLD classification Stroke Tobacco abuse, in remission Urinary tract infection Surgical History (Updated 08/28/20 @ 22:54 [facility] History of neck surgery History of spinal surgery Total knee replacement status Family & Social History Family History (Updated 08/28/20 @ 22:55 by [facility]) Unknown Adopted Son No problems noted. Other Family history non-contributory Social History: household members friend(s),none Prior Living Arrangements [facility], in 1 bedroom apartment, walks with a cane, independent. Son lives in [place]. Safety & Behavioral: Feels Safe in Current Yes Environment Been Physically Hurt or No Threatened By a Person Suicide Plan Description No Plan Tobacco & Substance use: Smoking Status Former smoker alcohol intake former alcohol intake frequency other Substance Use Type does not use Meds Home Medications and Allergies Home Medications Medication Instructions Recorded Confirmed Type bupropion HCl 300 mg PO DAILY #0 10/09/17 08/28/20 History clopidogrel 75 mg PO DAILY #0 10/09/17 08/28/20 History docusate sodium 100 mg PO BID PRN #0 10/09/17 08/28/20 History citalopram [Celexa] 20 mg PO DAILY #30 tab 05/10/18 08/28/20 Rx alendronate 70 mg PO QWEEK 08/10/18 08/28/20 History cholecalciferol (vitamin D3) 1,000 unit PO DAILY 08/10/18 08/28/20 History loratadine 10 mg PO BEDTIME 08/10/18 08/28/20 History atorvastatin 40 mg PO BEDTIME 04/27/19 08/28/20 History pantoprazole 40 mg PO DAILY 04/27/19 08/28/20 History albuterol sulfate 90 mcg/actuation 1 inh INHALATION Q4-6H PRN #18 gram 10/01/19 08/28/20 Rx aerosol inhaler metoprolol succinate 50 mg 25 mg PO DAILY tab 10/01/19 08/28/20 History tablet,extended release 24 hr prednisone 10 mg PO DAILY #30 tab 07/30/20 08/28/20 Rx amlodipine 2.5 mg PO DAILY 08/28/20 08/28/20 History doxycycline hyclate 100 mg PO DAILY 08/28/20 08/28/20 History hydrochlorothiazide 12.5 mg PO DAILY 08/28/20 08/28/20 History hydroxyzine HCl 50 mg PO BEDTIME 08/28/20 08/28/20 History ondansetron HCl [Zofran] 4 mg PO DAILY 08/28/20 08/28/20 History tiotropium bromide [Spiriva with 1 cap INHALATION DAILY 08/28/20 08/28/20 History HandiHaler] Allergies Allergy/AdvReac Type Severity Reaction Status Date / Time codeine [CODEINE] Allergy Severe NAUSEA / Verified 08/28/20 17:42 VOMITING latex Allergy Rash Verified 08/28/20 17:42 lisinopril Allergy Verified 08/28/20 17:42 Review of Systems Review of Systems ROS: Yes All systems reviewed with the patient and are negative except as otherwise documented Constitutional Constitutional: Reports anorexia, Reports fatigue, Reports malaise and Reports weight loss Eyes Eyes: Reports system reviewed and no additional complaints, except as documented ENT Ears, Nose, Mouth, and Throat: Yes system reviewed and no additional complaints, except as documented, Yes dry mouth, Yes nasal congestion and Yes nasal discharge Cardiovascular Cardiovascular: Reports system reviewed and no additional complaints, except as documented, Reports dyspnea, Reports dyspnea on exertion and Reports orthopnea Respiratory Respiratory: Reports dyspnea and Reports dyspnea on exertion Gastrointestinal Gastrointestinal: Reports system reviewed and no additional complaints, except as documented Genitourinary Comments: Tingling with urination Musculoskeletal Musculoskeletal: Reports myalgias Integumentary/Breasts Skin/Breast: Reports system reviewed and no additional complaints, except as documented Neurologic Neurologic: Reports system reviewed and no additional complaints, except as documented Psychiatric Psychiatric: Reports system reviewed and no additional complaints, except as documented and Reports anxiety Endocrine Endocrine: Reports system reviewed and no additional complaints, except as documented and Reports fatigue Hematologic/Lymphatic Hematologic/Lymphatic: Reports system reviewed and no additional complaints, except as documented Allergic/Immunologic Allergic/Immunologic: Reports system reviewed and no additional complaints, except as documented Comments: chronic itchy skin Exam Vital Signs (past 8 hours): - 08/28/20 17:00 08/28/20 17:02 08/28/20 17:30 Temperature 97.6 F Pulse Rate 94 H 94 H 80 Respiratory Rate 26 H 28 H 24 Blood Pressure 138/86 138/86 139/59 L Pulse Oximetry 97 86 L 94 08/28/20 18:00 08/28/20 18:30 08/28/20 18:48 Temperature Pulse Rate 74 71 75 Respiratory Rate 24 26 H 24 Blood Pressure 105/59 L 140/69 Pulse Oximetry 94 97 97 08/28/20 19:00 08/28/20 19:30 Temperature 97.8 F Pulse Rate 74 75 Respiratory Rate 22 24 Blood Pressure 127/57 L 139/85 Pulse Oximetry 95 97 Oxygen Delivery Method Nasal Cannula Oxygen Flow Rate 1 Narrative Exam Narrative: General: This is a delightful thin frail elderly female, appears older than stated age, poorly nourished, resting in bed increased respiratory rate and work in [place] completing full sentences, but in no acute distress at this time. HEENT: Normocephalic, atraumatic, PERRLA, extraocular muscles intact, oropharynx is clear and mucous membranes are moist. Patient is missing bottom teeth and have upper teeth. Wears glasses Neck: Supple and symmetric without lymphadenopathy, thyroid enlargement, tenderness, or masses. Lungs: Auscultation of lungs labored decreased bilaterally greater on the left over the right, expiratory wheezing on the right, and occasional crackles bilaterally at the bases, without nasal flaring, retractions, or tachypneic. Cardiac: S1-S2 with regular rate and rhythm without murmur rubs or gallops, no carotid bruit. Abdomen: Soft nontender, negative for organomegaly, or masses, bowel sounds present in all 4 quadrants, without guarding or rebound, no CVA tenderness. Musculoskeletal muscle strength and tone are equal within normal limits, legs are thin but equal bilaterally with gross lack of muscle, without decrepitus effusions, cyanosis, clubbing cyanosis or edema. Full range of motion, and radial and pedal pulses are normal. Skin: Warm dry and intact without rashes, ulcerations, abnormal bruising, bleeding, or petechiae. Neuro: Patient is alert and orientated to person place and time, appropriate affect sensation to touch and pain intact, has a wasting appearance, thought context, judgement, mood and affect are appropriate for age and situation. Objective Labs Result Diagrams: 08/28/20 17:15 08/28/20 17:15 Labs: Laboratory Results - last 24 hr 08/28/20 08/28/20 08/28/20 17:11 17:15 17:15 WBC RBC Hgb Hct MCV MCH MCHC RDW Plt Count Neut % (Auto) Lymph % (Auto) [place] % (Auto) Eos % (Auto) Baso % (Auto) Neut # (Auto) Lymph # (Auto) [place] # (Auto) Eos # (Auto) Baso # (Auto) PT 11.6 INR 1.0 APTT 33 D ABG pH 7.42 ABG pCO2 37.4 ABG pO2 76 L ABG HCO3 24 ABG Total CO2 25 ABG O2 Saturation 95 ABG Base Excess 0.0 FiO2 25 Sodium Potassium Chloride Carbon Dioxide BUN Creatinine Estimated GFR BUN/Creatinine Ratio Glucose Lactate Calcium Magnesium Total Bilirubin AST ALT Alkaline Phosphatase Total Creatine Kinase CK-MB (CK-2) CK-MB (CK-2) Rel Index Troponin I NT-Pro-B Natriuret Pep 2700 H Total Protein Albumin Globulin Albumin/Globulin Ratio Procalcitonin Chlamy pneumoniae PCR Adenovirus (PCR) B.parapertussis DNA PCR Coronavirus OC43 (PCR) Coronavirus HKU1 (PCR) Coronavirus 229E (PCR) COVID-19 PCR Coronavirus NL63 (PCR) Human Metapneumovir PCR Influenza Type A (PCR) Influenza Type B (PCR) M. pneumoniae (PCR) Parainfluenza 1 (PCR) Parainfluenza 2 (PCR) Parainfluenza 3 (PCR) Parainfluenza 4 (PCR) RSV (PCR) Entero/Rhino (PCR) 08/28/20 08/28/20 08/28/20 17:15 17:15 17:15 WBC 12.2 H RBC 4.42 Hgb 13.2 Hct 40.5 MCV 91.7 MCH 29.9 MCHC 32.6 RDW 13.3 Plt Count 445 H Neut % (Auto) 55.1 Lymph % (Auto) 23.5 L [place] % (Auto) 9.5 Eos % (Auto) 11.3 H Baso % (Auto) 0.6 Neut # (Auto) 6700 Lymph # (Auto) 2900 [place] # (Auto) 1200 H Eos # (Auto) 1400 H Baso # (Auto) 100 PT INR APTT ABG pH ABG pCO2 ABG pO2 ABG HCO3 ABG Total CO2 ABG O2 Saturation ABG Base Excess FiO2 Sodium 137 Potassium 3.9 Chloride 99 Carbon Dioxide 30 BUN 15 Creatinine 0.87 Estimated GFR > 60.0 BUN/Creatinine Ratio 17.2 Glucose 120 H Lactate Calcium 9.4 Magnesium 1.7 Total Bilirubin 0.5 AST 29 ALT 25 Alkaline Phosphatase 76 Total Creatine Kinase 82 CK-MB (CK-2) TNP CK-MB (CK-2) Rel Index TNP Troponin I 0.026 NT-Pro-B Natriuret Pep Total Protein 7.5 Albumin 4.3 Globulin 3.2 Albumin/Globulin Ratio 1.3 Procalcitonin < 0.05 Chlamy pneumoniae PCR Adenovirus (PCR) B.parapertussis DNA PCR Coronavirus OC43 (PCR) Coronavirus HKU1 (PCR) Coronavirus 229E (PCR) COVID-19 PCR Coronavirus NL63 (PCR) Human Metapneumovir PCR Influenza Type A (PCR) Influenza Type B (PCR) M. pneumoniae (PCR) Parainfluenza 1 (PCR) Parainfluenza 2 (PCR) Parainfluenza 3 (PCR) Parainfluenza 4 (PCR) RSV (PCR) Entero/Rhino (PCR) 08/28/20 08/28/20 08/28/20 17:15 17:15 18:57 WBC RBC Hgb Hct MCV MCH MCHC RDW Plt Count Neut % (Auto) Lymph % (Auto) [place] % (Auto) Eos % (Auto) Baso % (Auto) Neut # (Auto) Lymph # (Auto) [place] # (Auto) Eos # (Auto) Baso # (Auto) PT INR APTT ABG pH ABG pCO2 ABG pO2 ABG HCO3 ABG Total CO2 ABG O2 Saturation ABG Base Excess FiO2 Sodium Potassium Chloride Carbon Dioxide BUN Creatinine Estimated GFR BUN/Creatinine Ratio Glucose Lactate 2.4 H Calcium Magnesium Total Bilirubin AST ALT Alkaline Phosphatase Total Creatine Kinase CK-MB (CK-2) CK-MB (CK-2) Rel Index Troponin I NT-Pro-B Natriuret Pep Total Protein Albumin Globulin Albumin/Globulin Ratio Procalcitonin Chlamy pneumoniae PCR Not detected Adenovirus (PCR) Not detected B.parapertussis DNA PCR Not detected Coronavirus OC43 (PCR) Not detected Coronavirus HKU1 (PCR) Not detected Coronavirus 229E (PCR) Not detected COVID-19 PCR Negative Not detected Coronavirus NL63 (PCR) Not detected Human Metapneumovir PCR Not detected Influenza Type A (PCR) Not detected Influenza Type B (PCR) Not detected M. pneumoniae (PCR) Not detected Parainfluenza 1 (PCR) Not detected Parainfluenza 2 (PCR) Not detected Parainfluenza 3 (PCR) Not detected Parainfluenza 4 (PCR) Not detected RSV (PCR) Not detected Entero/Rhino (PCR) Not detected 08/28/20 21:15 WBC RBC Hgb Hct MCV MCH MCHC RDW Plt Count Neut % (Auto) Lymph % (Auto) [place] % (Auto) Eos % (Auto) Baso % (Auto) Neut # (Auto) Lymph # (Auto) [place] # (Auto) Eos # (Auto) Baso # (Auto) PT INR APTT ABG pH ABG pCO2 ABG pO2 ABG HCO3 ABG Total CO2 ABG O2 Saturation ABG Base Excess FiO2 Sodium Potassium Chloride Carbon Dioxide BUN Creatinine Estimated GFR BUN/Creatinine Ratio Glucose Lactate 1.9 Calcium Magnesium Total Bilirubin AST ALT Alkaline Phosphatase Total Creatine Kinase CK-MB (CK-2) CK-MB (CK-2) Rel Index Troponin I NT-Pro-B Natriuret Pep Total Protein Albumin Globulin Albumin/Globulin Ratio Procalcitonin Chlamy pneumoniae PCR Adenovirus (PCR) B.parapertussis DNA PCR Coronavirus OC43 (PCR) Coronavirus HKU1 (PCR) Coronavirus 229E (PCR) COVID-19 PCR Coronavirus NL63 (PCR) Human Metapneumovir PCR Influenza Type A (PCR) Influenza Type B (PCR) M. pneumoniae (PCR) Parainfluenza 1 (PCR) Parainfluenza 2 (PCR) Parainfluenza 3 (PCR) Parainfluenza 4 (PCR) RSV (PCR) Entero/Rhino (PCR) Assessment & Plan Assessment & Plan narrative: Patient is a 54-year-old female who has been admitted [facility] for worsening dyspnea caused by acute exacerbation COPD. Patients acute exacerbation COPD has required 2 ER, 1 urgent care in the past 2 months for a total of 4 hospital visits in the past year. Patient has had approximately 17 days of prednisone in the past month, 7 days of doxycycline 100 mg twice daily, and azithromycin pack. Patient required inpatient observation hospitalization due to the frequent hospital visits, the comorbidities hypertension, mixed hyperlipidemia, and history of stroke. Patient is malnourished as evidenced by weight loss decreased oral intake and a BMI of 16.2, and muscle wasting. These these will all impair the patient's to healing and oxygenation, increase her likelihood of complications, infection, pneumonia and COVID. Patient has muscle wasting with increased weakness and fatigue putting her at higher risk for fall and injury. Patient acuity requires a higher level of inpatient medical management. 1. Acute COPD exacerbation, gold stage II, acute on chronic present on admission uncontrolled, secondary resulting dyspnea from long-term tobacco abuse in remission. -ABG PO2 76 on room air, WBC 12.2, LDH 2.4, BNP trending 02/06: 570, 07/03: 610, 1 09/29: 342, 08/28/2020: 2700. Negative procalcitonin, troponin, and COVID. Chest x-ray image visualized hyperexpansion without cardiopulmonary process, unchanged from chest x-ray on 07/30/2020. EKG normal sinus rhythm without ST changes. r/o acute coronary syndrome/MO . Patient in ER received methylprednisone 125 mg IV, ceftriaxone 2 g IV, albuterol inhaler 4 puffs. -negative hemoptysis/Wells score for PE, Lipids ordered to r/o CHF. -10/18/19 urgent care visit for bronchitis patient was prescribed doxycycline and prednisone. -07/03/2020 emergency room visit for COPD exacerbation-no antibiotics or steroids were provided for home. -07/30/2020 patient was seen in the emergency room COPD exacerbation was provided 12 day prednisone taper and doxycycline 100 mg twice daily for 7 days. -08/22/2020 patient was seen by her primary care and received prednisone taper for 5 days and a Z-Terrence. -prednisone 60 mg q.day x5 days, then begin taper (decreasing by 10 mg every 5 days), azithromycin 500 mg once daily x5 days, DuoNeb nebulizers q.6 hours, target PaO2 60-70, SpO2 90 93%, FiO2 01/17/2028 -patient to continue home meds albuterol inhaler 2 puffs every 4-6 hours alternating with nebulizer treatments, respiratory consult -blood cultures pending, sputum culture ordered, repeat labs and ABGs in AM. -monitor vitals Q 4, encourage oral rehydration -patient encouraged to continue to sustain from tobacco abuse. -patient education provided on appropriate use of respiratory medications. -patient prior to discharge home consider PFTs, and in-hospital evaluation/ consult for in-home oxygen, follow-up with PCP, and referral to hotel guest service agent. 2. Malnutrition, acute on chronic, present on admission, BMI 16.2 -dietary consult ordered with recommendations nutritional supplement. -will monitor weight daily. -patient is missing all lower teeth and half of upper teeth impairing mastication. 3. Hypertension, chronic, stable, not present on admission -patient to continue home metoprolol 50 mg once day, amlodipine 2.5 mg once daily. -history of a stroke in 1999-patient to continue clopidogrel 75 mg once daily -patient placed on heart healthy diet 4. Mixed hyperlipidemia, chronic, stable not present on admission -patient to continue atorvastatin 40 mg at bedtime 5. Major depressive disorder, chronic, stable not present on admission -patient to continue citalopram 20 mg p.o. once daily, bupropion 300 mg p.o. daily -patient denies suicidal ideation VTE prophylaxis: Enoxaparin 40 units daily, SCDs Diet: Heart healthy Surrogate: Haile Marquis (son)Reid PCP: Kandi Malhotra Plan of care/[id number]: None Scores GCS Christina coma scale eye opening: Spontaneous [place] coma scale verbal response: Orientated [place] coma scale motor response: Obey commands Christina coma scale total score: 15 Wells' Criteria for PE Clinical signs and symptoms of DVT: No PE is #1 Dx or equally likely: No Heart rate > 100: No Immobilization at least 3 days or surg in previous 4 weeks: No History of PE or DVT: No Hemoptysis: No Malignancy w/Treatment within 6 months or palliative: No Wells' PE Score total: 0 Quality VTE Deep Vein Thrombosis/Pulmonary Embolism Present on Admission: No
[2020-08-28] MEDS: predniSONE 20 MG TABLET 60 MG PO (22:28)
[2020-08-28 22:52] LABS: Appearance Urine UA CLEAR; Bilirubin Urine UA NEGATIVE (NEGATIVE); Color Urine UA YELLOW; Glucose Urine UA NEGATIVE (Negative); Ketones Urine UA NEGATIVE (NEGATIVE); Leukocyte Esterase Urine UA NEGATIVE (NEGATIVE); Nitrite Urine UA NEGATIVE (Negative); Occult Blood Urine UA TRACE-LYSED (Negative); Protein Urine UA NEGATIVE (Negative); Specific Gravity Urine UA 1.015 (1.000-1.035); Urobilinogen Urine UA 0.2 E.U./dL (0.2)
[2020-08-28 23:08] LABS: Bacteria Urine Occasional (0-1); Culture Indicated Urine Cult Not Indicated; Hyaline Casts Urine 0-1/LPF; RBC Urine 0-1/HPF (0-5/HPF); Squamous Epithelial Cell Urine 0-1 /HPF (0-5/HPF); WBC Urine 0-1/HPF (0-5/HPF); pH Urine UA 6.5 (4.5-8.0)
[2020-08-28] MEDS: ACETAMINOPHEN 325 MG TABLET 650 MG PO (23:47)
[2020-08-29] VITALS (14 sets, daily range): BP systolic 99–133; BP diastolic 50–79; PULSE 58–93; RESP 16–24; TEMP 36.2–37.1; O2SAT 91–97
[2020-08-29 05:22] LABS: Add Manual Diff / Slide Review NO; Basophils Absolute Auto 0 /uL (0-100); Basophils Percent Auto 0.5 % (0-2); Eosinophils Absolute Auto 0 /uL (0-450); Eosinophils Percent Auto 0.1 % (2-4); Hematocrit 36.9 % (36-46); Lymphocytes Absolute Auto 1000 /uL (1100-4500); Lymphocytes Percent Auto 13.8 % (25-40); Mean Corpuscular HGB Conc 32.6 % (30-36); Mean Corpuscular Hemoglobin 30.1 PG (26-34); Mean Corpuscular Volume 92.4 fL (80-100); Monocytes Absolute Auto 100 /uL (0-900); Monocytes Percent Auto 1.9 % (3-14); Neutrophils Absolute Auto 6200 /uL (1500-7000); Neutrophils Percent Auto 83.7 % (50-75); Platelet Count 419 X10^3/uL (150-400); Red Cell Distribution Width 13.1 % (11.6-14.8); White Blood Cell Count 7.4 X10^3/uL (4.5-11.0)
[2020-08-29 05:31] LABS: Cholesterol 129 mg/dL (140-199); HDL Cholesterol 67 mg/dL (40-60); LDL Cholesterol Calculated 53 mg/dL (<100); Magnesium 2.1 mg/dL (1.6-2.3); Triglycerides 44 mg/dL (35-150)
[2020-08-29] MEDS: ALBUTEROL/IPRATROPIUM 3 ML AMPUL INH ×3 (06:15→19:47)
[2020-08-29] MEDS: PANTOPRAZOLE 40 MG TABLET PO (06:22)
[2020-08-29] MEDS: buPROPion XL 150 MG TAB 300 MG PO (08:22)
[2020-08-29] MEDS: ACETAMINOPHEN 325 MG TABLET 650 MG PO ×2 (08:23→21:10)
[2020-08-29] MEDS: DOCUSATE 100 MG CAPSULE PO ×2 (08:23→21:03)
[2020-08-29] MEDS: CITALOPRAM 10 MG TABLET 20 MG PO (08:23)
[2020-08-29] MEDS: CLOPIDOGREL 75 MG TABLET PO (08:23)
[2020-08-29] MEDS: predniSONE 20 MG TABLET 60 MG PO (08:23)
[2020-08-29] MEDS: METOPROLOL ER 25 MG TABLET PO (08:23)
[2020-08-29] MEDS: ENOXAPARIN 40 MG/0.4 ML SYRINGE SUBCUT (08:24)
[2020-08-29] MEDS: AZITHROMYCIN 250 MG TABLET 500 MG PO (08:24)
[2020-08-29] MEDS: SODIUM CHLORIDE 0.9% FLUSH 10 ML IV ×2 (08:26→21:03)
[2020-08-29] MEDS: FLUTICASONE/SALMETEROL 250/50 60 PUFF DISKUS INH ×2 (09:30→20:03)
--- NOTE | 2020-08-29 09:49 | PC.NURSE ---
Day shift: Pt reminded that sputum sample needed. Pt said I will do my best to cough one up. Call light in reach. Pt has not been impulsive. Calls proper.
--- NOTE | 2020-08-29 11:37 | DI.ECHO.S_ITS ---
[place] +---------+ Hospital +---------+ : : [address] : : : : [id number] : : : : Phone: [phone]+ Echocardiogram Report + + :Name: GLENNA JOEL Study Date: 08/29/2020 Height: 59 in : :[facility] Weight: 80 lb : : Gender: Female BSA: 1.2 m2 : :: 1955 Age: 64 yrs BP: 133/66 mmHg: :Reason For Study: RULE OUT CONGESTIVE HEART FAILURE : :Ordering Physician: VIRA, : :YADIRA Performed By: Xuan Falcon : :Referring: YADIRA CONSTANTINO : + + Interpretation Summary Technically difficult study due to patient small body habitus. Unable to obtain apical views. Apical window measurements were taken from the subcostal window and should be viewed as approximate due to off-axis views. The left ventricle is normal in size and wall thickness. The ejection fraction is estimated to be 65-70%. The right ventricle is normal in size and function. There is mild tricuspid regurgitation. The right ventricular systolic pressure is estimated to be at least 38 mmHg based on an estimated right atrial pressure of 3 mm Hg. Procedure: A two-dimensional transthoracic echocardiogram with color flow and Doppler was performed. The study quality was technically difficult. Apical acoustic window was unattainable, the best imaging was obtained from the subcostal window. There is no prior echocardiogram noted for this patient. The patient was in sinus rhythm with heart rates between 87-91 bpm during the exam. Left Ventricle: The left ventricle is normal in size and wall thickness. There is no thrombus. The ejection fraction is estimated to be 65-70%. There are no focal wall motion abnormalities. Diastolic function could not be accurately assessed due to unobtainable data. Right Ventricle: The right ventricle is normal in size and function. Atria: The left atrial size is normal. Right atrial size is normal. There is no Doppler evidence for an interatrial shunt. Mitral Valve: The mitral valve leaflets appear borderline thickened, but open well. There is mild mitral annular calcification. The mitral valve leaflets are slightly calcified. There is trace mitral regurgitation. Aortic Valve: The aortic valve is trileaflet. The aortic valve opens well. There is no aortic valve stenosis. No aortic regurgitation is present. Tricuspid Valve: The tricuspid valve is normal in structure and function. There is mild tricuspid regurgitation. The right ventricular systolic pressure is estimated to be at least 38 mmHg based on an estimated right atrial pressure of 3 mm Hg. Pulmonic Valve: The pulmonic valve is not well visualized. There is no pulmonic valvular regurgitation. Great Vessels: The aortic root is normal size. The dimensions of the ascending aorta are normal. The IVC is of normal diameter and collapses greater than 50% with a sniff. This suggests a low right atrial pressure of 3 mm Hg. Pericardium/ Pleura There is no pericardial effusion. There is no pleural effusion. MMode/2D Measurements & Calculations LVIDd: 4.1 cm LVOT diam: 1.9 cm LVIDs: 3.0 cm Ao root diam: 2.6 cm FS: 27.5 % EPSS: 0.55 cm IVSd: 0.68 cm LVPWd: 0.72 cm LV sanchez. diameter/BSA (cm/m^2): 3.3 LV sys. diameter/BSA (cm/m^2): 2.4 LA dimension: 2.9 cm RA long axis: 4.5 cm LA A4 area: 13.6 cm2 RA area: 12.7 cm2 LA length (vol): 4.1 cm RA vol: 30.5 ml RA : 24.4 ml/m2 IVC diam: 0.97 cm RVD1 (basal): 2.3 cm TAPSE: 2.6 cm Doppler Measurements & Calculations Ao V2 max: 137.2 cm/sec LVOT Max Dorian: 96.6 cm/sec Ao V2 mean: 92.7 cm/sec LV V1 max P.7 mmHg Ao max P.5 mmHg LV V1 VTI: 16.2 cm Ao mean P.9 mmHg JAIME(I,D): 1.8 cm2 Ao V2 VTI: 24.3 cm JAIME(V,D): 1.9 cm2 sev ratio: 0.66 JAIME indexed to BSA (cm^2/m^2): 1.5 MV E max dorian: 61.2 cm/sec TR max dorian: 297.3 cm/sec MV A max dorian: 74.6 cm/sec TR max P.4 mmHg MV E/A: 0.82 PA V2 max: 85.3 cm/sec Med Peak E' Dorian: 8.0 cm/sec PA V2 mean: 56.0 cm/sec E/E' med: 7.7 PA mean P.5 mmHg Lat Peak E' Dorian: 10.3 cm/sec PA pr(Accel): 13.9 mmHg E/E' lat: 6.0 E/e' average: 6.8 MV dec time: 0.20 sec SV(LVOT): 44.6 ml Reading Physician:03:04 PM
--- NOTE | 2020-08-29 11:43 | PM.PN.1 ---
Subjective Subjective Date Patient Seen: 08/29/20 Interval history: 64-year-old female who presented to the hospital for acute shortness of breath. Patient was not hypoxic. However she was increasingly short of breath. She had been using her inhalers and had increased work of breathing. Of note she was found to have a proBNP elevated at 2800. This is new for her. She does not have a history of heart failure. Today she reports her breathing is easier. She does continue to have a dry cough. She has had no fever. Exam Vital Signs (past 8 hours): - 08/29/20 04:45 08/29/20 05:13 08/29/20 06:15 Temperature 97.6 F Pulse Rate 70 Respiratory Rate 20 Blood Pressure 115/64 Pulse Oximetry 96 96 08/29/20 08:00 08/29/20 09:33 08/29/20 09:39 Temperature 98.0 F Pulse Rate 80 93 H 87 Respiratory Rate 20 20 Blood Pressure 133/66 Pulse Oximetry 93 96 Oxygen Delivery Method Room Air Oxygen Flow Rate 0 Narrative Exam Narrative: Frail cachectic female ill-appearing lying in bed in no obvious distress Lungs: Decreased breath sounds bilaterally, no crackles rhonchi or wheezing Cardiac exam: Regular rate and rhythm normal S1-S2 Abdomen: Soft nontender nondistended Extremities: No edema Objective Labs Result Diagrams: 08/29/20 04:37 08/28/20 17:15 Labs: Laboratory Results - last 24 hr 08/28/20 08/28/20 08/28/20 17:11 17:15 17:15 WBC RBC Hgb Hct MCV MCH MCHC RDW Plt Count Neut % (Auto) Lymph % (Auto) [place] % (Auto) Eos % (Auto) Baso % (Auto) Neut # (Auto) Lymph # (Auto) [place] # (Auto) Eos # (Auto) Baso # (Auto) PT 11.6 INR 1.0 APTT 33 D ABG pH 7.42 ABG pCO2 37.4 ABG pO2 76 L ABG HCO3 24 ABG Total CO2 25 ABG O2 Saturation 95 ABG Base Excess 0.0 FiO2 25 Sodium Potassium Chloride Carbon Dioxide BUN Creatinine Estimated GFR BUN/Creatinine Ratio Glucose Lactate Calcium Magnesium Total Bilirubin AST ALT Alkaline Phosphatase Total Creatine Kinase CK-MB (CK-2) CK-MB (CK-2) Rel Index Troponin I NT-Pro-B Natriuret Pep 2700 H Total Protein Albumin Globulin Albumin/Globulin Ratio Triglycerides Cholesterol LDL Cholesterol, Calc HDL Cholesterol Procalcitonin Urine Color Urine Appearance Urine pH Ur Specific [place] Urine Protein Urine Glucose (UA) Urine Ketones Urine Occult Blood Urine Nitrate Urine Bilirubin Urine Urobilinogen Ur Leukocyte Esterase Urine RBC Urine WBC Ur Squamous Epith Cells Urine Bacteria Hyaline Casts Ur Culture Indicated? Chlamy pneumoniae PCR Adenovirus (PCR) B.parapertussis DNA PCR Coronavirus OC43 (PCR) Coronavirus HKU1 (PCR) Coronavirus 229E (PCR) COVID-19 PCR Coronavirus NL63 (PCR) Human Metapneumovir PCR Influenza Type A (PCR) Influenza Type B (PCR) M. pneumoniae (PCR) Parainfluenza 1 (PCR) Parainfluenza 2 (PCR) Parainfluenza 3 (PCR) Parainfluenza 4 (PCR) RSV (PCR) Entero/Rhino (PCR) 08/28/20 08/28/20 08/28/20 17:15 17:15 17:15 WBC 12.2 H RBC 4.42 Hgb 13.2 Hct 40.5 MCV 91.7 MCH 29.9 MCHC 32.6 RDW 13.3 Plt Count 445 H Neut % (Auto) 55.1 Lymph % (Auto) 23.5 L [place] % (Auto) 9.5 Eos % (Auto) 11.3 H Baso % (Auto) 0.6 Neut # (Auto) 6700 Lymph # (Auto) 2900 [place] # (Auto) 1200 H Eos # (Auto) 1400 H Baso # (Auto) 100 PT INR APTT ABG pH ABG pCO2 ABG pO2 ABG HCO3 ABG Total CO2 ABG O2 Saturation ABG Base Excess FiO2 Sodium 137 Potassium 3.9 Chloride 99 Carbon Dioxide 30 BUN 15 Creatinine 0.87 Estimated GFR > 60.0 BUN/Creatinine Ratio 17.2 Glucose 120 H Lactate Calcium 9.4 Magnesium 1.7 Total Bilirubin 0.5 AST 29 ALT 25 Alkaline Phosphatase 76 Total Creatine Kinase 82 CK-MB (CK-2) TNP CK-MB (CK-2) Rel Index TNP Troponin I 0.026 NT-Pro-B Natriuret Pep Total Protein 7.5 Albumin 4.3 Globulin 3.2 Albumin/Globulin Ratio 1.3 Triglycerides Cholesterol LDL Cholesterol, Calc HDL Cholesterol Procalcitonin < 0.05 Urine Color Urine Appearance Urine pH Ur Specific [place] Urine Protein Urine Glucose (UA) Urine Ketones Urine Occult Blood Urine Nitrate Urine Bilirubin Urine Urobilinogen Ur Leukocyte Esterase Urine RBC Urine WBC Ur Squamous Epith Cells Urine Bacteria Hyaline Casts Ur Culture Indicated? Chlamy pneumoniae PCR Adenovirus (PCR) B.parapertussis DNA PCR Coronavirus OC43 (PCR) Coronavirus HKU1 (PCR) Coronavirus 229E (PCR) COVID-19 PCR Coronavirus NL63 (PCR) Human Metapneumovir PCR Influenza Type A (PCR) Influenza Type B (PCR) M. pneumoniae (PCR) Parainfluenza 1 (PCR) Parainfluenza 2 (PCR) Parainfluenza 3 (PCR) Parainfluenza 4 (PCR) RSV (PCR) Entero/Rhino (PCR) 08/28/20 08/28/20 08/28/20 17:15 17:15 18:57 WBC RBC Hgb Hct MCV MCH MCHC RDW Plt Count Neut % (Auto) Lymph % (Auto) [place] % (Auto) Eos % (Auto) Baso % (Auto) Neut # (Auto) Lymph # (Auto) [place] # (Auto) Eos # (Auto) Baso # (Auto) PT INR APTT ABG pH ABG pCO2 ABG pO2 ABG HCO3 ABG Total CO2 ABG O2 Saturation ABG Base Excess FiO2 Sodium Potassium Chloride Carbon Dioxide BUN Creatinine Estimated GFR BUN/Creatinine Ratio Glucose Lactate 2.4 H Calcium Magnesium Total Bilirubin AST ALT Alkaline Phosphatase Total Creatine Kinase CK-MB (CK-2) CK-MB (CK-2) Rel Index Troponin I NT-Pro-B Natriuret Pep Total Protein Albumin Globulin Albumin/Globulin Ratio Triglycerides Cholesterol LDL Cholesterol, Calc HDL Cholesterol Procalcitonin Urine Color Urine Appearance Urine pH Ur Specific [place] Urine Protein Urine Glucose (UA) Urine Ketones Urine Occult Blood Urine Nitrate Urine Bilirubin Urine Urobilinogen Ur Leukocyte Esterase Urine RBC Urine WBC Ur Squamous Epith Cells Urine Bacteria Hyaline Casts Ur Culture Indicated? Chlamy pneumoniae PCR Not detected Adenovirus (PCR) Not detected B.parapertussis DNA PCR Not detected Coronavirus OC43 (PCR) Not detected Coronavirus HKU1 (PCR) Not detected Coronavirus 229E (PCR) Not detected COVID-19 PCR Negative Not detected Coronavirus NL63 (PCR) Not detected Human Metapneumovir PCR Not detected Influenza Type A (PCR) Not detected Influenza Type B (PCR) Not detected M. pneumoniae (PCR) Not detected Parainfluenza 1 (PCR) Not detected Parainfluenza 2 (PCR) Not detected Parainfluenza 3 (PCR) Not detected Parainfluenza 4 (PCR) Not detected RSV (PCR) Not detected Entero/Rhino (PCR) Not detected 08/28/20 08/28/20 08/29/20 21:15 22:42 04:37 WBC RBC Hgb Hct MCV MCH MCHC RDW Plt Count Neut % (Auto) Lymph % (Auto) [place] % (Auto) Eos % (Auto) Baso % (Auto) Neut # (Auto) Lymph # (Auto) [place] # (Auto) Eos # (Auto) Baso # (Auto) PT INR APTT ABG pH ABG pCO2 ABG pO2 ABG HCO3 ABG Total CO2 ABG O2 Saturation ABG Base Excess FiO2 Sodium Potassium Chloride Carbon Dioxide BUN Creatinine Estimated GFR BUN/Creatinine Ratio Glucose Lactate 1.9 Calcium Magnesium Total Bilirubin AST ALT Alkaline Phosphatase Total Creatine Kinase CK-MB (CK-2) CK-MB (CK-2) Rel Index Troponin I NT-Pro-B Natriuret Pep Total Protein Albumin Globulin Albumin/Globulin Ratio Triglycerides 44 Cholesterol 129 L LDL Cholesterol, Calc 53 HDL Cholesterol 67 H Procalcitonin Urine Color Yellow Urine Appearance Clear Urine pH 6.5 Ur Specific [place] 1.015 Urine Protein Negative Urine Glucose (UA) Negative Urine Ketones Negative Urine Occult Blood Trace-lysed Urine Nitrate Negative Urine Bilirubin Negative Urine Urobilinogen 0.2 Ur Leukocyte Esterase Negative Urine RBC 0-1/hpf Urine WBC 0-1/hpf Ur Squamous Epith Cells 0-1 /hpf Urine Bacteria Occasional (0-1) Hyaline Casts 0-1/lpf Ur Culture Indicated? Cult not indicated Chlamy pneumoniae PCR Adenovirus (PCR) B.parapertussis DNA PCR Coronavirus OC43 (PCR) Coronavirus HKU1 (PCR) Coronavirus 229E (PCR) COVID-19 PCR Coronavirus NL63 (PCR) Human Metapneumovir PCR Influenza Type A (PCR) Influenza Type B (PCR) M. pneumoniae (PCR) Parainfluenza 1 (PCR) Parainfluenza 2 (PCR) Parainfluenza 3 (PCR) Parainfluenza 4 (PCR) RSV (PCR) Entero/Rhino (PCR) 08/29/20 08/29/20 04:37 04:37 WBC 7.4 RBC 4.00 Hgb 12.0 Hct 36.9 MCV 92.4 MCH 30.1 MCHC 32.6 RDW 13.1 Plt Count 419 H Neut % (Auto) 83.7 H D Lymph % (Auto) 13.8 L [place] % (Auto) 1.9 L Eos % (Auto) 0.1 L Baso % (Auto) 0.5 Neut # (Auto) 6200 Lymph # (Auto) 1000 L [place] # (Auto) 100 Eos # (Auto) 0 Baso # (Auto) 0 PT INR APTT ABG pH ABG pCO2 ABG pO2 ABG HCO3 ABG Total CO2 ABG O2 Saturation ABG Base Excess FiO2 Sodium Potassium Chloride Carbon Dioxide BUN Creatinine Estimated GFR BUN/Creatinine Ratio Glucose Lactate Calcium Magnesium 2.1 Total Bilirubin AST ALT Alkaline Phosphatase Total Creatine Kinase CK-MB (CK-2) CK-MB (CK-2) Rel Index Troponin I NT-Pro-B Natriuret Pep Total Protein Albumin Globulin Albumin/Globulin Ratio Triglycerides Cholesterol LDL Cholesterol, Calc HDL Cholesterol Procalcitonin Urine Color Urine Appearance Urine pH Ur Specific [place] Urine Protein Urine Glucose (UA) Urine Ketones Urine Occult Blood Urine Nitrate Urine Bilirubin Urine Urobilinogen Ur Leukocyte Esterase Urine RBC Urine WBC Ur Squamous Epith Cells Urine Bacteria Hyaline Casts Ur Culture Indicated? Chlamy pneumoniae PCR Adenovirus (PCR) B.parapertussis DNA PCR Coronavirus OC43 (PCR) Coronavirus HKU1 (PCR) Coronavirus 229E (PCR) COVID-19 PCR Coronavirus NL63 (PCR) Human Metapneumovir PCR Influenza Type A (PCR) Influenza Type B (PCR) M. pneumoniae (PCR) Parainfluenza 1 (PCR) Parainfluenza 2 (PCR) Parainfluenza 3 (PCR) Parainfluenza 4 (PCR) RSV (PCR) Entero/Rhino (PCR) [facility] Medical History (Updated 08/28/20 @ 22:53 by LUCAS Edwards) Alcohol abuse, in remission COPD (chronic obstructive pulmonary disease) Hypertension Irritable bowel syndrome (IBS) Neck pain with history of cervical spinal surgery Pancreatitis Stage 2 moderate COPD by GOLD classification Stroke Tobacco abuse, in remission Urinary tract infection Surgical History (Updated 08/28/20 @ 22:54 by LUCAS Edwards) History of neck surgery History of spinal surgery Total knee replacement status Family History (Updated 08/28/20 @ 22:59 by MADDY Edwards-CELINE) Unknown Adopted Son No problems noted. Other Family history non-contributory Social History household members: friend(s) and none Smoking Status: Former smoker alcohol intake: former Assessment & Plan Assessment & Plan narrative: Impression 1. 64-year-old female admitted to the hospital for acute exacerbation of COPD -patient presented to the hospital with progressive shortness of breath -she had multiple trials of outpatient treatment including antibiotics and steroids -her lactate was initially elevated at 2.4, repeat 1.9 -procalcitonin was normal -chest x-ray showed no infiltrates, effusions, or Rupinder B line -patient continued on steroids, nebulizers, and antibiotics -given elevated proBNP, will check cardiac echo to rule out the possibility of heart failure contributing 2. Hypertension -will continue metoprolol, hydrochlorothiazide, amlodipine 3.Depression -Continue Citolopram 4. Severe Protein Calorie Malnutrition -patient has a BMI, 16.2 -her low weight is likely contributing to functional status -will ask Nutrition to see her 5. hyperlipidemia continue statin 6. GERD -continue protonix Await Echo results Continue Lovenox, reduce dose to 30 mg sq daily Anticipate discharge home tomorrow Quality VTE Deep Vein Thrombosis/Pulmonary Embolism Present on Admission: No
--- NOTE | 2020-08-29 11:47 | PT.IIE ---
Surgical History (Last Updated 08/28/20 @ 22:54 by [facility]) History of neck surgery History of spinal surgery Total knee replacement status Medical History (Last Updated 08/28/20 @ 22:53 by [facility]) Alcohol abuse, in remission COPD (chronic obstructive pulmonary disease) Hypertension Irritable bowel syndrome (IBS) Neck pain with history of cervical spinal surgery Pancreatitis Stage 2 moderate COPD by GOLD classification Stroke Tobacco abuse, in remission Urinary tract infection Physical Therapy Inpatient Evaluation/Re-Eval M1 PT/OT-IP Prior Functional Status Start: 08/29/20 13:02 Freq: NEEDED Status: Active Protocol: Document 08/29/20 11:47 AB (Rec: 08/29/20 13:16 AB [id number]) Medical Review Prior Functional Status Medical History Reviewed Yes Communication able to make needs known Mobility and Gait pt stated that she is independent with all mobilities and ambualtion without AD but uses her hurrycane for outdoor uneven surface ambulation; was still able to drive around as needed Social History Household Members none Living Arrangements Apartment/Condo Number of Floors (Floors) One Floor Number of Stairs To Enter/Railing? pt stated that she lives in a low income care home and has her own apartment; Home Environment Standard Height Toilet,Tub/ Shower,Built-In Shower Seat Home Equipment Straight Cane,Hand Held Shower ,Grab Bars Near Toilet,Grab Bars In Shower Additional Social History Comment has meals on wheels has a hurrycane M2 PT-IP Current Condition Start: 08/29/20 13:02 Freq: NEEDED Status: Active Protocol: Document 08/29/20 11:47 AB (Rec: 08/29/20 13:16 AB [email or web address]) Physical Therapy Current Condition Current Condition Evaluation Date 08/29/20 Treatment Diagnosis COPD; difficulty in walking Onset Date 08/28/20 Precautions Other Precautions O2 sat M3 PT-IP Subjective Start: 08/29/20 13:02 Freq: NEEDED Status: Active Protocol: Document 08/29/20 11:47 AB (Rec: 08/29/20 13:16 AB [email or web address]) Subjective Physical Therapy Visit Type Type Initial Evaluation Visit Start Time 11:47 Visit Stop Time 12:05 Total Visit Minutes 18 Number of RESORT MANAGER Visits 0 Physical Therapy Visit Comments Patient Comments pt is agreeable to do PT Therapy Pain Assessment Pain Present Pain Present Denied Pain M4 PT-IP Mobility and Gait Start: 08/29/20 13:02 Freq: NEEDED Status: Active Protocol: Document 08/29/20 11:47 AB (Rec: 08/29/20 13:16 AB [id number]) PT-Bed Mobility Assessment Supine to Sit Supine to Sit Standby Assistance PT-Transfer Assessment Sit to and From Stand Sit to and from Stand Contact Guard Assistance,1 Person Assistance Equipment Transfer Assistive Device None,Gait Belt Orthotic/Prosthetic Devices or Brace: No Transfers Transfer Destination Chair Transfer Technique ambulated without AD Transfer Ability Level of Assist Contact Guard Assistance, Minimal Assistance,Use of Upper Extremities Comments Mobility Comments completed supine to sit SBA. pt was able to sit on EOB SBA. completed sit to stand CGA and ambulated in room ~ 12 ft to the chair CGA to min A. pt with unsteady gait and decrease L knee flexion. stated that she had previous TKA and feels tight. Lunch came in and set up pt for lunch. pt agreed to sit up on chair. positioned on chair. call light and table placed within reach. O2 sat 94-96% throught session Gait Assessment Gait Gait Assistance Required: Contact Guard Assist,Minimum Assistance Distance (Feet) 12 Able to Maintain Weight Bearing Status Yes During Gait Assistive Devices Assistive Device None,Gait Belt Orthotic/Prosthetic Devices or Brace: No Gait Deviations General Gait Pattern Antalgic,Decreased Stride Length,Decreased Feet Clearance,Step-to Gait Factors Limiting Gait Function Factors Limiting Gait Function Decreased Activity Tolerance, Decreased Strength,Poor Balance,Poor Safety Awareness, Respiratory Distress Comments Gait Comments pls refer to mobility section for details PT-Balance Assessment Sitting Balance and Reactions Static Sitting Balance Ability Good Dynamic Sitting Balance Ability Good Standing Balance and Reactions Static Standing Balance Ability Fair Dynamic Standing Balance Ability Fair Device Used without AD M5 PT-IP Objective Assessments Start: 08/29/20 13:02 Freq: NEEDED Status: Active Protocol: Document 08/29/20 11:47 AB (Rec: 08/29/20 13:16 AB [id number]) Orientation Orientation/Cognition Level of Alertness Alert Orientation Name,Place,Situation Language Function Ability No Deficits Noted Safety Awareness Decreased Safety Awareness Gross Range of Motion Lower Extremity ROM Assessment Within Functional Limits Strength Lower Extremity Strength Hip 4-/5 Knee 4-/5 Muscle Tone Muscle Tone WNL Yes M6 PT-IP Treatment Start: 08/29/20 13:02 Freq: NEEDED Status: Active Protocol: Document 08/29/20 11:47 AB (Rec: 08/29/20 13:16 AB [id number]) Physical Therapy Treatment Education Education Provided Safety M7 PT-IP Assessment and Plan Start: 08/29/20 13:02 Freq: NEEDED Status: Active Protocol: Document 08/29/20 11:47 AB (Rec: 08/29/20 13:16 AB [email or web address]) PT Summary Assessment and Plan Potential Rehabilitation Potential Good Status of Condition at Evaluation Stable Summary Impairments Pain,ROM,Strength,Balance,Bed Mobility,Transfers,Gait, Activity Tolerance Assessment Summary pt requiring CGA to min A with ambulation without AD. will assess ambulation using SPC if appropriate for safety. pt lives alone and may require SNF rehab vs homehealth PT depending on progress. will continue to assess progress for safe d/c. Goals Bed Mobility Goal Independent Transfer Goal Independent,Cane Gait Goal Independent,Cane Gait Distance 150 Other Goals improve ambulation without AD 150 ft mod I Days to Meet Goals 5 Frequency of Treatment Frequency Of Treatment Once a Day Treatment Plan Physical Therapy Treatment Plan Bed Mobility Training,Transfer Training,Gait Training, Therapeutic Exercise,Balance Retraining,Discharge Planning, Neuromuscular Re-ed, Coordination Retraining Recommendations To Nursing Amount of Assist Needed 1 Person Assist Discharge Recommendations PT Discharge Recommendations Home with Assistance,Home Health,SNF Rehab Other Discharge Recommendations depending on progress: SNF vs home with assist and HHPT Transportation Needs at Discharge Private Vehicle,Wheelchair/ Cabulance
--- NOTE | 2020-08-29 13:50 | CM.DANOTE ---
DCP/Assessment: Reviewed chart. Patient is a 64yr old female admitted [facility] with COPD exacerbation. PCP is Kandi Malhotra. Primary payor is 1)Medicaid 2)[facility] Met with patient explained CM/SW role. Patient goes by Rosmerydonald Ash. Patient reports that she currently is staying at [facility]. Patient reports prior to 2019 she was homeless. Patient reports that she has h/o COPD. Patient uses nebulizers at home. Patient indicates that she is a member of Alcoholics Anonymous and that she has not drank for 12yrs. Patient also has h/o smoking. Last cigarette was approximately 1 month ago. At this time patient has no anticipated d/c planning needs. CM team to follow closely. P: Home when stable. ANA Abdalla Discharge Planning/Care Management Advanced directive, confirm from FAMILY Start: 08/28/20 19:47 Freq: Q24H Status: Active Protocol: Document 08/28/20 19:47 AK (Rec: 08/28/20 23:12 AK [id number]) Advance Directive, confirm on record Time 23:12 Person contacted patient Copy received No CM Discharge Assessment Start: 08/29/20 13:44 Freq: Status: Active Protocol: Document 08/29/20 13:44 KJS (Rec: 08/29/20 13:50 KJS [id number]) Discharge Planning Assessment Assigned Billing Supervisor ANA Abdalla Contact Information Haile Camacho (son) ph# Advance Directives? No History Provided By Patient,Medical Record Prior Living Arrangements Apartment/Condo Comment Patient currently resides at [facility]. Patient reports that she has been there since June 2020. Prior to that patient homeless. Household Members none Type of transporation used prior to Drives own vehicle admit Independent with ADL's Yes: Uses quad cane at baseline. Is patient alert and oriented? Yes Caregiver for Another No DME Already Rented / Owned Cane,Nebulizer Barriers to Discharge No Comment Patient plans to return to [facility] when she is medically stable. Patient indicates that they know she is currently hospitalized. Discharge Plan Home Transportation Arrangement Medicaid or facility. Additional Comment Unknown at this time. Whiteboard Updated in Patient Room with Yes name and ext. # of Billing Supervisor Review Status In Process Next Review Type Continued Stay Review
--- NOTE | 2020-08-29 16:05 | DIET.PN ---
Dietary Progress Note Assessment: 64yr F admitted with SOB and COPD exacerbation. Pt has been to the ER 3 other times this year for SOB and COPD exacerbation. Pt reports that she experiences a lot of nausea and vomiting which impacts her eating. Pt takes an anti nausea medication sometimes but still experiences the nausea often. Pt would like some investigation into why she is experiencing this, would like someone to look at her upper GI. Pt reports that she feels like food is sometimes just sitting in her throat. Pt says when she is experiencing this she is discouraged from eating. Pt has realized her nausea and vomiting is the worst when she eats too fast. Pt also says she feels sick if she goes to long without eating. Pt says she didn't eat anything the day before admission because she was feeling bad. Pt eating also impacted by her SOB related to her COPD. Pt on nasal cannula oxygen at this time. Pt desaturated to 76% during our conversation. Pt has IBS which causes her to have small hard stools, like a rabbit. Pt lives in a 1 bedroom at the emergency half-way. Pt was previously living in her car and only got placed at the half-way 07/11/20. Pt receives $200 a month of basic food for 3/4 of the year. Pt reports that she has enough food at home and does not have problems getting food at this time. Pt reports receiving lunch from meals and wheels and gets her own groceries for her other meals or eats out. Pt is reporting that she sometimes makes foods such as grilled cheese with soup or potato salad. Patient says the other half of the time she eats out and particularly enjoys [place] food. Pt also reports that sometimes she doesn't eat anything at all because she is too nauseous. Pt reports that most of her adult life she weighed 130# until just before her neck surgery when she started losing weight. Pt unsure how long she has been at her current wt but says for the past 3-4 years she has had the decreased appetite related to her nausea and vomiting. Pt is missing her bottom teeth, and many of her top teeth. Patient has one cracked tooth and is experiencing sensitivity in another. Pt is choosing soft foods. Pt sometimes purchases ONS Ensure vanilla and drinks them up to 3x/d. Pt says she likes them very cold because they feel good going down. NFPE revealed severe global fat loss, severe muscle wasting (deltoids,legs, arms), cracked red swollen tongue, dry cracked lips, cracked and red corners of mouth, hair thinning and bald spots, dry skin. Pt reports her skin and lips are continuously dry. Pt reports that she would like to gain weight but it is difficult. HT: 149.86cm WT:36.287kg BMI: 16.2 ( severe for age) Labs: NTpBNP: 2700H CO2: 35H ABG PO2: 76L MNA: 9@ risk for malnutrition Edouard:16 Nutrition Diagnosis: Severe chronic protein calorie malnutrition related to progressing COPD and decreased appetite secondary to nausea despite antinausea medication as evidenced by BMI 16.2 (severe), pt reporting regularly skipping meals due to nausea and vomiting for past couple years, severe global fat loss, severe muscle loss (deltoids and extremities), higher calorie needs due to COPD exacerbation, pt unable to consume variety of textures due to several missing and broken teeth and pts housing insecurity. Interventions: 1. ONS Ensure enlive BID to provide 700kcal ( 58% of needs) and 40g Pro (72% of needs). Pt says she enjoys drinking regular ensure and they are easier for her to get them down especially when cold. Recc. continuing ONS when discharged. Pt has sent a form from her Dr. to meals [employer] wheels requesting that they are included on her tray. 2. Provide mechanical soft diet to decrease work of chewing related to patients missing teeth. 3. Educated pt about choosing higher protein and healthy fat foods. Recc. meats, eggs, beans, nut butters. Diet Order: EER: 1200kcal ( 33kcal/kg for PCM) 55g Pro (1.5g/kg, PCM) Monitoring/Evaluations: % meal consumed, ONS tolerance
[2020-08-29 17:28] LABS: Procalcitonin < 0.05 ng/mL (<0.5)
[2020-08-29] MEDS: hydrOXYzine pamoate 25 MG CAPSULE 50 MG PO (21:03)
[2020-08-29] MEDS: ATORVASTATIN 20 MG TABLET 40 MG PO (21:03)
--- NOTE | 2020-08-29 23:19 | PC.NURSE ---
A&OX3. 97%, intermittent cough. voiding without difficulty, passing lots of gas, SBA-fww. call light in reach.
[2020-08-30 06:00] VITALS: BP 123/69; PULSE 67; RESP 16; TEMP 36.2; O2SAT 95
[2020-08-30 06:00] LABS: Add Manual Diff / Slide Review NO; Basophils Absolute Auto 0 /uL (0-100); Basophils Percent Auto 0.2 % (0-2); Eosinophils Absolute Auto 100 /uL (0-450); Eosinophils Percent Auto 0.8 % (2-4); Hemoglobin 11.8 g/dL (12.0-16.0); Lymphocytes Absolute Auto 2700 /uL (1100-4500); Lymphocytes Percent Auto 25.9 % (25-40); Mean Corpuscular HGB Conc 32.7 % (30-36); Mean Corpuscular Volume 91.7 fL (80-100); Monocytes Absolute Auto 1400 /uL (0-900); Monocytes Percent Auto 12.9 % (3-14); Neutrophils Absolute Auto 6400 /uL (1500-7000); Neutrophils Percent Auto 60.2 % (50-75); Platelet Count 431 X10^3/uL (150-400); Red Blood Cell Count 3.93 X10^6/uL (4.0-5.2); Red Cell Distribution Width 13.5 % (11.6-14.8); White Blood Cell Count 10.6 X10^3/uL (4.5-11.0)
[2020-08-30 06:06] LABS: Alanine Aminotransferase 20 IU/L (<35); Albumin Globulin Ratio 1.4 (1.0-2.8); Alkaline Phosphatase 80 U/L (38-126); Aspartate Aminotransferase 27 IU/L (14-36); BUN Creatinine Ratio 35.2 (6-22); Bilirubin Total 0.4 mg/dL (0.2-1.3); Blood Urea Nitrogen 25 mg/dL (7-17); Calcium 9.2 mg/dL (8.4-10.2); Carbon Dioxide 36 mmol/L (22-32); Chloride 98 mmol/L (98-107); Estimated Glomerular Filt Rate > 60.0 mL/min (>60); Globulin 2.8 g/dL (1.7-4.1); Glucose 106 mg/dL (80-110); HEMOLYSIS < 15 (0-50); Magnesium 2.6 mg/dL (1.6-2.3); Potassium 4.2 mmol/L (3.4-5.1); Sodium 137 mmol/L (137-145); Total Protein 6.8 g/dL (6.3-8.2)
[2020-08-30 06:23] LABS: Procalcitonin < 0.05 ng/mL (<0.5)
[2020-08-30] MEDS: PANTOPRAZOLE 40 MG TABLET PO (07:04)
[2020-08-30 07:17] VITALS: BP 130/74; PULSE 72; RESP 18; TEMP 36.6; O2SAT 96
[2020-08-30] MEDS: ALBUTEROL/IPRATROPIUM 3 ML AMPUL INH (09:14)
[2020-08-30 09:29] VITALS: PULSE 75; RESP 30; O2SAT 97
[2020-08-30] MEDS: FLUTICASONE/SALMETEROL 250/50 60 PUFF DISKUS INH (09:29)
[2020-08-30] MEDS: ENOXAPARIN 30 MG/0.3 ML SYRINGE SUBCUT (09:40)
[2020-08-30 09:48] VITALS: BP 130/74
[2020-08-30] MEDS: buPROPion XL 150 MG TAB 300 MG PO (09:48)
[2020-08-30] MEDS: METOPROLOL ER 25 MG TABLET PO (09:48)
[2020-08-30] MEDS: CITALOPRAM 10 MG TABLET 20 MG PO (09:49)
[2020-08-30] MEDS: CLOPIDOGREL 75 MG TABLET PO (09:49)
[2020-08-30] MEDS: AZITHROMYCIN 250 MG TABLET 500 MG PO (09:49)
[2020-08-30] MEDS: predniSONE 20 MG TABLET 60 MG PO (09:49)
[2020-08-30] MEDS: DOCUSATE 100 MG CAPSULE PO (09:50)
[2020-08-30] MEDS: SODIUM CHLORIDE 0.9% FLUSH 10 ML IV (09:50)
--- NOTE | 2020-08-30 09:56 | PT.IPTN ---
Physical Therapy Treatment Note M2 PT-IP Current Condition Start: 08/29/20 13:02 Freq: NEEDED Status: Discharge Protocol: Document 08/29/20 11:47 AB (Rec: 08/29/20 13:16 AB [id number]) Physical Therapy Current Condition Current Condition Evaluation Date 08/29/20 Treatment Diagnosis COPD; difficulty in walking Onset Date 08/28/20 Precautions Other Precautions O2 sat M3 PT-IP Subjective Start: 08/29/20 13:02 Freq: NEEDED Status: Discharge Protocol: Document 08/30/20 09:28 (Rec: 08/30/20 11:47 [id number]) Subjective Physical Therapy Visit Type Type Treatment Note Visit Start Time 09:28 Visit Stop Time 09:56 Total Visit Minutes 28 Notes QUINN Savage led tx under direct supervision of Nina MACKEY for the entire tx. Number of CLIENT SOLUTIONS MANAGER Visits 1 Physical Therapy Visit Comments Patient Comments pt is agreeable to do PT Therapy Pain Assessment Pain Present Pain Present Denied Pain M4 PT-IP Mobility and Gait Start: 08/29/20 13:02 Freq: NEEDED Status: Discharge Protocol: Document 08/30/20 09:28 (Rec: 08/30/20 11:47 [id number]) PT-Bed Mobility Assessment Supine to Sit Supine to Sit Standby Assistance Scooting Scooting to Edge of Bed Standby Assistance PT-Transfer Assessment Sit to and From Stand Sit to and from Stand Standby Assistance,Use of Upper Extremities Equipment Transfer Assistive Device Gait Belt,Straight Cane Orthotic/Prosthetic Devices or Brace: No Transfers Transfer Destination Chair,Wheelchair Transfer Technique ambulated w/ SPC Transfer Ability Level of Assist Standby Assistance,Use of Upper Extremities Comments Mobility Comments Pt in bed upon arrival w/ HOB elevated. Pts O2 monitored throughout entire tx and ranged from 93-99%. Supine to sit SBA w/ HOB flat. Pt sat on L EOB and scooted SBA. Sit- stand SBA w/ SPC and used RUE to help stand. Pt amb in hallway ~25' SBA w/ SPC and then sat in wc to rest, checked O2 which was 93% secondary to decreased activity tolerance and strength. Cued slow PLB and O2 increased. Pt amb another ~150' SBA w/ SPC denying any SOB w/c follow. Pt demonstrated step through gait w/ limited DF and PF on the R foot with cuing for increased awareness of normal patterning, pt commented does get stiff from past surgeries. Pt rested in wc for about ~2 min and pt was wheeled the rest of the way to the therapy stairs. Pt went up and down 3 stairs x1 CGA for safety w/ step to pattern and L rail and SPC and RUE to simulate stairs from parking log to building per pt request . To check balance during amb pt did a couple head/trunk turns and she was able to maintain balance. Pt amb ~200' w/o rest breaks back to room SBA w/ SPC and chair follow. Pt sat in chair in her room SBA and O2 after activity was 95%. Pt left w/ call light and all needs within reach. Gait Assessment Gait Gait Assistance Required: Standby Assistance Distance (Feet) 375 Able to Maintain Weight Bearing Status Yes During Gait Assistive Devices Assistive Device Gait Belt,Straight Cane Orthotic/Prosthetic Devices or Brace: No Gait Deviations General Gait Pattern Antalgic,Decreased Stride Length,Decreased Feet Clearance Factors Limiting Gait Function Factors Limiting Gait Function Decreased Activity Tolerance, Decreased Strength,Respiratory Distress Comments Gait Comments See mobility section. Stair Climbing Assessment Evaluation Level of Assist On Stairs Contact Guard Assistance Devices Stair Climbing Assistive Devices Straight Cane Technique/Endurance Stair Climbing Direction Ascend and Descend Stair Climbing Technique Step to Step Number of Steps Climbed 3 Stair Climbing Set # Repetitions (reps) 1 Comments Stair Climbing Comments See mobility section. PT-Balance Assessment Sitting Balance and Reactions Static Sitting Balance Ability Good Dynamic Sitting Balance Ability Good Standing Balance and Reactions Static Standing Balance Ability Fair Dynamic Standing Balance Ability Fair Device Used without AD M5 PT-IP Objective Assessments Start: 08/29/20 13:02 Freq: NEEDED Status: Discharge Protocol: Document 08/29/20 11:47 AB (Rec: 08/29/20 13:16 AB [id number]) Orientation Orientation/Cognition Level of Alertness Alert Orientation Name,Place,Situation Language Function Ability No Deficits Noted Safety Awareness Decreased Safety Awareness Gross Range of Motion Lower Extremity ROM Assessment Within Functional Limits Strength Lower Extremity Strength Hip 4-/5 Knee 4-/5 Muscle Tone Muscle Tone WNL Yes M6 PT-IP Treatment Start: 08/29/20 13:02 Freq: NEEDED Status: Discharge Protocol: Document 08/29/20 11:47 AB (Rec: 08/29/20 13:16 AB [id number]) Physical Therapy Treatment Education Education Provided Safety M7 PT-IP Assessment and Plan Start: 08/29/20 13:02 Freq: NEEDED Status: Discharge Protocol: Document 08/30/20 09:28 (Rec: 08/30/20 11:47 [id number]) PT Summary Assessment and Plan Potential Rehabilitation Potential Good Summary Impairments Pain,ROM,Strength,Balance,Bed Mobility,Transfers,Gait, Activity Tolerance Progress Towards Goals Progressing Toward Goals,Slow Progress due to Medical Issues ,Slow Progress due to Activity Tolerance,Safe For Discharge Assessment Summary Pt amb ~375' SBA w/ SPC. Pt required two rest breaks, but able to maintain O2 93-99% throughout activities. Pt performed 3 stairs CGA w/ SPC. PT is recommending HH to increase endurance and strength for community amb and home w/ assistance as needed. Pt does not require someone to be home at all times, but around for safety. Pt identified has support, but not someone in particular. Pt is open to HH as an option to help improve to a higher level dynamic for uneven surfaces in the community. Goals Bed Mobility Goal Independent Transfer Goal Independent,Cane Gait Goal Independent,Cane Gait Distance 150 Other Goals improve ambulation without AD 150 ft mod I Days to Meet Goals 5 Frequency of Treatment Frequency Of Treatment Once a Day Treatment Plan Physical Therapy Treatment Plan Bed Mobility Training,Transfer Training,Gait Training, Therapeutic Exercise,Balance Retraining,Discharge Planning, Neuromuscular Re-ed, Coordination Retraining Recommendations To Nursing Amount of Assist Needed Standby Assistance Discharge Recommendations PT Discharge Recommendations Home with Assistance,Home Health Transportation Needs at Discharge Private Vehicle,Wheelchair/ Cabulance
--- NOTE | 2020-08-30 10:22 | PM.DS.1 ---
History of Present Illness History of Present Illness Date Patient Seen: 08/28/20 Chief complaint: SOB Narrative: Written by Janet GOMES: Patient is a 64-year-old female Rosmery Marquis who presented to the emergency room for acute onset shortness of breath and exacerbation of COPD. Patient has had repeated hospitalizations for exacerbation of her COPD in the past year (ER)02/07/2020, (ER)07/03/2020, (ER)07/30/2020 when she was prescribed a 12 day 40 mg prednisone taper and doxycycline 100 mg twice daily for 7 days, her chest x-ray showed hyperventilation without acute pulmonary process. [place] placed on a 5 day prednisone taper and Z-Terrence which she completed 3 days ago. 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 Patient lives alone in a 1 bedroom apartment at the emergency [facility]. Her closest family is her son who lives in [place] and denies any exposure to cold/flu or COVID. Patient complains of muscle aches from coughing in the upper left chest and epigastric region, worsening shortness of breath from emergency room due to transfer physical activity to room, notes wheezing prior to coming into the emergency room today, increased fatigue and shortness of breath which was probably Esme did by taking out the right mesh. Patient has no home O2, and ambulates with a cane independently and provides her own ADLs, Pt reports taking Advair Diskus, albuterol inhaler and for the last 3 days has been using it 6 times per day and nebulizer at home which she has been using 4 times per day. Patient reports that she has not had the pneumonia vaccine. Patient is complaining of increased anxiety 8/10, depression0/10 at this time. ER labs WBC 12.2, BNP 2700, LDH 2.4, negative troponins, procalcitonin, and COVID, ABG PO2 76, chest x-ray showed hyperventilation without any cardiac processes. Patient denies hemoptysis, fever, chills, nausea, vomiting, diarrhea, or edema. Discharge Providers Provider Date of admission: 08/28/20 18:38 Discharge Date: 08/30/20 Primary care physician: Kandi Malhotra MD Consults: 08/28/20 17:04 Consult to Respiratory Therapy Evaluate & Treat Comment: Physician Instructions: Evaluate and treat 08/28/20 19:46 Consult to Dietitian, Adult Routine Comment: Reason For Exam: decreased weight 08/28/20 20:19 Consult to Dietitian, Adult Routine Comment: BMI 16.2 Reason For Exam: malnutrition Consult to Discharge Planning Routine Comment: Consult to Physical Therapy Evaluate & Treat Comment: Physician Instructions: Evaluate and Treat 08/29/20 13:21 Consult to Dietitian, Adult Routine Comment: Reason For Exam: protein calorie malnturiton Discharge provider: Kathy Escoto DO Summary Hospital Course Discharge Diagnosis: 1. Acute COPD exacerbation, present on admission. Resolved. 2. Acute hypoxemic respiratory failure, present on admission. Resolved. 3. Severe chronic protein calorie malnutrition, present on admission. Active. 4. Hypertension, chronic, present on admission. Stable. 5. Hyperlipidemia, chronic, stable not present on admission. Stable. 6. Major depressive disorder, chronic, stable not present on admission. Stable. 7. GERD, chronic, stable not present on admission. Stable. Hospital Course: Rosmery Marquis is a 64-year-old female with a past medical history significant for hypertension, hyperlipidemia, CVA, depression, GERD and severe COPD who presented to the ED with progressive worsening shortness of breath. 1. Acute COPD exacerbation, present on admission. Resolved. -Patient presented to the hospital with progressive shortness of breath. She had multiple trials of outpatient treatment including antibiotics and steroids. -Initial lactate was slightly elevated at 2.4 and repeat normal at 1.9.Negative procalcitonin, troponin, and COVID. -Chest x-ray demonstrated hyperexpansion without cardiopulmonary process which was unchanged from chest x-ray on 07/30/2020. -Given elevated proBNP performed echocardiogram which ruled out congestive heart failure as contributor. -Received methylprednisone 125 mg IV x1, ceftriaxone 2 g IV x 1, and albuterol inhaler 4 puffs in ED. -Continued respiratory therapy evaluation and treatment. Continued on steroids, nebulizers, antibiotics and Mucinex. Discharged home on azithromycin 250 mg on // and prednisone 40 mg for 3 days to complete 5 days total. 2. Acute hypoxemic respiratory failure, present on admission. Resolved. -Patient presented with progressive worsening shortness of breath and hypoxemia with SpO2 86% on room air briefly while in ED. Continued respiratory therapy evaluation and treatment. Continued supplemental oxygen to maintain oxygen saturation 88-92%. Patient remained off of oxygen and maintained oxygen saturations mid to high 90's throughout hospitalization and did not qualify for home oxygen. 3. Severe chronic protein calorie malnutrition, present on admission. Active. -BMI 16.2 with full body subcutaneous fat and muscle wasting. Patient is missing all lower teeth and half of upper teeth impairing mastication. Due to severe PCM patient is high risk of healing, oxygenation, complications, infection, pneumonia, COVID, mobidity and mortality. Patient has muscle wasting with increased weakness and fatigue making her high risk for fall and injury. Recommended hospice but unfortunately patient lives in a usp. 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 Continue nutritional supplementation. 4. Hypertension, chronic, present on admission. Stable. -Continued home amlodipine 2.5 mg daily, hydrochlorothiazide 12.5 mg daily, and metoprolol succinate 25 mg daily. -History of CVA in 1999 and continued home clopidogrel 75 mg daily. -Continued heart healthy diet. 5. Hyperlipidemia, chronic, stable not present on admission. Stable. -Continued home atorvastatin 40 mg at bedtime. 6. Major depressive disorder, chronic, stable not present on admission. Stable. -Continued home citalopram 20 mg daily and bupropion 300 mg daily. 7. GERD, chronic, stable not present on admission. Stable. -Continued protonix 40 mg daily. Exam Vital Signs (past 8 hours): - 08/30/20 06:00 08/30/20 07:17 08/30/20 09:29 Temperature 97.2 F L 97.8 F Pulse Rate 67 72 75 Respiratory Rate 16 18 30 H Blood Pressure 123/69 130/74 Pulse Oximetry 95 96 97 08/30/20 09:48 Temperature Pulse Rate Respiratory Rate Blood Pressure 130/74 Pulse Oximetry Oxygen Delivery Method Room Air Oxygen Flow Rate 0 Narrative Exam Narrative: General: Older thin, frail, cachetic appearing female sitting in bed and in no acute distress, appears significantly older than stated age, appropriately interactive. HEENT: Normocephalic, atraumatic. External ears without defect. Pupils equal, round, and reactive to light. Anicteric sclerae, moist conjunctivae, and no lid lag. Oropharynx free of erythema and cobble stoning with moist mucosa. Neck: Supple with full range of motion. No jugular venous distension. No lymphadenopathy or thyromegaly. Cardiovascular: Regular rate and rhythm without murmurs, rubs, or gallops appreciated Pulmonary: Diminished throughout but clear with occasional scattered crackle. No wheeze or rhonchi. Normal respiratory effort with no use of accessory muscles. Abdomen: Soft, scaphoid, bowel sounds present, nontender, nondistended. Extremities: No clubbing, cyanosis, or edema. Skin: Normal temperature, turgor, and texture; no rash, ulcers, or subcutaneous nodules appreciated. Neurological: Cranial nerves grossly intact. Generalized weakness. Psychiatric: Normal mood and affect. Alert and oriented to person, place, and time. Objective Labs Result Diagrams: 08/30/20 05:17 08/30/20 05:17 Labs: Laboratory Results - last 24 hr 08/29/20 08/30/20 08/30/20 04:37 05:17 05:17 WBC 10.6 RBC 3.93 L Hgb 11.8 L Hct 36.0 MCV 91.7 MCH 30.0 MCHC 32.7 RDW 13.5 Plt Count 431 H Neut % (Auto) 60.2 D Lymph % (Auto) 25.9 Cooper % (Auto) 12.9 Eos % (Auto) 0.8 L Baso % (Auto) 0.2 Neut # (Auto) 6400 Lymph # (Auto) 2700 Cooper # (Auto) 1400 H Eos # (Auto) 100 Baso # (Auto) 0 Sodium Potassium Chloride Carbon Dioxide BUN Creatinine Estimated GFR BUN/Creatinine Ratio Glucose Calcium Magnesium Total Bilirubin AST ALT Alkaline Phosphatase Total Protein Albumin Globulin Albumin/Globulin Ratio Procalcitonin < 0.05 < 0.05 08/30/20 05:17 WBC RBC Hgb Hct MCV MCH MCHC RDW Plt Count Neut % (Auto) Lymph % (Auto) Cooper % (Auto) Eos % (Auto) Baso % (Auto) Neut # (Auto) Lymph # (Auto) Cooper # (Auto) Eos # (Auto) Baso # (Auto) Sodium 137 Potassium 4.2 Chloride 98 Carbon Dioxide 36 H BUN 25 H Creatinine 0.71 Estimated GFR > 60.0 BUN/Creatinine Ratio 35.2 H Glucose 106 Calcium 9.2 Magnesium 2.6 H Total Bilirubin 0.4 AST 27 ALT 20 Alkaline Phosphatase 80 Total Protein 6.8 Albumin 4.0 Globulin 2.8 Albumin/Globulin Ratio 1.4 Procalcitonin [facility] Medical History (Updated 08/28/20 @ 22:53 by MADDY Edwards-CELINE) Alcohol abuse, in remission COPD (chronic obstructive pulmonary disease) Hypertension Irritable bowel syndrome (IBS) Neck pain with history of cervical spinal surgery Pancreatitis Stage 2 moderate COPD by GOLD classification Stroke Tobacco abuse, in remission Urinary tract infection Surgical History (Updated 08/28/20 @ 22:54 by MADDY Edwards-CELINE) History of neck surgery History of spinal surgery Total knee replacement status Family History (Updated 08/28/20 @ 22:59 by MADDY Edwards-CELINE) Unknown Adopted Son No problems noted. Other Family history non-contributory Social History household members: none Smoking Status: Former smoker alcohol intake: former Discharge Plan Discharge Plan Patient Disposition: Home Provider Discharge Comment: You are being discharged home. You had an exacerbation of your COPD. You have been prescribed azithromycin 250 mg to take on Friday, Friday and Friday indefinitely to prevent COPD exacerbations and decrease inflammation in the lung. You have been prescribed prednisone 40 mg to take for 3 additional days starting tomorrow to finish treatment of her COPD exacerbation. Please abstain from cigarettes indefinitely. Please follow-up with your primary care physician, Dr. aMlhotra , at your scheduled appointment regarding your hospitalization and continued medical care. Discharge orders & Medications Prescriptions: New azithromycin [Zithromax Z-Terrence] 250 mg Tablet 250 mg PO 3XW Qty: 12 RF: 0 prednisone 20 mg Tablet 40 mg PO DAILY Qty: 6 RF: 0 guaifenesin [Mucus Relief ER] 600 mg Tablet Extended Release 12hr 600 mg PO BID PRN (Reason: Cough) Qty: 30 RF: 0 Continued albuterol sulfate 90 mcg/actuation HFA aerosol inhaler 1 inh INHALATION Q4-6H PRN (Reason: shortness of breath) Qty: 18 RF: 0 docusate sodium 100 MG capsule 100 mg PO BID PRN (Reason: Constipation) Qty: 0 RF: 0 clopidogrel 75 MG tablet 75 mg PO DAILY Qty: 0 RF: 0 bupropion HCl 300 MG tablet extended release 24 hr 300 mg PO DAILY Qty: 0 RF: 0 citalopram [Celexa] 20 mg tablet 20 mg PO DAILY Qty: 30 RF: 0 hydroxyzine HCl 50 mg Tablet 50 mg PO BEDTIME RF: 0 ondansetron HCl [Zofran] 4 mg Tablet 4 mg PO DAILY RF: 0 amlodipine 2.5 mg Tablet 2.5 mg PO DAILY RF: 0 Spiriva with HandiHaler 18 mcg Capsule, W/Inhalation Device 1 cap INHALATION DAILY RF: 0 hydrochlorothiazide 12.5 mg Tablet 12.5 mg PO DAILY RF: 0 alendronate 70 mg tablet 70 mg PO QWEEK RF: 0 loratadine 10 mg tablet 10 mg PO BEDTIME RF: 0 cholecalciferol (vitamin D3) 1,000 unit tablet 1,000 unit PO DAILY RF: 0 atorvastatin 40 mg tablet 40 mg PO BEDTIME RF: 0 pantoprazole 40 mg tablet,delayed release (DR/EC) 40 mg PO DAILY RF: 0 metoprolol succinate 50 mg tablet extended release 24 hr 25 mg PO DAILY RF: 0 Discontinued prednisone 10 mg tablet 10 mg PO DAILY Qty: 30 RF: 0 doxycycline hyclate 100 mg capsule 100 mg PO DAILY RF: 0 Follow up/Referrals: Kandi Malhotra MD [Primary Care Provider] - 09/06/20 10:00 am (appt: 09/06 @ 10:[address] malhotra @ [facility]) Diet/Activity/Treatments Diet: Diet as Tolerated Diet comment: high calorie diet Visit Report/Discharge Packet Instructions: DI for Chronic Obstructive Pulmonary Disease, Physical Activity for People with COPD Discharge Data Primary Care Provider: Kandi Malhotra Attending Provider: Kathy Escoto VTE Deep Vein Thrombosis/Pulmonary Embolism Present on Admission: No
--- NOTE | 2020-08-30 10:38 | CM.DPNOTE ---
DCP/continued: Reviewed chart. Spoke with provider whom indicates that patient is medically stable for discharge today. Met with patient and she reports that she will be returning to [facility] today. Patient currently without mode of transport to [place] [facility] Patient reports that she can walk but does not have her cane. [employer] to provide RN with taxi voucher for one way trip to residence. Per Medicaid guidelines unable to use patient's transport benefit because it's less than a mile away. P: Home today. ANA Abdalla
[2020-08-30 10:44] VITALS: O2SAT 98
--- NOTE | 2020-08-30 12:09 | PC.NURSE ---
Pt is dressed and ready for discharge home. She has a taxi voucher. Went over d/c instructions with Pt - discussed d/c meds, time of last dose, reviewed stroke education, new prescriptions, and follow up. Pt denies further questions and will be taken out to ER for taxi home at 1300.
== END 2020-08-30 13:03 | disposition home or self-care (01) ==
LOC: ED 18:36 → AC 18:39
PROVIDERS: Nurse Practitioner Family; Admitting Provider Internal Medicine; Emergency Provider Emergency Medicine; Family Provider Family Medicine; PCP Family Medicine; Referring Provider Emergency Medicine; Visit Provider Internal Medicine
DX: J44.1 Chronic obstructive pulmonary disease with (acute) exacerbation (principal); R06.02 Shortness of breath; I10 Essential (primary) hypertension; Z87.891 Personal history of nicotine dependence; F10.11 Alcohol abuse, in remission; Z86.73 Personal history of transient ischemic attack (TIA), and cerebral infarction without residual deficits; E43 Unspecified severe protein-calorie malnutrition; Z68.1 Body mass index [BMI] 19.9 or less, adult; E78.5 Hyperlipidemia, unspecified; K21.9 Gastro-esophageal reflux disease without esophagitis; Z11.59 Encounter for screening for other viral diseases
CPT/HCPCS: 36415; 36600; 71045; 80053; 80061; 81001; 81003; 82550; 82805; 82962; 83605; 83735; 83880; 84145; 84484; 85025; 85610; 85730; 87040; 87633; 87635; 93005; 93010; 93306; 94618; 94640; 94762; 96365; 96372; 96375; 97116; 97161; 97530; 99284; 99285; G0378; J0696; J1650; J2930

== ENCOUNTER 2020-09-26 15:57 | Observation (INO) | payer MEDICAID, OTHER, SELFPAY ==
[2020-08-28 19:31] VITALS: BMI 16.1
[2020-09-26] VITALS (14 sets, daily range): BP systolic 119–160; BP diastolic 63–79; PULSE 84–107; RESP 19–29; TEMP 37.2; O2SAT 91–100; BMI 16.1
--- NOTE | 2020-09-26 18:02 | DI.RAD.S_ITS ---
PROCEDURE: XR CHEST 2V INDICATIONS: SOB after choking on food TECHNIQUE: 2 views of the chest were acquired. COMPARISON: [facility], , XR CHEST 1V, 08/28/2020, 17:42. FINDINGS: Surgical changes and devices: Right upper quadrant surgical clips. Lungs and pleura: Lungs are clear. No pleural effusions or pneumothorax. Lungs are hyperinflated which could reflect chronic obstructive physiology. Mediastinum: Mediastinal contours are normal. Heart size is normal. Bones and chest wall: No suspicious bony abnormalities. Soft tissues appear unremarkable. IMPRESSION: No acute disease. Dictated by: Jc Yao M.D. on 09/26/2020 at 18:49 Approved by: Jc Yao M.D. on 09/26/2020 at 18:50
--- NOTE | 2020-09-26 19:18 | ED_ITS ---
HPI - General Adult General Chief complaint: Shortness of Breath/Dyspnea Stated complaint: Choked on grape Time Seen by Provider: 09/26/20 18:01 Source: patient Mode of arrival: EMS Limitations: no limitations History of Present Illness HPI narrative: Patient is a 64-year-old female. History of COPD. Has not on ho me oxygen who is here for concerns of choking on a grape. She states that she was at her normal state health eating grapes early this evening when she started choking on a grape. She thought that it caused a flare of her COPD. After the event started having a sore throat. Shortness of breath. She states that her symptoms have improved somewhat since the onset. No chest discomfort. Related Data Home Medications Medication Instructions Recorded Confirmed bupropion HCl 300 mg PO DAILY #0 10/09/17 08/28/20 clopidogrel 75 mg PO DAILY #0 10/09/17 08/28/20 docusate sodium 100 mg PO BID PRN #0 10/09/17 08/28/20 alendronate 70 mg PO QWEEK 08/10/18 08/28/20 cholecalciferol (vitamin D3) 1,000 unit PO DAILY 08/10/18 08/28/20 loratadine 10 mg PO BEDTIME 08/10/18 08/28/20 atorvastatin 40 mg PO BEDTIME 04/27/19 08/28/20 pantoprazole 40 mg PO DAILY 04/27/19 08/28/20 metoprolol succinate 50 mg 25 mg PO DAILY tab 10/01/19 08/28/20 tablet,extended release 24 hr Spiriva with HandiHaler 1 cap INHALATION DAILY 08/28/20 08/28/20 amlodipine 2.5 mg PO DAILY 08/28/20 08/28/20 hydrochlorothiazide 12.5 mg PO DAILY 08/28/20 08/28/20 hydroxyzine HCl 50 mg PO BEDTIME 08/28/20 08/28/20 ondansetron HCl [Zofran] 4 mg PO DAILY 08/28/20 08/28/20 Previous Rx's Medication Instructions Recorded citalopram [Celexa] 20 mg PO DAILY #30 tab 05/10/18 albuterol sulfate 90 mcg/actuation 1 inh INHALATION Q4-6H PRN #18 gram 10/01/19 aerosol inhaler azithromycin [Zithromax Z-Terrence] 250 mg PO 3XW #12 tab 08/30/20 guaifenesin [Mucus Relief ER] 600 mg PO BID PRN #30 tab 08/30/20 prednisone 40 mg PO DAILY #6 tab 08/30/20 Allergies Allergy/AdvReac Type Severity Reaction Status Date / Time codeine [CODEINE] Allergy Severe NAUSEA / Verified 09/26/20 16:06 VOMITING latex Allergy Rash Verified 09/26/20 16:06 lisinopril Allergy Verified 09/26/20 16:06 Review of Systems Constitutional Constitutional: Denies fever(s) and Denies headache(s) ENT Ears, Nose, Mouth, and Throat: Denies headache(s) and Reports sore throat Cardiovascular Cardiovascular: Denies chest pain and Reports dyspnea Respiratory Respiratory: Reports cough and Reports dyspnea Gastrointestinal Gastrointestinal: Denies abdominal pain, Denies nausea and Denies vomiting Genitourinary Genitourinary: Denies dysuria Genitourinary: Denies dysuria Musculoskeletal Musculoskeletal: Denies arthralgias and Denies myalgias Integumentary/Breasts Skin/Breast: Denies rash Neurologic Neurologic: Denies behavioral changes and Denies headache(s) Psychiatric Psychiatric: Denies behavioral changes Hematologic/Lymphatic Hematologic/Lymphatic: Denies easy bleeding and Denies easy bruising Allergic/Immunologic Allergic/Immunologic: Denies urticaria Patient History Medical History Alcohol abuse, in remission COPD (chronic obstructive pulmonary disease) Hypertension Irritable bowel syndrome (IBS) Neck pain with history of cervical spinal surgery Pancreatitis Stage 2 moderate COPD by GOLD classification Stroke Tobacco abuse, in remission Urinary tract infection Surgical History (Updated 08/28/20 @ 22:54 by ALBERTO Edwards) History of neck surgery History of spinal surgery Total knee replacement status Family History (Updated 08/28/20 @ 22:59 by ALBERTO Edwards) Unknown Adopted Son No problems noted. Other Family history non-contributory Social History household members: none Smoking Status: Former smoker alcohol intake: former Smoking Status: Former smoker alcohol intake frequency: other Substance Use Type: does not use Exam Initial Vital Signs Initial Vital Signs: Vital Signs Temperature 99.0 F 09/26/20 16:00 Pulse Rate 107 H 09/26/20 16:00 Respiratory Rate 24 09/26/20 16:00 Blood Pressure 157/79 H 09/26/20 16:00 Pulse Oximetry 93 09/26/20 16:00 Const General: disheveled Limitations: mental status not altered HENMT Head: normal to inspection and normocephalic Mouth: oral mucosae normal Throat: posterior oropharynx normal Resp Effort & Inspection: not labored and tachypneic Auscultation: rhonchi (Right) Other: Abnormal sounds on the right. Left side clear. Cardio Rate: tachycardic Rhythm: regular rhythm Pulses: radial pulses present GI Inspection: non-distended Palpation: soft Skin Lesions: no lesions Rashes: no rashes Neuro General: patient alert, patient awake and patient oriented x3 Cognition: normal cognition Speech: speech normal Extrem General: capillary refill normal Psych Appearance: disheveled Scores GCS [place] coma scale eye opening: Spontaneous [place] coma scale verbal response: Orientated [place] coma scale motor response: Obey commands [place] coma scale total score: 15 Course Orders Ordered: ED Orders 09/26/20 18:02 XR chest 2V Stat 09/26/20 18:03 EKG-12 Lead Stat 09/26/20 19:19 CT chest wo con Stat 09/26/20 19:50 Basic Metabolic Panel Stat Complete Blood Count AUTO DIFF Stat 09/26/20 21:35 COVID19 Stat Acetaminophen (Acetaminophen 325 Mg Tablet) 650 mg PO Q6HR PRN PRN Reason: Fever/Mild Pain (1-3) Albuterol (Albuterol Hfa Mdi 60 Puff/8 Gm Inhaler) 1 puff INH Q4H PRN PRN Reason: shortness of breath Amlodipine Besylate (Amlodipine 5 Mg Tablet) 2.5 mg PO DAILY [facility] Atorvastatin Calcium (Atorvastatin 20 Mg Tablet) 40 mg PO BEDTIME [facility] Bupropion HCl (Bupropion Xl 150 Mg Tab) 300 mg PO DAILY [facility] Citalopram Hydrobromide (Citalopram 10 Mg Tablet) 20 mg PO DAILY [facility] Clopidogrel Bisulfate (Clopidogrel 75 Mg Tablet) 75 mg PO DAILY [facility] Docusate Sodium (Docusate 100 Mg Capsule) 100 mg PO BID PRN PRN Reason: Constipation Hydrochlorothiazide (Hydrochlorothiazide 12.5 Mg Capsule) 12.5 mg PO DAILY [facility] Hydroxyzine Pamoate (Hydroxyzine Pamoate 25 Mg Capsule) 50 mg PO BEDTIME [facility] Levofloxacin (Levofloxacin 500 Mg Tablet) 500 mg PO DAILY [facility] Stop: 10/02/20 08:59 Metoprolol Succinate (Metoprolol Er 50 Mg Tablet) 25 mg PO DAILY [facility] Naloxone HCl (Naloxone 0.4 Mg/Ml Vial) 0.2 mg IV Q2MIN PRN PRN Reason: Opiate Reversal Naloxone HCl (Naloxone 0.4 Mg/Ml Vial) 0.2 mg IV Q2MIN PRN PRN Reason: Opiate Reversal Pantoprazole Sodium (Pantoprazole 40 Mg Tablet) 40 mg PO DAILY [facility] Prednisone (Prednisone 20 Mg Tablet) 40 mg PO DAILY [facility] Stop: 09/30/20 08:59 Tiotropium [place] (Tiotropium [place] 18 Mcg Inhaler) 18 mcg INH DAILY [facility] Discontinued Medications Amoxicillin/Clavulanate Potassium (Amoxicillin/Clav 875/125 Mg) 1 tab PO NOW ONE Stop: 09/26/20 23:06 Last Admin: 09/26/20 23:22 Dose: 1 tab Documented by: ELIZABETH Al Hydrox/Mg Hydrox/Simethicone 20 ml/ Lidocaine HCl 15 ml 0 ml PO NOW ONE Stop: 09/26/20 19:56 Last Admin: 09/26/20 20:02 Dose: 20 ml Documented by: ELIZABETH Enoxaparin Sodium (Enoxaparin 30 Mg/0.3 Ml Syringe) 30 mg SUBCUT DAILY [facility] Sodium Chloride (Normal Saline 0.9%) 1,000 mls @ 500 mls/hr IV BOLUS ONE Stop: 09/26/20 21:18 Last Infusion: 09/26/20 21:39 Dose: 0 mls/hr Documented by: Admin: 09/26/20 19:56 Dose: 500 mls/hr Documented by: ELIZABETH Lorazepam (Lorazepam 0.5 Mg Tablet) 0.5 mg PO NOW ONE Stop: 09/26/20 23:14 Last Admin: 09/26/20 23:22 Dose: 0.5 mg Documented by: ELIZABETH Methylprednisolone (Methylprednisolone 125 Mg/2 Ml Vial) 125 mg IV NOW ONE Stop: 09/26/20 23:12 Last Admin: 09/26/20 23:22 Dose: 125 mg Documented by: ELIZABETH Potassium Chloride (Potassium Chloride 20 Meq/15 Ml Udc) 40 meq PO NOW ONE Stop: 09/26/20 20:33 Last Admin: 09/26/20 20:53 Dose: 40 meq Documented by: ELIZABETH Vital Signs Vital signs: Vital Signs - 8 hr 09/26/20 17:30 09/26/20 18:00 09/26/20 19:00 Pulse Rate 86 91 H 88 Respiratory Rate 27 H 23 24 Blood Pressure 149/70 H 130/66 Pulse Oximetry 93 91 93 09/26/20 19:32 09/26/20 19:55 09/26/20 20:00 Pulse Rate 89 87 84 Respiratory Rate 24 19 Blood Pressure 160/77 H 142/79 H Pulse Oximetry 99 98 09/26/20 20:25 09/26/20 20:28 09/26/20 20:30 Pulse Rate 86 85 Respiratory Rate 24 24 29 H Blood Pressure 153/68 H 156/72 H Pulse Oximetry 100 100 98 09/26/20 21:00 09/26/20 21:30 09/26/20 22:00 Pulse Rate 86 84 84 Respiratory Rate 24 19 24 Blood Pressure 150/74 H 156/69 H Pulse Oximetry 93 97 97 Medical Decision Making Lab Data Lab results reviewed: Yes I reviewed the patient's lab results. Result diagrams: 09/26/20 19:50 09/26/20 19:50 Labs: Lab Results 09/26/20 09/26/20 09/26/20 Range/Units 19:50 19:50 21:35 WBC 9.1 (4.5-11.0) X10^3/uL RBC 4.01 (4.0-5.2) X10^6/uL Hgb 11.9 L (12.0-16.0) g/dL Hct 36.2 (36-46) % MCV 90.3 (80-100) fL MCH 29.6 (26-34) PG MCHC 32.8 (30-36) % RDW 12.9 (11.6-14.8) % Plt Count 391 (150-400) X10^3/uL Neut % (Auto) 56.4 (50-75) % Lymph % (Auto) 23.9 L (25-40) % [place] % (Auto) 14.7 H (3-14) % Eos % (Auto) 4.3 H (2-4) % Baso % (Auto) 0.7 (0-2) % Neut # (Auto) 5100 (1373-7131) /uL Lymph # (Auto) 2200 (5377-3746) /uL [place] # (Auto) 1300 H (0-900) /uL Eos # (Auto) 400 (0-450) /uL Baso # (Auto) 100 (0-100) /uL Sodium 133 L (137-145) mmol/L Potassium 2.8 L (3.4-5.1) mmol/L Chloride 89 L (98-107) mmol/L Carbon Dioxide 37 H (22-32) mmol/L BUN 21 H (7-17) mg/dL Creatinine 0.98 (0.52-1.04) mg/dL Estimated GFR 57.5 L (>60) mL/min BUN/Creatinine Ratio 21.4 (6-22) Glucose 92 (80-110) mg/dL Calcium 9.6 (8.4-10.2) mg/dL COVID-19 PCR Negative (Negative) Imaging Data Chest x-ray: Radiologist's Impression: [address] [id number] ReportSigned Patient: Rosmery MarquisR#: [id number]: 8Acct:[id number]/Sex: 64 / FDate of Service: 09/26/20Loc: EDAccession Number: [id number] Procedure: XR chest 2V Ordering Provider: Doug Godoy D.O. PROCEDURE: XR CHEST 2V INDICATIONS: SOB after choking on food TECHNIQUE: 2 views of the chest were acquired. COMPARISON: [facility], , XR CHEST 1V, 08/28/2020, 17:42. FINDINGS: Surgical changes and devices: Right upper quadrant surgical clips. Lungs and pleura: Lungs are clear. No pleural effusions or pneumothorax. Lungs are hyperinflated which could reflect chronic obstructive physiology. Mediastinum: Mediastinal contours are normal. Heart size is normal. Bones and chest wall: No suspicious bony abnormalities. Soft tissues appear unremarkable. IMPRESSION: No acute disease. Dictated by: Jc Yao M.D. on 09/26/2020 at 18:49 Approved by: Jc Yao M.D. on 09/26/2020 at 18:50 CT scan - chest: Radiologist's Impression: [facility] [place] [id number] Scan ReportSigned Patient: Rosmery Marquis#: [id number]: 8Acct:[id number]/Sex: 64 / FDate of Service: 09/26/20Loc: EDAccession Number: [id number] Procedure: CT chest wo con Ordering Provider: Doug Godoy D.O. PROCEDURE: CT CHEST WO CON INDICATIONS: Choked on food, abnormal right-sided lung sounds TECHNIQUE: Noncontrast 5 mm thick sections acquired from the pulmonary apices to the posterior costophrenic angles. 1 mm lung window, 5 mm thick coronal and sagittal and 7 mm axial MIP reformats were then acquired. For radiation dose reduction, the following was used: automated exposure control, adjustment of mA and/or kV according to patient size. COMPARISON: [facility], CT, PE STUDY (CTA CHEST), 10/09/2017, 14:10. [facility], CT, CT CERVICAL SPINE WO CON, 11/12/2018, 20:50. [facility], CR, XR CHEST 2V, 09/26/2020, 18:27. FINDINGS: Image quality: Excellent. Lungs and pleura: Scattered subsegmental atelectasis and/or scarring. No focal consolidation. No pleural effusion or pneumothorax. There are scattered dependent densities within the trachea presumably mild aspiration for example image 94. Airway thickening in keeping with nonspecific bronchitis and/or reactive airways dise ase. Spiculated 1 cm nodule seen within the left upper lobe. Mediastinum: Heart size is normal. Coronary artery calcifications are present. No pericardial effusion. No mediastinal adenopathy by size criteria. Thoracic aorta and central pulmonary arteries are normal in size. Large amount of residual debris seen within the mid and distal esophagus. Bones and chest wall: No suspicious bony lesions. No vertebral body compression fractures. No axillary or supraclavicular adenopathy by size criteria. Thyroid gland anterior left upper lobe . Abdomen: Visualized upper abdominal solid organs and bowel loops appear normal in the absence of contrast. IMPRESSION: Debris within the dependent portion of the trachea in keeping with aspiration. Additional large amount of debris seen within the mid and distal esophagus. 1 cm spiculated nodule involving the left upper lobe. This appears new and is worrisome for early malignant/metastatic disease. Consider further evaluation with PET-CT in the nonemergent setting No acute consolidation Airway thickening in keeping with nonspecific bronchitis and/or reactive airways disease. Dictated by: Jc Yao M.D. on 09/26/2020 at 19:48 Approved by: Jc Yao M.D. on 09/26/2020 at 19:54 ECG Data Attestation: I personally reviewed and interpreted this ECG as follows: Prior ECG tracings: not available for review Interpretation: Sinus rhythm Ventricular rate 86 Normal axis Normal QRS No ST T wave changes MDM Narrative Medical decision making narrative: Patient initially was tachypneic however not hypoxic. He is somewhat cachectic in appearance. The CT scan of the chest does show what appears to be scattered debris at the distal portion of the trachea consistent with aspiration. I did discuss the case with Dr. Ferreira with pulmonology at [facility] who initially stated that since the patient was not in any respiratory distress and the fact that there was no overt obstruction on the CT scan that sending her home with antibiotics and follow-up in her office tomorrow when not being on reasonable course of action. When in in discuss the case with the patient. We did discuss the incidental finding of the left-sided lung nodule in the importance of following up with this. We discussed the other findings on the CT scan. Her potassium was low so she was given oral potassium. She has been tolerating oral medicines without problems. After this discussion the patient started to have coughing issues. Then became somewhat consistently hypoxic into the high 80s and low 90s. I then discussed the case again with Dr. Ferreira who stated that the patient could potentially need a bronchoscopy however they were unable to perform that overnight at her facility. We then attempted to contact multiple other facilities in the local area. The either had no bed availability or unable to perform any bronchoscopy. I was eventually able to talk with crystallography teacher at [facility] who stated that if this patient was at his facility he would not perform a bronchoscopy. He recommended antibiotics and steroids and observation. They did have bed availability at their facility but it was only ICU level care in he did not feel that this patient should take up 1 other ICU beds. I agree with this. Patient has been stable now for several hours on oxygen. Plan will be is to admit her to this facility. Will get antibiotics and steroids. Dr. Salguero stated that he asked that the hospitalist tomorrow give him a call to discuss the patient further. If she starts to deteriorate overnight he states that he would be happy to take the patient in transfer. I then discussed the ca se with GERMAN Powell the [facility] provider who will admit for further evaluation. I did discuss this the patient is well. Discharge Plan Departure Patient Disposition: Admitted as Observation Clinical Impression: Aspiration of foreign body, Cough, Incidental lung nodule, Hypokalemia Admit Date/Time: 09/26/20 23:59 Admit Provider: Janet Powell
[2020-09-26] MEDS: SODIUM CHLORIDE 0.9% 1,000 ML 500 ML IV (19:56)
[2020-09-26 20:00] LABS: Add Manual Diff / Slide Review NO; Basophils Absolute Auto 100 /uL (0-100); Basophils Percent Auto 0.7 % (0-2); Eosinophils Absolute Auto 400 /uL (0-450); Eosinophils Percent Auto 4.3 % (2-4); Hematocrit 36.2 % (36-46); Hemoglobin 11.9 g/dL (12.0-16.0); Lymphocytes Absolute Auto 2200 /uL (1100-4500); Lymphocytes Percent Auto 23.9 % (25-40); Mean Corpuscular HGB Conc 32.8 % (30-36); Mean Corpuscular Hemoglobin 29.6 PG (26-34); Mean Corpuscular Volume 90.3 fL (80-100); Monocytes Absolute Auto 1300 /uL (0-900); Monocytes Percent Auto 14.7 % (3-14); Neutrophils Absolute Auto 5100 /uL (1500-7000); Neutrophils Percent Auto 56.4 % (50-75); Platelet Count 391 X10^3/uL (150-400); Red Blood Cell Count 4.01 X10^6/uL (4.0-5.2); Red Cell Distribution Width 12.9 % (11.6-14.8); White Blood Cell Count 9.1 X10^3/uL (4.5-11.0)
[2020-09-26] MEDS: MAG HYDROX/ALUMINUM/SIMETH SUS 20 ML, LIDOCAINE VISCOUS 2% 15 ML PO (20:02)
[2020-09-26 20:16] LABS: BUN Creatinine Ratio 21.4 (6-22); Blood Urea Nitrogen 21 mg/dL (7-17); Calcium 9.6 mg/dL (8.4-10.2); Chloride 89 mmol/L (98-107); Estimated Glomerular Filt Rate 57.5 mL/min (>60); Glucose 92 mg/dL (80-110); HEMOLYSIS < 15 (0-50); Potassium 2.8 mmol/L (3.4-5.1); Sodium 133 mmol/L (137-145)
[2020-09-26 20:23] LABS: Carbon Dioxide 37 mmol/L (22-32)
[2020-09-26] MEDS: POTASSIUM CHLORIDE 20 MEQ/15 ML UDC 40 MEQ PO (20:53)
--- NOTE | 2020-09-26 21:10 | PC.NURSE ---
pt noted to have increased work of breathing and placed on 2L NC. Dr Godoy in room to reassess and took pt off O2 for trial. Shortly after, pt with coughing fit and noted to have O2 sat of 81% with adequate pleth. O2 increased to 3L and pt encouraged to breathe through nose. made aware. Call placed by Dr Godoy to [facility].
[2020-09-26 22:06] LABS: COVID19 -Nasal RAPID Negative (Negative)
--- NOTE | 2020-09-26 22:09 | PC.NURSE ---
Ambulated to BR--needed to stop and sit to catch her breath. increased to 4L portable O2.
[2020-09-26] MEDS: LORazepam 0.5 MG TABLET PO (23:22)
[2020-09-26] MEDS: methylPREDNISolone 125 MG/2 ML VIAL IV (23:22)
[2020-09-26] MEDS: AMOXICILLIN/CLAV 875/125 MG 1 TAB PO (23:22)
[2020-09-27] VITALS (9 sets, daily range): BP systolic 104–146; BP diastolic 59–85; PULSE 72–89; RESP 17–29; TEMP 36.3–37.1; O2SAT 94–98; BMI 15.5
[2020-09-27] MEDS: ACETAMINOPHEN 325 MG TABLET 650 MG PO ×3 (01:49→21:49)
[2020-09-27 03:57] LABS: Appearance Urine UA CLEAR; Bacteria Urine None Seen; Bilirubin Urine UA NEGATIVE (NEGATIVE); Color Urine UA YELLOW; Glucose Urine UA NEGATIVE (Negative); Ketones Urine UA TRACE (NEGATIVE); Leukocyte Esterase Urine UA NEGATIVE (NEGATIVE); Nitrite Urine UA NEGATIVE (Negative); Occult Blood Urine UA TRACE-INTACT (Negative); Protein Urine UA NEGATIVE (Negative); Urobilinogen Urine UA 0.2 E.U./dL (0.2)
[2020-09-27 03:58] LABS: Culture Indicated Urine Cult Not Indicated; RBC Urine 0-1/HPF (0-5/HPF); WBC Urine 0-1/HPF (0-5/HPF)
--- NOTE | 2020-09-27 04:32 | PC.NURSE ---
Admit/Night Note-Patient admitted to room 226 at 0100, A/O x3, able to transfer from stretcher to bed with SBA, steady on feet, has mild shortness of breath with pursed-lip breathing, RR 25-35, SpO2 >94% on 3L NC, lung sounds diminished throughout with expiratory wheezes Lt posterior. Unable to void, bladder scanned 408ml, In/out catheter done, UAC sent, urine is clear gianna. NPO except ice and PO meds, Tylenol given with coughing, does have occasional coughing spells without desatting. [place] and credit cards sent to [employer], 3 medication bottles sent to pharmacy.
[2020-09-27 05:03] LABS: Add Manual Diff / Slide Review NO; Basophils Absolute Auto 0 /uL (0-100); Basophils Percent Auto 0.2 % (0-2); Eosinophils Absolute Auto 0 /uL (0-450); Eosinophils Percent Auto 0.1 % (2-4); Hemoglobin 11.2 g/dL (12.0-16.0); Lymphocytes Absolute Auto 400 /uL (1100-4500); Lymphocytes Percent Auto 6.3 % (25-40); Mean Corpuscular HGB Conc 32.9 % (30-36); Mean Corpuscular Hemoglobin 29.8 PG (26-34); Mean Corpuscular Volume 90.6 fL (80-100); Monocytes Absolute Auto 100 /uL (0-900); Monocytes Percent Auto 1.6 % (3-14); Neutrophils Absolute Auto 5800 /uL (1500-7000); Neutrophils Percent Auto 91.8 % (50-75); Platelet Count 354 X10^3/uL (150-400); Red Blood Cell Count 3.76 X10^6/uL (4.0-5.2); Red Cell Distribution Width 12.9 % (11.6-14.8); White Blood Cell Count 6.3 X10^3/uL (4.5-11.0)
[2020-09-27 05:15] LABS: Alanine Aminotransferase 24 IU/L (<35); Albumin 3.9 g/dL (3.5-5.0); Albumin Globulin Ratio 1.3 (1.0-2.8); Alkaline Phosphatase 66 U/L (38-126); Aspartate Aminotransferase 43 IU/L (14-36); BUN Creatinine Ratio 20.7 (6-22); Bilirubin Total 0.6 mg/dL (0.2-1.3); Blood Urea Nitrogen 17 mg/dL (7-17); Calcium 8.7 mg/dL (8.4-10.2); Carbon Dioxide 32 mmol/L (22-32); Chloride 95 mmol/L (98-107); Estimated Glomerular Filt Rate > 60.0 mL/min (>60); Glucose 131 mg/dL (80-110); HEMOLYSIS < 15 (0-50); Magnesium 1.4 mg/dL (1.6-2.3); Potassium 3.8 mmol/L (3.4-5.1); Sodium 131 mmol/L (137-145); Total Protein 6.9 g/dL (6.3-8.2)
--- NOTE | 2020-09-27 07:49 | P.HP_ITS ---
History of Present Illness History of Present Illness Date Patient Seen: 09/27/20 Time Patient Seen: 00:49 Chief complaint: Choked on grape Narrative: Patient is a 64-year-old female Rosmery Marquis who presented to the ER today with concerns of choking on a grape and feels that that a object is still in her airway.She states that she was at her normal state health eating grapes early this evening when she started choking on a grape. She thought that it caused a flare of her COPD. After the event started having a sore throat. Shortness of breath. She states that her symptoms have improved somewhat since the onset. No chest discomfort. Patient has had repeated hospitalizations for exacerbation of her COPD in the past year (ER)02/07/2020, (ER)07/03/2020, ( ER)07/30/2020. 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 Patient lives alone in a 1 bedroom apartment at the emergency halfway. Her closest family is her son who lives in [place] and denies any exposure to cold/flu or COVID. Patient has no h ome O2, and ambulates with a cane independently and provides her own ADLs, Patient denies hemoptysis, fever, chills, nausea, vomiting, diarrhea, or edema. History of COPD. Patient History Medical History Alcohol abuse, in remission COPD (chronic obstructive pulmonary disease) Hypertension Irritable bowel syndrome (IBS) Neck pain with history of cervical spinal surgery Pancreatitis Stage 2 moderate COPD by GOLD classification Stroke Tobacco abuse, in remission Urinary tract infection Surgical History (Updated 08/28/20 @ 22:54 by ALBERTO Edwards) History of neck surgery History of spinal surgery Total knee replacement status Family & Social History Family History (Updated 08/28/20 @ 22:59 by ALBERTO Edwards) Unknown Adopted Son No problems noted. Other Family history non-contributory Social History: household members none Prior Living Arrangements Apartment/Condo Safety & Behavioral: Feels Safe in Current Yes Environment Been Physically Hurt or No Threatened By a Person Suicidal Ideation Description None Suicide Plan Description No Plan Tobacco & Substance use: Smoking Status Former smoker alcohol intake former alcohol intake frequency other Substance Use Type does not use Meds Home Medications and Allergies Home Medications Medication Instructions Recorded Confirmed Type bupropion HCl 300 mg PO DAILY #0 10/09/17 09/27/20 History clopidogrel 75 mg PO DAILY #0 10/09/17 09/27/20 History docusate sodium 100 mg PO BID PRN #0 10/09/17 09/27/20 History citalopram [Celexa] 20 mg PO DAILY #30 tab 05/10/18 09/27/20 Rx alendronate 70 mg PO QWEEK 08/10/18 09/27/20 History cholecalciferol (vitamin D3) 1,000 unit PO DAILY 08/10/18 09/27/20 History loratadine 10 mg PO BEDTIME 08/10/18 09/27/20 History atorvastatin 40 mg PO BEDTIME 04/27/19 09/27/20 History pantoprazole 40 mg PO DAILY 04/27/19 09/27/20 History albuterol sulfate 90 mcg/actuation 1 inh INHALATION Q4-6H PRN #18 gram 10/01/19 09/27/20 Rx aerosol inhaler metoprolol succinate 50 mg 25 mg PO DAILY tab 10/01/19 09/27/20 History tablet,extended release 24 hr Spiriva with HandiHaler 1 cap INHALATION DAILY 08/28/20 09/27/20 History amlodipine 2.5 mg PO DAILY 08/28/20 09/27/20 History hydrochlorothiazide 12.5 mg PO DAILY 08/28/20 09/27/20 History hydroxyzine HCl 50 mg PO BEDTIME 08/28/20 09/27/20 History ondansetron HCl [Zofran] 4 mg PO DAILY 08/28/20 09/27/20 History azithromycin [Zithromax Z-Terrence] 250 mg PO 3XW #12 tab 08/30/20 09/27/20 Rx guaifenesin [Mucus Relief ER] 600 mg PO BID PRN #30 tab 08/30/20 09/27/20 Rx prednisone 40 mg PO DAILY #6 tab 08/30/20 09/27/20 Rx cyclobenzaprine 5 mg PO BID 09/27/20 09/27/20 History Allergies Allergy/AdvReac Type Severity Reaction Status Date / Time codeine [CODEINE] Allergy Severe NAUSEA / Verified 09/26/20 16:06 VOMITING latex Allergy Rash Verified 09/26/20 16:06 lisinopril Allergy Verified 09/26/20 16:06 Review of Systems Review of Systems ROS: Yes All systems reviewed with the patient and are negative except as otherwise documented Constitutional Constitutional: Reports system reviewed and no additional complaints, except as documented Eyes Eyes: Reports system reviewed and no additional complaints, except as documented ENT Ears, Nose, Mouth, and Throat: Yes odynophagia (airway obstruction ) Cardiovascular Cardiovascular: Reports system reviewed and no additional complaints, except as documented and Reports dyspnea Respiratory Respiratory: Reports system reviewed and no additional complaints, except as documented, Reports cough and Reports dyspnea Gastrointestinal Gastrointestinal: Reports system reviewed and no additional complaints, except as documented and Reports odynophagia (airway obstruction ) Genitourinary Genitourinary: Reports system reviewed and no additional complaints, except as documented Musculoskeletal Musculoskeletal: Reports system reviewed and no additional complaints, except as documented Integumentary/Breasts Skin/Breast: Reports system reviewed and no additional complaints, except as documented Neurologic Neurologic: Reports system reviewed and no additional complaints, except as documented Psychiatric Psychiatric: Reports system reviewed and no additional complaints, except as documented Endocrine Endocrine: Reports system reviewed and no additional complaints, except as documented Hematologic/Lymphatic Hematologic/Lymphatic: Reports system reviewed and no additional complaints, except as documented Allergic/Immunologic Allergic/Immunologic: Reports system reviewed and no additional complaints, except as documented Exam Vital Signs (past 8 hours): - 09/27/20 00:55 09/27/20 03:53 Temperature 98.1 F 97.8 F Pulse Rate 89 84 Respiratory Rate 29 H 29 H Blood Pressure 146/85 H 141/67 H Pulse Oximetry 97 96 Oxygen Delivery Method Nasal Cannula Oxygen Flow Rate 3 Narrative Exam Narrative: Exam Narrative: General: This is a delightful thin frail elderly female, appears older than stated age, poorly nourished, resting in bed in no acute distress at this time, debris in airway appears to demonstrate audibly. HEENT: Normocephalic, atraumatic, PERRLA, extraocular muscles intact, oropharynx is clear and mucous membranes are moist. Patient is missing bottom teeth and have upper teeth. Wears glasses Neck: Supple and symmetric without lymphadenopathy, thyroid enlargement, tenderness, or masses. Lungs: Auscultation of lungs decreased bilaterally at the bases but equal, without adventitious sounds crackles, rales or rhonchi, without nasal flaring, retractions, or tachypneic. Cardiac: S1-S2 with regular rate and rhythm without murmur rubs or gallops, no carotid bruit. Abdomen: Soft nontender, negative for organomegaly, or masses, bowel sounds present in all 4 quadrants, without guarding or rebound, no CVA tenderness. Musculoskeletal muscle strength and tone are equal within normal limits, legs are thin but equal bilaterally with gross lack of muscle, without decrepitus effusions, cyanosis, clubbing cyanosis or edema. Full range of motion, and radial and pedal pulses are normal. Skin: Warm dry and intact without rashes, ulcerations, abnormal bruising, bleeding, or petechiae. Neuro: Patient is alert and orientated to person place and time, appropriate affect sensation to touch and pain intact, has a wasting appearance, thought c ontext, judgement, mood and affect are appropriate for age and situation. Objective Labs Result Diagrams: 09/27/20 04:53 09/27/20 04:53 Labs: Laboratory Results - last 24 hr 09/26/20 09/26/20 09/26/20 19:50 19:50 21:35 WBC 9.1 RBC 4.01 Hgb 11.9 L Hct 36.2 MCV 90.3 MCH 29.6 MCHC 32.8 RDW 12.9 Plt Count 391 Neut % (Auto) 56.4 Lymph % (Auto) 23.9 L Boyle % (Auto) 14.7 H Eos % (Auto) 4.3 H Baso % (Auto) 0.7 Neut # (Auto) 5100 Lymph # (Auto) 2200 Boyle # (Auto) 1300 H Eos # (Auto) 400 Baso # (Auto) 100 Sodium 133 L Potassium 2.8 L Chloride 89 L Carbon Dioxide 37 H BUN 21 H Creatinine 0.98 Estimated GFR 57.5 L BUN/Creatinine Ratio 21.4 Glucose 92 Calcium 9.6 Magnesium Total Bilirubin AST ALT Alkaline Phosphatase Total Protein Albumin Globulin Albumin/Globulin Ratio Urine Color Urine Appearance Urine pH Ur Specific [place] Urine Protein Urine Glucose (UA) Urine Ketones Urine Occult Blood Urine Nitrate Urine Bilirubin Urine Urobilinogen Ur Leukocyte Esterase Urine RBC Urine WBC Urine Bacteria Ur Culture Indicated? Nasal Screen MRSA (PCR) COVID-19 PCR Negative 09/27/20 09/27/20 09/27/20 01:00 03:50 04:53 WBC 6.3 RBC 3.76 L Hgb 11.2 L Hct 34.0 L MCV 90.6 MCH 29.8 MCHC 32.9 RDW 12.9 Plt Count 354 Neut % (Auto) 91.8 H D Lymph % (Auto) 6.3 L Boyle % (Auto) 1.6 L Eos % (Auto) 0.1 L Baso % (Auto) 0.2 Neut # (Auto) 5800 Lymph # (Auto) 400 L Boyle # (Auto) 100 Eos # (Auto) 0 Baso # (Auto) 0 Sodium Potassium Chloride Carbon Dioxide BUN Creatinine Estimated GFR BUN/Creatinine Ratio Glucose Calcium Magnesium Total Bilirubin AST ALT Alkaline Phosphatase Total Protein Albumin Globulin Albumin/Globulin Ratio Urine Color Yellow Urine Appearance Clear Urine pH 7.0 Ur Specific [place] 1.010 Urine Protein Negative Urine Glucose (UA) Negative Urine Ketones Trace H Urine Occult Blood Trace-intact Urine Nitrate Negative Urine Bilirubin Negative Urine Urobilinogen 0.2 Ur Leukocyte Esterase Negative Urine RBC 0-1/hpf Urine WBC 0-1/hpf Urine Bacteria None seen Ur Culture Indicated? Cult not indicated Nasal Screen MRSA (PCR) Negative for mrsa COVID-19 PCR 09/27/20 04:53 WBC RBC Hgb Hct MCV MCH MCHC RDW Plt Count Neut % (Auto) Lymph % (Auto) Boyle % (Auto) Eos % (Auto) Baso % (Auto) Neut # (Auto) Lymph # (Auto) Boyle # (Auto) Eos # (Auto) Baso # (Auto) Sodium 131 L Potassium 3.8 Chloride 95 L Carbon Dioxide 32 BUN 17 Creatinine 0.82 Estimated GFR > 60.0 BUN/Creatinine Ratio 20.7 Glucose 131 H Calcium 8.7 Magnesium 1.4 L Total Bilirubin 0.6 AST 43 H ALT 24 Alkaline Phosphatase 66 Total Protein 6.9 Albumin 3.9 Globulin 3.0 Albumin/Globulin Ratio 1.3 Urine Color Urine Appearance Urine pH Ur Specific [place] Urine Protein Urine Glucose (UA) Urine Ketones Urine Occult Blood Urine Nitrate Urine Bilirubin Urine Urobilinogen Ur Leukocyte Esterase Urine RBC Urine WBC Urine Bacteria Ur Culture Indicated? Nasal Screen MRSA (PCR) COVID-19 PCR Assessment & Plan Assessment & Plan narrative: This patient requires acute care inpatient hospital management for aspiration of foreign body and hypokalemia due to risk aspiration and/or acute respiratory distress. The patient is at much higher risk for medical and surgical complications because of her history of stroke, COPD, osteoporosis and back pain, mixed hyperlipidemia, hypertension, major depression, and history of tobacco and alcohol abuse. These factors increase the difficulty and complexity of medical and surgical interventions and increases the chances of poor outcomes such as morbidity and mortality, as well the patient's previous 3 hospitalizations in this calendar year. The patient's foreign body will impact her oxygenation, which will likely continue to cause exacerbation of her COPD worsening her chances and risk for aspiration pneumonia and/or acute respiratory distress. 1. Aspiration of foreign body, new acute onset, grape, present on admission CT Chest : Debris within the dependent portion of the trachea in keeping with aspiration.Additional large amount of debris seen within the mid and distal esophagus. 1 cm spiculated nodule involving the left upper lobe. This appears new and is worrisome or early malignant/metastatic disease. Consider further evaluation with PET-CT in the nonemergent setting No acute consolidation Airway thickening in keeping with nonspecific bronchitis and/or reactive airways disease. -ED consulted with Dr. Ferreira with pulmonology at [facility] who initially stated that since the patient was not in any respiratory distress and the fact that there was no overt obstruction on the CT scan that sending her home with antibiotics and follow-up in her office tomorrow when not being on reasonable course of action. When incidental finding of the left-sided lung nodule in the importance of following up with this on CT patient also had a low potassium was low so she was given oral potassium. The patient began coughing becoming consistently hypoxic into the high 80s and low 90s. It was determined in the ER that the patient may need a bronchoscopy, ED consulted with driver license examiner at [facility] who recommended antibiotics and steroids and observation. Dr. Salguero stated that he asked that the hospitalist tomorrow give him a call to discuss the patient further. -supporting imaging labs hemoglobin 11.9, potassium 2.8, bicarb 37, chloride 89, BUN 21, creatinine 0.98, estimated GFR 57.5 -morning repeat labs potassium, ABGs, CBC CMP and UA to rule out UTI, patient reported urinary retention in the night so bedside bladder scan was completed with a cath for urinalysis -Patient had in ER: GI cocktail, min, lorazepam methylprednisone, 40 mEq of potassium, normal saline 1000 cc. -patient to be monitored on tele medicine, vital signs q.4 hours, intake and output monitored Q shift, weight measure daily, diet: NPO ice chips only the medication -IV fluids: None -vital signs temp 99, 156/69, heart rate 84, respirations 24, SaO2 97% on room air -consults ordered physical therapy, occupational therapy, speech therapy, dietary, respiratory therapy. -prevention vaccine recommend pneumonia and flu 2. Malnutrition, acute on chronic, present on admission, BMI 16.2 -dietary consult ordered with recommendations nutritional supplement. -will monitor weight daily. -patient is missing all lower teeth and half of upper teeth impairing mastication. 3. Hypertension, chronic, stable, not present on admission -patient to continue home metoprolol 50 mg once day, amlodipine 2.5 mg once daily. -history of a stroke in 1999-patient to continue clopidogrel 75 mg once daily -patient placed on heart healthy diet 4. Mixed hyperlipidemia, chronic, stable not present on admission -patient to continue atorvastatin 40 mg at bedtime 5. Major depressive disorder, chronic, stable not present on admission -patient to continue citalopram 20 mg p.o. once daily, bupropion 300 mg p.o. daily -patient denies suicidal ideation VTE prophylaxis: Enoxaparin 40 units daily, SCDs Surrogate: Haile Marquis (son), Reid NUNEZ PCR: Negative PCP: Kandi Malhotra Plan of care/[id number]: None Scores GCS Christina coma scale eye opening: Spontaneous [place] coma scale verbal response: Orientated Christina coma scale motor response: Obey commands Christina coma scale total score: 15
[2020-09-27] MEDS: AMLODIPINE 5 MG TABLET 2.5 MG PO (09:32)
[2020-09-27] MEDS: buPROPion XL 150 MG TAB 300 MG PO (09:32)
[2020-09-27] MEDS: CITALOPRAM 10 MG TABLET 20 MG PO (09:32)
[2020-09-27] MEDS: METOPROLOL ER 50 MG TABLET 25 MG PO (09:33)
[2020-09-27] MEDS: predniSONE 20 MG TABLET 40 MG PO (09:33)
[2020-09-27] MEDS: PANTOPRAZOLE 40 MG TABLET PO (09:33)
[2020-09-27] MEDS: CLOPIDOGREL 75 MG TABLET PO (09:33)
[2020-09-27] MEDS: hydroCHLOROthiazide 12.5 MG CAPSULE PO (09:33)
[2020-09-27] MEDS: SODIUM CHLORIDE 0.9% FLUSH 10 ML IV ×3 (09:37→20:26)
[2020-09-27] MEDS: levoFLOXacin 500 MG TABLET PO (10:10)
--- NOTE | 2020-09-27 10:10 | DIET.PN ---
Dietary Progress Note RD attaching note from comprehensive nutrition assessment during last hospitalization on 08/29/2020. Pt admitted after choking on grapes. During previous hospitalization pt reported frequent nausea and a sensation that food is sitting in throat which discourages her from eating. Pt has lost further weight despite targeted nutrition interventions (-3.4% in 1mo) with severe BMI of 15.6. Pts nutrition status is complicated by COPD, poor dentition, and food and housing insecurity. Nutrition Diagnosis: Severe chronic protein calorie malnutrition related to progressing COPD and decreased appetite secondary to nausea despite antinausea medication as evidenced by BMI 15.6 (severe), pt reporting regularly skipping meals due to nausea and vomiting for past couple years, severe global fat loss, severe muscle loss (deltoids and extremities), higher calorie needs due to COPD exacerbation, pt unable to consume variety of textures due to several missing and broken teeth and pts housing insecurity. Interventions: 1. Pt is currently NPO, recc ONS Ensure Enlive tid supplying 87% kcals and 110% protein needs in addition to meal trays to encourage increased muscle mass in conjunction c physical therapy. 2. Will work c pt to secure coupons and source of ONS Ensure Enlive for home use. Previous detailed dietary note as follows: 64yr F admitted with SOB and COPD exacerbation. Pt has been to the ER 3 other times this year for SOB and COPD exacerbation. Pt reports that she experiences a lot of nausea and vomiting which impacts her eating. Pt takes an anti nausea medication sometimes but still experiences the nausea often. Pt would like some investigation into why she is experiencing this, would like someone to look at her upper GI. Pt reports that she feels like food is sometimes just sitting in her throat. Pt says when she is experiencing this she is discouraged from eating. Pt has realized her nausea and vomiting is the worst when she eats too fast. Pt also says she feels sick if she goes to long without eating. Pt says she didn't eat anything the day before admission because she was feeling bad. Pt eating also impacted by her SOB related to her COPD. Pt on nasal cannula oxygen at this time. Pt desaturated to 76% during our conversation. Pt has IBS which causes her to have small hard stools, like a rabbit. Pt lives in a 1 bedroom at the emergency assisted. Pt was previously living in her car and only got placed at the assisted 07/11/20. Pt receives $200 a month of basic food for 3/4 of the year. Pt reports that she has enough food at home and does not have problems getting food at this time. Pt reports receiving lunch from [employer] and gets her own groceries for her other meals or eats out. Pt is reporting that she sometimes makes foods such as grilled cheese with soup or potato salad. Patient says the other half of the time she eats out and particularly enjoys Yi food. Pt also reports that sometimes she doesn't eat anything at all because she is too nauseous. Pt reports that most of her adult life she weighed 130# until just before her neck surgery when she started losing weight. Pt unsure how long she has been at her current wt but says for the past 3-4 years she has had the decreased appetite related to her nausea and vomiting. Pt is missing her bottom teeth, and many of her top teeth. Patient has one cracked tooth and is experiencing sensitivity in another. Pt is choosing soft foods. Pt sometimes purchases ONS Ensure vanilla and drinks them up to 3x/d. Pt says she likes them very cold because they feel good going down. NFPE revealed severe global fat loss, severe muscle wasting (deltoids,legs, arms), cracked red swollen tongue, dry cracked lips, cracked and red corners of mouth, hair thinning and bald spots, dry skin. Pt reports her skin and lips are continuously dry. Pt reports that she would like to gain weight but it is difficult. HT: 149.86cm WT:36.287kg BMI: 16.2 ( severe for age) Labs: NTpBNP: 2700H CO2: 35H ABG PO2: 76L MNA: 9@ risk for malnutrition Edouard:16 Nutrition Diagnosis: Severe chronic protein calorie malnutrition related to progressing COPD and decreased appetite secondary to nausea despite antinausea medication as evidenced by BMI 16.2 (severe), pt reporting regularly skipping meals due to nausea and vomiting for past couple years, severe global fat loss, severe muscle loss (deltoids and extremities), higher calorie needs due to COPD exacerbation, pt unable to consume variety of textures due to several missing and broken teeth and pts housing insecurity. Interventions: 1. ONS Ensure enlive BID to provide 700kcal ( 58% of needs) and 40g Pro (72% of needs). Pt says she enjoys drinking regular ensure and they are easier for her to get them down especially when cold. Recc. continuing ONS when discharged. Pt has sent a form from her DrShaunna to [employer] requesting that they are included on her tray. 2. Provide mechanical soft diet to decrease work of chewing related to patients missing teeth. 3. Educated pt about choosing higher protein and healthy fat foods. Recc. meats, eggs, beans, nut butters. Diet Order: HH EER: 1200kcal ( 33kcal/kg for PCM) 55g Pro (1.5g/kg, PCM) Monitoring/Evaluations: % meal consumed, ONS tolerance
[2020-09-27] MEDS: TIOTROPIUM BROMIDE 18 MCG INHALER INH (11:37)
[2020-09-27] MEDS: guaiFENesin ER 600 MG TAB 1200 MG PO ×2 (11:59→20:14)
[2020-09-27] MEDS: BENZONATATE 100 MG CAPSULE PO ×2 (12:00→18:31)
[2020-09-27] MEDS: MAGNESIUM SULFATE 2 GM/50 ML PIGGYBACK IV (14:01)
[2020-09-27] MEDS: ENOXAPARIN 30 MG/0.3 ML SYRINGE SUBCUT (14:01)
[2020-09-27] MEDS: polyethylene glycoL 3350 17 GM POWD.PACK PO (14:07)
[2020-09-27] MEDS: DOCUSATE 100 MG CAPSULE PO ×2 (14:07→20:15)
[2020-09-27] MEDS: CYCLOBENZAPRINE 5 MG TABLET PO ×2 (14:08→20:13)
--- NOTE | 2020-09-27 14:33 | OT.IPNOTE ---
Per Dr. Escoto to have PT see pt first to determine if OT eval is needed, therefore hold OT eval until after PT has seen the pt.
--- NOTE | 2020-09-27 15:35 | PT.IIE ---
Surgical History (Last Updated 08/28/20 @ 22:54 [facility] History of neck surgery History of spinal surgery Total knee replacement status Medical History (Last Reviewed 09/27/20 @ 07:54 by [facility] Alcohol abuse, in remission COPD (chronic obstructive pulmonary disease) Hypertension Irritable bowel syndrome (IBS) Neck pain with history of cervical spinal surgery Pancreatitis Stage 2 moderate COPD by GOLD classification Stroke Tobacco abuse, in remission Urinary tract infection Physical Therapy Inpatient Evaluation/Re-Eval M1 PT/OT-IP Prior Functional Status Start: 09/27/20 15:10 Freq: NEEDED Status: Active Protocol: Document 09/27/20 15:10 [facility] (Rec: 09/27/20 15:20 [facility] [id number]) Medical Review Prior Functional Status Medical History Reviewed Yes Diet/Fluid Consistency Regular Communication WNL Mobility and Gait Pt reports indep w/o AD in the home. She has a hurricane to use for uneven surfaces Activities of Daily Living and IADL's indep with dressing, bathing, cooking & cleaning, still driving Social History Household Members none Living Arrangements Apartment/Condo Number of Floors (Floors) One Floor Number of Stairs To Enter/Railing? 3 DARSHAN with rail or ramp Home Environment Standard Height Toilet,Tub/ Shower Home Equipment Grab Bars Near Toilet,Grab Bars In Shower Additional Social History Comment Pt living in family center housing. M2 PT-IP Current Condition Start: 09/27/20 15:10 Freq: NEEDED Status: Active Protocol: Document 09/27/20 15:10 [facility] (Rec: 09/27/20 15:20 [facility] [id number]) Physical Therapy Current Condition Current Condition Evaluation Date 09/27/20 Treatment Diagnosis aspiration, COPD, weakness M3 PT-IP Subjective Start: 09/27/20 15:10 Freq: NEEDED Status: Active Protocol: Document 09/27/20 15:10 [facility] (Rec: 09/27/20 15:20 [facility] [id number]) Subjective Physical Therapy Visit Type Type Initial Evaluation Visit Start Time 14:33 Visit Stop Time 15:03 Total Visit Minutes 30 Number of MEDICAL ESTHETICIAN Visits 0 M4 PT-IP Mobility and Gait Start: 09/27/20 15:10 Freq: NEEDED Status: Active Protocol: Document 09/27/20 15:10 [facility] (Rec: 09/27/20 15:20 [facility] [id number]) PT-Bed Mobility Assessment Sit to Supine Sit to Supine Independent Scooting Scooting Up and Down in Bed Independent PT-Transfer Assessment Sit to and From Stand Sit to and from Stand Standby Assistance,Use of Upper Extremities Equipment Transfer Assistive Device Gait Belt Orthotic/Prosthetic Devices or Brace: No Transfers Transfer Destination Bed Transfer Technique Stand Step Pivot Transfer Ability Level of Assist Standby Assistance Comments Mobility Comments Pt was able to transfer SBA to chair and did sit to stand SBA from chair SBA. She stood from chair SBA then amb about 50ft CGA then sat with O2 at 94% after amb. She then rested then amb about 150ft CGA with occ reaching for surfaces when walking & 2 standing rest breaks. Cueing throughout for breathing. O2 93% after walking. Pt then transfered to bed SBA Gait Assessment Gait Gait Assistance Required: Contact Guard Assist Distance (Feet) 200 Assistive Devices Assistive Device Gait Belt Gait Deviations General Gait Pattern Lateral Trunk Lean Factors Limiting Gait Function Factors Limiting Gait Function Decreased Activity Tolerance, Decreased Strength,Poor Balance,Poor Safety Awareness PT-Balance Assessment Sitting Balance and Reactions Static Sitting Balance Ability Good Dynamic Sitting Balance Ability Good Standing Balance and Reactions Static Standing Balance Ability Fair Dynamic Standing Balance Ability Fair M5 PT-IP Objective Assessments Start: 09/27/20 15:10 Freq: NEEDED Status: Active Protocol: Document 09/27/20 15:10 [facility] (Rec: 09/27/20 15:20 [facility] [id number]) Orientation Orientation/Cognition Level of Alertness Alert Language Function Ability No Deficits Noted Safety Awareness Understands Safety Issues Memory Description No Deficits Noted M6 PT-IP Treatment Start: 09/27/20 15:10 Freq: NEEDED Status: Active Protocol: Document 09/27/20 15:10 [facility] (Rec: 09/27/20 15:20 [facility] [id number]) Physical Therapy Treatment Education Education Provided Safety M7 PT-IP Assessment and Plan Start: 09/27/20 15:10 Freq: NEEDED Status: Active Protocol: Document 09/27/20 15:10 [facility] (Rec: 09/27/20 15:20 [facility] [id number]) PT Summary Assessment and Plan Potential Rehabilitation Potential Good Status of Condition at Evaluation Evolving Summary Impairments Strength,Balance,Transfers, Gait,Activity Tolerance Assessment Summary Pt presents with difficulty breathing that has limited her mobility for the past 3 days and an inc in coughing over the past couple weeks. She aspirated on a grape last night which has made her COPD worse. She has dec activity tolerance and requires cueing for breathing during gait. She does tend to lean into cullen and reach for other surfaces. She would benefit from skilled PT in order to return to typical function including edu re: energy conservation. Goals Bed Mobility Goal Independent Transfer Goal Independent Gait Goal Independent Gait Distance 150ft Other Goals up/down 3 steps w/ rail Days to Meet Goals 5 Frequency of Treatment Frequency Of Treatment Once a Day Treatment Plan Physical Therapy Treatment Plan Bed Mobility Training,Transfer Training,Gait Training, Therapeutic Exercise,Balance Retraining,Discharge Planning, Neuromuscular Re-ed Recommendations To Nursing Amount of Assist Needed Standby Assistance Discharge Recommendations PT Discharge Recommendations Home,Outpatient PT Other Discharge Recommendations may benefit from cardiopulm rehab for activity tolerance and outpatient PT for balance Transportation Needs at Discharge Private Vehicle
--- NOTE | 2020-09-27 16:09 | ST.IPIE ---
Visit Care Team Role Provider Type Kandi Malhotra MD Family Provider Non-Staff Primary Care Provider Specialty: Family Practice Address: [address] [place] [address], [id number] Email: Doug Godoy DO Emergency Provider Physician Specialty: Emergency Medicine Address: [address] [place] [address], [id number] Email: [email or web address] [facility] Ad[facility] Provider Physician Attending Provider Specialty: Medical Address: [address] [place] [address], [id number] Email: Past Medical History (Last Reviewed 09/27/20 @ 07:54 by Janet Powell [facility]) Alcohol abuse, in remission (Medical) COPD (chronic obstructive pulmonary disease) (Medical) Hypertension (Medical) Irritable bowel syndrome (IBS) (Medical) Dx 1999 Neck pain with history of cervical spinal surgery (Medical) Pancreatitis (Medical) Stage 2 moderate COPD by GOLD classification (Medical) Stroke (Medical) 1999 Tobacco abuse, in remission (Medical) Urinary tract infection (Medical) 08/10/18 - prescribed cephalexin ST IP Initial Evaluation Report SKIP HOIST ENGINEER Clinical Swallow Evaluation Start: 09/27/20 12:16 Freq: Status: Active Protocol: Document 09/27/20 12:16 [facility] (Rec: 09/27/20 12:30 [facility] [id number]) Clinical Swallow Evaluation Session Time Visit Start Time 09:30 Visit Stop Time 10:15 Total Visit Minutes [address] Escoto Reason for Referral Aspiration of foreign object Setting Assessment Location Acute Care Visit Type Note Type Initial evaluation Next Note Type Next Note Type Treatment Note Patient Information Identification Type Name,ID Card History The pt is a 64-yr-old female admitted to hospital after aspirating a grape. CT Chest: Debris within the dependent portion of the trachea in keeping with aspiration. Additional large amount of debris seen within the mid and distal esophagus. 1 cm spiculated nodule involving the left upper lobe. This appears new and is worrisome or early malignant/ metastatic disease. Consider further evaluation with PET-CT in the nonemergent setting No acute consolidation Airway thickening in keeping with nonspecific bronchitis and/or reactive airways disease. The pt has a history of stroke , COPD, osteoporosis and back pain, mixed hyperlipidemia, hypertension, major depression , and history of tobacco and alcohol abuse. Subjective Observations The pt was awake, lying in bed upon SKIP HOIST ENGINEER arrival. She was agreeable to swallow evaluation and repositioned to upright in bed. The pt was observed to produce strong coughs prior to oral intake. When asked if she typically coughed so hard, she responded , Yes, or even worse. It's my COPD. The pt is homeless and has been living at the emergency senior living, where she receives food via Meals on Wheels, per pt report. She consumes whatever they provide, with exception of foods that require strong mastication because she is largely edentulous. She stated that she has dentures but does not typically wear them. Reported by Patient Current Diet Nothing by mouth Baseline Feeding Method Independent in self-feeding Objective Assessment Mental Status Alert,Responsive,Cooperative Oral Integrity WFL Dentition Missing teeth Lip Function Mild impairment Observation of Lips at Rest Symmetrical Pucker Reduced range of motion, Reduced strength Lip Retraction Within normal limits Alternating Pucker/Lip Retraction Reduced range of motion, Incoordination Tongue Function Mild impairment Observations of Tongue at Rest Within normal limits Tongue Protrusion Within normal limits Tongue Lateralization Reduced strength Jaw Function Within normal limits Observations of Jaw at Rest Within normal limits Jaw Opening Within normal limits Jaw Closing Within normal limits Jaw Lateralization Within normal limits Hard/Soft Palate Function Within normal limits Observations of Hard/Soft Palate Within normal limits Nasality Within normal limits Phonation Within normal limits Respiratory Sufficiency Moderate impairment Comment Respiratory insufficiency secondary to COPD Food and Liquid Trials Position During Assessment Upright (90 degrees) Liquids Trialed Ice chips,Thin,[place] Solids Trialed Puree,Dysphagia Mechanical Administration Type Tea spoon,Cup single sip,Cup consecutive sips,Straw,Self- feeding Oral Impairment Mildly impaired Oral Phase Comments Pt has 5 upper front teeth; otherwise edentulous. Pharyngeal Phase Comments The pt exhibited coughing throughout oral intake, before and after swallows. Difficult to determine if source of coughing was aspiration or COPD related, or both. Coughing after swallow of thin liquid was most consistent, indicating likely presence of aspiration. Pharyngeal impairment cannot be determined without instrumental evaluation. Discussed these findings with Dr. Escoto. Given comorbidities , the pt is not a good candidate for Modified Barium Swallow Study at this time. Fatigue/Endurance Moderate fatigue Findings Swallowing Function Comments Moderate oropharyngeal dysphagia is suspected Contributing Factors to Swallow Reduced oral strength/ Impairment coordination/sensation, Mastication inefficiency, Impaired airway protection Prognosis Fair Based on Comorbidities Comment Pharyngeal dysphagia severity cannot be determined without instrumental evaluation. Pt is not appropriate at this time. Impact on Safety and Functioning Risk for aspiration,Risk for inadequate nutrition/hydration Recommendations Swallowing Treatment Yes Frequency Daily over hospital stay Other Recommendations Dr. Escoto to determine course of action. If pt to resume oral intake, dysphagia mechanical texture and thin liquids in single sips is recommended with 1:1 supervision for safety and appropriate bite/sip sizes. Meds as tolerated. The pt was unavailable to educate RE results of evaluation and POC. Informed Nsg who, in addition to MD, was to educate pt. Discharge Recommendations detention facility Goals Short-term Goals 1. The pt will participate in ongoing evaluation of swallow safety, including MBSS if appropriate. 2. The pt will follow safe swallow strategies with min prompts to reduce risk of aspiration. Long-term Goals 1. The pt will tolerate least restrictive diet to meet her nutrition and hydration needs.
--- NOTE | 2020-09-27 16:26 | CM.DANOTE ---
DCP/Assessment: Reviewed chart. Patient is a 64yr old female admitted to [facility] with [facility]B. PCP listed is Kandi Malhotra. Primary payor is 1)Medicaid 2)[facility] Met with patient explained role. Patient reports that she currently resides at [facility]. Patient plans to return there upon d/c. Patient requesting KNOWLEDGE ENGINEER call [facility] to let them know that she is remaining hospitalized this today. KNOWLEDGE ENGINEER and patient attempted call but phone not picking up at [facility]? Patient reports that she will continue to try this evening. Contact at [facility] is [facility]a# [phone] ext# [phone]. P: Anticipate home when stable. Patient appears to be at her physical baseline. ANA Abdalla Discharge Planning/Care Management CM Discharge Assessment Start: 09/27/20 16:23 Freq: Status: Active Protocol: Document 09/27/20 16:23 [facility] (Rec: 09/27/20 16:26 [facility] [id number]) Discharge Planning Assessment Assigned Turbo Electric Operator ANA Abdalla Contact Information Haile Marquis (son) ph# ext# [phone] Advance Directives? No History Provided By Patient,Medical Record Prior Living Arrangements Apartment/Condo Comment [facility] contact: Cora ph# ext# [phone] Household Members none Type of transporation used prior to Medicaid Transport admit Independent with ADL's Yes Is patient alert and oriented? Yes Caregiver for Another No Comment Patient plans to return to [facility] when she is medically stable. KNOWLEDGE ENGINEER attempted to call but unable to reach? Discharge Plan Home Transportation Arrangement Facilty or walk? Medicaid will not provide transport if not at least 1 mile. Additional Comment Unknown at this time. Review Status In Process Next Review Type Continued Stay Review
[2020-09-27] MEDS: IBUPROFEN 600 MG TABLET PO ×2 (16:55→23:41)
[2020-09-27] MEDS: hydrOXYzine pamoate 25 MG CAPSULE 50 MG PO (20:14)
[2020-09-27] MEDS: ATORVASTATIN 20 MG TABLET 40 MG PO (20:15)
[2020-09-27] MEDS: ALBUTEROL HFA MDI 60 PUFF/8 GM INHALER INH (20:37)
--- NOTE | 2020-09-27 20:38 | PC.NURSE ---
Pt AAOx4, cooperative with care, complains of 6-7/10 right shoulder pain unrelieved by Ibuprophen, cyclobenzaprine, ice or heat. Ambulates to BR with standby assist. Occasional hacking non-productive cough. IV saline locked. bed in low and locked position, belongings within reach.
[2020-09-27] MEDS: LORazepam 0.5 MG TABLET PO (21:49)
[2020-09-28 05:04] VITALS: BP 126/63; PULSE 73; RESP 20; TEMP 35.8; O2SAT 94
[2020-09-28 05:25] LABS: Add Manual Diff / Slide Review NO; Basophils Absolute Auto 0 /uL (0-100); Basophils Percent Auto 0.5 % (0-2); Eosinophils Absolute Auto 100 /uL (0-450); Eosinophils Percent Auto 1.5 % (2-4); Hematocrit 32.8 % (36-46); Hemoglobin 10.8 g/dL (12.0-16.0); Lymphocytes Absolute Auto 2700 /uL (1100-4500); Lymphocytes Percent Auto 32.8 % (25-40); Mean Corpuscular HGB Conc 33.1 % (30-36); Mean Corpuscular Hemoglobin 29.6 PG (26-34); Mean Corpuscular Volume 89.4 fL (80-100); Monocytes Absolute Auto 1300 /uL (0-900); Monocytes Percent Auto 15.8 % (3-14); Neutrophils Absolute Auto 4100 /uL (1500-7000); Neutrophils Percent Auto 49.4 % (50-75); Platelet Count 387 X10^3/uL (150-400); Red Blood Cell Count 3.66 X10^6/uL (4.0-5.2); Red Cell Distribution Width 13.1 % (11.6-14.8); White Blood Cell Count 8.3 X10^3/uL (4.5-11.0)
[2020-09-28 05:34] LABS: BUN Creatinine Ratio 24.4 (6-22); Blood Urea Nitrogen 20 mg/dL (7-17); Calcium 8.7 mg/dL (8.4-10.2); Carbon Dioxide 37 mmol/L (22-32); Chloride 95 mmol/L (98-107); Estimated Glomerular Filt Rate > 60.0 mL/min (>60); Glucose 98 mg/dL (80-110); HEMOLYSIS < 15 (0-50); Potassium 3.4 mmol/L (3.4-5.1); Sodium 132 mmol/L (137-145)
[2020-09-28 05:46] LABS: Procalcitonin < 0.05 ng/mL (<0.5)
[2020-09-28 08:00] VITALS: BP 131/67; PULSE 72; RESP 19; TEMP 36.4; O2SAT 92
[2020-09-28 08:18] VITALS: PULSE 110; RESP 22
[2020-09-28] MEDS: TIOTROPIUM BROMIDE 18 MCG INHALER INH (08:18)
[2020-09-28] MEDS: hydroCHLOROthiazide 12.5 MG CAPSULE PO (08:38)
[2020-09-28] MEDS: METOPROLOL ER 25 MG TABLET PO (08:39)
[2020-09-28] MEDS: IBUPROFEN 600 MG TABLET PO (08:39)
[2020-09-28] MEDS: guaiFENesin ER 600 MG TAB 1200 MG PO (08:39)
[2020-09-28] MEDS: DOCUSATE 100 MG CAPSULE PO (08:40)
[2020-09-28] MEDS: buPROPion XL 150 MG TAB 300 MG PO (08:40)
[2020-09-28] MEDS: CLOPIDOGREL 75 MG TABLET PO (08:40)
[2020-09-28] MEDS: CITALOPRAM 10 MG TABLET 20 MG PO (08:40)
[2020-09-28] MEDS: predniSONE 20 MG TABLET 40 MG PO (08:40)
[2020-09-28] MEDS: AMLODIPINE 5 MG TABLET 2.5 MG PO (08:41)
[2020-09-28] MEDS: BENZONATATE 100 MG CAPSULE PO (08:41)
[2020-09-28] MEDS: ENOXAPARIN 30 MG/0.3 ML SYRINGE SUBCUT (08:41)
[2020-09-28] MEDS: PANTOPRAZOLE 40 MG TABLET PO (08:41)
[2020-09-28] MEDS: SODIUM CHLORIDE 0.9% FLUSH 10 ML IV (08:42)
[2020-09-28] MEDS: polyethylene glycoL 3350 17 GM POWD.PACK PO (08:42)
[2020-09-28] MEDS: levoFLOXacin 250 MG TABLET 750 MG PO (09:33)
--- NOTE | 2020-09-28 09:53 | OT.IP.EVAL ---
Past Medical History (Last Reviewed 09/27/20 @ 07:54 [facility] Alcohol abuse, in remission COPD (chronic obstructive pulmonary disease) Hypertension Irritable bowel syndrome (IBS) Neck pain with history of cervical spinal surgery Pancreatitis Stage 2 moderate COPD by GOLD classification Stroke Tobacco abuse, in remission Urinary tract infection Surgical History (Last Updated 08/28/20 @ 22:54 by [facility] History of neck surgery History of spinal surgery Total knee replacement status Occupational Therapy Inpatient Evaluation/Re-Eval M1 PT/OT-IP Prior Functional Status Start: 09/27/20 15:10 Freq: NEEDED Status: Active Protocol: Document 09/27/20 15:10 [facility] (Rec: 09/27/20 15:20 [facility] [id number]) Medical Review Prior Functional Status Medical History Reviewed Yes Diet/Fluid Consistency Regular Communication WNL Mobility and Gait Pt reports indep w/o AD in the home. She has a hurricane to use for uneven surfaces Activities of Daily Living and IADL's indep with dressing, bathing, cooking & cleaning, still driving Social History Household Members none Living Arrangements Apartment/Condo Number of Floors (Floors) One Floor Number of Stairs To Enter/Railing? 3 DARSHAN with rail or ramp Home Environment Standard Height Toilet,Tub/ Shower Home Equipment Grab Bars Near Toilet,Grab Bars In Shower Additional Social History Comment Pt living in family center housing. M1 PT/OT-IP Prior Functional Status Start: 09/28/20 13:21 Freq: NEEDED Status: Active Protocol: Document 09/28/20 13:31 [facility] (Rec: 09/28/20 13:52 [facility] [id number]) Medical Review Prior Functional Status Medical History Reviewed Yes Diet/Fluid Consistency Regular Communication WNL Mobility and Gait Pt reports indep w/o AD in the home. She has a hurricane to use for uneven surfaces Activities of Daily Living and IADL's indep with dressing, bathing, cooking & cleaning, still driving Social History Household Members none Living Arrangements Apartment/Condo Number of Floors (Floors) One Floor Number of Stairs To Enter/Railing? 3 steps to enter with railing or ramp. Home Environment Standard Height Toilet,Tub/ Shower Home Equipment Grab Bars Near Toilet,Grab Bars In Shower Employment Status Unemployed Additional Social History Comment Pt has a hurricane M2 OT-IP Current Condition Start: 09/28/20 13:21 Freq: Status: Active Protocol: Document 09/28/20 13:31 [facility] (Rec: 09/28/20 13:52 [facility] [id number]) Occupational Therapy Current Condition Current Condition Evaluation Date 09/28/20 Treatment Diagnosis Aspiration of foriegn object, low potassium, hypotension Diagnosis Onset Date 09/26/20 M3 OT- IP Subjective and Pain Start: 09/28/20 13:21 Freq: Status: Active Protocol: Document 09/28/20 13:31 [facility] (Rec: 09/28/20 13:52 [facility] [id number]) OT- Subjective Occupational Therapy Visit Type Type Initial Evaluation Visit Start Time 09:39 Visit Stop Time 09:53 Total Visit Minutes 24 Notes Pt up in bathroom when OT entered OT Pain Assessment Pain When Pain Assessed At Rest Pain Present Pain Present Denied Pain M4 OT- IP ADL's Start: 09/28/20 13:21 Freq: Status: Active Protocol: Document 09/28/20 13:31 [facility] (Rec: 09/28/20 13:52 [facility] [id number]) OT [id number] Comments OT Self-Feeding Comments not meal time but just assessed by ST OT ADL-Grooming General Evaluation Grooming Ability Independent Areas Needing Assistance Face Washing Comments OT Grooming Comments standing at sink OT ADL-Oral Care General Eval Oral Care Ability Independent Areas of Assistance Brushing Teeth Comments Oral Care Comments standing at sink OT ADL-Dressing General Eval Lower Body Dressing Ability Independent Areas Needing Assistance Socks Comments OT Dressing Comments seated in chair OT ADL-Toileting General Evaluation Toileting Ability Independent Devices Toileting Assistive Devices Grab Bars Comments OT Toileting Comments seated on toielt for urination OT ADL-Bathing Comments OT Bathing Comments not performed M5 OT- IP IADL's Start: 09/28/20 13:21 Freq: Status: Active Protocol: Document 09/28/20 13:31 [facility] (Rec: 09/28/20 13:52 [facility] [id number]) OT-Instrumental Activities of Daily Living Deficits IADL Deficits Identified No Deficits Home Safety Awareness Awareness of Need for Assistance at Home Good Awareness Ability to Problem Solve Emergency Able to Problem Solve Situations Medication Management Medication Management No Deficits Identified Money Management Money Management No Deficits Identified Meal Preparation Meal Preparation Caregiver Provides Assist Parcel Post Weigher Parcel Post Weigher Caregiver Provides Assist Driving Driving Comments 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 OT- IP Functional Cognition Start: 09/28/20 13:21 Freq: Status: Active Protocol: Document 09/28/20 13:31 [facility] (Rec: 09/28/20 13:52 R [id number]) Cognitive Factors Limiting Selfcare Function Cognitive Ability Level of Alertness Alert Patient Orientation Name,Age,Birthday,Month,Date, Year,Day of Week,Place, Situation Attention Span Ability Capable of Focused Attention, Capable of Sustained Attention Ability to Follow Commands Able to Follow Multi-Step Commands Memory Description No Deficits Noted Safety Awareness No Deficits Noted OT- Vision and Hearing OT- Hearing Assessment OT- Hearing Assessment WFL OT- Vision Assessment Visual Acuity Glasses All The Time Visual Attentiveness WFL Occular Pursuits WFL Visual Convergence WFL M7 OT- IP Mobility and Balance Start: 09/28/20 13:21 Freq: Status: Active Protocol: Document 09/28/20 13:31 [facility] (Rec: 09/28/20 13:52 R [id number]) OT-Transfer Assessment Sit to and From Stand Sit to and from Stand Independent Transfers Transfer Ability Independent Technique Transfer Destination Chair,Toilet Transfer Technique Stand Step Pivot Devices Transfer Assistive Devices Gait Belt OT- Gait Assessment Gait Gait Assistance Required: Independent Assistive Devices Assistive Device Gait Belt Comments Gait Ability Comments Mobility around the room. OT- Balance Assessment Sitting Balance and Reactions Static Sitting Balance Ability Normal Dynamic Sitting Balance Ability Good M8 OT- IP Objective Assessments Start: 09/28/20 13:21 Freq: Status: Active Protocol: Document 09/28/20 13:31 [facility] (Rec: 09/28/20 13:52 R [id number]) OT Gross Range of Motion Upper Extremity Range of Motion Assessment Within Functional Limits OT Strength Upper Extremity Strength Assessment Bilaterally Impaired Comments Strength Comments grossly 3+/5 OT- Coordination Assessment Upper Extremity Finger to Nose Test Within Functional Limits Finger Tapping Test Within Functional Limits OT-Muscle Tone Assessment Muscle Tone WNL Yes OT Sensation Assessment Edema Edema Absent M9 OT- IP Assessment and Plan Start: 09/28/20 13:21 Freq: Status: Active Protocol: Document 09/28/20 13:31 [facility] (Rec: 09/28/20 13:52 [facility] [id number]) OT Summary Assessment and Plan Potential Rehabilitation Potential Good Analytic Complexity at Evaluation Low Summary OT Impairments Strength,Activity Tolerance Progress Towards Goals Safe For Discharge Assessment Summary Pt admitted s/p aspiration. Pt presents as a low complexity evalution. Pt is at or close to her baseline. No further OT needs. Frequency of Treatment Frequency Of Treatment Discharge Discharge Recommendations Transportation Needs at Discharge Private Vehicle
--- NOTE | 2020-09-28 09:57 | ST.IPDYTX ---
Visit Care Team Role Provider Type Kandi Malhotra MD Family Provider Non-Staff Primary Care Provider Specialty: Family Practice Address: [address] [place] [address], [id number] Email: Doug Godoy DO Emergency Provider Physician Specialty: Emergency Medicine Address: [address] [place] [address], [id number] Email: [email or web address] Janet Powell [facility] Admit Provider Physician Attending Provider Specialty: Medical Address: [address] [place] [address], [id number] Email: ODD JOBS DAY WORKER Dysphagia Treatment O[employer] DAY WORKER Dysphagia Treatment Start: 09/27/20 12:16 Freq: Status: Active Protocol: Document 09/28/20 09:41 MG (Rec: 09/28/20 09:57 MG [id number]) Dysphagia Treatment Session Time Visit Start Time 09:05 Visit Stop Time 09:35 Total Visit Minutes 30 Visit Information Visit Number 2 Setting Assessment Location Acute Care Visit Type Note Type Treatment Note Next Note Type Next Note Type Treatment Note Patient Information Identification Type Name,ID Wristband Subjective Observations Pt was sitting in a reclined position in bed upon ODD JOBS DAY WORKER entry . Pt was friendly and allowed ODD JOBS DAY WORKER to enter room to provide therapy this morning. Of note, pt did have coughing episode prior to liquid/solid trials. Cough sounded productive but weak. Treatment Liquids Trialed Thin Solids Trialed Puree,Dysphagia Mechanical Administration Type Cup Consecutive Sips,Self- Feeding Oral Strategies Upright at 90 degrees,Double Swallow,Controlled Bite/Sip Size Pharyngeal Strategies Sitting Upright (90 deg), Double Swallow,Small Bites and Sips Treatment Activities Per pt, she had a breakfast of pancakes and cream of wheat. Pt reported that she did not have difficulties eating her breakfast. O[employer] JOBS DAY WORKER trialed thin liquids, puree, and dysphagia mechanical textures to assess if current diet order was appropriate for the pt. Through all trials, no overt s /sx of aspiration noted. No voice change heard. Pt reported that all the food went down when asked if she felt like things were stuck. Time was spent during the session for education re: safe swallow strategies, the swallowing mechanism. Pt was agreeable to the plan at this time and keeping diet recommendations the same. Assessment Patient Response to Treatment Good Rehab Potential Fair Diet Recommendations Recommendations Continue Current Diet Liquids Order Thin Diet Order Dysphagia Mechanical Medication Recommendations As Tolerated,Whole in Carrier Comments Pt reported to like pills in carrier Additional Dietary Needs No Straws Aspiration Precautions Recommended Precautions Upright at 90 Degrees,Small Bites/Sips,Double Swallow Treatment Plan Placement Recommendation after Discharge [facility]sp Facility Appropriate for Continued Therapy Yes Dysphagia Goals 1. The pt will participate in ongoing evaluation of swallow safety, including MBSS if appropriate. 2. The pt will follow safe swallow strategies with min prompts to reduce risk of aspiration. 3. The pt will tolerate least restrictive diet to meet her nutrition and hydration needs.
--- NOTE | 2020-09-28 11:05 | PT.IPTN ---
Physical Therapy Treatment Note M2 PT-IP Current Condition Start: 09/27/20 15:10 Freq: NEEDED Status: Active Protocol: Document 09/27/20 15:10 LR (Rec: 09/27/20 15:20 [facility] [id number]) Physical Therapy Current Condition Current Condition Evaluation Date 09/27/20 Treatment Diagnosis aspiration, COPD, weakness M3 PT-IP Subjective Start: 09/27/20 15:10 Freq: NEEDED Status: Active Protocol: Document 09/28/20 11:01 AW (Rec: 09/28/20 11:45 AW [id number]) Subjective Physical Therapy Visit Type Type Treatment Note Visit Start Time 10:46 Visit Stop Time 11:01 Total Visit Minutes 15 Number of WATER POLLUTION CONTROL TECHNICIAN Visits 0 Physical Therapy Visit Comments Patient Comments I wish I could stop all this coughing. M4 PT-IP Mobility and Gait Start: 09/27/20 15:10 Freq: NEEDED Status: Active Protocol: Document 09/28/20 11:01 AW (Rec: 09/28/20 11:45 AW [id number]) PT-Transfer Assessment Sit to and From Stand Sit to and from Stand Standby Assistance,Use of Upper Extremities Equipment Transfer Assistive Device Gait Belt Orthotic/Prosthetic Devices or Brace: No Transfers Transfer Destination Chair,Toilet Transfer Technique Stand Step Pivot Transfer Ability Level of Assist Standby Assistance Comments Mobility Comments Pt was sitting up in the chair as PT arrived. BP was 131/67 HR 79 [id number]% on room air. She stood from the chair and walked to the toilet SBA. She transferred to and from the toilet SBA and then agreed to ambulate in the halls. She walked 60' before needing a seated rest break due to coughing and SOB. She was able to focus on her breathing and then continue for another 20 feet to the stairs. Pt completed stairs (3 steps x 2) and then ambulated 80 back to her room SBA. She returned to the chair with immediate VS of 127/79 HR 88 and SpO2 95% on room air. Gait Assessment Gait Gait Assistance Required: Standby Assistance Distance (Feet) 80 Assistive Devices Assistive Device Gait Belt Gait Deviations General Gait Pattern Lateral Trunk Lean Factors Limiting Gait Function Factors Limiting Gait Function Decreased Activity Tolerance, Decreased Strength,Poor Balance,Poor Safety Awareness, Respiratory Distress Comments Gait Comments Pt ambulates with excessive extension RLE. She reached for objects to steady herself x 3 during ambulation trial but did not require increase in assist. Stair Climbing Assessment Evaluation Level of Assist On Stairs Standby Assistance Devices Stair Climbing Assistive Devices Left Railing,Right Railing Technique/Endurance Stair Climbing Direction Ascend and Descend Stair Climbing Technique Step Over Step Number of Steps Climbed 3 Stair Climbing Set # Repetitions (reps) 2 Comments Stair Climbing Comments Pt completed first set of stairs (at ICU stairs) with B rails SBA and second set with unilateral rails SBA. No significant increase in SOB was observed. PT-Balance Assessment Sitting Balance and Reactions Static Sitting Balance Ability Good Dynamic Sitting Balance Ability Good Standing Balance and Reactions Static Standing Balance Ability Fair Dynamic Standing Balance Ability Fair Device Used without AD M5 PT-IP Objective Assessments Start: 09/27/20 15:10 Freq: NEEDED Status: Active Protocol: Document 09/27/20 15:10 LR (Rec: 09/27/20 15:20 LR [id number]) Orientation Orientation/Cognition Level of Alertness Alert Language Function Ability No Deficits Noted Safety Awareness Understands Safety Issues Memory Description No Deficits Noted M6 PT-IP Treatment Start: 09/27/20 15:10 Freq: NEEDED Status: Active Protocol: Document 09/28/20 11:01 AW (Rec: 09/28/20 11:45 AW [id number]) Physical Therapy Treatment Education Education Provided Safety M7 PT-IP Assessment and Plan Start: 09/27/20 15:10 Freq: NEEDED Status: Active Protocol: Document 09/28/20 11:01 AW (Rec: 09/28/20 11:45 AW [id number]) PT Summary Assessment and Plan Potential Rehabilitation Potential Good Status of Condition at Evaluation Evolving Summary Impairments Strength,Balance,Transfers, Gait,Activity Tolerance Assessment Summary Pt continues to present with increase in coughing which she states is closer to her baseline today. She was able to tolerate 80 feet ambulation without rest break and 160 feet in total with stable SpO2 in the mid-90's on room air. Outpatient PT and cardio/pulm rehab would be appropriate referrals. Goals Bed Mobility Goal Independent Transfer Goal Independent Gait Goal Independent Gait Distance 150ft Other Goals up/down 3 steps w/ rail Days to Meet Goals 4 Frequency of Treatment Frequency Of Treatment Once a Day Treatment Plan Physical Therapy Treatment Plan Bed Mobility Training,Transfer Training,Gait Training, Therapeutic Exercise,Balance Retraining,Discharge Planning, Neuromuscular Re-ed Recommendations To Nursing Amount of Assist Needed Standby Assistance Discharge Recommendations PT Discharge Recommendations Home,Outpatient PT Other Discharge Recommendations may benefit from cardiopulm rehab for activity tolerance and outpatient PT for balance Transportation Needs at Discharge Private Vehicle
--- NOTE | 2020-09-28 11:34 | PM.DS.1 ---
History of Present Illness History of Present Illness Date Patient Seen: 09/26/20 Chief complaint: Choked on grape Narrative: Written by Janet GOMES: Patient is a 64-year-old female Rosmery Marquis who presented to the ER today with concerns of choking on a grape and feels that that a object is still in her airway.She states that she was at her normal state health eating grapes early this evening when she started choking on a grape. She thought that it caused a flare of her COPD. After the event started having a sore throat. Shortness of breath. She states that her symptoms have improved somewhat since the onset. No chest discomfort. Patient has had repeated hospitalizations for exacerbation of her COPD in the past year (ER)02/07/2020, (ER)07/03/2020, (ER)07/30/2020. 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 Patient lives alone in a 1 bedroom apartment at the emergency residential. Her closest family is her son who lives in [place] and denies any exposure to cold/flu or COVID. Patient has no home O2, and ambulates with a cane independently and provides her own ADLs, Patient denies hemoptysis, fever, chills, nausea, vomiting, diarrhea, or edema. History of COPD. Discharge Providers Provider Date of admission: 09/26/20 23:59 Discharge Date: 09/28/20 Primary care physician: Kandi Malhotra MD Consults: 09/27/20 00:34 Consult to Dietitian, Adult Routine Comment: BMI 16.2 Reason For Exam: malnutrition Consult to Discharge Planning Routine Comment: Consult to Occupational Therapy Evaluate & Treat Comment: Physician Instructions: Evaluate and treat Consult to Physical Therapy Evaluate & Treat Comment: Physician Instructions: Evaluate and Treat 09/27/20 02:17 Consult to Dietitian, Adult Routine Comment: Reason For Exam: poor appetite, aspiration 09/27/20 09:23 Consult to Speech Therapy Evaluate & Treat Comment: choked on grape Physician Instructions: Evaluate and treat Discharge provider: Kathy Escoto DO Summary Hospital Course Discharge Diagnosis: 1. Acute aspiration of foreign body, present on admission. Resolved. 2. Severe chronic protein calorie malnutrition, present on admission. Active. 3. Hypertension, chronic, present on admission. Stable. 4. Hyperlipidemia, chronic, present on admission. Stable. 5. Depression, chronic, present on admission. Stable. 6. GERD, chronic, stable not present on admission. Stable. Hospital Course: 1. Acute aspiration of foreign body, present on admission. Resolved. -Patient presented to ED after choking on a grape with complaint of globus sensation, shortness of breath and sore throat. -CT chest demonstrated debris within the dependent portion of the trachea and large amount of debris seen within the mid and distal esophagus consistent with aspiration, no acute consolidation and airway thickening in keeping with nonspecific bronchitis and/or reactive airways disease. -ED consulted with labor arbitrator at [facility] due to the patient swallowing medications and having repeated aspiration with coughing paroxysms that transiently dropped oxygen levels to high 80's and low 90's but once abaited maintained oxygenation, therefore, recommended antibiotics and steroids and observation. Attempted to contact [facility] for patient update without avail. Patient maintained oxygen saturations on room air in the mid 90s. Patient reported she felt she passed upper oropharyngeal debris. Patient continues to have intermittent coughing paroxysms related to COPD and does not feel that these or mild subjective shortness of breath is greater than her baseline. Patient did complain of right upper chest/shoulder pain which may be due to aspiration of debris and may need bronchoscopy in near future as an outpatient. Continued pain control. -Speech therapy evaluated patient and ultimately patient needs MBS but do not feel that it is safe to pursue. Slowly advanced diet with dysphagia mechanical advanced heart healthy which patient tolerated well. Do not feel patient needs bronchoscopy at this time. Continued antibiotic and glucocorticoids which were discontinued at time of discharge. Discharged with instructions to continue dyphagia mechanical heart healthy diet as much as possible. Recommend referral to speech therapy outpatient and pulmonology. 2. COPD with possible exacerbation, present on admission. Resolved. -Patient presented to the hospital with mild worsening shortness of breath after choking on a grape. -CT chest demonstrated debris within the dependent portion of the trachea and large amount of debris seen within the mid and distal esophagus consistent with aspiration, no acute consolidation and airway thickening in keeping with nonspecific bronchitis and/or reactive airways disease. Additionally, a new 1 cm spiculated nodule in left upper lobe is worrisome for early malignant/metastatic disease. Recommend further outpatient evaluation with PET-CT per PCP. -Received methylprednisone 125 mg IV x1, Augmentin x 1, and albuterol inhaler in ED. -Continued respiratory therapy evaluation and treatment. Continued on steroids, nebulizers, levaquin and Mucinex. Discharged home on home azithromycin 250 mg on //. 3. Severe chronic protein calorie malnutrition, present on admission. Active. -BMI 15.6 with full body subcutaneous fat and muscle wasting. Patient is missing all lower teeth and half of upper teeth impairing mastication. Due to severe PCM patient is high risk of healing, oxygenation, complications, infection, pneumonia, COVID, mobidity and mortality. Patient has muscle wasting with increased weakness and fatigue making her high risk for fall and injury. Recommended hospice but unfortunately patient lives in a residential. -Consulted campus rep and we appreciate her time and recommendations. Continue nutritional supplementation. 4. Hypertension, chronic, present on admission. Stable. -Continued home metoprolol succinate 25 mg daily and amlodipine 2.5 mg daily. -Patient has history of a stroke in 1999 and continued home clopidogrel 75 mg daily. -Continued dyphagia mechanical soft heart healthy diet. 5. Hyperlipidemia, chronic, present on admission. Stable. -Continued home atorvastatin 40 mg daily at bedtime. 6. Depression, chronic, present on admission. Stable. -Continued home citalopram 20 mg daily and bupropion 300 mg daily. 7. GERD, chronic, stable not present on admission. Stable. -Continued protonix 40 mg daily. Exam Vital Signs (past 8 hours): - 09/28/20 05:04 09/28/20 08:00 09/28/20 08:18 Temperature 96.5 F L 97.5 F L Pulse Rate 73 72 110 H Respiratory Rate 20 19 22 Blood Pressure 126/63 131/67 Pulse Oximetry 94 92 Oxygen Delivery Method Room Air Oxygen Flow Rate 0 Narrative Exam Narrative: General: Older thin, frail, cachetic appearing female sitting in bed and in no acute distress, appears significantly older than stated age, appropriately interactive. HEENT: Normocephalic, atraumatic. External ears without defect. Pupils equal, round, and reactive to light. Anicteric sclerae, moist conjunctivae, and no lid lag. Oropharynx free of erythema and cobble stoning with moist mucosa. Neck: Supple with full range of motion. No jugular venous distension. No lymphadenopathy or thyromegaly. Cardiovascular: Regular rate and rhythm without murmurs, rubs, or gallops appreciated Pulmonary: Diminished throughout but clear bilaterally with occasional scattered crackle. No wheeze or rhonchi. Normal respiratory effort with no use of accessory muscles. Abdomen: Soft, scaphoid, bowel sounds present, nontender, nondistended. Extremities: No clubbing, cyanosis, or edema. Skin: Normal temperature, turgor, and texture; no rash, ulcers, or subcutaneous nodules appreciated. Neurological: Cranial nerves grossly intact. Generalized weakness. Psychiatric: Normal mood and affect. Alert and oriented to person, place, and time. Objective Labs Result Diagrams: 09/28/20 05:01 09/28/20 05:01 Labs: Laboratory Results - last 24 hr 09/28/20 09/28/20 09/28/20 05:01 05:01 05:01 WBC 8.3 RBC 3.66 L Hgb 10.8 L Hct 32.8 L MCV 89.4 MCH 29.6 MCHC 33.1 RDW 13.1 Plt Count 387 Neut % (Auto) 49.4 L D Lymph % (Auto) 32.8 D Powell % (Auto) 15.8 H Eos % (Auto) 1.5 L Baso % (Auto) 0.5 Neut # (Auto) 4100 Lymph # (Auto) 2700 Powell # (Auto) 1300 H Eos # (Auto) 100 Baso # (Auto) 0 Sodium 132 L Potassium 3.4 Chloride 95 L Carbon Dioxide 37 H BUN 20 H Creatinine 0.82 Estimated GFR > 60.0 BUN/Creatinine Ratio 24.4 H Glucose 98 Calcium 8.7 Magnesium 2.0 Procalcitonin < 0.05 [facility] Medical History Alcohol abuse, in remission COPD (chronic obstructive pulmonary disease) Hypertension Irritable bowel syndrome (IBS) Neck pain with history of cervical spinal surgery Pancreatitis Stage 2 moderate COPD by GOLD classification Stroke Tobacco abuse, in remission Urinary tract infection Surgical History (Updated 08/28/20 @ 22:54 by ALBERTO Edwards) History of neck surgery History of spinal surgery Total knee replacement status Family History (Updated 08/28/20 @ 22:59 by ALBERTO Edwards) Unknown Adopted Son No problems noted. Other Family history non-contributory Social History household members: none Smoking Status: Former smoker alcohol intake: former Discharge Plan Discharge Plan Patient Disposition: Home Provider Discharge Comment: You are being discharged home. You choked on grape which exacerbated of your COPD. Continue azithromycin 250 mg to take on Friday, Friday and Friday indefinitely to prevent COPD exacerbations and decrease inflammation of your lungs. You may take Tylenol or ibuprofen as needed for your right upper chest pain which is likely related to choking on the grape and irritation of your lung. Please abstain from cigarettes indefinitely. Please follow-up with your primary care physician, Dr. Malhotra, in the next regarding your hospitalization and continued medical care. Recommend referral to labor arbitrator, speech therapy and dietitian. Discharge orders & Medications Prescriptions: Continued albuterol sulfate 90 mcg/actuation HFA aerosol inhaler 1 inh INHALATION Q4-6H PRN (Reason: shortness of breath) Qty: 18 RF: 0 docusate sodium 100 MG capsule 100 mg PO BID PRN (Reason: Constipation) Qty: 0 RF: 0 clopidogrel 75 MG tablet 75 mg PO DAILY Qty: 0 RF: 0 bupropion HCl 300 MG tablet extended release 24 hr 300 mg PO DAILY Qty: 0 RF: 0 citalopram [Celexa] 20 mg tablet 20 mg PO DAILY Qty: 30 RF: 0 hydroxyzine HCl 50 mg Tablet 50 mg PO BEDTIME RF: 0 ondansetron HCl [Zofran] 4 mg Tablet 4 mg PO DAILY RF: 0 amlodipine 2.5 mg Tablet 2.5 mg PO DAILY RF: 0 hydrochlorothiazide 12.5 mg Tablet 12.5 mg PO DAILY RF: 0 azithromycin [Zithromax Z-Terrence] 250 mg Tablet 250 mg PO 3XW Qty: 12 RF: 0 alendronate 70 mg tablet 70 mg PO QWEEK RF: 0 loratadine 10 mg tablet 10 mg PO BEDTIME RF: 0 cholecalciferol (vitamin D3) 1,000 unit tablet 1,000 unit PO DAILY RF: 0 atorvastatin 40 mg tablet 40 mg PO BEDTIME RF: 0 pantoprazole 40 mg tablet,delayed release (DR/EC) 40 mg PO DAILY RF: 0 metoprolol succinate 50 mg tablet extended release 24 hr 25 mg PO DAILY RF: 0 cyclobenzaprine 5 mg tablet 5 mg PO BID RF: 0 Spiriva with HandiHaler 18 mcg Capsule, W/Inhalation Device 1 cap INHALATION DAILY Qty: 30 RF: 0 Changed guaifenesin [Mucus Relief ER] 600 mg Tablet Extended Release 12hr 1,200 mg PO BID PRN (Reason: Cough) Qty: 30 RF: 0 Discontinued prednisone 20 mg Tablet 40 mg PO DAILY Qty: 6 RF: 0 Follow up/Referrals: Kandi Malhotra MD [Primary Care Provider] - 1 Week (Please call and schedule a follow up appt as soon as possible. Be sure to let the staff know that this a follow up for a hospital stay and it is recommended you be seen within 1 week of discharge. ) Diet/Activity/Treatments Diet: Low-fat, Low-sodium and Low-cholesterol Diet comment: dysphagia mechanical soft Activity: Activity as tolerated with walker Visit Report/Discharge Packet Instructions: Soft Diet, DI for Chronic Obstructive Pulmonary Disease, How to Quit Smoking, DI for Choking Episode Discharge Data Primary Care Provider: Kandi Malhotra Attending Provider: Janet Powell
[2020-09-28 12:00] VITALS: BP 108/57; PULSE 77; RESP 18; TEMP 36.7; O2SAT 94
--- NOTE | 2020-09-28 14:22 | PC.NURSE ---
Pt d/c'd to home 1422. Prior to leaving, pt was provided with d/c packet, medication list/regimen, educational materials, d/c instructions. Instructed pt to f/u regarding appt with PCP as an attempt was made by staff here to make a f/u appt but unable to reach the office. Reviewed medication changes and medication regimen. Education was done regarding [employer] diet recs. Pt was given items from safe and medications stored in pharmacy. She verbalizes understanding of d/c teaching. She dressed herself independently. She transferred to w/c and was escorted to private vehicle (friend picking her up) with all belongings for d/c.
--- NOTE | 2020-09-28 14:47 | CM.DPNOTE ---
DC Note DC order in place and according to Dr Escoto, patient will need to see her PCP katherine to get recommended outpatient referrals started, including lung specialist and speech therapy. Met w/patient to review DCP. Patient plans to DC back to [facility] emergency senior living, and explains they have offered a studio where patient can live for two years, available next month. Patient explains a lot has changed since June of this year, when she was living out of her car in [facility], patient expresses much gratitude and this BARREL DRAINER commends patient for her sobriety. Patient states she has access to food, has provided meals on wheels w/ a physician letter requesting ensure shakes but hasn't heard back. This BARREL DRAINER asks whether patient has assistance from a licensed clinical social worker/CM w/coordinating outpatient support ? Patient says yes Patient plans to make appt Friday w/her PCP on the [place] and hopes to get relief soon from constant SOB and symptoms of IBS. This BARREL DRAINER suggested that patient be mindful, as her disease process progresses, of when enough is enough and at that point hospice could be considered (?) Patient states she understands, however, she hopes to live much longer and feels stable housing is a step in the right direction. Patient hopes to get her breathing and s/sx of COPD under better control soon (?) Plan: DC back to [facility] emergency senior living, transport via friend EDDIE
--- NOTE | 2020-10-12 20:51 | PC.NURSE ---
Late Entry; Magnesium infusion initiated at 14:01, complete at 16:02.
== END 2020-09-28 14:22 | disposition home or self-care (01) ==
LOC: ED 23:37 → AC 09-27 → ICU 09-27 01:13
PROVIDERS: Internal Medicine; Admitting Provider Nurse Practitioner Family; Emergency Provider Emergency Medicine; Family Provider Family Medicine; PCP Family Medicine; Visit Provider Nurse Practitioner Family
DX: T17.420A Food in trachea causing asphyxiation, initial encounter (principal); R06.02 Shortness of breath; J44.9 Chronic obstructive pulmonary disease, unspecified; I10 Essential (primary) hypertension; E78.5 Hyperlipidemia, unspecified; Z86.73 Personal history of transient ischemic attack (TIA), and cerebral infarction without residual deficits; E46 Unspecified protein-calorie malnutrition; Z68.1 Body mass index [BMI] 19.9 or less, adult; F32.9 Major depressive disorder, single episode, unspecified; F10.11 Alcohol abuse, in remission; Z87.891 Personal history of nicotine dependence; Z20.828 Contact with and (suspected) exposure to other viral communicable diseases
CPT/HCPCS: 36415; 71046; 71250; 80048; 80053; 81001; 83735; 84145; 85025; 87635; 87797; 92526; 92610; 93005; 94640; 94760; 96361; 96365; 96366; 96372; 96375; 97116; 97162; 97165; 97535; 99284; G0378; A9270; J1650; J2930

== ENCOUNTER 2020-12-20 19:21 | Emergency (ER) | payer MEDICAID, SELFPAY ==
[2020-09-27 01:52] VITALS: BMI 15.5
[2020-12-20 19:25] VITALS: BP 142/93; PULSE 106; RESP 15; TEMP 37.4; O2SAT 96; BMI 15.1
--- NOTE | 2020-12-20 20:17 | ED.NECK ---
HPI - Neck Pain/Injury General Chief Complaint: Neck Pain/Injury Stated Complaint: neck pain Time Seen by Provider: 12/20/20 20:07 Source: patient Mode of arrival: Ambulatory Limitations: no limitations History of Present Illness HPI Narrative: 65-year-old female who is here for evaluation of upper neck pain. She initially told me that her symptoms started yesterday however she does have a prescription for Flexeril that was prescribed by her primary doctor for this discomfort that she states she got a couple days ago. She has been using the Flexeril but she thinks that is not helping all that much. She has had a fusion of her C1-C2 vertebrae which does limit her range of motion but she states that the symptoms that she came in to be seen for today are on the sides of her neck and also radiate down to her upper back. It is worse with touching the area. She denies any headaches. Denies any specific trauma. No radiation of symptoms down into her arms. Related Data Home Medications Medication Instructions Recorded Confirmed bupropion HCl 300 mg PO DAILY #0 10/09/17 09/27/20 clopidogrel 75 mg PO DAILY #0 10/09/17 09/27/20 docusate sodium 100 mg PO BID PRN #0 10/09/17 09/27/20 alendronate 70 mg PO QWEEK 08/10/18 09/27/20 cholecalciferol (vitamin D3) 1,000 unit PO DAILY 08/10/18 09/27/20 loratadine 10 mg PO BEDTIME 08/10/18 09/27/20 atorvastatin 40 mg PO BEDTIME 04/27/19 09/27/20 pantoprazole 40 mg PO DAILY 04/27/19 09/27/20 metoprolol succinate 50 mg 25 mg PO DAILY tab 10/01/19 09/27/20 tablet,extended release 24 hr amlodipine 2.5 mg PO DAILY 08/28/20 09/27/20 hydrochlorothiazide 12.5 mg PO DAILY 08/28/20 09/27/20 hydroxyzine HCl 50 mg PO BEDTIME 08/28/20 09/27/20 ondansetron HCl [Zofran] 4 mg PO DAILY 08/28/20 09/27/20 cyclobenzaprine 5 mg PO BID 09/27/20 09/27/20 Previous Rx's Medication Instructions Recorded citalopram [Celexa] 20 mg PO DAILY #30 tab 05/10/18 albuterol sulfate 90 mcg/actuation 1 inh INHALATION Q4-6H PRN #18 gram 10/01/19 aerosol inhaler azithromycin [Zithromax Z-Terrence] 250 mg PO 3XW #12 tab 08/30/20 Spiriva with HandiHaler 1 cap INHALATION DAILY #30 inh 09/28/20 guaifenesin [Mucus Relief ER] 1,200 mg PO BID PRN #30 tab 09/28/20 Allergies Allergy/AdvReac Type Severity Reaction Status Date / Time codeine [CODEINE] Allergy Severe NAUSEA / Verified 09/26/20 16:06 VOMITING latex Allergy Rash Verified 09/26/20 16:06 lisinopril Allergy Verified 09/26/20 16:06 Review of Systems Constitutional Constitutional: Denies fever(s) and Denies headache(s) Eyes Eyes: Denies change in vision ENT Ears, Nose, Mouth, and Throat: Denies headache(s) and Reports neck pain Cardiovascular Cardiovascular: Denies chest pain and Denies dyspnea Respiratory Respiratory: Denies dyspnea Gastrointestinal Gastrointestinal: Denies abdominal pain Musculoskeletal Musculoskeletal: Reports back pain, Reports neck pain and Denies tingling Integumentary/Breasts Skin/Breast: Denies lesions and Denies rash Neurologic Neurologic: Denies headache(s) and Denies tingling Hematologic/Lymphatic On Anticoagulants: No Allergic/Immunologic Allergic/Immunologic: Denies urticaria Patient History Medical History Alcohol abuse, in remission COPD (chronic obstructive pulmonary disease) Hypertension Irritable bowel syndrome (IBS) Neck pain with history of cervical spinal surgery Pancreatitis Stage 2 moderate COPD by GOLD classification Stroke Tobacco abuse, in remission Urinary tract infection Surgical History (Updated 08/28/20 @ 22:54 by ALBERTO Edwards) History of neck surgery History of spinal surgery Total knee replacement status Family History (Updated 08/28/20 @ 22:59 by ALBERTO Edwards) Unknown Adopted Son No problems noted. Other Family history non-contributory Social History household members: none Smoking Status: Former smoker alcohol intake: former Smoking Status: Former smoker alcohol intake frequency: other Substance Use Type: does not use Exam Initial Vital Signs Initial Vital Signs: Vital Signs Temperature 99.3 F 12/20/20 19:25 Pulse Rate 106 H 12/20/20 19:25 Respiratory Rate 15 12/20/20 19:25 Blood Pressure 142/93 H 12/20/20 19:25 Pulse Oximetry 96 12/20/20 19:25 Const General: cooperative and comfortable Limitations: mental status not altered HENMT Head: normal to inspection and normocephalic Resp Effort & Inspection: normal respiratory effort Cardio Rate: regular rate Back/Spine/Pelvis Cervical Spine: cervical muscular tenderness, pain with cervical ROM and No cervical spinal tenderness Thoracic/Lumbar Spine: paraspinal tenderness, No thoracic spinal tenderness and No lumbar spinal tenderness Skin Lesions: no lesions Rashes: no rashes Neuro General: patient alert and patient awake Cognition: normal cognition Speech: speech normal Extrem General: normal to inspection and capillary refill normal Psych Appearance: grossly normal and well kempt Course Orders Ordered: Discontinued Medications Ketorolac Tromethamine (Ketorolac 60 Mg/2 Ml Vial) 30 mg IM NOW ONE Stop: 12/20/20 20:19 Last Admin: 12/20/20 20:38 Dose: 30 mg Documented by: JESSICA Morphine Sulfate (Morphine 4 Mg/Ml Inj) 2 mg IM NOW ONE Stop: 12/20/20 20:19 Last Admin: 12/20/20 20:38 Dose: 2 mg Documented by: JESSICA Vital Signs Vital signs: Vital Signs - 8 hr 12/20/20 19:25 12/20/20 21:15 Temperature 99.3 F Pulse Rate 106 H 88 Respiratory Rate 15 16 Blood Pressure 142/93 H 131/76 Pulse Oximetry 96 95 MDM - Neck Pain/Injury MDM Narrative Medical decision making narrative: Patient is tender in her cervical region along the paraspinal areas and also on her paraspinal upper back. Have a strong suspicion that this is muscular in origin. I have low suspicion for dissection or ACS or pulmonary etiology. She does have reproducible discomfort paraspinal. Will try to control her symptoms better here in the emergency department although there is not much further that we can do out of the ER GERD has muscle relaxers at home. His given return precautions and follow-up instructions. She expressed understanding agreement. Discharge Plan Departure Patient Disposition: Home Clinical Impression: Muscle spasm Instructions: DI for Muscle Spasm Activity Restrictions/Additional Instructions: I do recommend that you continue with the Flexeril/cyclobenzaprine. This is a muscle relaxer in should with time improve your symptoms. You can also try heat. I also recommend light massage and stretching. Contact your primary provider for follow-up. Prescriptions: No Action albuterol sulfate 90 mcg/actuation HFA aerosol inhaler 1 inh INHALATION Q4-6H PRN (Reason: shortness of breath) Qty: 18 RF: 0 docusate sodium 100 MG capsule 100 mg PO BID PRN (Reason: Constipation) Qty: 0 RF: 0 clopidogrel 75 MG tablet 75 mg PO DAILY Qty: 0 RF: 0 bupropion HCl 300 MG tablet extended release 24 hr 300 mg PO DAILY Qty: 0 RF: 0 citalopram [Celexa] 20 mg tablet 20 mg PO DAILY Qty: 30 RF: 0 hydroxyzine HCl 50 mg Tablet 50 mg PO BEDTIME RF: 0 ondansetron HCl [Zofran] 4 mg Tablet 4 mg PO DAILY RF: 0 amlodipine 2.5 mg Tablet 2.5 mg PO DAILY RF: 0 hydrochlorothiazide 12.5 mg Tablet 12.5 mg PO DAILY RF: 0 azithromycin [Zithromax Z-Terrence] 250 mg Tablet 250 mg PO 3XW Qty: 12 RF: 0 alendronate 70 mg tablet 70 mg PO QWEEK RF: 0 loratadine 10 mg tablet 10 mg PO BEDTIME RF: 0 cholecalciferol (vitamin D3) 1,000 unit tablet 1,000 unit PO DAILY RF: 0 atorvastatin 40 mg tablet 40 mg PO BEDTIME RF: 0 pantoprazole 40 mg tablet,delayed release (DR/EC) 40 mg PO DAILY RF: 0 metoprolol succinate 50 mg tablet extended release 24 hr 25 mg PO DAILY RF: 0 cyclobenzaprine 5 mg tablet 5 mg PO BID RF: 0 guaifenesin [Mucus Relief ER] 600 mg Tablet Extended Release 12hr 1,200 mg PO BID PRN (Reason: Cough) Qty: 30 RF: 0 Spiriva with HandiHaler 18 mcg Capsule, W/Inhalation Device 1 cap INHALATION DAILY Qty: 30 RF: 0 Referrals: Kandi Malhotra MD [Primary Care Provider] -
[2020-12-20] MEDS: MORPHINE 4 MG/ML INJ 2 MG IM (20:38)
[2020-12-20] MEDS: KETOROLAC 60 MG/2 ML VIAL 30 MG IM (20:38)
[2020-12-20 21:15] VITALS: BP 131/76; PULSE 88; RESP 16; O2SAT 95
== END 2020-12-20 21:30 | disposition home or self-care (01) ==
PROVIDERS: Emergency Provider Emergency Medicine; Family Provider Family Medicine; PCP Family Medicine
DX: Z98.1 Arthrodesis status (principal); M62.838 Other muscle spasm; M54.2 Cervicalgia
CPT/HCPCS: 96372; 99283; J1885; J2270

== ENCOUNTER 2021-02-07 17:52 | Emergency (ER) | payer MEDICAID, SELFPAY ==
[2020-09-27 01:52] VITALS: BMI 15.5
[2021-02-07] VITALS (12 sets, daily range): BP systolic 128–149; BP diastolic 61–100; PULSE 73–105; RESP 17–28; TEMP 38.4; O2SAT 94–96
--- NOTE | 2021-02-07 17:57 | ED_ITS ---
HPI - General Adult General Chief complaint: Shortness of Breath/Dyspnea Stated complaint: exacerbation of COPD Time Seen by Provider: 02/07/21 17:56 History of Present Illness HPI narrative: 65-year-old woman with a history of COPD, osteoporosis, prior stroke currently on Plavix and hypertension presents with 2 days of increasing respiratory issues and she is concerned that she is having an acute COPD exacerbation. She notes that she has a slight cough. She has been using both her albuterol and Combivent inhalers as well as nebulizers. She notes that she does have a history of irritable bowel syndrome and has been constipated recently. She describes no fevers, vomiting, nausea, diarrhea or abdominal pain. No headaches or gross neurologic findings or complaints. Related Data Home Medications Medication Instructions Recorded Confirmed bupropion HCl 300 mg PO DAILY #0 10/09/17 09/27/20 clopidogrel 75 mg PO DAILY #0 10/09/17 09/27/20 docusate sodium 100 mg PO BID PRN #0 10/09/17 09/27/20 alendronate 70 mg PO QWEEK 08/10/18 09/27/20 cholecalciferol (vitamin D3) 1,000 unit PO DAILY 08/10/18 09/27/20 loratadine 10 mg PO BEDTIME 08/10/18 09/27/20 atorvastatin 40 mg PO BEDTIME 04/27/19 09/27/20 pantoprazole 40 mg PO DAILY 04/27/19 09/27/20 metoprolol succinate 50 mg 25 mg PO DAILY tab 10/01/19 09/27/20 tablet,extended release 24 hr amlodipine 2.5 mg PO DAILY 08/28/20 09/27/20 hydrochlorothiazide 12.5 mg PO DAILY 08/28/20 09/27/20 hydroxyzine HCl 50 mg PO BEDTIME 08/28/20 09/27/20 ondansetron HCl [Zofran] 4 mg PO DAILY 08/28/20 09/27/20 cyclobenzaprine 5 mg PO BID 09/27/20 09/27/20 Previous Rx's Medication Instructions Recorded citalopram [Celexa] 20 mg PO DAILY #30 tab 05/10/18 albuterol sulfate 90 mcg/actuation 1 inh INHALATION Q4-6H PRN #18 gram 10/01/19 aerosol inhaler azithromycin [Zithromax Z-Terrence] 250 mg PO 3XW #12 tab 08/30/20 Spiriva with HandiHaler 1 cap INHALATION DAILY #30 inh 09/28/20 guaifenesin [Mucus Relief ER] 1,200 mg PO BID PRN #30 tab 09/28/20 benzonatate [Tessalon Perles] 100 mg PO BID PRN #20 cap 02/07/21 prednisone 20 mg PO DAILY #10 tab 02/07/21 Allergies Allergy/AdvReac Type Severity Reaction Status Date / Time codeine [CODEINE] Allergy Severe NAUSEA / Verified 09/26/20 16:06 VOMITING latex Allergy Rash Verified 09/26/20 16:06 lisinopril Allergy Verified 09/26/20 16:06 Review of Systems Review of Systems Narrative: Remainder of complete review of systems is otherwise unremarkable except for that included in the HPI. Patient History Medical History Alcohol abuse, in remission COPD (chronic obstructive pulmonary disease) Hypertension Irritable bowel syndrome (IBS) Neck pain with history of cervical spinal surgery Pancreatitis Stage 2 moderate COPD by GOLD classification Stroke Tobacco abuse, in remission Urinary tract infection Surgical History History of neck surgery History of spinal surgery Total knee replacement status Family History Unknown Adopted Son No problems noted. Other Family history non-contributory Social History household members: none Smoking Status: Former smoker alcohol intake: former Smoking Status: Former smoker alcohol intake frequency: other Substance Use Type: does not use Exam Narrative Exam Narrative: General: Chronically ill-appearing, cachectic, mild respiratory distress with supraclavicular contractions but still able to speak in full sentences HEENT: Moist mucous membranes, normal sclera with reactive pupils, Neck: No JVD, supple Respiratory: Lungs decreased breath sounds overall and mild scattered wheezing wheezing, no rales no rhonchi. Full and symmetrical air movement Cardiac: Regular rate and rhythm no murmurs no bruits Abdomen: Soft, nontender, good bowel tones, no flank pain Skin: Warm and dry, frail, no rashes Neurologic: Grossly neurologically intact with mild right facial droop from prior strokes Extremities: No trauma, well perfused Psych: Cooperative, appropriate insight and affect Initial Vital Signs Initial Vital Signs: Vital Signs Temperature 101.2 F H 02/07/21 18:00 Pulse Rate 73 02/07/21 18:00 Pulse Oximetry 94 02/07/21 18:00 Course Orders Ordered: ED Orders 02/07/21 18:10 COVID19 -Nasal swab/Pre-Proc Stat Complete Blood Count AUTO DIFF Stat Comprehensive Metabolic Panel Stat Lipase Stat Partial Thromboplastin Time Stat Prothrombin Time INR Stat Troponin & CK Cardiac Panel Stat 02/07/21 18:12 XR chest 1V Stat EKG-12 Lead Stat Discontinued Medications Albuterol (Albuterol Hfa Prepack) 1 box [facility] [place] Stop: 02/07/21 18:10 Last Admin: 02/07/21 18:13 Dose: 1 box Documented by: MARGARITA Albuterol/Ipratropium (Albuterol/Ipratropium 3 Ml Ampul) 3 ml INH NOW ONE Stop: 02/07/21 19:39 Last Admin: 02/07/21 19:48 Dose: 3 ml Documented by: MARAL Azithromycin (Azithromycin 200 Mg/5 Ml Prepack) 1 bottle [facility] [place] Stop: 02/07/21 19:39 Last Admin: 02/07/21 20:15 Dose: 5 ml Documented by: JENNIFER Methylprednisolone (Methylprednisolone 125 Mg/2 Ml Vial) 125 mg IV NOW ONE Stop: 02/07/21 19:39 Last Admin: 02/07/21 20:12 Dose: 125 mg Documented by: JENNIFER Vital Signs Vital signs: Vital Signs - 8 hr 02/07/21 18:00 02/07/21 18:12 02/07/21 18:13 Temperature 101.2 F H Pulse Rate 73 105 H 101 H Respiratory Rate 21 22 Blood Pressure Pulse Oximetry 94 95 96 02/07/21 18:14 02/07/21 19:48 Temperature Pulse Rate 102 H 92 H Respiratory Rate 25 H 20 Blood Pressure 137/79 Pulse Oximetry 96 95 Medical Decision Making Medical Records Medical records reviewed: Yes I reviewed the patient's medical records. Lab Data Lab results reviewed: Yes I reviewed the patient's lab results. Result diagrams: 02/07/21 18:10 02/07/21 18:10 Labs: Lab Results 02/07/21 02/07/21 02/07/21 Range/Units 18:10 18:10 18:10 WBC 10.9 (4.5-11.0) X10^3/uL RBC 4.10 (4.0-5.2) X10^6/uL Hgb 11.9 L (12.0-16.0) g/dL Hct 36.4 (36-46) % MCV 88.8 (80-100) fL MCH 29.1 (26-34) PG MCHC 32.8 (30-36) % RDW 15.4 H (11.6-14.8) % Plt Count 605 H (150-400) X10^3/uL Neut % (Auto) 57.4 (50-75) % Lymph % (Auto) 24.2 L (25-40) % [place] % (Auto) 10.7 (3-14) % Eos % (Auto) 7.0 H (2-4) % Baso % (Auto) 0.7 (0-2) % Neut # (Auto) 6200 (0479-5450) /uL Lymph # (Auto) 2600 (7167-9502) /uL [place] # (Auto) 1200 H (0-900) /uL Eos # (Auto) 800 H (0-450) /uL Baso # (Auto) 100 (0-100) /uL PT 10.6 (10.1-12.7) SECONDS INR 0.9 (0.9-1.3) APTT 34 (26.4-36.2) SECONDS Sodium (137-145) mmol/L Potassium (3.4-5.1) mmol/L Chloride (98-107) mmol/L Carbon Dioxide (22-32) mmol/L BUN (7-17) mg/dL Creatinine (0.52-1.04) mg/dL Estimated GFR (>60) mL/min BUN/Creatinine Ratio (6-22) Glucose (80-110) mg/dL Calcium (8.4-10.2) mg/dL Total Bilirubin (0.2-1.3) mg/dL AST (14-36) IU/L ALT (<35) IU/L Alkaline Phosphatase (38-126) U/L Total Creatine Kinase (30-135) U/L CK-MB (CK-2) CK-MB (CK-2) Rel Index Troponin I (0.01-0.034) ng/mL Total Protein (6.3-8.2) g/dL Albumin (3.5-5.0) g/dL Globulin (1.7-4.1) g/dL Albumin/Globulin Ratio (1.0-2.8) Lipase (23-300) U/L SARS-CoV-2 (PCR) Negative (Negative) 02/07/21 Range/Units 18:10 WBC (4.5-11.0) X10^3/uL RBC (4.0-5.2) X10^6/uL Hgb (12.0-16.0) g/dL Hct (36-46) % MCV (80-100) fL MCH (26-34) PG MCHC (30-36) % RDW (11.6-14.8) % Plt Count (150-400) X10^3/uL Neut % (Auto) (50-75) % Lymph % (Auto) (25-40) % [place] % (Auto) (3-14) % Eos % (Auto) (2-4) % Baso % (Auto) (0-2) % Neut # (Auto) (5851-6305) /uL Lymph # (Auto) (4055-9240) /uL [place] # (Auto) (0-900) /uL Eos # (Auto) (0-450) /uL Baso # (Auto) (0-100) /uL PT (10.1-12.7) SECONDS INR (0.9-1.3) APTT (26.4-36.2) SECONDS Sodium 138 (137-145) mmol/L Potassium 4.2 (3.4-5.1) mmol/L Chloride 100 (98-107) mmol/L Carbon Dioxide 28 (22-32) mmol/L BUN 35 H (7-17) mg/dL Creatinine 0.68 (0.52-1.04) mg/dL Estimated GFR > 60.0 (>60) mL/min BUN/Creatinine Ratio 51.5 H (6-22) Glucose 120 H (80-110) mg/dL Calcium 9.3 (8.4-10.2) mg/dL Total Bilirubin 0.4 (0.2-1.3) mg/dL AST 37 H (14-36) IU/L ALT 22 (<35) IU/L Alkaline Phosphatase 120 (38-126) U/L Total Creatine Kinase 82 (30-135) U/L CK-MB (CK-2) TNP CK-MB (CK-2) Rel Index TNP Troponin I < 0.012 (0.01-0.034) ng/mL Total Protein 7.9 (6.3-8.2) g/dL Albumin 4.6 (3.5-5.0) g/dL Globulin 3.3 (1.7-4.1) g/dL Albumin/Globulin Ratio 1.4 (1.0-2.8) Lipase 201 (23-300) U/L SARS-CoV-2 (PCR) (Negative) Imaging Data Chest x-ray: Radiologist's Impression: FINDINGS: Surgical changes and devices: None. Lungs and pleura: Prominent lung volumes. Emphysematous change. Lungs appear clear. Previously seen left upper lobe pulmonary nodule is not well appreciated. No pleural effusions or pneumothorax. Mediastinum: Mediastinal contours appear normal. Heart size is normal. Bones and chest wall: No suspicious bony lesions. Overlying soft tissues appear unremarkable. IMPRESSION: No acute cardiopulmonary abnormality. Emphysematous change. Comment: Findings were discussed with Diamante Melendez at the time of dictation. Dictated by: Kenny Cardenas M.D. on 02/07/2021 at 20:18 ECG Data Attestation: I personally reviewed and interpreted this ECG as follows: Interpretation: Sinus rhythm with an occasional PVC. Normal axis, normal intervals No acute ischemic changes MDM Narrative Medical decision making narrative: 65-year-old woman with a history of COPD with 2 days of increasing dyspnea and work of breathing. No evidence of lobar pneumonia or COVID,, congestive heart failure STEMI or acute coronary syndrome. She responded nicely to IV Solu-Medrol, nebulizer and because of the increased cough and risk for bacterial superinfection will have her complete a course of azithromycin. Will have her complete courses of prednisone and will offer Tessalon Perles for symptomatic coughing not controlled by her nebulizers or inhalers. Encouraged her to return if symptoms worsen. She is safe for home discharge Discharge Plan Departure Patient Disposition: Home Clinical Impression: Asthma exacerbation in COPD, Bronchitis Instructions: DI for Chronic Obstructive Pulmonary Disease Activity Restrictions/Additional Instructions: Thank you for coming in today You are having a COPD exacerbation and I am concerned that your developing a bacterial bronchitis as well with the cough. I have started you on steroids in the emergency department and will give you a prescription for prednisone to continue for the next week. I have given you azithromycin, and antibiotic to treat bacterial superinfection. You had her 1st dose in the emergency department. You need to take 5 cc of t he liquid daily for the next 4 days For the cough, use your puffers as well as the nebulizers that you have available. If you are still continuing to cough you can use Tessalon Perles to help suppress the cough a bit. Prescription for the steroids and the Tessalon Perles has been electronically t ransmitted to [facility] in [place] for you today. You do not have COVID today If you find that you are getting worse, more difficulty breathing, more chest pain fevers or chills please feel free to return to the emergency department for further evaluation Prescriptions: New prednisone 20 mg tablet 20 mg PO DAILY Qty: 10 RF: 0 benzonatate [Tessalon Perles] 100 mg capsule 100 mg PO BID PRN (Reason: cough) Qty: 20 RF: 0 No Action albuterol sulfate 90 mcg/actuation HFA aerosol inhaler 1 inh INHALATION Q4-6H PRN (Reason: shortness of breath) Qty: 18 RF: 0 docusate sodium 100 MG capsule 100 mg PO BID PRN (Reason: Constipation) Qty: 0 RF: 0 clopidogrel 75 MG tablet 75 mg PO DAILY Qty: 0 RF: 0 bupropion HCl 300 MG tablet extended release 24 hr 300 mg PO DAILY Qty: 0 RF: 0 citalopram [Celexa] 20 mg tablet 20 mg PO DAILY Qty: 30 RF: 0 hydroxyzine HCl 50 mg Tablet 50 mg PO BEDTIME RF: 0 ondansetron HCl [Zofran] 4 mg Tablet 4 mg PO DAILY RF: 0 amlodipine 2.5 mg Tablet 2.5 mg PO DAILY RF: 0 hydrochlorothiazide 12.5 mg Tablet 12.5 mg PO DAILY RF: 0 azithromycin [Zithromax Z-Terrence] 250 mg Tablet 250 mg PO 3XW Qty: 12 RF: 0 alendronate 70 mg tablet 70 mg PO QWEEK RF: 0 loratadine 10 mg tablet 10 mg PO BEDTIME RF: 0 cholecalciferol (vitamin D3) 1,000 unit tablet 1,000 unit PO DAILY RF: 0 atorvastatin 40 mg tablet 40 mg PO BEDTIME RF: 0 pantoprazole 40 mg tablet,delayed release (DR/EC) 40 mg PO DAILY RF: 0 metoprolol succinate 50 mg tablet extended release 24 hr 25 mg PO DAILY RF: 0 cyclobenzaprine 5 mg tablet 5 mg PO BID RF: 0 guaifenesin [Mucus Relief ER] 600 mg Tablet Extended Release 12hr 1,200 mg PO BID PRN (Reason: Cough) Qty: 30 RF: 0 Spiriva with HandiHaler 18 mcg Capsule, W/Inhalation Device 1 cap INHALATION DAILY Qty: 30 RF: 0 Referrals: Kandi Malhotra MD [Primary Care Provider] -
--- NOTE | 2021-02-07 18:12 | DI.RAD.S_ITS ---
PROCEDURE: XR CHEST 1V INDICATIONS: chest pain TECHNIQUE: One view of the chest was acquired. COMPARISON: [facility], CT, CT CHEST WO CON, 09/26/2020, 19:22. [facility], CR, XR CHEST 2V, 09/26/2020, 18:27. [facility], CR, XR CHEST 1V, 08/28/2020, 17:42. FINDINGS: Surgical changes and devices: None. Lungs and pleura: Prominent lung volumes. Emphysematous change. Lungs appear clear. Previously seen left upper lobe pulmonary nodule is not well appreciated. No pleural effusions or pneumothorax. Mediastinum: Mediastinal contours appear normal. Heart size is normal. Bones and chest wall: No suspicious bony lesions. Overlying soft tissues appear unremarkable. IMPRESSION: No acute cardiopulmonary abnormality. Emphysematous change. Comment: Findings were discussed with Diamante Melendez at the time of dictation. Dictated by: Kenny Cardenas M.D. on 02/07/2021 at 20:18 Approved by: Kenny Cardenas M.D. on 02/07/2021 at 20:22
[2021-02-07] MEDS: ALBUTEROL HFA PREPACK 1 BOX MISC (18:13)
[2021-02-07 18:16] LABS: Add Manual Diff / Slide Review NO; Basophils Absolute Auto 100 /uL (0-100); Basophils Percent Auto 0.7 % (0-2); Eosinophils Absolute Auto 800 /uL (0-450); Hematocrit 36.4 % (36-46); Hemoglobin 11.9 g/dL (12.0-16.0); Lymphocytes Absolute Auto 2600 /uL (1100-4500); Lymphocytes Percent Auto 24.2 % (25-40); Mean Corpuscular HGB Conc 32.8 % (30-36); Mean Corpuscular Hemoglobin 29.1 PG (26-34); Mean Corpuscular Volume 88.8 fL (80-100); Monocytes Absolute Auto 1200 /uL (0-900); Monocytes Percent Auto 10.7 % (3-14); Neutrophils Absolute Auto 6200 /uL (1500-7000); Neutrophils Percent Auto 57.4 % (50-75); Platelet Count 605 X10^3/uL (150-400); Red Cell Distribution Width 15.4 % (11.6-14.8); White Blood Cell Count 10.9 X10^3/uL (4.5-11.0)
[2021-02-07 18:35] LABS: INR 0.9 (0.9-1.3); Prothrombin Time 10.6 SECONDS (10.1-12.7)
[2021-02-07 18:37] LABS: PTT Partial Thromboplastin Tim 34 SECONDS (26.4-36.2)
[2021-02-07 18:39] LABS: Alanine Aminotransferase 22 IU/L (<35); Albumin 4.6 g/dL (3.5-5.0); Albumin Globulin Ratio 1.4 (1.0-2.8); Alkaline Phosphatase 120 U/L (38-126); Aspartate Aminotransferase 37 IU/L (14-36); BUN Creatinine Ratio 51.5 (6-22); Bilirubin Total 0.4 mg/dL (0.2-1.3); Blood Urea Nitrogen 35 mg/dL (7-17); Calcium 9.3 mg/dL (8.4-10.2); Carbon Dioxide 28 mmol/L (22-32); Chloride 100 mmol/L (98-107); Creatine Kinase 82 U/L (30-135); Estimated Glomerular Filt Rate > 60.0 mL/min (>60); Globulin 3.3 g/dL (1.7-4.1); Glucose 120 mg/dL (80-110); HEMOLYSIS 60 (0-50); Lipase 201 U/L (23-300); Potassium 4.2 mmol/L (3.4-5.1); Sodium 138 mmol/L (137-145); Total Protein 7.9 g/dL (6.3-8.2)
[2021-02-07 18:51] LABS: Troponin I < 0.012 ng/mL (0.01-0.034)
[2021-02-07 19:06] LABS: COVID19 -Nasal RAPID Negative (Negative)
[2021-02-07] MEDS: ALBUTEROL/IPRATROPIUM 3 ML AMPUL INH (19:48)
[2021-02-07] MEDS: methylPREDNISolone 125 MG/2 ML VIAL IV (20:12)
[2021-02-07] MEDS: AZITHROMYCIN 200 MG/5 ML PREPACK 1 BOTTLE MISC (20:15)
== END 2021-02-07 21:21 | disposition home or self-care (01) ==
PROVIDERS: Emergency Provider Emergency Medicine; Family Provider Family Medicine; PCP Family Medicine
DX: J44.1 Chronic obstructive pulmonary disease with (acute) exacerbation (principal); J40 Bronchitis, not specified as acute or chronic; R05 Cough; Z20.822 Contact with and (suspected) exposure to COVID-19
CPT/HCPCS: 36415; 71045; 80053; 82550; 83690; 84484; 85025; 85610; 85730; 87635; 93005; 93010; 94640; 96374; 99284; C9803; A9270; J2930

== ENCOUNTER 2021-04-05 14:55 | Emergency (ER) | payer MEDICAID, SELFPAY ==
[2020-09-27 01:52] VITALS: BMI 15.5
[2021-04-05] VITALS (9 sets, daily range): BP systolic 118–145; BP diastolic 64–87; PULSE 94–104; RESP 18–25; TEMP 36.7; O2SAT 92–97
--- NOTE | 2021-04-05 15:18 | DI.RAD.S_ITS ---
PROCEDURE: XR CHEST 2V INDICATIONS: sob/ history of COPD TECHNIQUE: 2 views of the chest were acquired. COMPARISON: [facility], CR, XR CHEST 2V, 09/26/2020, 18:27. FINDINGS: Surgical changes and devices: None. Lungs and pleura: Lungs are clear. No pleural effusions or pneumothorax. Mediastinum: Mediastinal contours are normal. Heart size is normal. Bones and chest wall: No suspicious bony abnormalities. Soft tissues appear unremarkable. IMPRESSION: No acute cardiopulmonary process demonstrated radiographically. Dictated by: Vijay Kirkpatrick M.D. on 04/05/2021 at 16:01 Approved by: Vijay Kirkpatrick M.D. on 04/05/2021 at 16:07
[2021-04-05 18:41] LABS: COVID19 -Nasal RAPID Negative (Negative)
--- NOTE | 2021-04-05 19:03 | ED_ITS ---
HPI - General Adult General Chief complaint: Shortness of Breath/Dyspnea Stated complaint: Trouble Breathing, COPD Time Seen by Provider: 04/05/21 18:57 Source: patient Mode of arrival: Ambulatory Limitations: no limitations History of Present Illness HPI narrative: Patient is a 65-year-old female. History of COPD. Not on home oxygen however does have multiple inhalers. States that for the past couple days she feels like her breathing has been worsening. She denies any chest pain. She did use her inhalers prior to arrival without much improvement. She is also taking the rest of her medications. She states she has been coughing but it is nonproductive. No fevers. Related Data Home Medications Medication Instructions Recorded Confirmed bupropion HCl 300 mg 24 hr tablet, 300 mg PO DAILY #0 10/09/17 09/27/20 extended release clopidogrel 75 mg tablet 75 mg PO DAILY #0 10/09/17 09/27/20 docusate sodium 100 mg capsule 100 mg PO BID PRN #0 10/09/17 09/27/20 alendronate 70 mg tablet 70 mg PO QWEEK 08/10/18 09/27/20 cholecalciferol (vitamin D3) 25 1,000 unit PO DAILY 08/10/18 09/27/20 mcg (1,000 unit) tablet loratadine 10 mg tablet 10 mg PO BEDTIME 08/10/18 09/27/20 atorvastatin 40 mg tablet 40 mg PO BEDTIME 04/27/19 09/27/20 pantoprazole 40 mg tablet,delayed 40 mg PO DAILY 04/27/19 09/27/20 release metoprolol succinate 50 mg 25 mg PO DAILY tab 10/01/19 09/27/20 tablet,extended release 24 hr amlodipine 2.5 mg tablet 2.5 mg PO DAILY 08/28/20 09/27/20 hydrochlorothiazide 12.5 mg tablet 12.5 mg PO DAILY 08/28/20 09/27/20 hydroxyzine HCl 50 mg tablet 50 mg PO BEDTIME 08/28/20 09/27/20 ondansetron HCl 4 mg tablet 4 mg PO DAILY 08/28/20 09/27/20 (Zofran) cyclobenzaprine 5 mg tablet 5 mg PO BID 09/27/20 09/27/20 Previous Rx's Medication Instructions Recorded citalopram 20 mg tablet (Celexa) 20 mg PO DAILY #30 tab 05/10/18 albuterol sulfate 90 mcg/actuation 1 inh INHALATION Q4-6H PRN #18 gram 10/01/19 aerosol inhaler azithromycin 250 mg tablet 250 mg PO 3XW #12 tab 08/30/20 (Zithromax Z-Terrence) guaifenesin 600 mg tablet, 1,200 mg PO BID PRN #30 tab 09/28/20 extended release 12 hr (Mucus Relief ER) tiotropium bromide 18 mcg capsule 1 cap INHALATION DAILY #30 inh 09/28/20 with inhalation device (Spiriva with HandiHaler) benzonatate 100 mg capsule 100 mg PO BID PRN #20 cap 02/07/21 (Tessalon Perles) prednisone 20 mg tablet 20 mg PO DAILY #10 tab 02/07/21 prednisone 20 mg tablet 20 mg PO DAILY 5 Days #5 tab 04/05/21 Allergies Allergy/AdvReac Type Severity Reaction Status Date / Time codeine [CODEINE] Allergy Severe NAUSEA / Verified 09/26/20 16:06 VOMITING latex Allergy Rash Verified 09/26/20 16:06 lisinopril Allergy Verified 09/26/20 16:06 Review of Systems Constitutional Constitutional: Denies fever(s) Cardiovascular Cardiovascular: Denies chest pain and Reports dyspnea Respiratory Respiratory: Reports cough, Reports dyspnea and Reports wheezing Gastrointestinal Gastrointestinal: Denies abdominal pain and Reports constipation Musculoskeletal Musculoskeletal: Reports system reviewed and no additional complaints, except as documented Integumentary/Breasts Skin/Breast: Reports system reviewed and no additional complaints, except as documented Neurologic Neurologic: Reports system reviewed and no additional complaints, except as documented Hematologic/Lymphatic On Anticoagulants: No Allergic/Immunologic Allergic/Immunologic: Reports wheezing Patient History Medical History Alcohol abuse, in remission COPD (chronic obstructive pulmonary disease) Hypertension Irritable bowel syndrome (IBS) Neck pain with history of cervical spinal surgery Pancreatitis Stage 2 moderate COPD by GOLD classification Stroke Tobacco abuse, in remission Urinary tract infection Surgical History History of neck surgery History of spinal surgery Total knee replacement status Family History Unknown Adopted Son No problems noted. Other Family history non-contributory Social History household members: none Smoking Status: Former smoker alcohol intake: former Smoking Status: Former smoker alcohol intake frequency: other Substance Use Type: does not use Exam Initial Vital Signs Initial Vital Signs: Vital Signs Temperature 98.1 F 04/05/21 15:14 Pulse Rate 98 H 04/05/21 15:14 Respiratory Rate 24 04/05/21 15:14 Blood Pressure 134/71 04/05/21 15:14 Pulse Oximetry 95 04/05/21 15:14 Const General: cooperative and comfortable HENMT Head: normal to inspection and normocephalic Resp Effort & Inspection: labored and tachypneic Auscultation: diminished lung sounds, rhonchi and wheezes Cardio Rate: regular rate Rhythm: regular rhythm GI Inspection: normal to inspection Skin General: no rashes or lesions noted Neuro General: patient alert, patient awake and patient oriented x3 Extrem General: normal to inspection Psych Appearance: grossly normal Course Orders Ordered: ED Orders 04/05/21 18:57 EKG-12 Lead Stat 04/05/21 20:05 Complete Blood Count AUTO DIFF Stat Comprehensive Metabolic Panel Stat Lipase Stat Troponin & CK Cardiac Panel Stat Discontinued Medications Albuterol (Albuterol 2.5 Mg/3 Ml Neb (Adult)) 20 mg INH NOW ONE Stop: 04/05/21 19:09 Last Admin: 04/05/21 19:12 Dose: 20 mg Documented by: MARAL Albuterol/Ipratropium (Albuterol/Ipratropium 3 Ml Ampul) 3 ml INH NOW ONE Stop: 04/05/21 20:32 Last Admin: 04/05/21 21:01 Dose: 3 ml Documented by: MARAL Ipratropium Jefferson (Ipratropium 0.5 Mg/2.5 Ml Neb) 0.5 mg INH Q20M LULY Stop: 04/05/21 19:56 Ipratropium Jefferson (Ipratropium 0.5 Mg/2.5 Ml Neb) 0.5 mg INH NOW ONE Stop: 04/05/21 19:14 Last Admin: 04/05/21 19:13 Dose: 0.5 mg Documented by: MARAL Methylprednisolone (Methylprednisolone 125 Mg/2 Ml Vial) 125 mg IV NOW ONE Stop: 04/05/21 19:05 Last Admin: 04/05/21 20:10 Dose: 125 mg Documented by: HGMCKINLEYN Vital Signs Vital signs: Vital Signs - 8 hr 04/05/21 19:09 04/05/21 20:16 04/05/21 20:17 Pulse Rate 100 H 104 H 101 H Respiratory Rate 22 21 Blood Pressure 145/87 H Pulse Oximetry 92 97 97 04/05/21 20:30 04/05/21 21:00 04/05/21 21:01 Pulse Rate 103 H 96 H 94 H Respiratory Rate 25 H 23 18 Blood Pressure 133/80 118/73 Pulse Oximetry 95 94 95 04/05/21 21:30 04/05/21 22:00 Pulse Rate 96 H 94 H Respiratory Rate 22 22 Blood Pressure 125/65 132/64 Pulse Oximetry 92 94 Medical Decision Making Medical Records Medical records reviewed: Yes I reviewed the patient's medical records. Lab Data Lab results reviewed: Yes I reviewed the patient's lab results. Result diagrams: 04/05/21 20:05 04/05/21 20:05 Labs: Lab Results 04/05/21 04/05/21 04/05/21 Range/Units 15:19 20:05 20:05 WBC 11.4 H (4.5-11.0) X10^3/uL RBC 4.26 (4.0-5.2) X10^6/uL Hgb 12.7 (12.0-16.0) g/dL Hct 38.4 (36-46) % MCV 90.2 (80-100) fL MCH 29.9 (26-34) PG MCHC 33.2 (30-36) % RDW 14.2 (11.6-14.8) % Plt Count 439 H (150-400) X10^3/uL Neut % (Auto) 57.1 (50-75) % Lymph % (Auto) 24.7 L (25-40) % Johnston % (Auto) 11.3 (3-14) % Eos % (Auto) 6.2 H (2-4) % Baso % (Auto) 0.7 (0-2) % Neut # (Auto) 6500 (0433-6502) /uL Lymph # (Auto) 2800 (2336-8487) /uL Johnston # (Auto) 1300 H (0-900) /uL Eos # (Auto) 700 H (0-450) /uL Baso # (Auto) 100 (0-100) /uL Sodium 137 (137-145) mmol/L Potassium 3.7 (3.4-5.1) mmol/L Chloride 94 L (98-107) mmol/L Carbon Dioxide 32 (22-32) mmol/L BUN 16 (7-17) mg/dL Creatinine 1.13 H (0.52-1.04) mg/dL Estimated GFR 48.6 L (>60) mL/min BUN/Creatinine Ratio 14.2 (6-22) Glucose 106 (80-110) mg/dL Calcium 9.5 (8.4-10.2) mg/dL Total Bilirubin 0.6 (0.2-1.3) mg/dL AST 37 H (14-36) IU/L ALT 21 (<35) IU/L Alkaline Phosphatase 87 (38-126) U/L Total Creatine Kinase 160 H (30-135) U/L CK-MB (CK-2) 2.39 H (<2.37) ng/mL CK-MB (CK-2) Rel Index 1.5 (1.5-5.0) % Troponin I < 0.012 (0.01-0.034) ng/mL Total Protein 8.5 H (6.3-8.2) g/dL Albumin 4.9 (3.5-5.0) g/dL Globulin 3.6 (1.7-4.1) g/dL Albumin/Globulin Ratio 1.4 (1.0-2.8) Lipase 88 (23-300) U/L SARS-CoV-2 (PCR) Negative (Negative) Imaging Data Chest x-ray: Radiologist's Impression: [address] [id number] ReportSigned Patient: Rosmery Marquis#: [id number]: 8Acct:[id number]/Sex: 65 / FDate of Service: 04/05/21Loc: EDAccession Number: [id number] Procedure: XR chest 2V Ordering Provider: Eliza Schilling D.O. PROCEDURE: XR CHEST 2V INDICATIONS: sob/ history of COPD TECHNIQUE: 2 views of the chest were acquired. COMPARISON: [facility], CR, XR CHEST 2V, 09/26/2020, 18:27. FINDINGS: Surgical changes and devices: None. Lungs and pleura: Lungs are clear. No pleural effusions or pneumothorax. Mediastinum: Mediastinal contours are normal. Heart size is normal. Bones and chest wall: No suspicious bony abnormalities. Soft tissues appear unremarkable. IMPRESSION: No acute cardiopulmonary process demonstrated radiographically. Dictated by: Vijay Kirkpatrick M.D. on 04/05/2021 at 16:01 Approved by: Vijay Kirkpatrick M.D. on 04/05/2021 at 16:07 ECG Data Attestation: I personally reviewed and interpreted this ECG as follows: Interpretation: Sinus rhythm Ventricular rate 95 Normal axis Normal QRS Normal QTC No ST T wave changes MDM Narrative Medical decision making narrative: Chest x-ray and EKG unremarkable. She initially arrived tachypneic can decreased lung sounds bilaterally but was not hypoxic. She is afebrile. Has been coughing but it is not been a productive cough. She reported some improvement after nebulizer treatments. She was also given steroids. Her chest x-ray does not show any definitive signs of pneumonia. Her COVID was negative. After the treatment here in the emergency department she stated that she felt well enough that she could go home and con emekaue doing her home nebulizers. Will send home with steroids. Will hold on antibiotics for now. She is given strict return precautions and follow-up instructions. She expressed understanding and agreement. Discharge Plan Departure Patient Disposition: Home Clinical Impression: COPD (chronic obstructive pulmonary disease) Instructions: Chronic Obstructive Pulmonary Disease Activity Restrictions/Additional Instructions: A prescription for steroids was transmitted to [facility] in [place]. Please start taking it tomorrow. Continue with your inhalers as needed. Contact your primary provider for follow-up. Return to the emergency department for any new or worsening symptoms Prescriptions: New prednisone 20 mg tablet 20 mg PO DAILY 5 Days Qty: 5 RF: 0 No Action albuterol sulfate 90 mcg/actuation HFA aerosol inhaler 1 inh INHALATION Q4-6H PRN (Reason: shortness of breath) Qty: 18 RF: 0 docusate sodium 100 MG capsule 100 mg PO BID PRN (Reason: Constipation) Qty: 0 RF: 0 clopidogrel 75 MG tablet 75 mg PO DAILY Qty: 0 RF: 0 bupropion HCl 300 MG tablet extended release 24 hr 300 mg PO DAILY Qty: 0 RF: 0 citalopram [Celexa] 20 mg tablet 20 mg PO DAILY Qty: 30 RF: 0 hydroxyzine HCl 50 mg Tablet 50 mg PO BEDTIME RF: 0 ondansetron HCl [Zofran] 4 mg Tablet 4 mg PO DAILY RF: 0 amlodipine 2.5 mg Tablet 2.5 mg PO DAILY RF: 0 hydrochlorothiazide 12.5 mg Tablet 12.5 mg PO DAILY RF: 0 azithromycin [Zithromax Z-Terrence] 250 mg Tablet 250 mg PO 3XW Qty: 12 RF: 0 alendronate 70 mg tablet 70 mg PO QWEEK RF: 0 loratadine 10 mg tablet 10 mg PO BEDTIME RF: 0 cholecalciferol (vitamin D3) 1,000 unit tablet 1,000 unit PO DAILY RF: 0 atorvastatin 40 mg tablet 40 mg PO BEDTIME RF: 0 pantoprazole 40 mg tablet,delayed release (DR/EC) 40 mg PO DAILY RF: 0 metoprolol succinate 50 mg tablet extended release 24 hr 25 mg PO DAILY RF: 0 cyclobenzaprine 5 mg tablet 5 mg PO BID RF: 0 guaifenesin [Mucus Relief ER] 600 mg Tablet Extended Release 12hr 1,200 mg PO BID PRN (Reason: Cough) Qty: 30 RF: 0 Spiriva with HandiHaler 18 mcg Capsule, W/Inhalation Device 1 cap INHALATION DAILY Qty: 30 RF: 0 prednisone 20 mg tablet 20 mg PO DAILY Qty: 10 RF: 0 benzonatate [Tessalon Perles] 100 mg capsule 100 mg PO BID PRN (Reason: cough) Qty: 20 RF: 0 Referrals: Kandi Malhotra MD [Primary Care Provider] -
[2021-04-05] MEDS: ALBUTEROL 2.5 MG/3 ML NEB (ADULT) 20 MG INH (19:12)
[2021-04-05] MEDS: IPRATROPIUM 0.5 MG/2.5 ML NEB INH (19:13)
[2021-04-05] MEDS: methylPREDNISolone 125 MG/2 ML VIAL IV (20:10)
[2021-04-05 20:21] LABS: Add Manual Diff / Slide Review NO; Basophils Absolute Auto 100 /uL (0-100); Basophils Percent Auto 0.7 % (0-2); Eosinophils Absolute Auto 700 /uL (0-450); Eosinophils Percent Auto 6.2 % (2-4); Hematocrit 38.4 % (36-46); Hemoglobin 12.7 g/dL (12.0-16.0); Lymphocytes Absolute Auto 2800 /uL (1100-4500); Lymphocytes Percent Auto 24.7 % (25-40); Mean Corpuscular HGB Conc 33.2 % (30-36); Mean Corpuscular Hemoglobin 29.9 PG (26-34); Mean Corpuscular Volume 90.2 fL (80-100); Monocytes Absolute Auto 1300 /uL (0-900); Monocytes Percent Auto 11.3 % (3-14); Neutrophils Absolute Auto 6500 /uL (1500-7000); Neutrophils Percent Auto 57.1 % (50-75); Platelet Count 439 X10^3/uL (150-400); Red Blood Cell Count 4.26 X10^6/uL (4.0-5.2); Red Cell Distribution Width 14.2 % (11.6-14.8); White Blood Cell Count 11.4 X10^3/uL (4.5-11.0)
[2021-04-05 20:33] LABS: Alanine Aminotransferase 21 IU/L (<35); Albumin 4.9 g/dL (3.5-5.0); Albumin Globulin Ratio 1.4 (1.0-2.8); Alkaline Phosphatase 87 U/L (38-126); Aspartate Aminotransferase 37 IU/L (14-36); BUN Creatinine Ratio 14.2 (6-22); Bilirubin Total 0.6 mg/dL (0.2-1.3); Blood Urea Nitrogen 16 mg/dL (7-17); Calcium 9.5 mg/dL (8.4-10.2); Carbon Dioxide 32 mmol/L (22-32); Chloride 94 mmol/L (98-107); Creatine Kinase 160 U/L (30-135); Estimated Glomerular Filt Rate 48.6 mL/min (>60); Globulin 3.6 g/dL (1.7-4.1); Glucose 106 mg/dL (80-110); HEMOLYSIS < 15 (0-50); Lipase 88 U/L (23-300); Potassium 3.7 mmol/L (3.4-5.1); Sodium 137 mmol/L (137-145); Total Protein 8.5 g/dL (6.3-8.2)
[2021-04-05 20:45] LABS: Troponin I < 0.012 ng/mL (0.01-0.034)
[2021-04-05 20:48] LABS: CKMB % Relative Index 1.5 % (1.5-5.0); Creatine Kinase MB 2.39 ng/mL (<2.37)
[2021-04-05] MEDS: ALBUTEROL/IPRATROPIUM 3 ML AMPUL INH (21:01)
== END 2021-04-05 22:48 | disposition home or self-care (01) ==
PROVIDERS: Emergency Medicine; Emergency Provider Emergency Medicine; Family Provider Family Medicine; PCP Family Medicine
DX: J44.9 Chronic obstructive pulmonary disease, unspecified (principal); R05 Cough; Z20.822 Contact with and (suspected) exposure to COVID-19
CPT/HCPCS: 36415; 71046; 80053; 82550; 82553; 83690; 84484; 85025; 87635; 93005; 94640; 96374; 99284; C9803; J2930; J7613

== ENCOUNTER 2021-04-27 22:57 | Emergency (ER) | payer MEDICAID, SELFPAY ==
[2020-09-27 01:52] VITALS: BMI 15.5
[2021-04-27 23:06] VITALS: BP 137/93; PULSE 98; RESP 14; TEMP 36.9; O2SAT 98; BMI 15.1
--- NOTE | 2021-04-28 06:35 | ED.NECK ---
HPI - Neck Pain/Injury General Chief Complaint: Neck Pain/Injury Stated Complaint: NECK PAIN Time Seen by Provider: 04/28/21 06:34 Mode of arrival: Wheelchair Limitations: no limitations History of Present Illness HPI Narrative: 65-year-old woman with COPD, osteoporosis, hypertension, hyperlipidemia, anxiety and depression presents with 48 hours of increasing left-sided neck pain now complaining of muscle aches and spasms radiating down both arms and being unable to sleep. She has had a prior C1-C2 surgery and in the past has had similar findings but has not been quite this severe. She has had luck with treating these cramping pains with cyclobenzaprine. She describes no fevers headaches chest pain or palpitations. She has a chronic cough secondary to her COPD that is not worsened. She has no lower extremity edema. No recent nausea vomiting or diarrhea. Related Data Home Medications Medication Instructions Recorded Confirmed bupropion HCl 300 mg 24 hr tablet, 300 mg PO DAILY #0 10/09/17 09/27/20 extended release clopidogrel 75 mg tablet 75 mg PO DAILY #0 10/09/17 09/27/20 docusate sodium 100 mg capsule 100 mg PO BID PRN #0 10/09/17 09/27/20 alendronate 70 mg tablet 70 mg PO QWEEK 08/10/18 09/27/20 cholecalciferol (vitamin D3) 25 1,000 unit PO DAILY 08/10/18 09/27/20 mcg (1,000 unit) tablet loratadine 10 mg tablet 10 mg PO BEDTIME 08/10/18 09/27/20 atorvastatin 40 mg tablet 40 mg PO BEDTIME 04/27/19 09/27/20 pantoprazole 40 mg tablet,delayed 40 mg PO DAILY 04/27/19 09/27/20 release metoprolol succinate 50 mg 25 mg PO DAILY tab 10/01/19 09/27/20 tablet,extended release 24 hr amlodipine 2.5 mg tablet 2.5 mg PO DAILY 08/28/20 09/27/20 hydrochlorothiazide 12.5 mg tablet 12.5 mg PO DAILY 08/28/20 09/27/20 hydroxyzine HCl 50 mg tablet 50 mg PO BEDTIME 08/28/20 09/27/20 ondansetron HCl 4 mg tablet 4 mg PO DAILY 08/28/20 09/27/20 (Zofran) cyclobenzaprine 5 mg tablet 5 mg PO BID 09/27/20 09/27/20 Previous Rx's Medication Instructions Recorded citalopram 20 mg tablet (Celexa) 20 mg PO DAILY #30 tab 05/10/18 albuterol sulfate 90 mcg/actuation 1 inh INHALATION Q4-6H PRN #18 gram 10/01/19 aerosol inhaler azithromycin 250 mg tablet 250 mg PO 3XW #12 tab 08/30/20 (Zithromax Z-Terrence) guaifenesin 600 mg tablet, 1,200 mg PO BID PRN #30 tab 09/28/20 extended release 12 hr (Mucus Relief ER) tiotropium bromide 18 mcg capsule 1 cap INHALATION DAILY #30 inh 09/28/20 with inhalation device (Spiriva with HandiHaler) benzonatate 100 mg capsule 100 mg PO BID PRN #20 cap 02/07/21 (Tessalon Perles) prednisone 20 mg tablet 20 mg PO DAILY #10 tab 02/07/21 Allergies Allergy/AdvReac Type Severity Reaction Status Date / Time codeine [CODEINE] Allergy Severe NAUSEA / Verified 04/27/21 23:06 VOMITING latex Allergy Rash Verified 04/27/21 23:06 lisinopril Allergy Verified 04/27/21 23:06 Review of Systems Review of Systems Narrative: Remainder of complete review of systems is otherwise unremarkable except for that included in the HPI. Patient History Medical History Alcohol abuse, in remission COPD (chronic obstructive pulmonary disease) Hypertension Irritable bowel syndrome (IBS) Neck pain with history of cervical spinal surgery Pancreatitis Stage 2 moderate COPD by GOLD classification Stroke Tobacco abuse, in remission Urinary tract infection Surgical History History of neck surgery History of spinal surgery Total knee replacement status Family History Unknown Adopted Son No problems noted. Other Family history non-contributory Social History household members: none Smoking Status: Former smoker alcohol intake: former Smoking Status: Former smoker alcohol intake frequency: other Substance Use Type: does not use Exam Narrative Exam Narrative: General: Frail cachectic woman limited neck mobility secondary to prior cervical spine surgery able to cooperate fully with history HEENT: Moist mucous membranes, normal sclera with reactive pupils, Neck: No JVD, nicely healed midline scar. Significant left trapezius muscle spasm from the occiput all the way to the mid trapezius level. Respiratory: Lungs are clear to auscultation, no wheezing no rales no rhonchi. Full and symmetrical air movement Cardiac: Regular rate and rhythm no murmurs no bruits Abdomen: Soft, nontender, good bowel tones, no flank pain Skin: Warm and dry, no rashes Neurologic: Grossly neurologically intact with no obvious asymmetries or abnormalities, no upper extremity numbness or tingling Extremities: No trauma, well perfused Psych: Cooperative, appropriate insight and affect Initial Vital Signs Initial Vital Signs: Vital Signs Temperature 98.4 F 04/27/21 23:06 Pulse Rate 98 H 04/27/21 23:06 Respiratory Rate 14 04/27/21 23:06 Blood Pressure 137/93 H 04/27/21 23:06 Pulse Oximetry 98 04/27/21 23:06 Course Orders Ordered: Discontinued Medications Cyclobenzaprine HCl (Cyclobenzaprine 10 Mg Tablet) 10 mg PO NOW ONE Stop: 04/28/21 06:43 Last Admin: 04/28/21 07:35 Dose: 10 mg Documented by: TIM Cyclobenzaprine HCl (Cyclobenzaprine 10 Mg Prepack) 1 bottle [facility] ONE Stop: 04/28/21 06:43 Last Admin: 04/28/21 07:47 Dose: 1 bottle Documented by: TIM Vital Signs Vital signs: Vital Signs - 8 hr 04/27/21 23:06 Temperature 98.4 F Pulse Rate 98 H Respiratory Rate 14 Blood Pressure 137/93 H Pulse Oximetry 98 MDM - Neck Pain/Injury MDM Narrative Medical decision making narrative: 65-year-old woman with prior cervical spine surgery who awoke with muscle spasm on the left side of her neck that is been worsening over the past 48-72 hours. There is no evidence of acute coronary syndrome, infection, shingles, new neck radicular pain, pneumothorax or other life-threatening abnormalities at this time. In the past she has had luck with cyclobenzaprine helping with this muscle spasm so will give her a single dose here in the ER and sent her home with a pre packed. With her history of alcohol use disorder am uncomfortable with additional narcotics or larger prescriptions of cyclobenzaprine. She has a primary care physician with whom she is solidly established and can follow-up as needed. Discharge Plan Departure Patient Disposition: Home Clinical Impression: Trapezius muscle spasm Instructions: DI for Neck Pain Activity Restrictions/Additional Instructions: Thank you for coming in today Your pain seems to be related to the significant trapezius muscle spasm you have on the left side. In the past you have noted that cyclobenzaprine works well for you. I have given you a dose of muscle relaxant in the emergency department and you have been given some to use at home over the next 1-2 days. If you have symptoms that seem to be worsening please follow-up with your primary care physician or return to the emergency department. I hope you feel better Prescriptions: No Action albuterol sulfate 90 mcg/actuation HFA aerosol inhaler 1 inh INHALATION Q4-6H PRN (Reason: shortness of breath) Qty: 18 RF: 0 docusate sodium 100 MG capsule 100 mg PO BID PRN (Reason: Constipation) Qty: 0 RF: 0 clopidogrel 75 MG tablet 75 mg PO DAILY Qty: 0 RF: 0 bupropion HCl 300 MG tablet extended release 24 hr 300 mg PO DAILY Qty: 0 RF: 0 citalopram [Celexa] 20 mg tablet 20 mg PO DAILY Qty: 30 RF: 0 hydroxyzine HCl 50 mg Tablet 50 mg PO BEDTIME RF: 0 ondansetron HCl [Zofran] 4 mg Tablet 4 mg PO DAILY RF: 0 amlodipine 2.5 mg Tablet 2.5 mg PO DAILY RF: 0 hydrochlorothiazide 12.5 mg Tablet 12.5 mg PO DAILY RF: 0 azithromycin [Zithromax Z-Terrence] 250 mg Tablet 250 mg PO 3XW Qty: 12 RF: 0 alendronate 70 mg tablet 70 mg PO QWEEK RF: 0 loratadine 10 mg tablet 10 mg PO BEDTIME RF: 0 cholecalciferol (vitamin D3) 1,000 unit tablet 1,000 unit PO DAILY RF: 0 atorvastatin 40 mg tablet 40 mg PO BEDTIME RF: 0 pantoprazole 40 mg tablet,delayed release (DR/EC) 40 mg PO DAILY RF: 0 metoprolol succinate 50 mg tablet extended release 24 hr 25 mg PO DAILY RF: 0 cyclobenzaprine 5 mg tablet 5 mg PO BID RF: 0 guaifenesin [Mucus Relief ER] 600 mg Tablet Extended Release 12hr 1,200 mg PO BID PRN (Reason: Cough) Qty: 30 RF: 0 Spiriva with HandiHaler 18 mcg Capsule, W/Inhalation Device 1 cap INHALATION DAILY Qty: 30 RF: 0 prednisone 20 mg tablet 20 mg PO DAILY Qty: 10 RF: 0 benzonatate [Tessalon Perles] 100 mg capsule 100 mg PO BID PRN (Reason: cough) Qty: 20 RF: 0 Referrals: Kandi Malhotra MD [Primary Care Provider] -
[2021-04-28] MEDS: CYCLOBENZAPRINE 10 MG TABLET PO (07:35)
[2021-04-28] MEDS: CYCLOBENZAPRINE 10 MG PREPACK 1 BOTTLE MISC (07:47)
[2021-04-28 08:09] VITALS: BP 133/69; PULSE 76; RESP 14; O2SAT 98
== END 2021-04-28 08:10 | disposition home or self-care (01) ==
PROVIDERS: Emergency Provider Emergency Medicine; Family Provider Family Medicine; PCP Family Medicine
DX: M62.830 Muscle spasm of back (principal)
CPT/HCPCS: 99283

== ENCOUNTER 2021-06-06 19:01 | Observation (INO) | payer MEDICAID, OTHER, SELFPAY ==
[2020-09-27 01:52] VITALS: BMI 15.5
[2021-06-06] VITALS (12 sets, daily range): BP systolic 124–148; BP diastolic 70–96; PULSE 78–111; RESP 17–28; TEMP 37; O2SAT 90–95; BMI 15.1
--- NOTE | 2021-06-06 19:18 | DI.CT.S_ITS ---
PROCEDURE: CT CERVICAL SPINE WO CON INDICATIONS: fall on thinners TECHNIQUE: Noncontrast 3 mm thick sections acquired from the skull base to the T4 level. Sagittal and coronal reformats were then constructed. For radiation dose reduction, the following was used: automated exposure control, adjustment of mA and/or kV according to patient size. COMPARISON: [facility], CT, CT CERVICAL SPINE WO CON, 11/12/2018, 20:50. FINDINGS: Image quality: Excellent. Bones: In the interval since the prior exam, there has been progressive reversal of cervical curvature with trace retrolisthesis of C4 on C5 and retrolisthesis of C6 on C7. Multilevel degenerative disc space narrowing is present. Posterior fusion is present at the upper cervical spine, unchanged. Soft tissues: Prevertebral soft tissues are normal in thickness. No paravertebral hematomas. No apical pneumothoraces. IMPRESSION: Multilevel degenerative changes without visualized fracture. Dictated by: Mona Mario M.D. on 06/06/2021 at 20:01 Approved by: Mona Mario M.D. on 06/06/2021 at 20:05
--- NOTE | 2021-06-06 19:18 | DI.CT.S_ITS ---
PROCEDURE: CT HEAD/BRAIN WO CON INDICATIONS: fall on thinners TECHNIQUE: Noncontrast 4.5 mm thick angled axial sections acquired from the foramen magnum to the vertex, with coronal and sagittal reformats. For radiation dose reduction, the following was used: automated exposure control, adjustment of mA and/or kV according to patient size. COMPARISON: [facility], CT, CT HEAD WITHOUT CONTRAST, 08/16/2011, 20:09. [facility], CT, CT HEAD WITHOUT CONTRAST, 01/21/2014, 0:07. [facility], CT, CT HEAD/BRAIN WO CON, 11/12/2018, 20:50. FINDINGS: Image quality: Excellent. CSF spaces: Basal cisterns are patent. No extra-axial fluid collections. Ventricles are normal in size and shape. Brain: No midline shift. No intracranial masses or hemorrhage. Martinez-white matter interface is normal. 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 CSF fluid is present within this region. Skull and face: Calvarium and visualized facial bones are intact, without suspicious lesions. Sinuses: Visualized sinuses and mastoids are clear. IMPRESSION: 1. No acute intracranial process. Dictated by: Mona Mario M.D. on 06/06/2021 at 19:39 Approved by: Mona Mario M.D. on 06/06/2021 at 19:44
--- NOTE | 2021-06-06 19:26 | DI.CT.S_ITS ---
PROCEDURE: CT CHEST WO CON INDICATIONS: MODIFIED TRAUMA TECHNIQUE: Noncontrast 5 mm thick sections acquired from the pulmonary apices to the posterior costophrenic angles. 1 mm lung window, 5 mm thick coronal and sagittal and 7 mm axial MIP reformats were then acquired. For radiation dose reduction, the following was used: automated exposure control, adjustment of mA and/or kV according to patient size. COMPARISON: [facility], CT, CT CHEST WO CON, 09/26/2020, 19:22. FINDINGS: Image quality: Excellent. Lungs and pleura: No acute air space opacities. No pleural effusions or pneumothorax. Central and peripheral airways are patent and normal in caliber. Previously identified spiculated mass left upper lobe on series 3, image 1 L5 measures 1.2 x 1.2 cm compared to 0.9 x 0.8 cm. In addition, the mass on current exam has a more solid appearance when compared to 2020. Mediastinum: Heart size is normal. No pericardial effusion. No mediastinal adenopathy by size criteria. Thoracic aorta and central pulmonary arteries are normal in size. As identified on prior exam, there is appearance of debris within the mid and distal esophagus with thickening across the gastroesophageal junction. Overall appearance appears more pronounced compared to prior exam. Bones and chest wall: No suspicious bony lesions. No vertebral body compression fractures. No axillary or supraclavicular adenopathy by size criteria. Thyroid gland is unremarkable. Abdomen: Visualized upper abdominal solid organs and bowel loops appear normal in the absence of contrast. IMPRESSION: 1. Interval increase in size of spiculated mass within the left upper lobe highly concerning for malignancy as previously noted. Further evaluation with biopsy or PET scan is recommended. 2. Prominent debris identified within the mid and distal esophagus extending across the gastroesophageal junction. While this was noted in 2020, it appears more prominent as well as thickening across the gastroesophageal junction. While evaluation is limited secondary to lack of IV contrast, given persistent enlarging appearance, presence of underlying mass causing obstruction should be considered. Further evaluation with endoscopy is recommended. Dictated by: Mona Mario M.D. on 06/06/2021 at 20:44 Approved by: Mona Mario M.D. on 06/06/2021 at 20:49
--- NOTE | 2021-06-06 19:40 | ED_ITS ---
HPI - Head Injury General Chief complaint: Trauma Stated complaint: COPD, fell on friday hit head/getting headaches Time Seen by Provider: 06/06/21 19:27 History of Present Illness HPI Narrative: Patient brought in by neighbor. Complains of left-sided headache with dyspnea. Patient states she was walking in the park and slipped on the grass and fell to left side hitting her head on the grass. No loss of consciousness. Patient is on blood thinner for history of stroke. Denies any new numbness tingling or weakness. Denies any chest back limb pelvis hips knees or any extremity pain or injury. Patient states has felt a little confused since falling. Patient also complains of dyspnea. Has history of COPD. Is not on oxygen at home. Has been using home medications without relief. No recent admission for COPD. Patient in no distress at this time. Speaking full sentences. But does have diminished lung sounds Related Data Home Medications Medication Instructions Recorded Confirmed bupropion HCl 300 mg 24 hr tablet, 300 mg PO DAILY #0 10/09/17 06/06/21 extended release clopidogrel 75 mg tablet 75 mg PO DAILY #0 10/09/17 06/06/21 docusate sodium 100 mg capsule 100 mg PO BID PRN #0 10/09/17 06/06/21 alendronate 70 mg tablet 70 mg PO QWEEK 08/10/18 06/06/21 cholecalciferol (vitamin D3) 25 1,000 unit PO DAILY 08/10/18 06/06/21 mcg (1,000 unit) tablet loratadine 10 mg tablet 10 mg PO BEDTIME 08/10/18 06/06/21 atorvastatin 40 mg tablet 40 mg PO BEDTIME 04/27/19 06/06/21 pantoprazole 40 mg tablet,delayed 40 mg PO DAILY 04/27/19 06/06/21 release amlodipine 2.5 mg tablet 2.5 mg PO DAILY 08/28/20 06/06/21 hydrochlorothiazide 12.5 mg tablet 12.5 mg PO DAILY 08/28/20 06/06/21 hydroxyzine HCl 50 mg tablet 50 mg PO BEDTIME 08/28/20 06/06/21 cyclobenzaprine 5 mg tablet 5 mg PO BID 09/27/20 06/06/21 ondansetron HCl 4 mg tablet 4 mg PO DAILY PRN 06/06/21 06/06/21 Previous Rx's Medication Instructions Recorded citalopram 20 mg tablet (Celexa) 20 mg PO DAILY #30 tab 05/10/18 albuterol sulfate 90 mcg/actuation 1 inh INHALATION Q4-6H PRN #18 gram 10/01/19 aerosol inhaler tiotropium bromide 18 mcg capsule 1 cap INHALATION DAILY #30 inh 09/28/20 with inhalation device (Spiriva with HandiHaler) Allergies Allergy/AdvReac Type Severity Reaction Status Date / Time codeine [CODEINE] Allergy Severe NAUSEA / Verified 06/06/21 23:21 VOMITING latex Allergy Rash Verified 06/06/21 23:21 lisinopril Allergy Verified 06/06/21 23:21 Review of Systems Review of Systems Narrative: GENERAL: Denies chills, fatigue, malaise, fever, sweats. HEENT: Denies sinus pain, ear pain, sore throat RESPIRATORY: Complainsdyspnea, denies cough CARDIOVASCULAR: Denies chest pain, palpitations GASTROINTESTINAL: Denies nausea, vomiting, abdominal pain : Denies dysuria, frequency, hematuria MUSCULOSKELETAL: denies muscle or bony pain SKIN: Denies rash, skin lesions NEUROLOGIC: Denies weakness, numbness, complaints of headache, no altered mental status ROS Unobtainable: All systems reviewed & are unremarkable except as noted in HPI and below Patient History Medical History Alcohol abuse, in remission COPD (chronic obstructive pulmonary disease) Hypertension Irritable bowel syndrome (IBS) Neck pain with history of cervical spinal surgery Pancreatitis Stage 2 moderate COPD by GOLD classification Stroke Tobacco abuse, in remission Urinary tract infection Surgical History History of neck surgery History of spinal surgery Total knee replacement status Family History Unknown Adopted Son No problems noted. Other Family history non-contributory Social History household members: none Smoking Status: Former smoker alcohol intake: former Smoking Status: Former smoker alcohol intake frequency: other Substance Use Type: does not use Exam Narrative Exam Narrative: GENERAL: in no distress, not toxic not dyspneic HEAD: Normocephalic. Nontender scalp. No crepitus or step-off. No bruising. EYES: Pupils equal round No scleral icterus. No injection no discharge ENT: Mucous membranes moist. NECK: Trachea midline. No midline tenderness or step-off of the C-spine T-spine and L-spine CARDIOVASCULAR: Tachycardic but Regular rate and rhythm without murmurs RESPIRATORY: Clear to auscultation. Breath sounds equal bilaterally. No wheezes, rales, or rhonchi. However, diminished lung sounds bilaterally GASTROINTESTINAL: Abdomen soft, non-tender EXTREMITIES: No gross deformities. Nontender bilateral shoulders elbows wrists elbows hips knees and ankles BACK: No flank tenderness. NEURO: AOx4. SKIN: Warm and dry PSYCH: Not anxious, is cooperative Initial Vital Signs Initial Vital Signs: Vital Signs Temperature 98.6 F 06/06/21 19:11 Pulse Rate 111 H 06/06/21 19:11 Respiratory Rate 28 H 06/06/21 19:11 Blood Pressure 139/76 06/06/21 19:11 Pulse Oximetry 95 06/06/21 19:11 Course Course Course Narrative: No new issues during course of stay. Decision to Admit Date: 06/06/21 Decision to Admit time: 22:25 Orders Ordered: ED Orders 06/06/21 19:18 CT cervical spine wo con Stat CT head/brain wo con Stat 06/06/21 19:26 CT chest wo con Stat 06/06/21 19:38 Consult to Respiratory Therapy Evaluate & Treat EKG-12 Lead Stat 06/06/21 19:40 COVID19 -Nasal swab/Pre-Proc Stat 06/06/21 19:45 Complete Blood Count AUTO DIFF Stat Comprehensive Metabolic Panel Stat NT-proBNP (BNP-Adult 18+) Stat Partial Thromboplastin Time Stat Prothrombin Time INR Stat Troponin & CK Cardiac Panel Stat Acetaminophen (Acetaminophen 325 Mg Tablet) 650 mg PO Q6HR PRN PRN Reason: Fever/Mild Pain (1-3) Last Admin: 06/07/21 01:13 Dose: 650 mg Documented by: [email or web address] Al Hydrox/Mg Hydrox/Simethicone (Mag Hydrox/Alum/Simeth 30 Ml Udc) 30 ml PO Q6HR PRN PRN Reason: Dyspepsia Albuterol (Albuterol 2.5 Mg/3 Ml Neb (Adult)) 2.5 mg INH [id number] PRN PRN Reason: Shortness Of Breath Albuterol/Ipratropium (Albuterol/Ipratropium 3 Ml Ampul) 3 ml INH [id number] LULY Lactated Ringer's (Lactated Ringers) 1,000 mls @ 60 mls/hr IV CONT LULY Last Admin: 06/07/21 00:30 Dose: 60 mls/hr Documented by: [email or web address] Naloxone HCl (Naloxone 0.4 Mg/Ml Vial) 0.2 mg IV Q2MIN PRN PRN Reason: Opiate Reversal Ondansetron HCl (Ondansetron 4 Mg/2 Ml Inj) 4 mg IV Q8HR PRN PRN Reason: Nausea And Vomiting Prednisone (Prednisone 20 Mg Tablet) 40 mg PO DAILY [facility] Stop: 06/12/21 08:59 Discontinued Medications Albuterol/Ipratropium (Albuterol/Ipratropium 3 Ml Ampul) 3 ml INH NOW ONE Stop: 06/06/21 19:39 Last Admin: 06/06/21 20:18 Dose: 3 ml Documented by: AKASH Methylprednisolone (Methylprednisolone 125 Mg/2 Ml Vial) 125 mg IV NOW ONE Stop: 06/06/21 19:39 Last Admin: 06/06/21 19:51 Dose: 125 mg Documented by: SAÚL Morphine Sulfate (Morphine 4 Mg/Ml Inj) 2 mg IV NOW ONE Stop: 06/06/21 22:17 Last Admin: 06/06/21 22:53 Dose: 2 mg Documented by: SAÚL Ondansetron HCl (Ondansetron 4 Mg/2 Ml Inj) 4 mg IV NOW ONE Stop: 06/06/21 22:17 Last Admin: 06/06/21 22:53 Dose: 4 mg Documented by: SAÚL Reevaluation(s) Reevaluation #1: Reviewed results with patient. She states that she has a GI doctor that she saw in the office at [facility] but is scheduled to to endoscopy of esophagus and colonoscopy as well. That has not been set up yet. Time: 22:17 Consultations Consultation #1: Spoke with [facility] oncology/[facility] Dr. Gifford, reviewed CT scan of the lungs. Regarding lung mass can be followed up in the office. Regarding esophageal mass needs more urgent evaluation. Time: 22:16 Consultation #2: Spoke with general surgeon Dr. Hernández, advises patient to be admitted. He can do EGD in the morning. Time: 22:23 Consultation #3: s/w dayami, hospitalist, will admit Time: 22:29 Vital Signs Vital signs: Vital Signs - 8 hr 06/06/21 19:55 06/06/21 20:00 06/06/21 20:18 Pulse Rate 96 H 93 H 78 Respiratory Rate 20 21 Blood Pressure 134/80 124/70 Pulse Oximetry 92 92 92 06/06/21 20:30 06/06/21 21:03 06/06/21 21:04 Pulse Rate 93 H 103 H 99 H Respiratory Rate 23 25 H 22 Blood Pressure 131/72 137/90 Pulse Oximetry 91 90 L 92 06/06/21 21:30 06/06/21 22:00 06/06/21 22:01 Pulse Rate 87 86 86 Respiratory Rate 22 19 20 Blood Pressure 137/76 141/96 H Pulse Oximetry 91 91 91 06/06/21 22:30 Pulse Rate 86 Respiratory Rate 19 Blood Pressure 134/79 Pulse Oximetry 92 MDM - Head Injury Differential Diagnosis Differential diagnosis: Likely concussion without loss of consciousness, subarachnoid hematoma, postconcussion syndrome, subdural hematoma, concussion with loss of consciousness and other (COPD exacerbation/lung mass) Lab Data Result diagrams: 06/06/21 19:45 06/06/21 19:45 Labs: Lab Results 06/06/21 06/06/21 06/06/21 Range/Units 19:40 19:45 19:45 WBC 10.5 (4.5-11.0) X10^3/uL RBC 4.27 (4.0-5.2) X10^6/uL Hgb 12.6 (12.0-16.0) g/dL Hct 38.3 (36-46) % MCV 89.6 (80-100) fL MCH 29.4 (26-34) PG MCHC 32.9 (30-36) % RDW 14.0 (11.6-14.8) % Plt Count 492 H (150-400) X10^3/uL Neut % (Auto) 59.6 (50-75) % Lymph % (Auto) 22.3 L (25-40) % Valencia % (Auto) 10.6 (3-14) % Eos % (Auto) 6.5 H (2-4) % Baso % (Auto) 1.0 (0-2) % Neut # (Auto) 6300 (8214-5284) /uL Lymph # (Auto) 2300 (5616-6584) /uL Valencia # (Auto) 1100 H (0-900) /uL Eos # (Auto) 700 H (0-450) /uL Baso # (Auto) 100 (0-100) /uL PT 12.0 (10.1-12.7) SECONDS INR 1.1 (0.9-1.3) APTT 38 H (26.4-36.2) SECONDS Sodium (137-145) mmol/L Potassium (3.4-5.1) mmol/L Chloride (98-107) mmol/L Carbon Dioxide (22-32) mmol/L BUN (7-17) mg/dL Creatinine (0.52-1.04) mg/dL Estimated GFR (>60) mL/min BUN/Creatinine Ratio (6-22) Glucose (80-110) mg/dL Calcium (8.4-10.2) mg/dL Phosphorus (2.8-4.1) mg/dL Magnesium (1.6-2.3) mg/dL Total Bilirubin (0.2-1.3) mg/dL AST (14-36) IU/L ALT (<35) IU/L Alkaline Phosphatase (38-126) U/L Total Creatine Kinase (30-135) U/L CK-MB (CK-2) CK-MB (CK-2) Rel Index Troponin I (0.01-0.034) ng/mL NT-Pro-B Natriuret Pep (<125) pg/mL Total Protein (6.3-8.2) g/dL Albumin (3.5-5.0) g/dL Globulin (1.7-4.1) g/dL Albumin/Globulin Ratio (1.0-2.8) SARS-CoV-2 (PCR) Negative (Negative) 06/06/21 06/06/21 06/06/21 Range/Units 19:45 19:45 19:45 WBC (4.5-11.0) X10^3/uL RBC (4.0-5.2) X10^6/uL Hgb (12.0-16.0) g/dL Hct (36-46) % MCV (80-100) fL MCH (26-34) PG MCHC (30-36) % RDW (11.6-14.8) % Plt Count (150-400) X10^3/uL Neut % (Auto) (50-75) % Lymph % (Auto) (25-40) % Valencia % (Auto) (3-14) % Eos % (Auto) (2-4) % Baso % (Auto) (0-2) % Neut # (Auto) (0818-5863) /uL Lymph # (Auto) (4149-5250) /uL Valencia # (Auto) (0-900) /uL Eos # (Auto) (0-450) /uL Baso # (Auto) (0-100) /uL PT (10.1-12.7) SECONDS INR (0.9-1.3) APTT (26.4-36.2) SECONDS Sodium 136 L (137-145) mmol/L Potassium 4.1 (3.4-5.1) mmol/L Chloride 95 L (98-107) mmol/L Carbon Dioxide 30 (22-32) mmol/L BUN 25 H (7-17) mg/dL Creatinine 1.30 H (0.52-1.04) mg/dL Estimated GFR 41.4 L (>60) mL/min BUN/Creatinine Ratio 19.2 (6-22) Glucose 108 (80-110) mg/dL Calcium 10.3 H (8.4-10.2) mg/dL Phosphorus 6.0 H (2.8-4.1) mg/dL Magnesium (1.6-2.3) mg/dL Total Bilirubin 0.4 (0.2-1.3) mg/dL AST 34 (14-36) IU/L ALT 21 (<35) IU/L Alkaline Phosphatase 79 (38-126) U/L Total Creatine Kinase 69 (30-135) U/L CK-MB (CK-2) TNP CK-MB (CK-2) Rel Index TNP Troponin I < 0.012 (0.01-0.034) ng/mL NT-Pro-B Natriuret Pep 297 H (<125) pg/mL Total Protein 8.0 (6.3-8.2) g/dL Albumin 4.8 (3.5-5.0) g/dL Globulin 3.2 (1.7-4.1) g/dL Albumin/Globulin Ratio 1.5 (1.0-2.8) SARS-CoV-2 (PCR) (Negative) 06/06/21 Range/Units 19:45 WBC (4.5-11.0) X10^3/uL RBC (4.0-5.2) X10^6/uL Hgb (12.0-16.0) g/dL Hct (36-46) % MCV (80-100) fL MCH (26-34) PG MCHC (30-36) % RDW (11.6-14.8) % Plt Count (150-400) X10^3/uL Neut % (Auto) (50-75) % Lymph % (Auto) (25-40) % Valencia % (Auto) (3-14) % Eos % (Auto) (2-4) % Baso % (Auto) (0-2) % Neut # (Auto) (9634-4339) /uL Lymph # (Auto) (9042-0791) /uL Valencia # (Auto) (0-900) /uL Eos # (Auto) (0-450) /uL Baso # (Auto) (0-100) /uL PT (10.1-12.7) SECONDS INR (0.9-1.3) APTT (26.4-36.2) SECONDS Sodium (137-145) mmol/L Potassium (3.4-5.1) mmol/L Chloride (98-107) mmol/L Carbon Dioxide (22-32) mmol/L BUN (7-17) mg/dL Creatinine (0.52-1.04) mg/dL Estimated GFR (>60) mL/min BUN/Creatinine Ratio (6-22) Glucose (80-110) mg/dL Calcium (8.4-10.2) mg/dL Phosphorus (2.8-4.1) mg/dL Magnesium 2.1 (1.6-2.3) mg/dL Total Bilirubin (0.2-1.3) mg/dL AST (14-36) IU/L ALT (<35) IU/L Alkaline Phosphatase (38-126) U/L Total Creatine Kinase (30-135) U/L CK-MB (CK-2) CK-MB (CK-2) Rel Index Troponin I (0.01-0.034) ng/mL NT-Pro-B Natriuret Pep (<125) pg/mL Total Protein (6.3-8.2) g/dL Albumin (3.5-5.0) g/dL Globulin (1.7-4.1) g/dL Albumin/Globulin Ratio (1.0-2.8) SARS-CoV-2 (PCR) (Negative) Imaging Data CT scan - head: Radiologist's Impression: [address] [address] [address] Scan Report Signed Patient: Rosmery Marquis MR#: [id number] : 1955 Acct:[id number] Age/Sex: 65 / F Date of Service: 06/06/21 Loc: ED Accession Number: [id number] ?? Procedure: CT head/brain wo con Ordering Provider: Miguel Gar MD PROCEDURE:? CT HEAD/BRAIN WO CON ? INDICATIONS:? fall on thinners ? TECHNIQUE:? Noncontrast 4.5 mm thick angled axial sections acquired from the foramen magnum to the vertex, with coronal and sagittal reformats.? For radiation dose reduction, the following was used:? automated exposure control, adjustment of mA and/or kV according to patient size.? ? COMPARISON:? [facility], CT, CT HEAD WITHOUT CONTRAST, 08/16/2011, 20:09.? [facility], CT, CT HEAD WITHOUT CONTRAST, 01/21/2014, 0:07.? [facility], CT, CT HEAD/BRAIN WO CON, 11/12/2018, 20:50. ? FINDINGS:? Image quality:? Excellent.? ? CSF spaces:? Basal cisterns are patent.? No extra-axial fluid collections.? Ventricles are normal in size and shape.? ? Brain:? No midline shift.? No intracranial masses or hemorrhage.? Martinez-white matter interface is normal.? 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 CSF fluid is present within this region. ? Skull and face:? Calvarium and visualized facial bones are intact, without suspicious lesions.? ? Sinuses:? Visualized sinuses and mastoids are clear.? ? IMPRESSION:? ? 1. No acute intracranial process. ? ? Dictated by: Mona Mario M.D. on 06/06/2021 at 19:39 ? ? Approved by: Mona Mario M.D. on 06/06/2021 at 19:44 ? CT - cervical spine: Radiologist's Impression: [address] [address] [address] Scan Report Signed Patient: Rosmery Marquis MR#: [id number] : 1955 Acct:[id number] Age/Sex: 65 / F Date of Service: 06/06/21 Loc: ED Accession Number: [id number] ?? Procedure: CT cervical spine wo con Ordering Provider: Miguel Gar MD PROCEDURE:? CT CERVICAL SPINE WO CON ? INDICATIONS:? fall on thinners ? TECHNIQUE:? Noncontrast 3 mm thick sections acquired from the skull base to the T4 level.? Sagittal and coronal reformats were then constructed.? For radiation dose reduction, the following was used:? automated exposure control, adjustment of mA and/or kV according to patient size.? ? COMPARISON:? [facility], CT, CT CERVICAL SPINE WO CON, 11/12/2018, 20:50. ? FINDINGS:? Image quality:? Excellent.? ? Bones:? In the interval since the prior exam, there has been progressive reversal of cervical curvature with trace retrolisthesis of C4 on C5 and retrolisthesis of C6 on C7.? Multilevel degenerative disc space narrowing is present.? Posterior fusion is present at the upper cervical spine, unchanged. ? Soft tissues:? Prevertebral soft tissues are normal in thickness.? No paravertebral hematomas.? No apical pneumothoraces.? ? ? IMPRESSION:? Multilevel degenerative changes without visualized fracture. ? Dictated by: Mona Mario M.D. on 06/06/2021 at 20:01 ? ? Approved by: Mona Mario M.D. on 06/06/2021 at 20:05 ? CT scan - chest: Radiologist's Impression: [address] [address] [address] Scan Report Signed Patient: Rosmery Marquis MR#: [id number] : 1955 Acct:[id number] Age/Sex: 65 / F Date of Service: 06/06/21 Loc: ED Accession Number: [id number] ?? Procedure: CT chest wo con Ordering Provider: Miguel Gar MD PROCEDURE:? CT CHEST WO CON ? INDICATIONS:? MODIFIED TRAUMA ? TECHNIQUE: Noncontrast 5 mm thick sections acquired from the pulmonary apices to the posterior costophrenic angles.? 1 mm lung window, 5 mm thick coronal and sagittal and 7 mm axial MIP reformats were then acquired.? For radiation dose reduction, the following was used:? automated exposure control, adjustment of mA and/or kV according to patient size.? ? COMPARISON:? [facility], CT, CT CHEST WO CON, 09/26/2020, 19:22. ? FINDINGS:? Image quality:? Excellent.? ? Lungs and pleura:? No acute air space opacities.? No pleural effusions or pneumothorax.? Central and peripheral airways are patent and normal in caliber.? Previously identified spiculated mass left upper lobe on series 3, image 1 L5 measures 1.2 x 1.2 cm compared to 0.9 x 0.8 cm.? In addition, the mass on current exam has a more solid appearance when compared to 2020. ? Mediastinum:? Heart size is normal.? No pericardial effusion.? No mediastinal adenopathy by size criteria.? Thoracic aorta and central pulmonary arteries are normal in size.? As identified on prior exam, there is appearance of debris within the mid and distal esophagus with thickening across the gastroesophageal junction.? Overall appearance appears more pronounced compared to prior exam. ? Bones and chest wall:? No suspicious bony lesions.? No vertebral body compression fractures.? No axillary or supraclavicular adenopathy by size criteria.? Thyroid gland is unremarkable. ? Abdomen:? Visualized upper abdominal solid organs and bowel loops appear normal in the absence of contrast.? ? IMPRESSION:? ? 1. Interval increase in size of spiculated mass within the left upper lobe highly concerning for malignancy as previously noted.? Further evaluation with biopsy or PET scan is recommended. ? 2. Prominent debris identified within the mid and distal esophagus extending across the gastroesophageal junction.? While this was noted in 2020, it appears more prominent as well as thickening across the gastroesophageal junction.? While evaluation is limited secondary to lack of IV contrast, given persistent enlarging appearance, presence of underlying mass causing obstruction should be considered.? Further evaluation with endoscopy is recommended. ? ? Dictated by: Mona Mario M.D. on 06/06/2021 at 20:44 ? ? Approved by: Mona Mario M.D. on 06/06/2021 at 20:49 ? ECG Data Interpretation: Normal sinus rhythm rate [address] elevation or depression MDM Narrative Medical decision making narrative: Appropriate for admission. Weight loss with dysphagia. Reviewed with oncology as well as surgeon. Advised the patient to be admitted. Discharge Plan Departure Patient Disposition: Admitted as Observation Clinical Impression: Esophageal mass COPD (chronic obstructive pulmonary disease) Qualifiers: COPD type: unspecified COPD Qualified Code(s): J44.9 - Chronic obstructive pulmonary disease, unspecified CHI (closed head injury) Qualifiers: Encounter type: initial encounter Qualified Code(s): S09.90XA - Unspecified injury of head, initial encounter Admit Date/Time: 06/06/21 22:30 Admit Provider: Dayami Powell
[2021-06-06] MEDS: methylPREDNISolone 125 MG/2 ML VIAL IV (19:51)
[2021-06-06 19:58] LABS: Add Manual Diff / Slide Review NO; Basophils Absolute Auto 100 /uL (0-100); Eosinophils Absolute Auto 700 /uL (0-450); Eosinophils Percent Auto 6.5 % (2-4); Hematocrit 38.3 % (36-46); Hemoglobin 12.6 g/dL (12.0-16.0); Lymphocytes Absolute Auto 2300 /uL (1100-4500); Lymphocytes Percent Auto 22.3 % (25-40); Mean Corpuscular HGB Conc 32.9 % (30-36); Mean Corpuscular Hemoglobin 29.4 PG (26-34); Mean Corpuscular Volume 89.6 fL (80-100); Monocytes Absolute Auto 1100 /uL (0-900); Monocytes Percent Auto 10.6 % (3-14); Neutrophils Absolute Auto 6300 /uL (1500-7000); Neutrophils Percent Auto 59.6 % (50-75); Platelet Count 492 X10^3/uL (150-400); Red Blood Cell Count 4.27 X10^6/uL (4.0-5.2); White Blood Cell Count 10.5 X10^3/uL (4.5-11.0)
[2021-06-06 20:06] LABS: COVID19 -Nasal RAPID Negative (Negative)
[2021-06-06 20:09] LABS: INR 1.1 (0.9-1.3)
[2021-06-06 20:12] LABS: PTT Partial Thromboplastin Tim 38 SECONDS (26.4-36.2)
[2021-06-06 20:14] LABS: Alanine Aminotransferase 21 IU/L (<35); Albumin 4.8 g/dL (3.5-5.0); Albumin Globulin Ratio 1.5 (1.0-2.8); Alkaline Phosphatase 79 U/L (38-126); Aspartate Aminotransferase 34 IU/L (14-36); BUN Creatinine Ratio 19.2 (6-22); Bilirubin Total 0.4 mg/dL (0.2-1.3); Blood Urea Nitrogen 25 mg/dL (7-17); Calcium 10.3 mg/dL (8.4-10.2); Carbon Dioxide 30 mmol/L (22-32); Chloride 95 mmol/L (98-107); Creatine Kinase 69 U/L (30-135); Estimated Glomerular Filt Rate 41.4 mL/min (>60); Globulin 3.2 g/dL (1.7-4.1); Glucose 108 mg/dL (80-110); HEMOLYSIS < 15 (0-50); Potassium 4.1 mmol/L (3.4-5.1); Sodium 136 mmol/L (137-145)
[2021-06-06] MEDS: ALBUTEROL/IPRATROPIUM 3 ML AMPUL INH (20:18)
[2021-06-06 20:26] LABS: NT-proBNP (BNP-Adult 18+) 297 pg/mL (<125); Troponin I < 0.012 ng/mL (0.01-0.034)
[2021-06-06] MEDS: MORPHINE 4 MG/ML INJ 2 MG IV (22:53)
[2021-06-06] MEDS: ONDANSETRON 4 MG/2 ML INJ IV (22:53)
[2021-06-06 23:35] LABS: Magnesium 2.1 mg/dL (1.6-2.3)
[2021-06-07] VITALS (17 sets, daily range): BP systolic 117–157; BP diastolic 65–91; PULSE 73–114; RESP 16–25; TEMP 36.1–37.8; O2SAT 90–95; BMI 14.2
[2021-06-07 00:09] LABS: COVID19 - ADMIT (NP swab/PCR) Negative (Negative)
[2021-06-07] MEDS: LACTATED RINGERS 1,000 ML 60 ML IV (00:30)
[2021-06-07] MEDS: ACETAMINOPHEN 325 MG TABLET 650 MG PO ×2 (01:13→15:35)
--- NOTE | 2021-06-07 05:08 | P.HP_ITS ---
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 Patient has had repeated ED and or hospitalizations for exacerbation of her COPD x4 in the past year. Patient presented to the ED this evening brought in by neighbor.? Complaining of left-sided headache with dyspnea.? Patient states she was walking in the park and slipped on the grass and fell to left side hitting her head on the grass.? No loss of consciousness.? Patient is on plavix for history of stroke.? Upon admit patient denies headache, changes in vision, LOC, numbness, tingling, weakness, chest pain, abdominal pain, nausea, vomiting, fever, body aches, or chills. Patient denies back, limb, pelvis, hips, knees, or any extremity pain or injury.? Patient states had felt a little confused since falling, but had resolved by the time she arrived on the floor.? Patient also complains of increased shortness of breath from her baseline, breathing is not tachypneic, no increased work of breathing, nasal flaring, or use of accessory muscles. Patient also has had a chronic left lung mass that was found in 2019 and has been followed by Dr. Damian at [facility]. Today patient also reported difficulty in swallowing and an esophageal mass was found on imaging that appears new, as well increased in the size of lung mass. Dr. Hernández was consulted in the ED and will take patient for a scope in the morning to assess esophageal mass. Patient lives in a 1 bedroom [facility].? Her closest family is her son who lives in [place] and denies any exposure to cold/flu or COVID.? ? Patient has no home O2, and ambulates with a cane independently and provides her own ADLs. Patient's vitals upon admit were stable patient was noted to have continued weight loss from previous hospitalization as evidence by BMI of 14.2. Patient's CBC was predominantly within normal limits with the exception of mono# 1100, EOS# 700, & elevated platelets at 492. Patient had noted MOIZ with a sodium 1 of 136, chloride 95, BUN of 25, creatinine 1.3 GFR 41.1. Patient's BNP was slightly elevated at 297, trope was within normal limits. Patient's EKG normal sinus rhythm with a ventricular rate of 87, without ST or T-wave changes. CT was negative for any intracranial acute processes. C-spine CT multiple degenerative changes without fractures. Chest CT demonstrated interval increase in size of spiculated mass within the left upper lobe. Prominent debris identified within the mid and distal esophagus extending across the gastroesophageal junction.? While this was noted in 2019, it appears more prominent as well as thickening across the gastroesophageal junction, while noting persistent enlarging a ppearance, presence of underlying mass causing obstruction should be considered. Patient admitted for mechanical fall resulting in closed head injury on anticoagulation, MOIZ with increasing shortness of breath an esophageal mass found on imaging. Patient History Medical History Alcohol abuse, in remission COPD (chronic obstructive pulmonary disease) Hypertension Irritable bowel syndrome (IBS) Neck pain with history of cervical spinal surgery Pancreatitis Stage 2 moderate COPD by GOLD classification Stroke Tobacco abuse, in remission Urinary tract infection Surgical History History of neck surgery History of spinal surgery Total knee replacement status Family & Social History Family History Unknown Adopted Son No problems noted. Other Family history non-contributory Social History: household members none Prior Living Arrangements Assisted Living Safety & Behavioral: Feels Safe in Current Yes Environment Been Physically Hurt or No Threatened By a Person Suicidal Ideation Description None Tobacco & Substance use: Smoking Status Former smoker alcohol intake former alcohol intake frequency other Substance Use Type does not use Meds Home Medications and Allergies Home Medications Medication Instructions Recorded Confirmed Type bupropion HCl 300 mg 24 hr tablet, 300 mg PO DAILY #0 10/09/17 06/06/21 History extended release clopidogrel 75 mg tablet 75 mg PO DAILY #0 10/09/17 06/06/21 History docusate sodium 100 mg capsule 100 mg PO BID PRN #0 10/09/17 06/06/21 History citalopram 20 mg tablet (Celexa) 20 mg PO DAILY #30 tab 05/10/18 06/06/21 Rx alendronate 70 mg tablet 70 mg PO QWEEK 08/10/18 06/06/21 History cholecalciferol (vitamin D3) 25 1,000 unit PO DAILY 08/10/18 06/06/21 History mcg (1,000 unit) tablet loratadine 10 mg tablet 10 mg PO BEDTIME 08/10/18 06/06/21 History atorvastatin 40 mg tablet 40 mg PO BEDTIME 04/27/19 06/06/21 History pantoprazole 40 mg tablet,delayed 40 mg PO DAILY 04/27/19 06/06/21 History release albuterol sulfate 90 mcg/actuation 1 inh INHALATION Q4-6H PRN #18 gram 10/01/19 06/06/21 Rx aerosol inhaler amlodipine 2.5 mg tablet 2.5 mg PO DAILY 08/28/20 06/06/21 History hydrochlorothiazide 12.5 mg tablet 12.5 mg PO DAILY 08/28/20 06/06/21 History hydroxyzine HCl 50 mg tablet 50 mg PO BEDTIME 08/28/20 06/06/21 History cyclobenzaprine 5 mg tablet 5 mg PO BID 09/27/20 06/06/21 History tiotropium bromide 18 mcg capsule 1 cap INHALATION DAILY #30 inh 09/28/20 06/06/21 Rx with inhalation device (Spiriva with HandiHaler) ondansetron HCl 4 mg tablet 4 mg PO DAILY PRN 06/06/21 06/06/21 History Allergies Allergy/AdvReac Type Severity Reaction Status Date / Time codeine [CODEINE] Allergy Severe NAUSEA / Verified 06/06/21 23:21 VOMITING latex Allergy Rash Verified 06/06/21 23:21 lisinopril Allergy Verified 06/06/21 23:21 Review of Systems Review of Systems Narrative: All 12 point systems reviewed with the patient and are negative except otherwise documented. Exam Vital Signs (past 8 hours): - 06/06/21 21:30 06/06/21 22:00 06/06/21 22:01 Temperature Pulse Rate 87 86 86 Respiratory Rate 22 19 20 Blood Pressure 137/76 141/96 H Pulse Oximetry 91 91 91 06/06/21 22:30 06/06/21 23:00 06/07/21 00:23 Temperature 97.8 F Pulse Rate 86 91 H 114 H Respiratory Rate 19 17 18 Blood Pressure 134/79 148/87 H 142/70 H Pulse Oximetry 92 91 93 06/07/21 01:13 06/07/21 01:16 Temperature 100.0 F H 100.0 F H Pulse Rate Respiratory Rate Blood Pressure Pulse Oximetry Oxygen Delivery Method Room Air Oxygen Flow Rate 0 Narrative Exam Narrative: General:? This is a delightful thin frail elderly female, appears older than stated age, poorly nourished, resting in bed in no acute distress at this time. HEENT:? Normocephalic, atraumatic, PERRLA, extraocular muscles intact, oropharynx is clear and mucous membranes are moist.? Patient is missing bottom teeth and half of upper teeth.? Wears glasses Neck:? Supple and symmetric without lymphadenopathy, thyroid enlargement, tenderness, or masses. Lungs:? Auscultation of lungs decreased bilaterally at the bases but equal, without adventitious sounds crackles, rales or rhonchi, without nasal flaring, retractions, or tachypneic. Cardiac:? S1-S2 with regular rate and rhythm without murmur rubs or gallops, no carotid bruit. Abdomen:? Soft nontender, negative for organomegaly, or masses, bowel sounds present in all 4 quadrants, without guarding or rebound, no CVA tenderness. Musculoskeletal muscle strength and tone are equal within normal limits, legs are thin but equal bilaterally with gross lack of muscle, without decrepitus effusions, cyanosis, clubbing cyanosis or edema.? Full range of motion, and radial and pedal pulses are normal. Skin:? Warm dry and intact without rashes, ulcerations, abnormal bruising, bleeding, or petechiae. Neuro:? Patient is alert and orientated to person place and time, appropriate affect sensation to touch and pain intact, has a wasting appearance, thought context, judgement, mood and affect are appropriate for age and situation. Objective Labs Result Diagrams: 06/06/21 19:45 06/06/21 19:45 Labs: Laboratory Results - last 24 hr 06/06/21 06/06/21 06/06/21 19:40 19:45 19:45 WBC 10.5 RBC 4.27 Hgb 12.6 Hct 38.3 MCV 89.6 MCH 29.4 MCHC 32.9 RDW 14.0 Plt Count 492 H Neut % (Auto) 59.6 Lymph % (Auto) 22.3 L [place] % (Auto) 10.6 Eos % (Auto) 6.5 H Baso % (Auto) 1.0 Neut # (Auto) 6300 Lymph # (Auto) 2300 [place] # (Auto) 1100 H Eos # (Auto) 700 H Baso # (Auto) 100 PT 12.0 INR 1.1 APTT 38 H Sodium Potassium Chloride Carbon Dioxide BUN Creatinine Estimated GFR BUN/Creatinine Ratio Glucose Calcium Phosphorus Magnesium Total Bilirubin AST ALT Alkaline Phosphatase Total Creatine Kinase CK-MB (CK-2) CK-MB (CK-2) Rel Index Troponin I NT-Pro-B Natriuret Pep Total Protein Albumin Globulin Albumin/Globulin Ratio SARS-CoV-2 (PCR) Negative 06/06/21 06/06/21 06/06/21 19:45 19:45 19:45 WBC RBC Hgb Hct MCV MCH MCHC RDW Plt Count Neut % (Auto) Lymph % (Auto) [place] % (Auto) Eos % (Auto) Baso % (Auto) Neut # (Auto) Lymph # (Auto) [place] # (Auto) Eos # (Auto) Baso # (Auto) PT INR APTT Sodium 136 L Potassium 4.1 Chloride 95 L Carbon Dioxide 30 BUN 25 H Creatinine 1.30 H Estimated GFR 41.4 L BUN/Creatinine Ratio 19.2 Glucose 108 Calcium 10.3 H Phosphorus 6.0 H Magnesium Total Bilirubin 0.4 AST 34 ALT 21 Alkaline Phosphatase 79 Total Creatine Kinase 69 CK-MB (CK-2) TNP CK-MB (CK-2) Rel Index TNP Troponin I < 0.012 NT-Pro-B Natriuret Pep 297 H Total Protein 8.0 Albumin 4.8 Globulin 3.2 Albumin/Globulin Ratio 1.5 SARS-CoV-2 (PCR) 06/06/21 06/06/21 19:45 23:10 WBC RBC Hgb Hct MCV MCH MCHC RDW Plt Count Neut % (Auto) Lymph % (Auto) [place] % (Auto) Eos % (Auto) Baso % (Auto) Neut # (Auto) Lymph # (Auto) [place] # (Auto) Eos # (Auto) Baso # (Auto) PT INR APTT Sodium Potassium Chloride Carbon Dioxide BUN Creatinine Estimated GFR BUN/Creatinine Ratio Glucose Calcium Phosphorus Magnesium 2.1 Total Bilirubin AST ALT Alkaline Phosphatase Total Creatine Kinase CK-MB (CK-2) CK-MB (CK-2) Rel Index Troponin I NT-Pro-B Natriuret Pep Total Protein Albumin Globulin Albumin/Globulin Ratio SARS-CoV-2 (PCR) Negative Assessment & Plan Assessment & Plan narrative: This patient requires acute care inpatient hospital management for mechanical fall resulting in closed head injury on anticoagulation, MOIZ with increasing shortness of breath an esophageal mass found on imaging. 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 These factors increase the difficulty and complexity of medical and surgical interventions and increases the chances of poor outcomes such as morbidity and mortality.? The patient's esophageal mass may possibly impact her oxygenation, which will likely continue to cause exacerbation of her COPD worsening her chances and risk for aspiration pneumonia and/or acute respiratory distress. 1.Mechanical ground level fall resulting in closed head injury and MOIZ, secondary to anticoagulation therapy for history of stroke, essential hypertension, and mixed hyperlipidemia, acute on chronic, present on admission -monitor place lugo to for intracranial hemorrhage, secondary bleeding, stroke -[id number], chloride 95, BUN of 25, creatinine 1.3 GFR 41.1.-creatinine is a prior to 01/2021-WNL, GFR- WNL -initial troponin-WNL. EKG normal sinus rhythm with a ventricular rate of 87, w ithout ST or T-wave changes. - Head CT was negative for any intracranial acute processes. C-spine CT multiple degenerative changes without fractures. -patient to be monitored on tele medicine, vital signs q.4 hours, intake and output monitored Q shift, weight measure daily, diet:NPO after midnight -IV fluids: LR @60cc/HR- gentle rehydration -patient to continue home metoprolol 50 mg once day, amlodipine 2.5 mg once daily. -history of a stroke in 1999-patient to continue clopidogrel 75 mg once daily -patient to continue atorvastatin 40 mg at bedtime -hold patient's hydrochlorothiazide 2.Esophageal mass, acute, found on imaging, secondary Lt lung mass, increasing in size followed by [facility], acute on chronic, present on admission -mono# 1100, EOS# 700, & elevated platelets at 492. Patient had noted MOIZ with a Patient's BNP was slightly elevated at 297, -Chest CT demonstrated interval increase in size of spiculated mass within the left upper lobe. Prominent debris identified within the mid and distal esophagus extending across the gastroesophageal junction.? While this was noted in 2019, it appears more prominent as well as thickening across the gastroesophageal junction, while noting persistent enlarging appearance, presence of underlying mass causing obstruction should be considered. -patient NPO at midnight -patient to be scoped by Dr. Hernández tomorrow -lung mass managed by [facility] Dr. Stephens -requested [facility] notes and imaging for comparison. 3.COPD, exacerbation, acute on chronic, present on admission -BNP was slightly elevated at 297, patient O2 saturation 93% on room air -respiratory consult -continue patient's Spiriva and albuterol inhalers 4.Malnutrition, acute on chronic, present on admission, BMI 14.2 down from 16.2 08/2020 -dietary consult ordered with recommendations nutritional supplement. -will monitor weight daily. -patient is missing all lower teeth and half of upper teeth impairing mastication. 5.Major depressive disorder, chronic, stable, present on admission -patient to continue citalopram 20 mg p.o. once daily, bupropion 300 mg p.o. daily -patient denies suicidal ideation Code status: Full code VTE prophylaxis:? Enoxaparin 40 units daily, SCDs Surrogate decision maker:? Haile Marquis (son), Reid NUNEZ PCR:? Negative PCP:? Kandi Malhotra DVT/VTE prophylaxis: SCDs only Disposition: Expected length of stay greater than 2 midnights I have utilized all available immediate resources to obtain, update, or review the patient's current medications. I confirmed that the patient's advanced care plan is present, Code status is documented and/or surrogate decision maker is listed in the patient's medical record. Time Spent With Patient Critical Care time: I spent a total of [] minutes of critical care time on this patient's care today; this time is exclusive of procedural time. Scores GCS [place] coma scale eye opening: Spontaneous Christina coma scale verbal response: Orientated Christina coma scale motor response: Obey commands Christina coma scale total score: 15
[2021-06-07] MEDS: ALBUTEROL/IPRATROPIUM 3 ML AMPUL INH ×2 (07:23→13:44)
[2021-06-07 07:37] LABS: Add Manual Diff / Slide Review NO; Basophils Absolute Auto 0 /uL (0-100); Basophils Percent Auto 0.6 % (0-2); Eosinophils Absolute Auto 0 /uL (0-450); Eosinophils Percent Auto 0.1 % (2-4); Hematocrit 34.8 % (36-46); Hemoglobin 11.3 g/dL (12.0-16.0); Lymphocytes Absolute Auto 1300 /uL (1100-4500); Lymphocytes Percent Auto 19.2 % (25-40); Mean Corpuscular HGB Conc 32.3 % (30-36); Mean Corpuscular Hemoglobin 29.1 PG (26-34); Mean Corpuscular Volume 90.1 fL (80-100); Monocytes Absolute Auto 500 /uL (0-900); Monocytes Percent Auto 6.7 % (3-14); Neutrophils Absolute Auto 5200 /uL (1500-7000); Neutrophils Percent Auto 73.4 % (50-75); Platelet Count 448 X10^3/uL (150-400); Red Blood Cell Count 3.87 X10^6/uL (4.0-5.2)
[2021-06-07 08:01] LABS: INR 1.1 (0.9-1.3); Prothrombin Time 11.9 SECONDS (10.1-12.7)
[2021-06-07 08:03] LABS: PTT Partial Thromboplastin Tim 34 SECONDS (26.4-36.2)
[2021-06-07 08:11] LABS: Alanine Aminotransferase 21 IU/L (<35); Albumin 4.3 g/dL (3.5-5.0); Albumin Globulin Ratio 1.4 (1.0-2.8); Alkaline Phosphatase 73 U/L (38-126); Aspartate Aminotransferase 33 IU/L (14-36); BUN Creatinine Ratio 23.9 (6-22); Bilirubin Total 0.4 mg/dL (0.2-1.3); Blood Urea Nitrogen 28 mg/dL (7-17); Calcium 9.5 mg/dL (8.4-10.2); Carbon Dioxide 30 mmol/L (22-32); Chloride 97 mmol/L (98-107); Estimated Glomerular Filt Rate 46.7 mL/min (>60); Glucose 103 mg/dL (80-110); HEMOLYSIS < 15 (0-50); Potassium 4.6 mmol/L (3.4-5.1); Sodium 136 mmol/L (137-145); Total Protein 7.3 g/dL (6.3-8.2)
[2021-06-07 08:18] LABS: NT-proBNP (BNP-Adult 18+) 299 pg/mL (<125)
--- NOTE | 2021-06-07 09:29 | P.CONS_ITS ---
History of Present Illness Consult details Chief complaint: COPD, fell on friday hit head/getting headaches Narrative: Patient is a woman who was admitted regarding exacerbation of her COPD and. She has been having progressive weight loss and dysphagia of solids. Food does not taste normal. She has had which she describes as IBD and has been having some changes in bowel habits. Last colonoscopy was many years ago. She had a CT scan performed that showed suggest the presence of a mass in her distal esophagus. She is brought for an EGD. Her breathing has improved and she received a breathing treatment this morning. She had a has had a hysterectomy for benign disease. She has also had an open cholecystectomy in the distant past. Meds Home Medications and Allergies Home Medications Medication Instructions Recorded Confirmed Type bupropion HCl 300 mg 24 hr tablet, 300 mg PO DAILY #0 10/09/17 06/06/21 History extended release clopidogrel 75 mg tablet 75 mg PO DAILY #0 10/09/17 06/06/21 History docusate sodium 100 mg capsule 100 mg PO BID PRN #0 10/09/17 06/06/21 History citalopram 20 mg tablet (Celexa) 20 mg PO DAILY #30 tab 05/10/18 06/06/21 Rx alendronate 70 mg tablet 70 mg PO QWEEK 08/10/18 06/06/21 History cholecalciferol (vitamin D3) 25 1,000 unit PO DAILY 08/10/18 06/06/21 History mcg (1,000 unit) tablet loratadine 10 mg tablet 10 mg PO BEDTIME 08/10/18 06/06/21 History atorvastatin 40 mg tablet 40 mg PO BEDTIME 04/27/19 06/06/21 History pantoprazole 40 mg tablet,delayed 40 mg PO DAILY 04/27/19 06/06/21 History release albuterol sulfate 90 mcg/actuation 1 inh INHALATION Q4-6H PRN #18 gram 10/01/19 06/06/21 Rx aerosol inhaler amlodipine 2.5 mg tablet 2.5 mg PO DAILY 08/28/20 06/06/21 History hydrochlorothiazide 12.5 mg tablet 12.5 mg PO DAILY 08/28/20 06/06/21 History hydroxyzine HCl 50 mg tablet 50 mg PO BEDTIME 08/28/20 06/06/21 History cyclobenzaprine 5 mg tablet 5 mg PO BID 09/27/20 06/06/21 History tiotropium bromide 18 mcg capsule 1 cap INHALATION DAILY #30 inh 09/28/20 06/06/21 Rx with inhalation device (Spiriva with HandiHaler) ondansetron HCl 4 mg tablet 4 mg PO DAILY PRN 06/06/21 06/06/21 History Allergies Allergy/AdvReac Type Severity Reaction Status Date / Time codeine [CODEINE] Allergy Severe NAUSEA / Verified 06/06/21 23:21 VOMITING latex Allergy Rash Verified 06/06/21 23:21 lisinopril Allergy Verified 06/06/21 23:21 Review of Systems Review of Systems Narrative: Patient denies any chest pain or heart problems. Has chronic breathing issues. Used to smoke and drink. Patient says her stool is small donuts. She has some difficulty urinating at times. Not seen any blood in her stool. She has had a stroke that is left to was some mild right-sided weakness. Caused her to stumble little at time but ordinarily she walks without assistance. Exam Vital Signs (past 8 hours): - 06/07/21 05:00 06/07/21 05:56 06/07/21 07:04 Temperature 98.5 F 98.2 F Pulse Rate 85 84 Respiratory Rate 16 16 Blood Pressure 126/78 137/81 Pulse Oximetry 93 92 95 06/07/21 07:24 06/07/21 08:28 Temperature 99.2 F Pulse Rate 83 87 Respiratory Rate 16 22 Blood Pressure 120/70 Pulse Oximetry 93 92 Oxygen Delivery Method Room Air Oxygen Flow Rate 0 Narrative Exam Narrative: Very thin patient with muscle mass wasting and very little fat. Very pleasant. No distress at this time. No bruit in the neck. Do not feel any nodes in the neck her lungs are clear to auscultation no rales or rhonchi. Heart regular rate and rhythm without murmur gallop. Abdomen is scaphoid soft no obvious masses or hernias. Alert and oriented. Objective Imaging CT scan - chest: My impression: Spiculated mass in the left upper lobe. Patient has thickening of the distal esophagus. There is either debris your mass there extending into the stomach. This may be food. It is difficult to tell. Patient was not given oral or IV contrast. Labs Result Diagrams: 06/07/21 07:08 09/09/21 07:08 Labs: Laboratory Results - last 24 hr 06/06/21 06/06/21 06/06/21 19:40 19:45 19:45 WBC 10.5 RBC 4.27 Hgb 12.6 Hct 38.3 MCV 89.6 MCH 29.4 MCHC 32.9 RDW 14.0 Plt Count 492 H Neut % (Auto) 59.6 Lymph % (Auto) 22.3 L [place] % (Auto) 10.6 Eos % (Auto) 6.5 H Baso % (Auto) 1.0 Neut # (Auto) 6300 Lymph # (Auto) 2300 [place] # (Auto) 1100 H Eos # (Auto) 700 H Baso # (Auto) 100 PT 12.0 INR 1.1 APTT 38 H Sodium Potassium Chloride Carbon Dioxide BUN Creatinine Estimated GFR BUN/Creatinine Ratio Glucose Calcium Phosphorus Magnesium Total Bilirubin AST ALT Alkaline Phosphatase Total Creatine Kinase CK-MB (CK-2) CK-MB (CK-2) Rel Index Troponin I NT-Pro-B Natriuret Pep Total Protein Albumin Globulin Albumin/Globulin Ratio SARS-CoV-2 (PCR) Negative 06/06/21 06/06/21 06/06/21 19:45 19:45 19:45 WBC RBC Hgb Hct MCV MCH MCHC RDW Plt Count Neut % (Auto) Lymph % (Auto) [place] % (Auto) Eos % (Auto) Baso % (Auto) Neut # (Auto) Lymph # (Auto) [place] # (Auto) Eos # (Auto) Baso # (Auto) PT INR APTT Sodium 136 L Potassium 4.1 Chloride 95 L Carbon Dioxide 30 BUN 25 H Creatinine 1.30 H Estimated GFR 41.4 L BUN/Creatinine Ratio 19.2 Glucose 108 Calcium 10.3 H Phosphorus 6.0 H Magnesium Total Bilirubin 0.4 AST 34 ALT 21 Alkaline Phosphatase 79 Total Creatine Kinase 69 CK-MB (CK-2) TNP CK-MB (CK-2) Rel Index TNP Troponin I < 0.012 NT-Pro-B Natriuret Pep 297 H Total Protein 8.0 Albumin 4.8 Globulin 3.2 Albumin/Globulin Ratio 1.5 SARS-CoV-2 (PCR) 06/06/21 06/06/21 06/07/21 19:45 23:10 07:08 WBC RBC Hgb Hct MCV MCH MCHC RDW Plt Count Neut % (Auto) Lymph % (Auto) [place] % (Auto) Eos % (Auto) Baso % (Auto) Neut # (Auto) Lymph # (Auto) [place] # (Auto) Eos # (Auto) Baso # (Auto) PT INR APTT Sodium Potassium Chloride Carbon Dioxide BUN Creatinine Estimated GFR BUN/Creatinine Ratio Glucose Calcium Phosphorus Magnesium 2.1 Total Bilirubin AST ALT Alkaline Phosphatase Total Creatine Kinase CK-MB (CK-2) CK-MB (CK-2) Rel Index Troponin I NT-Pro-B Natriuret Pep 299 H Total Protein Albumin Globulin Albumin/Globulin Ratio SARS-CoV-2 (PCR) Negative 06/07/21 06/07/21 06/07/21 07:08 07:08 07:08 WBC 7.0 RBC 3.87 L Hgb 11.3 L Hct 34.8 L MCV 90.1 MCH 29.1 MCHC 32.3 RDW 14.0 Plt Count 448 H Neut % (Auto) 73.4 Lymph % (Auto) 19.2 L [place] % (Auto) 6.7 Eos % (Auto) 0.1 L Baso % (Auto) 0.6 Neut # (Auto) 5200 Lymph # (Auto) 1300 [place] # (Auto) 500 Eos # (Auto) 0 Baso # (Auto) 0 PT 11.9 INR 1.1 APTT 34 Sodium 136 L Potassium 4.6 Chloride 97 L Carbon Dioxide 30 BUN 28 H Creatinine 1.17 H Estimated GFR 46.7 L BUN/Creatinine Ratio 23.9 H Glucose 103 Calcium 9.5 Phosphorus Magnesium Total Bilirubin 0.4 AST 33 ALT 21 Alkaline Phosphatase 73 Total Creatine Kinase CK-MB (CK-2) CK-MB (CK-2) Rel Index Troponin I NT-Pro-B Natriuret Pep Total Protein 7.3 Albumin 4.3 Globulin 3.0 Albumin/Globulin Ratio 1.4 SARS-CoV-2 (PCR) [facility] Medical History Alcohol abuse, in remission COPD (chronic obstructive pulmonary disease) Hypertension Irritable bowel syndrome (IBS) Neck pain with history of cervical spinal surgery Pancreatitis Stage 2 moderate COPD by GOLD classification Stroke Tobacco abuse, in remission Urinary tract infection Surgical History History of neck surgery History of spinal surgery Total knee replacement status Family History Unknown Adopted Son No problems noted. Other Family history non-contributory Social History household members: none Tobacco & Substance Use Smoking Status: Former smoker alcohol intake: former Assessment & Plan Assessment and plan (1) Esophageal mass: Status: Acute (2) Dysphagia: Status: Acute Plan: Patient has dysphagia of solids. She feels it in her upper chest. Liquids have no problem passing through. She has an abnormal CT scan. Recommend an EGD and possible biopsy. I have discussed the procedure with the patient including risks of bleeding and perforation. She appears to understand wishes to proceed. Time Spent With Patient Critical Care time: I spent a total of [] minutes of critical care time on this patient's care today; this time is exclusive of procedural time.
[2021-06-07] MEDS: LIDOCAINE 4% SOLN 50 ML 20 ML TOP (09:40)
--- NOTE | 2021-06-07 09:41 | PM.PREOP ---
Pre-operative Note COVID-19 COVID-19 status: Negative Result date/Date tested (Pos, Neg/Pending): 06/06/21 Interval Note History & Physical reviewed/Exam performed by Physician: Yes Changes to H&P: No ASA Class (for procedural sedation): III
[2021-06-07] MEDS: MIDAZOLAM 5 MG/5 ML VIAL IV (09:47)
--- NOTE | 2021-06-07 09:52 | PM.DS.1 ---
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 Patient has had repeated? ED and or hospitalizations for exacerbation of her COPD x4? in the past year.? Patient presented to the ED this evening brought in by neighbor.? Complaining of left-sided headache with dyspnea.? Patient states she was walking in the park and slipped on the grass and fell to left side hitting her head on the grass.? No loss of consciousness.? Patient is on plavix for history of stroke.? Upon admit patient denies headache, changes in vision, LOC, numbness, tingling, weakness, chest pain, abdominal pain, nausea, vomiting, fever, body aches, or chills. Patient denies back, limb, pelvis, hips, knees, or any extremity pain or injury.? Patient states had felt a little confused since falling, but had resolved by the time she arrived on the floor.? Patient also complains of increased shortness of breath from her baseline, breathing is not tachypneic, no increased work of breathing, nasal flaring, or use of accessory muscles.? Patient also has had a chronic left lung mass that was found in 2019 and has been followed by Dr. Damian at [facility].? Today patient also reported difficulty in swallowing and an esophageal mass was found on imaging that appears new, as well increased in the size of lung mass.? Dr. Hernández was consulted in the ED and will take patient for a scope in the morning to assess esophageal mass.? Patient lives in a 1 bedroom apartment at the emergency snf.? Her closest family is her son who lives in [place] and denies any exposure to cold/flu or COVID.? ? Patient has no home O2, and ambulates with a cane independently and provides her own ADLs. Patient's vitals upon admit were stable patient was noted to have continued weight loss from previous hospitalization as evidence by BMI of 14.2.? Patient's CBC was predominantly within normal limits with the exception of mono# 1100, EOS# 700, & elevated platelets at 492.? Patient had noted MOIZ with a sodium 1 of 136, chloride 95, BUN of 25, creatinine 1.3 GFR 41.1.? Patient's BNP was slightly elevated at 297, trope was within normal limits.? Patient's EKG normal sinus rhythm with a ventricular rate of 87, without ST or T-wave changes. CT was negative for any intracranial acute processes.? C-spine CT multiple degenerative changes without fractures. Chest CT demonstrated interval increase in size of spiculated mass within the left upper lobe. Prominent debris identified within the mid and distal esophagus extending across the gastroesophageal junction.? While this was noted in 2020, it appears more prominent as well as thickening across the gastroesophageal junction, while noting persistent enlarging appearance, presence of underlying mass causing obstruction should be considered.? Patient admitted for mechanical fall resulting in closed head injury on anticoagulation, MOIZ with increasing shortness of breath an esophageal mass found on imaging. Discharge Providers Provider Date of admission: 06/06/21 22:30 Discharge Date: 06/07/21 Primary care physician: Kandi Malhotra MD Consults: 06/06/21 19:38 Consult to Respiratory Therapy Evaluate & Treat Comment: Physician Instructions: Evaluate and treat 06/06/21 23:15 Consult to Physician Routine Comment: Consulting Provider: Nando Hernández Reason for consultation: Esophageal mass Has provider been notified: Yes 06/07/21 10:12 Consult to Speech Therapy Evaluate & Treat Comment: Physician Instructions: Evaluate and treat Discharge provider: Prosper Velez MD Summary Hospital Course Discharge Diagnosis: 1. Mechanical ground level fall 2. Left lung mass 3. MOIZ 4. History of CVA 5. HTN 6. HL 7. Chronic COPD 8. Severe protein calorie malnutrition, BMI 14.2 9. Major depressive disorder 10. Dysphagia Hospital Course: Ms. Marquis presented to the hospital after a fall and head injury. She had no evidence of any bleeding, her CT c-spine showed no acute process. She had CT imaging that was read as possible pass vs debris in esophagus that was noted in 2019. She had an EGD done that showed no acute process. She worked with speech therapy who cleared her for swallow safely. She could have a possible fluoroscopic study as an outpatient to further evaluate her dysphagia. She has a growing lung mass and is referred back to her oncologist for further follow up regarding management of this issue. Discharge time: 34 minutes Exam Vital Signs (past 8 hours): Oxygen Delivery Method Room Air Oxygen Flow Rate 0 Narrative Exam Narrative: GEN: thin, no acute distress CV: RRR, no murmurs PULM: ctab/l no wheezes, rhonchi, rales ABD: soft, nontender, nondistended, no organomegaly Objective Labs Result Diagrams: 06/07/21 07:08 06/07/21 07:08 COUNTS INCLUDE 234 BEDS AT THE [facility] Medical History Alcohol abuse, in remission COPD (chronic obstructive pulmonary disease) Hypertension Irritable bowel syndrome (IBS) Neck pain with history of cervical spinal surgery Pancreatitis Stage 2 moderate COPD by GOLD classification Stroke Tobacco abuse, in remission Urinary tract infection Surgical History History of neck surgery History of spinal surgery Total knee replacement status Family History Unknown Adopted Son No problems noted. Other Family history non-contributory Social History household members: none Smoking Status: Former smoker alcohol intake: former Discharge Plan Discharge Plan Patient Disposition: Home Provider Discharge Comment: Ms. Marquis came in with a fall and hit her heard. CT showed no evidence of bleeding. She had mild COPD which improved with medications. She also has had some swallowing issues. She had an EGD that showed no problem. She had swallow evaluation done and we can recommend a possible fluoroscopy as outpatient to evaluate her dysphagia. But she was swallowing safely in the hospital. She should follow up as an outpatient with a colonoscopy. She also has a spot in her lung and will be referred to an oncologist, and may benefit from a PET/CT scan. Discharge orders & Medications Prescriptions: New prednisone 20 mg Tablet 40 mg PO DAILY Qty: 4 RF: 0 Continued albuterol sulfate 90 mcg/actuation HFA aerosol inhaler 1 inh INHALATION Q4-6H PRN (Reason: shortness of breath) Qty: 18 RF: 0 docusate sodium 100 MG capsule 100 mg PO BID PRN (Reason: Constipation) Qty: 0 RF: 0 clopidogrel 75 MG tablet 75 mg PO DAILY Qty: 0 RF: 0 bupropion HCl 300 MG tablet extended release 24 hr 300 mg PO DAILY Qty: 0 RF: 0 citalopram [Celexa] 20 mg tablet 20 mg PO DAILY Qty: 30 RF: 0 hydroxyzine HCl 50 mg Tablet 50 mg PO BEDTIME RF: 0 amlodipine 2.5 mg Tablet 2.5 mg PO DAILY RF: 0 hydrochlorothiazide 12.5 mg Tablet 12.5 mg PO DAILY RF: 0 alendronate 70 mg tablet 70 mg PO QWEEK RF: 0 loratadine 10 mg tablet 10 mg PO BEDTIME RF: 0 cholecalciferol (vitamin D3) 1,000 unit tablet 1,000 unit PO DAILY RF: 0 atorvastatin 40 mg tablet 40 mg PO BEDTIME RF: 0 pantoprazole 40 mg tablet,delayed release (DR/EC) 40 mg PO DAILY RF: 0 cyclobenzaprine 5 mg tablet 5 mg PO BID RF: 0 Spiriva with HandiHaler 18 mcg Capsule, W/Inhalation Device 1 cap INHALATION DAILY Qty: 30 RF: 0 ondansetron HCl 4 mg tablet 4 mg PO DAILY PRN (Reason: Nausea) RF: 0 Medication counseling provided by Pharmacist: Yes Follow up/Referrals: Kandi Malhotra MD [Primary Care Provider] - Ant Tovar MD [Physician] - (left upper lobe mass, dysphagia, urgent follow up) Diet/Activity/Treatments Diet: Diet as Tolerated Visit Report/Discharge Packet Instructions: How to Prevent Falls Stand Alone Forms: EGD Result: [facility] Surg Discharge Data Primary Care Provider: Kandi Malhotra Attending Provider: Janet Powell [facility] The patient has current or prior documentation of left ventricular ejection fraction (LVEF) less than 40%, or moderate or severely depressed left ventricular systolic function.: No
--- NOTE | 2021-06-07 09:52 | PM.OP.ENDO ---
Operative Date/Time/Diagnoses Date of procedure: 06/07/21 Time of procedure: 09:52 Pre-op diagnosis: Dysphagia. Abnormal CT scan suggesting thickening of the distal esophagus and possible tumor. Post-op diagnosis: same (Normal examination despite symptoms and CT findings.) Procedure & Clinicians Study performed: EGD Same procedure as scheduled: Yes Indications: Patient with dysphagia weight loss and CT suggesting the possibility of an esophageal lesion brought for EGD. Surgeon: Nando Hernández Procedure Notes SCOAP/Timeout: Performed Procedure in detail: The patient had topical anesthetic applied to oropharynx. She was placed in the left lateral decubitus position and underwent IV sedation directed by the surgeon consisting of Versed only. Patient does not tolerate narcotics well.. A bite block was inserted and the scope was advanced through it into the esophagus. The area around the larynx appeared normal in the vocal cords appeared normal. The esophagus was unremarkable. GE junction was noted at 38 cm from the incisors. There was NO evidence of any thickening or mucosal abnormalities anywhere in the esophagus or at the GE junction. There was NO evidence of Aguirre's esophagus at the GE junction.. The stomach insufflated well. There were no lesions seen in the body, antrum or at the incisura. The pyloric channel was mildly edematous but patent. The duodenum was examined to the 4th part. Just beyond the reach of the scope there appeared that there might be a duodenal diverticulum. I could identify NO mucosal lesions. I did note that the sweep of the duodenum seemed distorted somewhat. Scope was brought back into the stomach and retroflexed. The proximal stomach was entirely normal in appearance except for the possibility of a very small hiatal hernia. There was no real evidence of movement of stomach into the chest.. The scope was straightened and brought out through the esophagus again. No lesions were seen. The scope was removed and the patient tolerated the procedure well. Scope withdrawal time: Not applicable Sedation minutes: 9 Findings: hiatal hernia (Very small and probably insignificant) and other findings (Possible duodenal diverticulum of the distal duodenum. No evidence of tumor anywhere in the upper tract.) Specimen(s): none sent Complications: none Impression: Possible dysfunction of motility of the esophagus from prior stroke or other process. Post-procedure Recommendations: Other recommendation (Consider elective colonoscopy. Consider a barium swallow or other motility study of the esophagus) Follow up: as needed Disposition: PACU
--- NOTE | 2021-06-07 10:37 | SUR.PHASEI ---
Report called to BHUPINDER Alejandra. Pt transferred to room 205 on [facility] by Aleksey Harper RN.
[2021-06-07] MEDS: predniSONE 20 MG TABLET 40 MG PO (12:59)
--- NOTE | 2021-06-07 13:13 | ST.IPSCREEN ---
Pt seen following order for swallow valuation. Pt reported that she can drink liquids without difficulty. Observed her drinking water from straw without overt s/sx aspiration.. Pt describes difficulty with solids only getting stuck, Additionally she said that if she eats fast she usually needs to throw up undigested food. Suspect esophageal dysmotility. Recommend barium Swallow without ST. Pt scheduled to be discharged today.
--- NOTE | 2021-06-07 14:58 | CM.DPNOTE ---
DCP Note Met w/patient, introduced role. DC order in place and patient has prepared for return to her studio apt at the [facility], friend Shannon to transport home. BHUPINDER Alejandra and this TRANSPLANT WORKER discuss cane vs walker, patient has fallen while using her cane at home; suggested friend Shannon drive through [employer] tomorrow, Friday, to obtain a walker? 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 No DPOA at this time, strongly encouraged patient to review Who Will Decide brochure, provided. Patient appreciative. Patient denies further needs from this TRANSPLANT WORKER Plan: DC home to stud at [facility] via private auto, close outpatient f/u recommended EDDIE
--- NOTE | 2021-06-07 15:31 | PC.NURSE ---
Patient received back from EGD procedure approx 1030am, sleepy but easy to awake- pleasant and appropriate. VSS. Seen by ST and MD and plans for discharge to home with follow up and outpatient procedures needed. Patient tolerating soft diet well without complaints. Patient's friend Shannon plans to pick her up this evening to help her get home, and states she can help her pick up driver prescription. Patient states she has a follow up scheduled with her PCP tomorrow. Evening shift RN to assume care and assist with discharge to home this evening.
--- NOTE | 2021-06-07 18:38 | PC.NURSE ---
report from traci, day shift RN: discharge paperwork is completed, and patient's friend is coming to pick her up around 1600. 1615:patient d/c meds, and instructions for f/u handed to her for review. she looked thru them and had some questions about the new script Prednisone. reminded her that the med will be at pharmacy and to bring the written script to them. IV to RFA d/c'd, catheter intact, pressure bandage applied. tele removed: ICU notified. placed in red box from room and placed at front office attendant. 1630: Mallory assisted her w/ getting dressed, and brought her downstairs to where her friend was waiting.
== END 2021-06-07 18:55 | disposition home or self-care (01) ==
LOC: ED 22:27 → AC 22:30
PROVIDERS: Specialist; Admitting Provider Nurse Practitioner Family; Emergency Provider Emergency Medicine; Family Provider Family Medicine; PCP Family Medicine; Referring Provider Emergency Medicine; Visit Provider Nurse Practitioner Family
PROC: 0DJ08ZZ Inspection of Upper Intestinal Tract, Via Natural or Artificial Opening Endoscopic (ICD-10-PCS; CPT 43235; principal; 2021-06-07 09:15)
DX: R13.10 Dysphagia, unspecified (principal); R93.3 Abnormal findings on diagnostic imaging of other parts of digestive tract; K44.9 Diaphragmatic hernia without obstruction or gangrene; R51.9 Headache, unspecified; J44.1 Chronic obstructive pulmonary disease with (acute) exacerbation; R91.8 Other nonspecific abnormal finding of lung field; E46 Unspecified protein-calorie malnutrition; Z68.1 Body mass index [BMI] 19.9 or less, adult; W19.XXXS Unspecified fall, sequela; I10 Essential (primary) hypertension; E78.2 Mixed hyperlipidemia; Z86.73 Personal history of transient ischemic attack (TIA), and cerebral infarction without residual deficits; Z87.891 Personal history of nicotine dependence; Z79.01 Long term (current) use of anticoagulants; Z20.822 Contact with and (suspected) exposure to COVID-19
CPT/HCPCS: 43235; 36415; 70450; 71250; 72125; 80053; 82550; 83735; 83880; 84100; 84484; 85025; 85610; 85730; 87635; 93005; 94640; 94760; 94762; 96361; 96374; 96375; 99152; 99224; 99285; C9803; G0378; J2250; J2270; J2405; J2930

== ENCOUNTER 2021-06-30 16:25 | Emergency (ER) | payer MEDICAID, OTHER, SELFPAY ==
[2021-06-06 22:55] VITALS: BMI 15.1
[2021-06-30] VITALS (14 sets, daily range): BP systolic 109–156; BP diastolic 64–92; PULSE 85–107; RESP 20–24; TEMP 37.1; O2SAT 84–99; BMI 15.3
--- NOTE | 2021-06-30 17:05 | DI.RAD.S_ITS ---
PROCEDURE: XR CHEST 2V INDICATIONS: shortness of breath TECHNIQUE: 2 views of the chest were acquired. COMPARISON: [facility], , XR CHEST 2V, 04/05/2021, 15:34. FINDINGS: Surgical changes and devices: None. Lungs and pleura: Lungs are clear. No pleural effusions or pneumothorax. Pulmonary hyperinflation and chronic interstitial changes noted. Mediastinum: Mediastinal contours are normal. Heart size is normal. Bones and chest wall: No suspicious bony abnormalities. Soft tissues appear unremarkable. Right-sided rib fractures present. IMPRESSION: Hyperinflation and chronic interstitial changes without focal infiltrate Old healed right-sided rib fractures Approved by: Darrin Cox M.D. on 06/30/2021 at 16:51
[2021-06-30 17:26] LABS: COVID19 -Nasal RAPID Negative (Negative)
[2021-06-30 17:44] LABS: Add Manual Diff / Slide Review NO; Basophils Absolute Auto 0 /uL (0-100); Basophils Percent Auto 0.3 % (0-2); Eosinophils Absolute Auto 700 /uL (0-450); Eosinophils Percent Auto 6.8 % (2-4); Hematocrit 39.5 % (36-46); Hemoglobin 13.1 g/dL (12.0-16.0); Lymphocytes Absolute Auto 1400 /uL (1100-4500); Lymphocytes Percent Auto 13.5 % (25-40); Mean Corpuscular HGB Conc 33.2 % (30-36); Mean Corpuscular Hemoglobin 29.9 PG (26-34); Mean Corpuscular Volume 89.8 fL (80-100); Monocytes Absolute Auto 1000 /uL (0-900); Monocytes Percent Auto 9.4 % (3-14); Neutrophils Absolute Auto 7300 /uL (1500-7000); Platelet Count 360 X10^3/uL (150-400); Red Cell Distribution Width 14.4 % (11.6-14.8); White Blood Cell Count 10.5 X10^3/uL (4.5-11.0)
[2021-06-30 17:55] LABS: Alanine Aminotransferase 26 IU/L (<35); Albumin 4.7 g/dL (3.5-5.0); Albumin Globulin Ratio 1.3 (1.0-2.8); Alkaline Phosphatase 88 U/L (38-126); Aspartate Aminotransferase 35 IU/L (14-36); Bilirubin Total 0.5 mg/dL (0.2-1.3); Blood Urea Nitrogen 20 mg/dL (7-17); Calcium 9.6 mg/dL (8.4-10.2); Carbon Dioxide 36 mmol/L (22-32); Chloride 95 mmol/L (98-107); Creatine Kinase 78 U/L (30-135); Estimated Glomerular Filt Rate 49.6 mL/min (>60); Globulin 3.5 g/dL (1.7-4.1); Glucose 92 mg/dL (80-110); HEMOLYSIS < 15 (0-50); Potassium 3.1 mmol/L (3.4-5.1); Sodium 139 mmol/L (137-145); Total Protein 8.2 g/dL (6.3-8.2)
[2021-06-30 17:56] LABS: Lactate (Lactic Acid) 2.8 mmol/L (0.7-2.1)
[2021-06-30 18:04] LABS: NT-proBNP (BNP-Adult 18+) 231 pg/mL (<125)
[2021-06-30 18:07] LABS: Troponin I < 0.012 ng/mL (0.01-0.034)
--- NOTE | 2021-06-30 18:51 | ED_ITS ---
HPI - General Adult General Chief complaint: Shortness of Breath/Dyspnea Stated complaint: headache/neck pain x1 day Time Seen by Provider: 06/30/21 18:39 Source: patient Mode of arrival: Wheelchair Limitations: no limitations History of Present Illness HPI narrative: Patient is a 65-year-old female. History of COPD. Not on anticoagulation. Here for evaluation for symptoms that occurred earlier today. She states that she was at her normal state health. She was at the grocery store. She states that she started pushing the grocery cart she had some shortness of breath. No chest pain. She also states that her head felt very have the in she was ?foggy ?. She did not fall over. Symptoms have improved si nce the onset. She denied any palpitations. She has been taking all of medications as directed. She is also having neck pain but this is not new for her. Tingling in her arms or legs. Related Data Home Medications Medication Instructions Recorded Confirmed bupropion HCl 300 mg 24 hr tablet, 300 mg PO DAILY #0 10/09/17 06/06/21 extended release clopidogrel 75 mg tablet 75 mg PO DAILY #0 10/09/17 06/06/21 docusate sodium 100 mg capsule 100 mg PO BID PRN #0 10/09/17 06/06/21 alendronate 70 mg tablet 70 mg PO QWEEK 08/10/18 06/06/21 cholecalciferol (vitamin D3) 25 1,000 unit PO DAILY 08/10/18 06/06/21 mcg (1,000 unit) tablet loratadine 10 mg tablet 10 mg PO BEDTIME 08/10/18 06/06/21 atorvastatin 40 mg tablet 40 mg PO BEDTIME 04/27/19 06/06/21 pantoprazole 40 mg tablet,delayed 40 mg PO DAILY 04/27/19 06/06/21 release amlodipine 2.5 mg tablet 2.5 mg PO DAILY 08/28/20 06/06/21 hydrochlorothiazide 12.5 mg tablet 12.5 mg PO DAILY 08/28/20 06/06/21 hydroxyzine HCl 50 mg tablet 50 mg PO BEDTIME 08/28/20 06/06/21 cyclobenzaprine 5 mg tablet 5 mg PO BID 09/27/20 06/06/21 ondansetron HCl 4 mg tablet 4 mg PO DAILY PRN 06/06/21 06/06/21 Previous Rx's Medication Instructions Recorded citalopram 20 mg tablet (Celexa) 20 mg PO DAILY #30 tab 05/10/18 albuterol sulfate 90 mcg/actuation 1 inh INHALATION Q4-6H PRN #18 gram 10/01/19 aerosol inhaler tiotropium bromide 18 mcg capsule 1 cap INHALATION DAILY #30 inh 09/28/20 with inhalation device (Spiriva with HandiHaler) prednisone 20 mg tablet 40 mg PO DAILY #4 tab 06/07/21 Allergies Allergy/AdvReac Type Severity Reaction Status Date / Time codeine [CODEINE] Allergy Severe NAUSEA / Verified 06/30/21 19:52 VOMITING latex Allergy Rash Verified 06/30/21 19:52 lisinopril Allergy Verified 06/30/21 19:52 Review of Systems Constitutional Constitutional: Denies fatigue, Denies fever(s) and Denies headache(s) Eyes Eyes: Reports system reviewed and no additional complaints, except as documented ENT Ears, Nose, Mouth, and Throat: Denies vertigo, Denies dizziness, Denies headache(s) and Denies sore throat Cardiovascular Cardiovascular: Reports as per HPI, Denies chest pain and Reports dyspnea Respiratory Respiratory: Denies cough and Reports dyspnea Gastrointestinal Gastrointestinal: Denies abdominal pain, Denies nausea and Denies vomiting Musculoskeletal Musculoskeletal: Reports system reviewed and no additional complaints, except as documented Integumentary/Breasts Skin/Breast: Reports system reviewed and no additional complaints, except as documented Neurologic Neurologic: Denies vertigo, Denies dizziness and Denies headache(s) Endocrine Endocrine: Denies fatigue Hematologic/Lymphatic On Anticoagulants: No Patient History Medical History Alcohol abuse, in remission COPD (chronic obstructive pulmonary disease) Hypertension Irritable bowel syndrome (IBS) Neck pain with history of cervical spinal surgery Pancreatitis Stage 2 moderate COPD by GOLD classification Stroke Tobacco abuse, in remission Urinary tract infection Surgical History History of neck surgery History of spinal surgery Total knee replacement status Family History Unknown Adopted Son No problems noted. Other Family history non-contributory Social History household members: none Smoking Status: Former smoker alcohol intake: former Smoking Status: Former smoker alcohol intake frequency: other Substance Use Type: does not use Exam Initial Vital Signs Initial Vital Signs: Vital Signs Temperature 98.8 F 06/30/21 16:49 Pulse Rate 106 H 06/30/21 16:49 Respiratory Rate 24 06/30/21 16:49 Blood Pressure 136/71 06/30/21 16:49 Pulse Oximetry 96 06/30/21 16:49 Const General: cooperative and comfortable HENMT Head: normal to inspection and normocephalic Eyes General: appearance normal, both eyes and all related structures Pupils: PERRL Chest Chest: No tenderness Resp Effort & Inspection: normal respiratory effort Auscultation: clear to auscultation bilaterally Cardio Rate: regular rate Rhythm: regular rhythm GI Inspection: normal to inspection Skin General: no rashes or lesions noted Neuro General: patient alert, patient awake and patient oriented x3 Speech: speech normal Motor: muscle tone normal throughout Sensory Exam: no sensory deficits noted Extrem General: normal to inspection and capillary refill normal Psych Appearance: grossly normal Course Orders Ordered: ED Orders 06/30/21 16:55 COVID19 -Nasal swab/Pre-Proc Stat 06/30/21 17:05 XR chest 2V Stat EKG-12 Lead Stat Measure peak expiratory flow ONCE RT Consult Eval and Treat Now 06/30/21 17:22 Complete Blood Count AUTO DIFF Stat Comprehensive Metabolic Panel Stat Lactate (Lactic Acid) Stat NT-proBNP (BNP-Adult 18+) Stat Troponin & CK Cardiac Panel Stat 06/30/21 18:53 CT head/brain wo con Stat Discontinued Medications Hydrocodone Bitart/Acetaminophen (Hydrocodone/Acet 5/325 Tablet) 1 tab PO NOW ONE Stop: 06/30/21 18:54 Last Admin: 06/30/21 18:58 Dose: 1 tab Documented by: YAHIR Cyclobenzaprine HCl (Cyclobenzaprine 10 Mg Tablet) 10 mg PO NOW ONE Stop: 06/30/21 20:32 Last Admin: 06/30/21 20:38 Dose: 10 mg Documented by: NATHANAEL Potassium Chloride (Potassium Chloride 10 Meq Tab) 20 meq PO NOW ONE Stop: 06/30/21 18:54 Last Admin: 06/30/21 19:28 Dose: 20 meq Documented by: MIMI Vital Signs Vital signs: Vital Signs - 8 hr 06/30/21 16:49 06/30/21 17:08 06/30/21 17:24 Temperature 98.8 F Pulse Rate 106 H 98 H 99 H Respiratory Rate 24 24 23 Blood Pressure 136/71 141/84 H Pulse Oximetry 96 84 L 95 06/30/21 17:30 06/30/21 18:00 06/30/21 18:19 Temperature Pulse Rate 96 H 96 H 107 H Respiratory Rate 23 23 24 Blood Pressure 142/83 H 148/84 H 121/76 Pulse Oximetry 93 93 92 06/30/21 18:30 06/30/21 19:00 06/30/21 19:30 Temperature Pulse Rate 90 95 H 93 H Respiratory Rate 21 22 20 Blood Pressure 156/91 H 133/72 Pulse Oximetry 97 95 06/30/21 19:51 06/30/21 20:00 06/30/21 20:30 Temperature Pulse Rate 91 H 86 85 Respiratory Rate 21 23 21 Blood Pressure 127/92 H Pulse Oximetry 99 06/30/21 20:38 06/30/21 20:49 Temperature Pulse Rate 92 H 91 H Respiratory Rate 24 22 Blood Pressure 109/64 109/64 Pulse Oximetry 93 95 Medical Decision Making Medical Records Medical records reviewed: Yes I reviewed the patient's medical records. Lab Data Lab results reviewed: Yes I reviewed the patient's lab results. Result diagrams: 06/30/21 17:22 06/30/21 17:22 Labs: Lab Results 06/30/21 06/30/21 06/30/21 Range/Units 16:55 17:22 17:22 WBC 10.5 (4.5-11.0) X10^3/uL RBC 4.40 (4.0-5.2) X10^6/uL Hgb 13.1 (12.0-16.0) g/dL Hct 39.5 (36-46) % MCV 89.8 (80-100) fL MCH 29.9 (26-34) PG MCHC 33.2 (30-36) % RDW 14.4 (11.6-14.8) % Plt Count 360 (150-400) X10^3/uL Neut % (Auto) 70.0 (50-75) % Lymph % (Auto) 13.5 L (25-40) % [place] % (Auto) 9.4 (3-14) % Eos % (Auto) 6.8 H (2-4) % Baso % (Auto) 0.3 (0-2) % Neut # (Auto) 7300 H (1960-5841) /uL Lymph # (Auto) 1400 (3509-8243) /uL [place] # (Auto) 1000 H (0-900) /uL Eos # (Auto) 700 H (0-450) /uL Baso # (Auto) 0 (0-100) /uL Sodium 139 (137-145) mmol/L Potassium 3.1 L (3.4-5.1) mmol/L Chloride 95 L (98-107) mmol/L Carbon Dioxide 36 H (22-32) mmol/L BUN 20 H (7-17) mg/dL Creatinine 1.11 H (0.52-1.04) mg/dL Estimated GFR 49.6 L (>60) mL/min BUN/Creatinine Ratio 18.0 (6-22) Glucose 92 (80-110) mg/dL Lactate (0.7-2.1) mmol/L Calcium 9.6 (8.4-10.2) mg/dL Total Bilirubin 0.5 (0.2-1.3) mg/dL AST 35 (14-36) IU/L ALT 26 (<35) IU/L Alkaline Phosphatase 88 (38-126) U/L Total Creatine Kinase (30-135) U/L CK-MB (CK-2) CK-MB (CK-2) Rel Index Troponin I (0.01-0.034) ng/mL NT-Pro-B Natriuret Pep 231 H (<125) pg/mL Total Protein 8.2 (6.3-8.2) g/dL Albumin 4.7 (3.5-5.0) g/dL Globulin 3.5 (1.7-4.1) g/dL Albumin/Globulin Ratio 1.3 (1.0-2.8) SARS-CoV-2 (PCR) Negative (Negative) 06/30/21 06/30/21 06/30/21 Range/Units 17:22 17:22 19:50 WBC (4.5-11.0) X10^3/uL RBC (4.0-5.2) X10^6/uL Hgb (12.0-16.0) g/dL Hct (36-46) % MCV (80-100) fL MCH (26-34) PG MCHC (30-36) % RDW (11.6-14.8) % Plt Count (150-400) X10^3/uL Neut % (Auto) (50-75) % Lymph % (Auto) (25-40) % [place] % (Auto) (3-14) % Eos % (Auto) (2-4) % Baso % (Auto) (0-2) % Neut # (Auto) (1658-3946) /uL Lymph # (Auto) (5873-3795) /uL [place] # (Auto) (0-900) /uL Eos # (Auto) (0-450) /uL Baso # (Auto) (0-100) /uL Sodium (137-145) mmol/L Potassium (3.4-5.1) mmol/L Chloride (98-107) mmol/L Carbon Dioxide (22-32) mmol/L BUN (7-17) mg/dL Creatinine (0.52-1.04) mg/dL Estimated GFR (>60) mL/min BUN/Creatinine Ratio (6-22) Glucose (80-110) mg/dL Lactate 2.8 H 1.6 (0.7-2.1) mmol/L Calcium (8.4-10.2) mg/dL Total Bilirubin (0.2-1.3) mg/dL AST (14-36) IU/L ALT (<35) IU/L Alkaline Phosphatase (38-126) U/L Total Creatine Kinase 78 (30-135) U/L CK-MB (CK-2) TNP CK-MB (CK-2) Rel Index TNP Troponin I < 0.012 (0.01-0.034) ng/mL NT-Pro-B Natriuret Pep (<125) pg/mL Total Protein (6.3-8.2) g/dL Albumin (3.5-5.0) g/dL Globulin (1.7-4.1) g/dL Albumin/Globulin Ratio (1.0-2.8) SARS-CoV-2 (PCR) (Negative) Urine Dip Bedside Urine Glucose Negative Bedside Urine Bilirubin - Negative Bedside Urine Ketone - Negative Urine Specific [place] 1.015 Bedside Urine Occult Blood - Negative Bedside Urine pH 7.0 Bedside Urine Protein - Negative Bedside Urine Urobilinogen - Negative Bedside Urine Nitrite - Negative Bedside Urine Leukocytes - Negative Esterase Point of care testing: Urine Dip Bedside Urine Glucose Negative Bedside Urine Bilirubin - Negative Bedside Urine Ketone - Negative Urine Specific [place] 1.015 Bedside Urine Occult Blood - Negative Bedside Urine pH 7.0 Bedside Urine Protein - Negative Bedside Urine Urobilinogen - Negative Bedside Urine Nitrite - Negative Bedside Urine Leukocytes - Negative Esterase Imaging Data Chest x-ray: Radiologist's Impression: [address] [address] XRay Report Signed Patient: Rosmery Marquis MR#: [id number] : 1955 Acct:[id number] Age/Sex: 65 / F Date of Service: 06/30/21 Loc: ED Accession Number: [id number] ?? Procedure: XR chest 2V Ordering Provider: Brea Hernandez D.O. PROCEDURE:? XR CHEST 2V ? INDICATIONS:? shortness of breath ? TECHNIQUE:? 2 views of the chest were acquired.? ? COMPARISON:? [facility], , XR CHEST 2V, 04/05/2021, 15:34. ? FINDINGS:? ? Surgical changes and devices:? None.? ? Lungs and pleura:? Lungs are clear.? No pleural effusions or pneumothorax.? Pulmonary hyperinflation and chronic interstitial changes noted. ? Mediastinum:? Mediastinal contours are normal.? Heart size is normal.? ? Bones and chest wall:? No suspicious bony abnormalities.? Soft tissues appear unremarkable.? Right-sided rib fractures present. ? IMPRESSION:? ? Hyperinflation and chronic interstitial changes without focal infiltrate Old healed right-sided rib fractures ? ? ? Approved by: Darrin Cox M.D. on 06/30/2021 at 16:51? CT scan - head: Radiologist's Impression: [address] [address] [address] Scan Report Signed Patient: Rosmery Marquis MR#: [id number] : 1955 Acct:[id number] Age/Sex: 65 / F Date of Service: 06/30/21 Loc: ED Accession Number: [id number] ?? Procedure: CT head/brain wo con Ordering Provider: Doug Godoy D.O. PROCEDURE:? CT HEAD/BRAIN WO CON ? INDICATIONS:? Lightheadedness, confusion ? TECHNIQUE:? Noncontrast 4.5 mm thick angled axial sections acquired from the foramen magnum to the vertex, with coronal and sagittal reformats.? For radiation dose reduction, the following was used:? automated exposure control, adjustment of mA and/or kV according to patient size.? ? COMPARISON:? [facility], CT, CT HEAD/BRAIN WO CON, 06/06/2021, 19:22. ? FINDINGS:? Image quality:? Excellent.? ? CSF spaces:? Basal cisterns are patent.? No extra-axial fluid collections.? Ventricles are normal in size and shape.? ? Brain:? No midline shift.? No intracranial masses or hemorrhage.? Encephalomalacia in the right cerebellum is unchanged. ? Skull and face:? Calvarium and visualized facial bones are intact, without suspicious lesions.? Upper cervical spine fixation hardware partially visualized.? ? Sinuses:? Visualized sinuses and mastoids are clear.? ? IMPRESSION:? No acute intracranial abnormality. ? Stable encephalomalacia in the right cerebellum. ? ? Dictated by: Kenny Cardenas M.D. on 06/30/2021 at 19:42 ? ? Approved by: Kenny Cardenas M.D. on 06/30/2021 at 19:43?? [facility] Narrative Medical decision making narrative: Patient's symptoms have all but resolved. Head CT is unremarkable. Lungs are clear. Not hypoxic. No respiratory distress. Chest x-ray shows no signs of pneumonia. I have low suspicion for CVA. Low suspicion for TIA. Low suspicion for ACS. Patient's potassium is somewhat low. This could be because she used her albuterol in nebulizer prior to coming in because of the shortness of breath. She tolerated the oral potassium without difficulty. Feel that we could hold on further workup for now. Patient is safe for discharge home. Patient agrees with this. She was given return precautions. She expressed understanding and agreement. Discharge Plan Departure Patient Disposition: Home Clinical Impression: Neck pain, Shortness of breath, Lightheaded Instructions: DI for Chronic Obstructive Pulmonary Disease Activity Restrictions/Additional Instructions: Continue to take all of your medications as directed had on Friday contact your primary doctor for a follow-up. Return to the emergency department for any new or worsening symptoms Prescriptions: No Action albuterol sulfate 90 mcg/actuation HFA aerosol inhaler 1 inh INHALATION Q4-6H PRN (Reason: shortness of breath) Qty: 18 RF: 0 docusate sodium 100 MG capsule 100 mg PO BID PRN (Reason: Constipation) Qty: 0 RF: 0 clopidogrel 75 MG tablet 75 mg PO DAILY Qty: 0 RF: 0 bupropion HCl 300 MG tablet extended release 24 hr 300 mg PO DAILY Qty: 0 RF: 0 citalopram [Celexa] 20 mg tablet 20 mg PO DAILY Qty: 30 RF: 0 hydroxyzine HCl 50 mg Tablet 50 mg PO BEDTIME RF: 0 amlodipine 2.5 mg Tablet 2.5 mg PO DAILY RF: 0 hydrochlorothiazide 12.5 mg Tablet 12.5 mg PO DAILY RF: 0 alendronate 70 mg tablet 70 mg PO QWEEK RF: 0 loratadine 10 mg tablet 10 mg PO BEDTIME RF: 0 cholecalciferol (vitamin D3) 1,000 unit tablet 1,000 unit PO DAILY RF: 0 atorvastatin 40 mg tablet 40 mg PO BEDTIME RF: 0 pantoprazole 40 mg tablet,delayed release (DR/EC) 40 mg PO DAILY RF: 0 cyclobenzaprine 5 mg tablet 5 mg PO BID RF: 0 Spiriva with HandiHaler 18 mcg Capsule, W/Inhalation Device 1 cap INHALATION DAILY Qty: 30 RF: 0 ondansetron HCl 4 mg tablet 4 mg PO DAILY PRN (Reason: Nausea) RF: 0 prednisone 20 mg Tablet 40 mg PO DAILY Qty: 4 RF: 0 Referrals: Kandi Malhotra MD [Primary Care Provider] -
--- NOTE | 2021-06-30 18:53 | DI.CT.S_ITS ---
PROCEDURE: CT HEAD/BRAIN WO CON INDICATIONS: Lightheadedness, confusion TECHNIQUE: Noncontrast 4.5 mm thick angled axial sections acquired from the foramen magnum to the vertex, with coronal and sagittal reformats. For radiation dose reduction, the following was used: automated exposure control, adjustment of mA and/or kV according to patient size. COMPARISON: [facility], CT, CT HEAD/BRAIN WO CON, 06/06/2021, 19:22. FINDINGS: Image quality: Excellent. CSF spaces: Basal cisterns are patent. No extra-axial fluid collections. Ventricles are normal in size and shape. Brain: No midline shift. No intracranial masses or hemorrhage. Encephalomalacia in the right cerebellum is unchanged. Skull and face: Calvarium and visualized facial bones are intact, without suspicious lesions. Upper cervical spine fixation hardware partially visualized. Sinuses: Visualized sinuses and mastoids are clear. IMPRESSION: No acute intracranial abnormality. Stable encephalomalacia in the right cerebellum. Dictated by: Kenny Cardenas M.D. on 06/30/2021 at 19:42 Approved by: Kenny Cardenas M.D. on 06/30/2021 at 19:43
[2021-06-30] MEDS: HYDROCODONE/ACET 5/325 TABLET 1 TAB PO (18:58)
[2021-06-30] MEDS: POTASSIUM CHLORIDE 10 MEQ TAB 20 MEQ PO (19:28)
[2021-06-30 19:38] LABS: Reflexed Lactate in 2 Hours Y
[2021-06-30 20:05] LABS: Lactate 2HR (Lactic Acid Rflx) 1.6 mmol/L (0.7-2.1)
[2021-06-30] MEDS: CYCLOBENZAPRINE 10 MG TABLET PO (20:38)
== END 2021-06-30 20:49 | disposition home or self-care (01) ==
PROVIDERS: Emergency Medicine; Emergency Provider Emergency Medicine; Family Provider Family Medicine; PCP Family Medicine
DX: M54.2 Cervicalgia (principal); R06.02 Shortness of breath; R42 Dizziness and giddiness; Z20.822 Contact with and (suspected) exposure to COVID-19
CPT/HCPCS: 36415; 70450; 71046; 80053; 81003; 82550; 83605; 83880; 84484; 85025; 87635; 93005; 99284; C9803

== ENCOUNTER → 2021-07-16 12:44 | Outpatient (CLI) | payer MEDICAID, OTHER, SELFPAY ==
[2021-06-06 22:55] VITALS: BMI 15.1
[2021-07-16 15:21] LABS: COVID19 -Nasal RAPID Negative (Negative)
== END ==
PROVIDERS: Family Provider Family Medicine; PCP Family Medicine; Referring Provider Internal Medicine; Visit Provider Internal Medicine
DX: Z20.822 Contact with and (suspected) exposure to COVID-19 (principal)
CPT/HCPCS: 87635; C9803

== ENCOUNTER → 2021-07-16 15:43 | Outpatient (CLI) | payer MEDICAID, OTHER, SELFPAY ==
[2021-06-06 22:55] VITALS: BMI 15.1
--- NOTE | 2021-07-20 11:28 | PM.PFT.1 ---
Pulmonary Function Test Referral & Results Date Patient Seen: 07/16/21 Requesting provider: Quoc Mcintosh Results: The spirometry demonstrates an FVC of 1.29 L which is 46% of predicted. The FEV1 was measured at 0.48 L which is 22% of predicted. The FEV1/FVC ratio was 38 which is 40% of predicted. Following the administration of bronchodilator there was a 48% improvement in FEV1 and a 90% improvement in FEF 25-75% Lung volumes show an SVC of 1.72 L which is 64% of predicted. The diffusing capacity was measured at 9.38 which is 47% of predicted. No hemoglobin value was provided, so no correction for potential anemia could be made, if appropriate. The maximum voluntary ventilation was completed due to patient's inability to perform Interpretation: This study demonstrates severe obstructive lung disease with FEV1 of less than 500 cc. There is evidence of significant benefit following bronchodilator as above There is also moderately severe restrictive lung disease based on reduction SVC There is also moderately severe reduction diffusing capacity suggesting significant disease at the capillary alveolar level Altogether this is consistent with a diagnosis of severe COPD
== END ==
PROVIDERS: Family Provider Family Medicine; PCP Family Medicine; Referring Provider Thoracic Surgery (Cardiothoracic Vascular Surgery); Visit Provider Thoracic Surgery (Cardiothoracic Vascular Surgery)
DX: R91.1 Solitary pulmonary nodule (principal); Z87.891 Personal history of nicotine dependence; J98.8 Other specified respiratory disorders; Z20.822 Contact with and (suspected) exposure to COVID-19
CPT/HCPCS: 87635; 94060; 94726; 94729; C9803

== ENCOUNTER 2021-08-16 13:40 | Emergency (ER) | payer MEDICAID, OTHER, SELFPAY ==
[2021-06-06 22:55] VITALS: BMI 15.1
--- NOTE | 2021-08-16 13:53 | DI.RAD.S_ITS ---
PROCEDURE: XR CHEST 2V INDICATIONS: shortness of breath TECHNIQUE: 2 views of the chest were acquired. COMPARISON: [facility], , XR CHEST 2V, 06/30/2021, 17:04. FINDINGS: Surgical changes and devices: Cholecystectomy clips. Lungs and pleura: Lungs are clear. No pleural effusions or pneumothorax. Lungs are hyperinflated suggesting COPD. Mediastinum: Mediastinal contours are normal. Heart size is normal. Bones and chest wall: Chronic right 5th and 8th rib fractures are stable. No suspicious bony abnormalities. Soft tissues appear unremarkable. IMPRESSION: No acute cardiopulmonary disease process. Dictated by: Fouzia Euceda MD, PhD on 08/16/2021 at 15:32 Approved by: Fouzia Euceda MD, PhD on 08/16/2021 at 15:33
[2021-08-16 13:57] VITALS: BP 150/84; PULSE 113; RESP 30; TEMP 37; O2SAT 94; BMI 15.1
[2021-08-16 14:25] LABS: COVID19 -Nasal RAPID Negative (Negative)
[2021-08-16 14:30] LABS: Add Manual Diff / Slide Review NO; Basophils Absolute Auto 100 /uL (0-100); Basophils Percent Auto 0.9 % (0-2); Eosinophils Absolute Auto 400 /uL (0-450); Hematocrit 38.1 % (36-46); Hemoglobin 12.7 g/dL (12.0-16.0); Lymphocytes Absolute Auto 1400 /uL (1100-4500); Lymphocytes Percent Auto 17.3 % (25-40); Mean Corpuscular HGB Conc 33.3 % (30-36); Mean Corpuscular Hemoglobin 29.6 PG (26-34); Monocytes Absolute Auto 900 /uL (0-900); Monocytes Percent Auto 11.4 % (3-14); Neutrophils Absolute Auto 5400 /uL (1500-7000); Neutrophils Percent Auto 65.4 % (50-75); Platelet Count 443 X10^3/uL (150-400); Red Blood Cell Count 4.28 X10^6/uL (4.0-5.2); Red Cell Distribution Width 14.2 % (11.6-14.8); White Blood Cell Count 8.2 X10^3/uL (4.5-11.0)
[2021-08-16 14:41] LABS: Lactate (Lactic Acid) 3.7 mmol/L (0.7-2.1)
[2021-08-16 14:42] LABS: Alanine Aminotransferase 23 IU/L (<35); Albumin 4.7 g/dL (3.5-5.0); Albumin Globulin Ratio 1.3 (1.0-2.8); Alkaline Phosphatase 112 U/L (38-126); Aspartate Aminotransferase 38 IU/L (14-36); BUN Creatinine Ratio 24.8 (6-22); Bilirubin Total 0.4 mg/dL (0.2-1.3); Blood Urea Nitrogen 27 mg/dL (7-17); Calcium 10.1 mg/dL (8.4-10.2); Carbon Dioxide 31 mmol/L (22-32); Chloride 91 mmol/L (98-107); Estimated Glomerular Filt Rate 50.7 mL/min (>60); Globulin 3.6 g/dL (1.7-4.1); Glucose 102 mg/dL (80-110); HEMOLYSIS 21 (0-50); Potassium 3.5 mmol/L (3.4-5.1); Sodium 137 mmol/L (137-145); Total Protein 8.3 g/dL (6.3-8.2)
[2021-08-16] MEDS: methylPREDNISolone 125 MG/2 ML VIAL IV (15:10)
[2021-08-16] MEDS: ALBUTEROL/IPRATROPIUM 3 ML AMPUL INH (15:18)
[2021-08-16 15:19] VITALS: PULSE 98; RESP 20; O2SAT 93
[2021-08-16 15:28] LABS: Creatine Kinase 97 U/L (30-135)
[2021-08-16 15:41] LABS: NT-proBNP (BNP-Adult 18+) 308 pg/mL (<125); Troponin I < 0.012 ng/mL (0.01-0.034)
[2021-08-16 16:26] LABS: Reflexed Lactate in 2 Hours Y
[2021-08-16 17:08] LABS: Lactate 2HR (Lactic Acid Rflx) 1.5 mmol/L (0.7-2.1)
[2021-08-16 17:18] VITALS: PULSE 87; O2SAT 91
--- NOTE | 2021-08-16 17:29 | ED.SOB ---
HPI - SOB/Dyspnea General Chief Complaint: Shortness of Breath/Dyspnea Stated Complaint: SOB Time Seen by Provider: 08/16/21 15:18 Source: patient Mode of arrival: Ambulatory History of Present Illness HPI Narrative: Patient is a 55-year-old female history of COPD, stroke in 1999, hypertension, major depression, recovering alcoholic for 12 years who regularly attends AA meetings, presents today with increasing shortness of breath. She says at least for last 3-4 days he has had increasing shortness of breath and difficulty breathing. She tried calling her primary care provider she thought that she needed steroids however I she was unable to get in. She says she is more short of breath when she gets up and moves around. She has some tightness in her chest. She is trying cough things up but is unable to do so. She denies any fever or chills. Related Data Home Medications Medication Instructions Recorded Confirmed bupropion HCl 300 mg 24 hr tablet, 300 mg PO DAILY #0 10/09/17 06/06/21 extended release clopidogrel 75 mg tablet 75 mg PO DAILY #0 10/09/17 06/06/21 docusate sodium 100 mg capsule 100 mg PO BID PRN #0 10/09/17 06/06/21 alendronate 70 mg tablet 70 mg PO QWEEK 08/10/18 06/06/21 cholecalciferol (vitamin D3) 25 1,000 unit PO DAILY 08/10/18 06/06/21 mcg (1,000 unit) tablet loratadine 10 mg tablet 10 mg PO BEDTIME 08/10/18 06/06/21 atorvastatin 40 mg tablet 40 mg PO BEDTIME 04/27/19 06/06/21 pantoprazole 40 mg tablet,delayed 40 mg PO DAILY 04/27/19 06/06/21 release amlodipine 2.5 mg tablet 2.5 mg PO DAILY 08/28/20 06/06/21 hydrochlorothiazide 12.5 mg tablet 12.5 mg PO DAILY 08/28/20 06/06/21 hydroxyzine HCl 50 mg tablet 50 mg PO BEDTIME 08/28/20 06/06/21 cyclobenzaprine 5 mg tablet 5 mg PO BID 09/27/20 06/06/21 ondansetron HCl 4 mg tablet 4 mg PO DAILY PRN 06/06/21 06/06/21 Previous Rx's Medication Instructions Recorded citalopram 20 mg tablet (Celexa) 20 mg PO DAILY #30 tab 05/10/18 albuterol sulfate 90 mcg/actuation 1 inh INHALATION Q4-6H PRN #18 gram 10/01/19 aerosol inhaler tiotropium bromide 18 mcg capsule 1 cap INHALATION DAILY #30 inh 09/28/20 with inhalation device (Spiriva with HandiHaler) prednisone 20 mg tablet 40 mg PO DAILY #4 tab 06/07/21 albuterol sulfate 90 mcg/actuation 2 puff INHALATION Q4-6H PRN #8.5 08/16/21 aerosol inhaler gram doxycycline hyclate 100 mg capsule 100 mg PO BID #20 cap 08/16/21 prednisone 10 mg tablet 10 mg PO DAILY #30 tab 08/16/21 Allergies Allergy/AdvReac Type Severity Reaction Status Date / Time codeine [CODEINE] Allergy Severe NAUSEA / Verified 08/16/21 13:59 VOMITING latex Allergy Rash Verified 08/16/21 13:59 lisinopril Allergy Verified 08/16/21 13:59 Review of Systems Review of Systems Narrative: GENERAL: Denies chills, fatigue, malaise, fever, sweats, travel HEENT: Denies sinus pain, ear pain, sore throat, difficulty swallowing, neck pain RESPIRATORY: See HPI CARDIOVASCULAR: Denies chest pain, palpitations, orthopnea, edema GASTROINTESTINAL: Denies nausea, vomiting, abdominal pain, diarrhea, constipation, melena. : Denies dysuria, frequency, incontinence, hematuria, urinary retention, flank pain. MUSCULOSKELETAL: Denies weakness, joint pain, or bony pain SKIN: No rash, no erythema, no pruritus NEUROLOGIC: Denies weakness, dizziness, headache, numbness, change in speech, confusion PSYCHIATRIC: No concerning psychosocial issues. 12 point review of systems is negative except for those stated above and HPI Patient History Medical History Alcohol abuse, in remission COPD (chronic obstructive pulmonary disease) Hypertension Irritable bowel syndrome (IBS) Neck pain with history of cervical spinal surgery Pancreatitis Stage 2 moderate COPD by GOLD classification Stroke Tobacco abuse, in remission Urinary tract infection Surgical History History of neck surgery History of spinal surgery Total knee replacement status Family History Unknown Adopted Son No problems noted. Other Family history non-contributory Social History household members: none Smoking Status: Former smoker alcohol intake: former Smoking Status: Former smoker alcohol intake frequency: other Substance Use Type: does not use Exam Initial Vital Signs Initial Vital Signs: Vital Signs Temperature 98.6 F 08/16/21 13:57 Pulse Rate 113 H 08/16/21 13:57 Respiratory Rate 30 H 08/16/21 13:57 Blood Pressure 150/84 H 08/16/21 13:57 Pulse Oximetry 94 08/16/21 13:57 GENERAL: 65-year-old female BMI 15, has now received DuoNeb and is in no respiratory distress HEENT: Head atraumatic,EOMI, pupils reactive, face symmetric, moist mucous membranes CARDIOVASCULAR: Regular rate and rhythm without murmurs, rubs or gallops. RESPIRATORY: Slightly decreased breath sounds bilaterally no wheezing speaks in full sentences ABDOMEN: Soft, nontender. Normoactive bowel sounds all 4 quadrants. No guarding or rebound. EXTREMITIES: Normal range of motion, no clubbing or edema. Neurovascularly intact NEUROLOGICAL: Alert and oriented x4.Normal gait and speech. SKIN: Warm, dry, no laceration, no petechiae, no rashes or lesions. Course Orders Ordered: ED Orders 08/16/21 13:50 COVID19 -Nasal swab/Pre-Proc Stat 08/16/21 13:53 XR chest 2V Stat EKG-12 Lead Stat RT Consult Eval and Treat NOW 08/16/21 14:20 BNP [NT-proBNP (BNP-Adult 18+)] Stat Complete Blood Count AUTO DIFF Stat Comprehensive Metabolic Panel Stat Lactate (Lactic Acid) Stat Troponin & CK Cardiac Panel Stat 08/16/21 17:36 CT angio chest PE protocol Stat Discontinued Medications Albuterol (Albuterol Hfa Prepack) 1 box MISC SEEINSTR ONE Stop: 08/16/21 18:30 Last Admin: 08/16/21 18:32 Dose: 1 box Documented by: DIONICIO Albuterol/Ipratropium (Albuterol/Ipratropium 3 Ml Ampul) 3 ml INH NOW ONE Stop: 08/16/21 15:06 Last Admin: 08/16/21 15:18 Dose: 3 ml Documented by: HEATHERRANArash Methylprednisolone (Methylprednisolone 125 Mg/2 Ml Vial) 125 mg IV NOW ONE Stop: 08/16/21 15:06 Last Admin: 08/16/21 15:10 Dose: 125 mg Documented by: FALGUNI Vital Signs Vital signs: Vital Signs - 8 hr 08/16/21 13:57 08/16/21 15:19 08/16/21 17:18 Temperature 98.6 F Pulse Rate 113 H 98 H 87 Respiratory Rate 30 H 20 Blood Pressure 150/84 H Pulse Oximetry 94 93 91 08/16/21 17:30 08/16/21 18:07 08/16/21 18:08 Temperature Pulse Rate 92 H 97 H 97 H Respiratory Rate Blood Pressure 142/68 H 127/99 H Pulse Oximetry 92 93 95 MDM - SOB/Dyspnea Lab Data Result diagrams: 08/16/21 14:20 08/16/21 14:20 Labs: Lab Results 08/16/21 08/16/21 08/16/21 Range/Units 13:50 14:20 14:20 WBC 8.2 (4.5-11.0) X10^3/uL RBC 4.28 (4.0-5.2) X10^6/uL Hgb 12.7 (12.0-16.0) g/dL Hct 38.1 (36-46) % MCV 89.0 (80-100) fL MCH 29.6 (26-34) PG MCHC 33.3 (30-36) % RDW 14.2 (11.6-14.8) % Plt Count 443 H (150-400) X10^3/uL Neut % (Auto) 65.4 (50-75) % Lymph % (Auto) 17.3 L (25-40) % [place] % (Auto) 11.4 (3-14) % Eos % (Auto) 5.0 H (2-4) % Baso % (Auto) 0.9 (0-2) % Neut # (Auto) 5400 (4966-9418) /uL Lymph # (Auto) 1400 (0184-2509) /uL [place] # (Auto) 900 (0-900) /uL Eos # (Auto) 400 (0-450) /uL Baso # (Auto) 100 (0-100) /uL Sodium 137 (137-145) mmol/L Potassium 3.5 (3.4-5.1) mmol/L Chloride 91 L (98-107) mmol/L Carbon Dioxide 31 (22-32) mmol/L BUN 27 H (7-17) mg/dL Creatinine 1.09 H (0.52-1.04) mg/dL Estimated GFR 50.7 L (>60) mL/min BUN/Creatinine Ratio 24.8 H (6-22) Glucose 102 (80-110) mg/dL Lactate (0.7-2.1) mmol/L Calcium 10.1 (8.4-10.2) mg/dL Total Bilirubin 0.4 (0.2-1.3) mg/dL AST 38 H (14-36) IU/L ALT 23 (<35) IU/L Alkaline Phosphatase 112 (38-126) U/L Total Creatine Kinase (30-135) U/L CK-MB (CK-2) CK-MB (CK-2) Rel Index Troponin I (0.01-0.034) ng/mL NT-Pro-B Natriuret Pep (<125) pg/mL Total Protein 8.3 H (6.3-8.2) g/dL Albumin 4.7 (3.5-5.0) g/dL Globulin 3.6 (1.7-4.1) g/dL Albumin/Globulin Ratio 1.3 (1.0-2.8) SARS-CoV-2 (PCR) Negative (Negative) 08/16/21 08/16/21 08/16/21 Range/Units 14:20 14:20 16:43 WBC (4.5-11.0) X10^3/uL RBC (4.0-5.2) X10^6/uL Hgb (12.0-16.0) g/dL Hct (36-46) % MCV (80-100) fL MCH (26-34) PG MCHC (30-36) % RDW (11.6-14.8) % Plt Count (150-400) X10^3/uL Neut % (Auto) (50-75) % Lymph % (Auto) (25-40) % [place] % (Auto) (3-14) % Eos % (Auto) (2-4) % Baso % (Auto) (0-2) % Neut # (Auto) (5452-7613) /uL Lymph # (Auto) (6530-4812) /uL [place] # (Auto) (0-900) /uL Eos # (Auto) (0-450) /uL Baso # (Auto) (0-100) /uL Sodium (137-145) mmol/L Potassium (3.4-5.1) mmol/L Chloride (98-107) mmol/L Carbon Dioxide (22-32) mmol/L BUN (7-17) mg/dL Creatinine (0.52-1.04) mg/dL Estimated GFR (>60) mL/min BUN/Creatinine Ratio (6-22) Glucose (80-110) mg/dL Lactate 3.7 H 1.5 (0.7-2.1) mmol/L Calcium (8.4-10.2) mg/dL Total Bilirubin (0.2-1.3) mg/dL AST (14-36) IU/L ALT (<35) IU/L Alkaline Phosphatase (38-126) U/L Total Creatine Kinase 97 (30-135) U/L CK-MB (CK-2) TNP CK-MB (CK-2) Rel Index TNP Troponin I < 0.012 (0.01-0.034) ng/mL NT-Pro-B Natriuret Pep 308 H (<125) pg/mL Total Protein (6.3-8.2) g/dL Albumin (3.5-5.0) g/dL Globulin (1.7-4.1) g/dL Albumin/Globulin Ratio (1.0-2.8) SARS-CoV-2 (PCR) (Negative) Imaging Data Chest x-ray: Radiologist's Impression: PROCEDURE:? XR CHEST 2V ? INDICATIONS:? shortness of breath ? TECHNIQUE:? 2 views of the chest were acquired.? ? COMPARISON:? [facility], , XR CHEST 2V, 06/30/2021, 17:04. ? FINDINGS:? ? Surgical changes and devices:? Cholecystectomy clips.? ? Lungs and pleura:? Lungs are clear.? No pleural effusions or pneumothorax.? Lungs are hyperinflated suggesting COPD.? ? Mediastinum:? Mediastinal contours are normal.? Heart size is normal.? ? Bones and chest wall:? Chronic right 5th and 8th rib fractures are stable.? No suspicious bony abnormalities.? Soft tissues appear unremarkable.? ? IMPRESSION:? No acute cardiopulmonary disease process. ? ? Dictated by: Fouzia Euceda MD, PhD on 08/16/2021 at 15:32 ? ? Approved by: Fouzia Euceda MD, PhD on 08/16/2021 at 15:33 ? CT scan - chest: Radiologist's Impression: PROCEDURE:? CT ANGIO CHEST PE PROTOCOL ? INDICATIONS:? short of breath lung cancer ? TECHNIQUE:? 2After the administration of intravenous contrast, 2 mm thick sections acquired from the pulmonary apices to the posterior costophrenic angles.? 3-dimensional maximum intensity projection (MIP) coronal and sagittal reformats were then acquired through the thorax.? For radiation dose reduction, the following was used:? automated exposure control, adjustment of mA and/or kV according to patient size.? ? COMPARISON:? [facility], CT, CT VERAN CHEST, 07/25/2021, 7:02. ? FINDINGS:? Image quality:? Excellent.? ? Pulmonary arteries:? Pulmonary arteries are normal in size, and demonstrate no intraluminal filling defects to suggest central pulmonary embolism.? ? Lungs and pleura:? Left upper lobe spiculated4 nodule is again noted similar in size.? There is increasing internal cavitation.? Moderate centrilobular pulmonary emphysema present.? No focal infiltrate.? Ill-defined right upper lobe ground-glass densities and somewhat nodular appearance in the left upper lobe. ? Mediastinum:? Heart size is normal, without pericardial effusion.? No mediastinal or hilar adenopathy.? Thoracic aorta is normal in caliber and enhancement.? Mild atherosclerotic vascular calcification noted.? Esophagus is normal in caliber, without hiatal hernia.? ? Bones and chest wall:? No suspicious bony lesions.? Ribs and thoracic spine appear intact throughout.? Thyroid gland unremarkable.? No axillary or supraclavicular adenopathy.? ? Abdomen:? Visualized upper abdominal solid organs appear normal in the early arterial phase of enhancement.? ? IMPRESSION:? ? 1. No evidence of pulmonary embolism, aortic dissection or aneurysm. ? 2. Spiculated left upper lobe mass lesion is stable in size and shows increasing internal cavitation. ? 3. Upper lobe bilateral ground-glass densities measure less than 1 cm are ill-defined but new from the prior exam.? Primary differential an infectious or inflammatory pneumonitis. ?Consider short-term interval follow-up.? ? Dictated by: Darrin Cox M.D. on 08/16/2021 at 17:10 ? ? ECG Data Interpretation: Sinus rhythm rate 98 MS interval 140 QRS D [address] changes MDM Narrative Medical decision making narrative: Patient has history of COPD this is likely COPD exacerbation however she also has new lung cancer she is currently awaiting radiation which she should start next week. CT angio was done to rule out pulmonary embolism which did not show pulmonary embolism but did show possible growing mass. Patient is breathing much better after DuoNebs and Solu-Medrol. She is discharged home with outpatient treatment. Discharge Plan Departure Patient Disposition: Home Clinical Impression: COPD exacerbation Instructions: Chronic Obstructive Pulmonary Disease Activity Restrictions/Additional Instructions: *You have been diagnosed with COPD exacerbation *What to do: Thank you for your patience today, will start you on medication to hopefully make you feel better. No sign of pneumonia or blood clot today. Your mass in your lung is growing, please follow up with oncology *Continue to take medications as directed Prednisone taper as directed 40 mg for 3 days, 30 mg for 3 days, 20 mg for 3 days, 10 mg for 3 days Albuterol inhaler 1-2 puffs every 4 hours if needed for shortness of breath Doxycycline 100 mg twice a day day for 7 days *Follow up with your primary care provider in 2-3 days *Return to ER if you should have increasing shortness of breath, chest pain or any new, worsening or concerning symptoms Prescriptions: New prednisone 10 mg tablet 10 mg PO DAILY Qty: 30 0RF Rx Instructions: day 1-3: 40 mg once a day day 4-6: 30 mg once a day day 7-9: 20 mg once a day day 10-12: 10 mg once a day doxycycline hyclate 100 mg capsule 100 mg PO BID Qty: 20 0RF albuterol sulfate 90 mcg/actuation HFA aerosol inhaler 2 puff INHALATION Q4-6H PRN (Reason: shortness of breath or wheezing) Qty: 8.5 0RF No Action albuterol sulfate 90 mcg/actuation HFA aerosol inhaler 1 inh INHALATION Q4-6H PRN (Reason: shortness of breath) Qty: 18 0RF docusate sodium 100 MG capsule 100 mg PO BID PRN (Reason: Constipation) Qty: 0 0RF clopidogrel 75 MG tablet 75 mg PO DAILY Qty: 0 0RF bupropion HCl 300 MG tablet extended release 24 hr 300 mg PO DAILY Qty: 0 0RF citalopram [Celexa] 20 mg tablet 20 mg PO DAILY Qty: 30 0RF hydroxyzine HCl 50 mg Tablet 50 mg PO BEDTIME 0RF amlodipine 2.5 mg Tablet 2.5 mg PO DAILY 0RF hydrochlorothiazide 12.5 mg Tablet 12.5 mg PO DAILY 0RF alendronate 70 mg tablet 70 mg PO QWEEK 0RF Label Comments: take 1 tablet by mouth every week loratadine 10 mg tablet 10 mg PO BEDTIME 0RF cholecalciferol (vitamin D3) 1,000 unit tablet 1,000 unit PO DAILY 0RF Label Comments: take 1 tablet by mouth once daily atorvastatin 40 mg tablet 40 mg PO BEDTIME 0RF pantoprazole 40 mg tablet,delayed release (DR/EC) 40 mg PO DAILY 0RF cyclobenzaprine 5 mg tablet 5 mg PO BID 0RF Label Comments: take 1 tablet by mouth twice a day if needed for muscle spasm Spiriva with HandiHaler 18 mcg Capsule, W/Inhalation Device 1 cap INHALATION DAILY Qty: 30 0RF ondansetron HCl 4 mg tablet 4 mg PO DAILY PRN (Reason: Nausea) 0RF Label Comments: take 1 tablet by mouth once daily prednisone 20 mg Tablet 40 mg PO DAILY Qty: 4 0RF Referrals: Kandi Malhotra MD [Primary Care Provider] -
[2021-08-16 17:30] VITALS: BP 142/68; PULSE 92; O2SAT 92
--- NOTE | 2021-08-16 17:36 | DI.CT.S_ITS ---
PROCEDURE: CT ANGIO CHEST PE PROTOCOL INDICATIONS: short of breath lung cancer TECHNIQUE: 2After the administration of intravenous contrast, 2 mm thick sections acquired from the pulmonary apices to the posterior costophrenic angles. 3-dimensional maximum intensity projection (MIP) coronal and sagittal reformats were then acquired through the thorax. For radiation dose reduction, the following was used: automated exposure control, adjustment of mA and/or kV according to patient size. COMPARISON: [facility], CT, CT VER CHEST, 07/25/2021, 7:02. FINDINGS: Image quality: Excellent. Pulmonary arteries: Pulmonary arteries are normal in size, and demonstrate no intraluminal filling defects to suggest central pulmonary embolism. Lungs and pleura: Left upper lobe spiculated4 nodule is again noted similar in size. There is increasing internal cavitation. Moderate centrilobular pulmonary emphysema present. No focal infiltrate. Ill-defined right upper lobe ground-glass densities and somewhat nodular appearance in the left upper lobe. Mediastinum: Heart size is normal, without pericardial effusion. No mediastinal or hilar adenopathy. Thoracic aorta is normal in caliber and enhancement. Mild atherosclerotic vascular calcification noted. Esophagus is normal in caliber, without hiatal hernia. Bones and chest wall: No suspicious bony lesions. Ribs and thoracic spine appear intact throughout. Thyroid gland unremarkable. No axillary or supraclavicular adenopathy. Abdomen: Visualized upper abdominal solid organs appear normal in the early arterial phase of enhancement. IMPRESSION: 1. No evidence of pulmonary embolism, aortic dissection or aneurysm. 2. Spiculated left upper lobe mass lesion is stable in size and shows increasing internal cavitation. 3. Upper lobe bilateral ground-glass densities measure less than 1 cm are ill-defined but new from the prior exam. Primary differential an infectious or inflammatory pneumonitis. Consider short-term interval follow-up. Dictated by: Darrin Cox M.D. on 08/16/2021 at 17:10 Approved by: Darrin Cox M.D. on 08/16/2021 at 17:21
[2021-08-16 18:07] VITALS: PULSE 97; O2SAT 93
[2021-08-16 18:08] VITALS: BP 127/99; PULSE 97; O2SAT 95
[2021-08-16] MEDS: ALBUTEROL HFA PREPACK 1 BOX MISC (18:32)
== END 2021-08-16 18:39 | disposition home or self-care (01) ==
PROVIDERS: Emergency Provider Emergency Medicine; Family Provider Family Medicine; PCP Family Medicine
DX: J44.1 Chronic obstructive pulmonary disease with (acute) exacerbation (principal); C34.90 Malignant neoplasm of unspecified part of unspecified bronchus or lung
CPT/HCPCS: 36415; 71046; 71275; 80053; 82550; 83605; 83880; 84484; 85025; 87635; 93005; 94640; 96374; 99284; C9803; J2930; Q9967

== ENCOUNTER 2022-01-25 20:40 | Emergency (ER) | payer MEDICAID, OTHER, SELFPAY ==
[2021-06-06 22:55] VITALS: BMI 15.1
[2022-01-25 20:42] VITALS: PULSE 100; O2SAT 99
--- NOTE | 2022-01-25 20:42 | DI.RAD.S_ITS ---
PROCEDURE: XR HAND LT MIN 3V INDICATIONS: fall with left hand injury TECHNIQUE: Three views of the hand(s) acquired. COMPARISON: None. FINDINGS: Bones: No fractures or dislocations. Carpal bones are normally aligned. No suspicious bony lesions. Soft tissues: There is extensive chondrocalcinosis at the medial wrist at the triangular fibrocartilage and radiocarpal articulations. IMPRESSION: 1. No acute fracture. 2. Chronic appearing medial wrist degeneration. Dictated by: Beatriz Rosen M.D. on 01/25/2022 at 21:42 Approved by: Beatriz Rosen M.D. on 01/25/2022 at 21:43
--- NOTE | 2022-01-25 20:42 | DI.CT.S_ITS ---
PROCEDURE: CT HEAD/BRAIN WO CON INDICATIONS: fall, head injury, coumadin TECHNIQUE: Noncontrast 4.5 mm thick angled axial sections acquired from the foramen magnum to the vertex, with coronal and sagittal reformats. For radiation dose reduction, the following was used: automated exposure control, adjustment of mA and/or kV according to patient size. COMPARISON: [facility], CT, CT HEAD/BRAIN WO CON, 06/30/2021, 19:15. FINDINGS: Image quality: Excellent. CSF spaces: Basal cisterns are patent. No extra-axial fluid collections. Ventricles are normal in size and shape. Brain: No midline shift. No intracranial masses or hemorrhage. Martinez-white matter interface is normal. Right cerebellar hemisphere encephalomalacia. Skull and face: Calvarium and visualized facial bones are intact, without suspicious lesions. There is fixation hardware partially imaged in the upper cervical spine. Sinuses: Visualized sinuses and mastoids are clear. IMPRESSION: 1. No CT evidence of acute intracranial trauma. 2. Chronic right cerebellar hemisphere encephalomalacia. Dictated by: Beatriz Rosen M.D. on 01/25/2022 at 21:53 Approved by: Beatriz Rosen M.D. on 01/25/2022 at 21:56
--- NOTE | 2022-01-25 20:42 | DI.CT.S_ITS ---
PROCEDURE: CT CERVICAL SPINE WO CON INDICATIONS: fall with neck pain TECHNIQUE: Noncontrast 3 mm thick sections acquired from the skull base to the T4 level. Sagittal and coronal reformats were then constructed. For radiation dose reduction, the following was used: automated exposure control, adjustment of mA and/or kV according to patient size. COMPARISON: [facility], CT, CT CERVICAL SPINE WO CON, 06/06/2021, 19:22. FINDINGS: Image quality: Excellent. Bones: The craniocervical junction is intact. There is surgical fixation hardware between C1 and C2. The hardware components appear intact. There has been laminectomy from C4 through C6. There are severe multilevel degenerative disc, endplate, and facet joint changes. Moderately prominent chronic anterior endplate spurs and multilevel uncovertebral joint hypertrophy. There is severe bilateral neural foraminal narrowing.. Incidental note made of severe degeneration at the right temporomandibular joint. There is a chronic discontinuity at the left C4 transverse process. No acute fractures. There is no pathologic subluxation. Chronic grade 1 anterolisthesis C4 on five and kyphosis with the C5-6 apex. The visible ribs are intact. Soft tissues: Prevertebral soft tissues are normal in thickness. No paravertebral hematomas. No apical pneumothoraces. IMPRESSION: 1. No CT evidence of acute cervical spine fracture. 2. There are postsurgical changes throughout the cervical spine as well as severe degenerative change. Dictated by: Beatriz Rosen M.D. on 01/25/2022 at 21:56 Approved by: Beatriz Rosen M.D. on 01/25/2022 at 22:05
--- NOTE | 2022-01-25 20:43 | ED_ITS ---
HPI - Fall General Chief Complaint: Trauma Stated Complaint: Dizzy/Fall Time Seen by Provider: 01/25/22 20:42 History of Present Illness HPI Narrative: 66-year-old female former smoker with history of COPD on home oxygen presents by EMS for evaluation of a ground level fall with head injury. She also has atrial fibrillation and is anticoagulated. She has full recall of the event and denies any loss of consciousness, nausea, vomiting, blurred vision. She went for a walk at the park and did not take any supplemental oxygen and became fatigued and fell as a result. On EMS arrival they found her saturations to be in the low to mid 80s which improved rapidly when they put her on her routine at 2 L. She does have some neck pain but denies numbness, tingling or weakness of her ex tremities. She has no chest pain, abdominal pain, nausea, vomiting or diarrhea. She denies injury to extremities other than a skin tear on the dorsum of her left hand. She is activated as a modified trauma given fall with head injury on anticoagulation Related Data Home Medications Medication Instructions Recorded Confirmed bupropion HCl 300 mg 24 hr tablet, 300 mg PO DAILY #0 10/09/17 06/06/21 extended release clopidogrel 75 mg tablet 75 mg PO DAILY #0 10/09/17 06/06/21 docusate sodium 100 mg capsule 100 mg PO BID PRN #0 10/09/17 06/06/21 alendronate 70 mg tablet 70 mg PO QWEEK 08/10/18 06/06/21 cholecalciferol (vitamin D3) 25 1,000 unit PO DAILY 08/10/18 06/06/21 mcg (1,000 unit) tablet loratadine 10 mg tablet 10 mg PO BEDTIME 08/10/18 06/06/21 atorvastatin 40 mg tablet 40 mg PO BEDTIME 04/27/19 06/06/21 pantoprazole 40 mg tablet,delayed 40 mg PO DAILY 04/27/19 06/06/21 release amlodipine 2.5 mg tablet 2.5 mg PO DAILY 08/28/20 06/06/21 hydrochlorothiazide 12.5 mg tablet 12.5 mg PO DAILY 08/28/20 06/06/21 hydroxyzine HCl 50 mg tablet 50 mg PO BEDTIME 08/28/20 06/06/21 cyclobenzaprine 5 mg tablet 5 mg PO BID 09/27/20 06/06/21 ondansetron HCl 4 mg tablet 4 mg PO DAILY PRN 06/06/21 06/06/21 Previous Rx's Medication Instructions Recorded citalopram 20 mg tablet (Celexa) 20 mg PO DAILY #30 tab 05/10/18 albuterol sulfate 90 mcg/actuation 1 inh INHALATION Q4-6H PRN #18 gram 10/01/19 aerosol inhaler tiotropium bromide 18 mcg capsule 1 cap INHALATION DAILY #30 inh 09/28/20 with inhalation device (Spiriva with HandiHaler) prednisone 20 mg tablet 40 mg PO DAILY #4 tab 06/07/21 albuterol sulfate 90 mcg/actuation 2 puff INHALATION Q4-6H PRN #8.5 08/16/21 aerosol inhaler gram doxycycline hyclate 100 mg capsule 100 mg PO BID #20 cap 08/16/21 prednisone 10 mg tablet 10 mg PO DAILY #30 tab 08/16/21 cyclobenzaprine 10 mg tablet 10 mg PO TID PRN #14 tab 01/25/22 Allergies Allergy/AdvReac Type Severity Reaction Status Date / Time codeine [CODEINE] Allergy Severe NAUSEA / Verified 01/25/22 20:47 VOMITING latex Allergy Rash Verified 01/25/22 20:47 lisinopril Allergy Verified 01/25/22 20:47 Review of Systems Review of Systems Narrative: GENERAL: Denies chills, fatigue, malaise, fever, sweats. HEENT: Denies sinus pain, ear pain, sore throat, difficulty swallowing, dizzine ss. RESPIRATORY: See HPI CARDIOVASCULAR: Denies chest pain, palpitations, orthopnea, edema, GASTROINTESTINAL: Denies nausea, vomiting, abdominal pain, diarrhea, constipation, melena. : Denies dysuria, frequency, incontinence, hematuria, urinary retention. MUSCULOSKELETAL: denies weakness, joint pain, or bony pain SKIN: Denies rash, skin lesions, or other NEUROLOGIC: Denies weakness, headache, numbness, change in speech, confusion, seizures, incoordination. PSYCHIATRIC: No concerning psychosocial issues. 12 point review of systems is negative except for those stated above Patient History Medical History Alcohol abuse, in remission COPD (chronic obstructive pulmonary disease) Hypertension Irritable bowel syndrome (IBS) Neck pain with history of cervical spinal surgery Pancreatitis Stage 2 moderate COPD by GOLD classification Stroke Tobacco abuse, in remission Urinary tract infection Surgical History History of neck surgery History of spinal surgery Total knee replacement status Family History Unknown Adopted Son No problems noted. Other Family history non-contributory Social History household members: none Smoking Status: Former smoker alcohol intake: former Smoking Status: Former smoker alcohol intake frequency: other Substance Use Type: does not use Exam Narrative Exam Narrative: GENERAL: [66] year old patient appears stated age. Well-developed patient, in mild distress. GCS 15 HEAD: Small contusion left parietal region, no significant hematoma, laceration or evidence of depressed skull fracture EYES: Pupils equal round and reactive. No hyphema Extraocular motions intact. No scleral icterus. No injection or drainage. ENT: Nose without bleeding, purulent drainage. No nasal septal hematoma or evidence of bleeding Throat without erythema, tonsillar hypertrophy or exudate. Airway patent. NECK: Trachea midline. No midline tenderness, step-offs or crepitance, the she does have some tenderness overlying the paraspinal musculature CARDIOVASCULAR: Regular rate and rhythm without murmurs, gallops, or rubs. RESPIRATORY: Clear to auscultation. Breath sounds equal bilaterally. No wheezes, rales, or rhonchi. GASTROINTESTINAL: Abdomen soft, non-tender, nondistended. EXTREMITIES: Superficial skin tear on dorsum of left hand, no active bleeding, no bony tenderness. No tenderness to palpation of other extremities BACK: Nontender without deformity or crepitance. No flank tenderness. NEURO: AOx3. SKIN: No rash or erythema of visible areas Initial Vital Signs Initial Vital Signs: Vital Signs Pulse Rate 100 H 01/25/22 20:42 Pulse Oximetry 99 01/25/22 20:42 Course Orders Ordered: ED Orders 01/25/22 20:42 CT cervical spine wo con Stat CT head/brain wo con Stat XR hand LT min 3V Stat 01/25/22 20:50 HH [Hemoglobin and Hematocrit] Stat Prothrombin Time INR Stat Discontinued Medications Hydrocodone Bitart/Acetaminophen (Hydrocodone/Acet 5/325 Prepack) 1 bottle MISC SEEINSTR ONE Stop: 01/25/22 22:14 Last Admin: 01/25/22 22:19 Dose: 1 bottle Documented by: [email or web address] Vital Signs Vital signs: Vital Signs - 8 hr 01/25/22 20:42 01/25/22 20:47 01/25/22 21:00 Temperature 98.4 F Pulse Rate 100 H 99 H 97 H Respiratory Rate 24 21 Blood Pressure 151/87 H 155/74 H Pulse Oximetry 99 99 98 01/25/22 21:30 01/25/22 22:00 01/25/22 22:20 Temperature Pulse Rate 91 H 94 H 94 H Respiratory Rate 20 24 20 Blood Pressure 128/75 Pulse Oximetry 99 96 97 MDM - Fall Lab Data Result diagrams: 01/25/22 20:50 Labs: Lab Results 01/25/22 01/25/22 Range/Units 20:50 20:50 Hgb 13.0 (12.0-16.0) g/dL Hct 38.6 (36-46) % PT 11.8 (10.1-12.7) SECONDS INR 1.1 (0.9-1.3) Imaging Data CT scan - head: Radiologist's Impression: [place] [address] CT Scan Report Signed Patient: Tenisha Redd MR#: [id number] : 01/24/2002 Acct:[id number] Age/Sex: 20 / F Date of Service: 01/25/22 Loc: ED Accession Number: [id number] ?? Procedure: CT abdomen pelvis w con Ordering Provider: Erich Almonte D.O. PROCEDURE:? CT ABDOMEN PELVIS W CON ? INDICATIONS:? severe RLQ pain, N/V, fever, appy? ? TECHNIQUE:? After the administration of intravenous contrast, axial sections acquired from the lung bases to the pubic symphysis.? Coronal and sagittal reformats were performed.? For radiation dose reduction, the following was used:? automated exposure control, adjustment of mA and/or kV according to patient size.? ? COMPARISON:? None. ? FINDINGS:? Image quality:? Excellent.? ? Lung bases:? Clear lung bases.? No hiatal hernia.? ? Heart:? Normal size heart without visible pericardial effusion. ? ABDOMEN: Liver:? No masses Gallbladder:? Normal wall thickness. Biliary ducts:? Nondilated. Pancreas:? Normal. Spleen:? Normal size. Adrenal Glands:? No nodules. Kidneys and Ureters:? Normal enhancement.? No hydronephrosis or hydroureter.? No calcifications. ? Stomach and Bowel:? There is a fluid-filled blind-ending structure in the right lower quadrant with hyperemic wall, dilated to about 9 mm in diameter consistent with the appendix.? In appendicoliths is not seen.? Stomach, small bowel, and colon are otherwise normal. Peritoneum:? There is a small amount of free fluid in the pelvis posteriorly.? No free air. ? Ventral Wall: ? No hernias.? Abdominal Nodes:? No retroperitoneal or mesenteric adenopathy by size criteria.? Vessels:? Aorta and inferior vena cava are normal in size.? Retro aortic left renal vein. ? PELVIS: Pelvic Organs:? There is an involuting peripherally vascular corpus luteum in the right ovary.? The left ovary was not well seen.? The uterus appears normal. Bladder:? Decompressed. Pelvic Nodes: No enlarged lymph nodes.? Miscellaneous: No hernias are seen. ? ? ? Bones:? Congenital S1 superior endplate irregularity.? Trace anterolisthesis L5- S1. ? ? IMPRESSION:? ? 1. Findings consistent with acute appendicitis.? No evidence of abscess. ? 2. Involuting right ovarian corpus luteum.? ? ? Dictated by: Beatriz Rosen M.D. on 01/25/2022 at 21:47 ? ? Approved by: Beatriz Rosen M.D. on 01/25/2022 at 21:52 ? CT - cervical spine: Radiologist's Impression: [place] [address] CT Scan Report Signed Patient: Rosmery Marquis MR#: [id number] : 1955 Acct:[id number] Age/Sex: 66 / F Date of Service: 01/25/22 Loc: ED Accession Number: [id number] ?? Procedure: CT cervical spine wo con Ordering Provider: Erich Almonte D.O. PROCEDURE:? CT CERVICAL SPINE WO CON ? INDICATIONS:? fall with neck pain ? TECHNIQUE:? Noncontrast 3 mm thick sections acquired from the skull base to the T4 level.? Sagittal and coronal reformats were then constructed.? For radiation dose reduction, the following was used:? automated exposure control, adjustment of mA and/or kV according to patient size.? ? COMPARISON:? [facility], CT, CT CERVICAL SPINE WO CON, 06/06/2021, 19:22. ? FINDINGS:? Image quality:? Excellent.? ? Bones:? The craniocervical junction is intact.? There is surgical fixation hardware between C1 and C2.? The hardware components appear intact.? There has been laminectomy from C4 through C6.? ? There are severe multilevel degenerative disc, endplate, and facet joint changes.? Moderately prominent chronic anterior endplate spurs and multilevel uncovertebral joint hypertrophy.? There is severe bilateral neural foraminal narrowing..? Incidental note made of severe degeneration at the right temporomandibular joint.? ? There is a chronic discontinuity at the left C4 transverse process.? No acute fractures.? ? ? There is no pathologic subluxation.? Chronic grade 1 anterolisthesis C4 on five and kyphosis with the C5-6 apex.? The visible ribs are intact. ? Soft tissues:? Prevertebral soft tissues are normal in thickness.? No paravertebral hematomas.? No apical pneumothoraces.? ? ? IMPRESSION:? ? 1. No CT evidence of acute cervical spine fracture. ? 2. There are postsurgical changes throughout the cervical spine as well as severe? degenerative change. ? Dictated by: Beatriz Rosen M.D. on 01/25/2022 at 21:56 ? ? Approved by: Beatriz Rosen M.D. on 01/25/2022 at 22:05 ? Discharge Plan Departure Patient Disposition: Home Clinical Impression: Cervical paraspinal muscle spasm, Contusion of scalp Instructions: DI for Trauma Activity Restrictions/Additional Instructions: *You have been diagnosed with [neck spasm and scalp contusion. As we discussed, thankfully your history and physical exam as well as CT scan of head and neck are very reassuring. There is no evidence of bleeding in your brain, fractured bone in your neck or other significant finding. Furthermore, the x-ray of your hand shows no fracture *What to do: *Please continue to take your regular medications as directed. [ x] New medication prescriptions sent to your pharmacy: [[facility] ] [ ] New medication written as a paper prescription [ ] No new medications given *Please follow up with your primary care provider in 2-3 days, call for an appointment. Let them know you were seen in the Emergency Department and that we ask that you be seen in follow up. We will electronically transmit a record of today's note if your PCP is in our system *If you do not have a primary care provider please contact the [facility] Resource line at [phone]. They will ask some questions about your medical history and help get you set up with a doctor in the community. *Return to Emergency Department if you should have any new, worsening or concerning symptoms, such as [fever greater than 101 F, shaking chills, worsening pain, persistent vomiting or other bothersome symptoms] Prescriptions: New cyclobenzaprine 10 mg tablet 10 mg PO TID PRN (Reason: muscle spasm) Qty: 14 0RF No Action albuterol sulfate 90 mcg/actuation HFA aerosol inhaler 1 inh INHALATION Q4-6H PRN (Reason: shortness of breath) Qty: 18 0RF docusate sodium 100 MG capsule 100 mg PO BID PRN (Reason: Constipation) Qty: 0 0RF clopidogrel 75 MG tablet 75 mg PO DAILY Qty: 0 0RF bupropion HCl 300 MG tablet extended release 24 hr 300 mg PO DAILY Qty: 0 0RF citalopram [Celexa] 20 mg tablet 20 mg PO DAILY Qty: 30 0RF hydroxyzine HCl 50 mg Tablet 50 mg PO BEDTIME 0RF amlodipine 2.5 mg Tablet 2.5 mg PO DAILY 0RF hydrochlorothiazide 12.5 mg Tablet 12.5 mg PO DAILY 0RF prednisone 10 mg tablet 10 mg PO DAILY Qty: 30 0RF Rx Instructions: day 1-3: 40 mg once a day day 4-6: 30 mg once a day day 7-9: 20 mg once a day day 10-12: 10 mg once a day doxycycline hyclate 100 mg capsule 100 mg PO BID Qty: 20 0RF albuterol sulfate 90 mcg/actuation HFA aerosol inhaler 2 puff INHALATION Q4-6H PRN (Reason: shortness of breath or wheezing) Qty: 8.5 0RF alendronate 70 mg tablet 70 mg PO QWEEK 0RF Label Comments: take 1 tablet by mouth every week loratadine 10 mg tablet 10 mg PO BEDTIME 0RF cholecalciferol (vitamin D3) 1,000 unit tablet 1,000 unit PO DAILY 0RF Label Comments: take 1 tablet by mouth once daily atorvastatin 40 mg tablet 40 mg PO BEDTIME 0RF pantoprazole 40 mg tablet,delayed release (DR/EC) 40 mg PO DAILY 0RF cyclobenzaprine 5 mg tablet 5 mg PO BID 0RF Label Comments: take 1 tablet by mouth twice a day if needed for muscle spasm Spiriva with HandiHaler 18 mcg Capsule, W/Inhalation Device 1 cap INHALATION DAILY Qty: 30 0RF ondansetron HCl 4 mg tablet 4 mg PO DAILY PRN (Reason: Nausea) 0RF Label Comments: take 1 tablet by mouth once daily prednisone 20 mg Tablet 40 mg PO DAILY Qty: 4 0RF Referrals: Kandi Malhotra MD [Primary Care Provider] -
[2022-01-25 20:47] VITALS: BP 151/87; PULSE 99; RESP 24; TEMP 36.9; O2SAT 99; BMI 16.3
[2022-01-25 21:00] VITALS: BP 155/74; PULSE 97; RESP 21; O2SAT 98
[2022-01-25 21:16] LABS: Hematocrit 38.6 % (36-46)
[2022-01-25 21:18] LABS: INR 1.1 (0.9-1.3); Prothrombin Time 11.8 SECONDS (10.1-12.7)
[2022-01-25 21:30] VITALS: PULSE 91; RESP 20; O2SAT 99
[2022-01-25 22:00] VITALS: PULSE 94; RESP 24; O2SAT 96
[2022-01-25] MEDS: HYDROCODONE/ACET 5/325 PREPACK 1 BOTTLE MISC (22:19)
[2022-01-25 22:20] VITALS: BP 128/75; PULSE 94; RESP 20; O2SAT 97
== END 2022-01-25 22:33 | disposition home or self-care (01) ==
PROVIDERS: Emergency Provider Emergency Medicine; Family Provider Family Medicine; PCP Family Medicine
DX: S00.03XA Contusion of scalp, initial encounter (principal); M62.838 Other muscle spasm; M54.2 Cervicalgia; S60.512A Abrasion of left hand, initial encounter; W18.30XA Fall on same level, unspecified, initial encounter; Y93.01 Activity, walking, marching and hiking; Z79.01 Long term (current) use of anticoagulants; Z99.81 Dependence on supplemental oxygen
CPT/HCPCS: 70450; 72125; 73130; 85014; 85018; 85610; 99284